=== PATIENT | female | born 1965 | race Caucasian/White ===

== ENCOUNTER → 2017-01-22 | Day surgery (SDC) | payer BC, OTHER ==
[2017-01-16 08:08] VITALS: BMI 36.0
[~2017-01-22] VITALS: Ht 157.5 cm; Wt 90.5 kg
[~2017-01-22] MED LIST: A & D OINTMENT EXT; BIMA0.01 OPB; BRIN3SUS OPB; CHOL1000 PO; CITRACAL PO; CRS/10 PO; DICY10CA55 PO; ESCI10TA17 PO; FERR1TAB13 PO; FURO-85 PO; GABA-113 PO; LACT3000 PO; LEVO50TA PO; METO50TA7 PO; MULT-190 PO; MULT-506 PO; ONDANSETRON INJ 2 MG/ML 2 ML VIAL IV PRN; OXYM0.0592 NAE; POLYSOL OPB; POTA10CA28 PO; PRLSR20 PO; TOPI50TA16 PO; TRAZ50TA35 PO; [UNRECOGNIZED DRUG - OTHER] OTB
[2017-01-22 10:15] VITALS: Ht 157.5 cm; Wt 90.5 kg
[2017-01-22 10:24] VITALS: TEMP 36.8
--- NOTE | 2017-01-22 10:32 | Endo History and Physical ---
History & Physical Date of Service: Jan 22, 2017. Chief Complaint: BARRETTS Referring Physician: DR. MOTA History of Present Illness patient with a history of GERD for barretts screening today. Past Surgical History Hx Cardiac Surgery: No Hx Internal Defibrillator: No Hx Pacemaker: No Hx Abdominal Surgery: Yes (HYSTERECTOMY; CHOLECYSTECTOMY; ECRP X2 IN 2012; MRCP ) Hx of Implantable Prosthesis: No Hx Post-Op Nausea and Vomiting: Yes Hx Cancer Surgery: No Hx Thoracic Surgery: No Hx Orthopedic: Yes (SINUS SURG) Hx Urinary Tract Surgery: Yes (CYSTOSCOPY) Social History Smoking Status: Never Smoker Hx Substance Use: No Hx Alcohol Use: No Allergies Coded Allergies: BEE STING (Verified Allergy, Unknown, localized swelling, 01/22/17) Tramadol (Verified Allergy, Unknown, SEVERE MOOD FLUCTUATIONS, 01/22/17) Current Medications Reported Home Medications Medications Dose Route/Sig Max Daily Dose Days Date Category Multivitamin (Multivitamins) Tab 1 Tab PO DAILY 12/14/16 Reported [Bebrox] 1 Drop OTB TID 12/14/16 Reported Ocuvite Preservision (Multivitamins/Minerals) 1 Tab Tab 1 Tab PO BID 12/14/16 Reported Lactaid (Lactase) 3,000 Unit Tab 1 Tab PO DIRECTED PRN 12/14/16 Reported Trazodone (Trazodone HCl) 50 Mg Tab 50 Mg PO HS 12/14/16 Reported Topamax (Topiramate) 50 Mg Tab 50 Mg PO HS 12/14/16 Reported Crestor (Rosuvastatin Calcium) 10 Mg Tab 10 Mg PO DAILY 12/14/16 Reported Lumigan (Bimatoprost) 0.01 % Miri 1 Drops OPB HS 30 12/14/16 Reported Simbrinza (Brinzolamide-Brimonidine Tartr) 1 Elsy Elsy 1 Drop OPB DIRECTED 12/14/16 Reported Refresh (Polyvinyl Alcohol-Povidone (Op) 1 Renato Renato 1 Drop OPB QID PRN 12/14/16 Reported Bentyl (Dicyclomine Hcl) 10 Mg Cap 10 Mg PO TID 12/14/16 Reported Kp Ferrous Sulfate (Ferrous Sulfate) 325 Mg Tab 1 Tab PO BID 30 12/14/16 Reported [A & D Ointment] 1 Appln EXT DAILY PRN 12/14/16 Reported Nasal [place] (Oxymetazoline Hcl) 0.05 % Spr 1 [place] ELIZA DIRECTED PRN 12/14/16 Reported Lexapro (Escitalopram Oxalate) 10 Mg Tab 10 Mg PO DAILY 12/14/16 Reported Prilosec (Omeprazole) 20 Mg Capcr 20 Mg PO BID 12/14/16 Reported Lasix (Furosemide) 20 Mg Tab 20 Mg PO DAILY 12/14/16 Reported [Citracal] 1 Tbs PO QAM 12/14/16 Reported Vitamin D3 (Cholecalciferol) 1,000 Unit Tab 1 Tab PO DAILY 90 12/10/16 Reported Micro-K Ext Rel (Potassium Chloride) 10 Meq Capcr 10 Meq PO DAILY 09/20/16 Reported Neurontin (Gabapentin) 300 Mg Cap 300 Mg PO TID 11/10/13 Reported Toprol-Xl (Metoprolol Succinate) 50 Mg Tabcr 50 Mg PO QAM 05/08/13 Reported Synthroid (Levothyroxine Sodium) 50 Mcg Tab 50 Mcg PO DAILY 03/24/13 Reported Vital Signs Weight (Kilograms): 90.45 Height (Feet): 5 Height (Inches): 2 Date Time Temp Pulse Resp B/P Pulse Ox O2 Delivery O2 Flow Rate FiO2 01/22/17 10:24 36.8 91 18 187/86 95 Room Air Physical Exam General Appearance: no apparent distress Respiratory/Chest: Auscultation: deminished air movement Cardiovascular: Heart Auscultation: II/ ALEXIS Abdomen: Inspection & Palpation: soft Assessment and Plan EGD for screening of Barretts Esophagus. Plan EGD today
--- NOTE | 2017-01-22 10:58 | GI REPORT ---
Procedure Date: 01/22/2017 10:14 AM Procedure: Upper GI endoscopy Indications: Epigastric abdominal pain, Follow-up of Rollins's esophagus Medicines: Monitored Anesthesia Care Complications: No immediate complications. Estimated blood loss: Minimal. Estimated Blood Loss: Estimated blood loss was minimal. Procedure: Pre-Anesthesia Assessment: - Prior to the procedure, a History and Physical was performed, and patient medications, allergies and sensitivities were reviewed. The patient's tolerance of previous anesthesia was reviewed. - The risks and benefits of the procedure and the sedation options and risks were discussed with the patient. All questions were answered and informed consent was obtained. - Patient identification and proposed procedure were verified prior to the procedure by the physician, the nurse and the public affairs specialist. The procedure was verified in the procedure room. - Pre-procedure physical examination revealed no contraindications to sedation. - ASA Grade Assessment: III - A patient with severe systemic disease. - After reviewing the risks and benefits, the patient was deemed in satisfactory condition to undergo the procedure. - The anesthesia plan was to use monitored anesthesia care (MAC). - Immediately prior to administration of medications, the patient was re-assessed for adequacy to receive sedatives. - The heart rate, respiratory rate, oxygen saturations, blood pressure, adequacy of pulmonary ventilation, and response to care were monitored throughout the procedure. - The physical status of the patient was re-assessed after the procedure. After obtaining informed consent, the endoscope was passed under direct vision. Throughout the procedure, the patient's blood pressure, pulse, and oxygen saturations were monitored continuously. The scope was introduced through the mouth, and advanced to the third part of duodenum. The upper GI endoscopy was accomplished without difficulty. The patient tolerated the procedure well. Findings: The upper third of the esophagus and middle third of the esophagus were normal. The esophagus and gastroesophageal junction were examined with white light. There were esophageal mucosal changes consistent with Rollins's esophagus. These changes involved the mucosa at the upper extent of the gastric folds (38 cm from the incisors) extending to the Z-line (36 cm from the incisors). Circumferential salmon-colored mucosa was present from 36 to 38 cm. The maximum longitudinal extent of these esophageal mucosal changes was 2 cm in length. Mucosa was biopsied with a cold forceps for histology. One specimen bottle was sent to pathology. Estimated blood loss was minimal. A small hiatus hernia was found. The proximal extent of the gastric folds (end of tubular esophagus) was 38 cm from the incisors. The hiatal narrowing was 40 cm from the incisors. The Z-line was 36 cm from the incisors. Diffuse mild inflammation characterized by erythema and granularity was found in the entire examined stomach. Biopsies were taken with a cold forceps for histology. Estimated blood loss was minimal. The duodenal bulb and 2nd part of the duodenum were normal. Impression: - Normal upper third of esophagus and middle third of esophagus. - Esophageal mucosal changes consistent with Rollins's esophagus. Biopsied. - Small hiatus hernia. - Gastritis. Biopsied. - Normal duodenal bulb and 2nd part of the duodenum. Recommendation: - Discharge patient to home (ambulatory). - Advance diet as tolerated today. - Await pathology results. - Repeat the upper endoscopy in 3 years for surveillance based on pathology results. - Continue present medications. Brady Ordoñez D.O. Brady Ordoñez, 01/22/2017 10:58:35 AM This report has been signed electronically. Note Initiated On: 01/22/2017 10:14 AM I attest to the content of the Intraoperative Record and orders documented therein, exceptions below
--- NOTE | 2017-01-22 11:00 | Discharge Instructions ---
Endoscopy Patient Instructions Date / Procedure(s) Performed Jan 22, 2017. EGD Allergy Information Coded Allergies: BEE STING (Verified Allergy, Unknown, localized swelling, 01/22/17) Tramadol (Verified Allergy, Unknown, SEVERE MOOD FLUCTUATIONS, 01/22/17) Discharge Date / Findings Jan 22, 2017. Small hiatal hernia 2 cm segment consistent with Barretts Esophagus Mild gastritis (likely related to medications) Medication Instructions Stopped Medication(s): PT. STOPPED EVERYTHING THIS MORNING. PT. STOPPED IRON 1 WEEK AGO. Reported Home Medications Medications Dose Route/Sig Max Daily Dose Days Date Category Multivitamin (Multivitamins) Tab 1 Tab PO DAILY 12/14/16 Reported [Bebrox] 1 Drop OTB TID 12/14/16 Reported Ocuvite Preservision (Multivitamins/Minerals) 1 Tab Tab 1 Tab PO BID 12/14/16 Reported Lactaid (Lactase) 3,000 Unit Tab 1 Tab PO DIRECTED PRN 12/14/16 Reported Trazodone (Trazodone HCl) 50 Mg Tab 50 Mg PO HS 12/14/16 Reported Topamax (Topiramate) 50 Mg Tab 50 Mg PO HS 12/14/16 Reported Crestor (Rosuvastatin Calcium) 10 Mg Tab 10 Mg PO DAILY 12/14/16 Reported Lumigan (Bimatoprost) 0.01 % Miri 1 Drops OPB HS 30 12/14/16 Reported Simbrinza (Brinzolamide-Brimonidine Tartr) 1 Elsy Elsy 1 Drop OPB DIRECTED 12/14/16 Reported Refresh (Polyvinyl Alcohol-Povidone (Op) 1 Renato Renato 1 Drop OPB QID PRN 12/14/16 Reported Bentyl (Dicyclomine Hcl) 10 Mg Cap 10 Mg PO TID 12/14/16 Reported Kp Ferrous Sulfate (Ferrous Sulfate) 325 Mg Tab 1 Tab PO BID 30 12/14/16 Reported [A & D Ointment] 1 Appln EXT DAILY PRN 12/14/16 Reported Nasal [place] (Oxymetazoline Hcl) 0.05 % Spr 1 [place] ELIZA DIRECTED PRN 12/14/16 Reported Lexapro (Escitalopram Oxalate) 10 Mg Tab 10 Mg PO DAILY 12/14/16 Reported Prilosec (Omeprazole) 20 Mg Capcr 20 Mg PO BID 12/14/16 Reported Lasix (Furosemide) 20 Mg Tab 20 Mg PO DAILY 12/14/16 Reported [Citracal] 1 Tbs PO QAM 12/14/16 Reported Vitamin D3 (Cholecalciferol) 1,000 Unit Tab 1 Tab PO DAILY 90 12/10/16 Reported Micro-K Ext Rel (Potassium Chloride) 10 Meq Capcr 10 Meq PO DAILY 09/20/16 Reported Neurontin (Gabapentin) 300 Mg Cap 300 Mg PO TID 11/10/13 Reported Toprol-Xl (Metoprolol Succinate) 50 Mg Tabcr 50 Mg PO QAM 05/08/13 Reported Synthroid (Levothyroxine Sodium) 50 Mcg Tab 50 Mcg PO DAILY 03/24/13 Reported Provider Instructions Activity Restrictions - No exercising or heavy lifting for 24 hours. - Do not drink alcohol the day of the procedure. - Do not drive a car or operate machinery until the day after the procedure. - Do not make any important decisions or sign important papers in 24 hours after the procedure. Following Day: - Return to full activity which may include returning to work/school. Diet Start your diet with liquids and light foods (jello, soup, juice, toast). Then eat your usual diet if not nauseated. Treatment For Common After Affects For mild abdominal pain, bloating, or excessive gas: - Rest - Eat lightly - Lie on right side Follow-Up Information Follow-up with DR. MOTA as scheduled Await pathology results Repeat EGD in 3 years if found to have intestinal metaplasia. Anesthesia Information What You Should Know You have had a procedure that required some medicine to reduce anxiety and discomfort. This treatment is called moderate sedation. After receiving the treatment, you may be sleepy, but you will be able to breathe on your own. The effects of the treatment may last for several hours. Follow these instructions along with Activity/Diet recommendations noted above: * Do NOT do anything where dizziness or clumsiness would be dangerous. * Rest quietly at home today, then you can be up and about tomorrow. * Have a responsible person stay with you the rest of today. * You may have had an I.V. today. If so, you may take the dressing off later today. Recommendations Call your doctor if: * Trouble breathing * Continuous vomiting for more than 24 hours * Temperature above 101 degrees * Severe abdominal pain or bloating * Pain not relieved by pain medicine ordered * There is increased drainage or redness from any incision * A large amount of rectal bleeding greater than 2-3 tablespoons. (If you had a polyp/s removed or have hemorrhoids, a small amount of blood - from the rectum is to be expected.) * You have any unanswered questions or concerns. IN THE EVENT OF A SERIOUS EMERGENCY, GO TO THE NEAREST EMERGENCY ROOM Your discharge instructions were prepared by provider Brady Ordoñez. Patient Instructions Signature Page Rosa Isela Cee Patient (or Guardian) Signature/Date: I have read and understand the instructions given to me by my caregivers. Caregiver/RN/Doctor Signature/Date: The above-named patient and/or guardian has received patient instructions on this date. + Original Patient Signature Page (only) stays with chart. Please make copy for patient.
[2017-01-22 11:33] VITALS: BP 166/79; PULSE 77; O2SAT 96
--- NOTE | 2017-01-22 15:25 | Anesthesiology Progress Note ---
Anesthesia Post Op Note Date & Time Jan 22, 2017 at 15:25 Vital Signs Pain Intensity: 0 Vital Signs Past 12 Hours Date Time Temp Pulse Resp B/P Pulse Ox O2 Delivery O2 Flow Rate FiO2 01/22/17 11:33 77 18 166/79 96 Room Air 01/22/17 11:24 79 18 162/84 96 Room Air 01/22/17 11:10 81 18 178/93 98 Room Air 01/22/17 11:00 88 18 162/94 97 Room Air 01/22/17 10:24 36.8 91 18 187/86 95 Room Air Notes Mental Status: alert / awake / arousable, participated in evaluation Pt Amnestic to Procedure: Yes Nausea / Vomiting: adequately controlled Pain: adequately controlled Airway Patency, RR, SpO2: stable & adequate BP & HR: stable & adequate Hydration State: stable & adequate Anesthetic Complications: no major complications apparent
== END | disposition home or self-care (01) ==
LOC: C.GI 09:43
PROVIDERS: ATTEND Internal Medicine Gastroenterology
DX: K29.70 Gastritis, unspecified, without bleeding (principal); K22.70 Barrett's esophagus without dysplasia; K44.9 Diaphragmatic hernia without obstruction or gangrene; K20.9 Esophagitis, unspecified; G47.33 Obstructive sleep apnea (adult) (pediatric); Z90.710 Acquired absence of both cervix and uterus; Z90.49 Acquired absence of other specified parts of digestive tract; Z68.36 Body mass index [BMI] 36.0-36.9, adult

== ENCOUNTER 2021-02-19 14:18 | Inpatient (IN) ==
[2021-02-19] MEDS ORDERED: ONDANSETRON INJ 2 MG/ML 2 ML VIAL IV STA (14:55)
[2021-02-19] MEDS ORDERED: KETOROLAC TROMETHAMINE 15 MG/ML VIAL IV STA (14:55)
[2021-02-19] MEDS ORDERED: SODIUM CHLORIDE 0.9% 1000ML 1,000 ML IV SCH (15:00)
--- NOTE | 2021-02-19 15:14 | Emergency Department Note ---
Impression & Plan Hypertensive urgency, Left thigh pain, Vomiting ED Provider Note NAME: RAFAEL HAMMOND AGE: 55 SEX: F : 1965 ARRIVES VIA: Walk-In INFORMANT: [Patient][caregiver] ED PROVIDER(S): [Art Gracia MD] CHIEF COMPLAINT: Leg pain HISTORY OF PRESENT ILLNESS: The patient is a 55-year-old female presents to the ER with left thigh pain laterally that has been present all day. She was given 2 doses of Tylenol throughout the day and this has not helped. She rates the pain as severe. She did vomit one time. Patient is a poor historian. She is part of the skills program. Her caregiver is at bedside. There has been no fall or trauma. No contusion or rash noted. She has no history of DVT or issues with this left leg. No further history obtainable given the patient's mental state. REVIEW OF SYSTEMS: Unobtainable given the patient's mental state. PMHx/PSHx: See Below SOCIAL HISTORY: See Below. PHYSICAL EXAM: GENERAL: Patient is in no acute distress. HEENT: No acute trauma, normocephalic atraumatic, mucous membranes moist, no nasal congestion, no scleral icterus. NECK: No stridor, no adenopathy, no meningismus, trachea is midline. LUNGS: Clear to auscultation bilaterally, no wheeze, no rhonchi, breath sounds equal. HEART: 2/6 systolic murmur, regular rate and rhythm. ABDOMEN: Soft, mildly tender along the left lower quadrant, bowel sounds are hyperactive. No peritonitis. No hernia noted. EXTREMITIES: No cyanosis or edema, full range of motion of all the joints without pain or difficulty, no signs for acute trauma. She has a strong distal left lower extremity dorsalis pedis pulse. There is no rash along the left thigh. I cannot produce her pain with palpation or with movement of the hip or knee. NEUROLOGIC: Awake and alert, no acute motor or sensory deficits, no focal weakness. SKIN: No rash, no jaundice, no diaphoresis. DIFFERENTIAL DIAGNOSIS: Muscular strain, fracture, dislocation, DVT, joint effusion, infection, soft tissue injury, vascular compromise, diverticulitis, hernia, UTI, as well as other pathologies. EMERGENCY DEPARTMENT COURSE/PROCEDURES: ECG: Indication was hypertension. The ECG shows a normal sinus rhythm with a rate of 94. There is a left bundle branch block present. The QTc is 512. There is no acute ST elevation, no PVCs. There is a potential old anterior lateral infarct. Compared to an ECG from 28 September 2018, the QRS has widened. Continuous Cardiac Monitoring: An order was placed for continuous cardiac monitoring. The monitor shows a rate of 98 with normal sinus rhythm. MEDICAL DECISION MAKING: There is no leukocytosis or concerning anemia. There is a normal platelet cou nt. No significant electrolyte abnormality or kidney failure. No worrisome liver enzyme elevation. The patient appears to be in a euthyroid state. ECG shows a sinus rhythm, no acute ischemia. Cardiac enzyme testing x1 is not consistent with acute cardiac injury. Urinalysis does not show infection. Left femur film does not show any fracture or bony dislocation. Left leg ultrasound does not show any evidence for DVT. Abdominal and pelvis CT does not show any acute diverticulitis or acute surgical process. They did notice some pleural effusions and a pericardial effusion. On exam, I could not elicit any discomfort with palpation or movement of the left thigh/leg. There was no rash. The patient received IV saline for hydration. She was given IV Zofran, IV Toradol. The patient's blood pressure was noted to be quite high. It did not spontaneously decrease. She was given IV labetalol, a second dose of labetalol was given IV. Since we were concerned she may have vomited her metoprolol this morning, she was given 50 mg of metoprolol orally. She was given IV hydralazine. The patient blood pressure is still quite high. She has been here now for over 6 hours and her pressure is really not well controlled. I do not feel comfortable with discharge back to skills. I think hospitalization is warranted. How this high blood pressure fits into her leg pain is unclear and t pedro may be unrelated. Of note, in regard to the leg pain. The patient has been up to the bathroom several times, she has not been limping or complaining of any leg discomfort. I did speak to the patient and her staff worker. I spoke with case management. The on-call hospitalist was consulted. Past Med/Surg History Medical History Bipolar disorder Blepharitis Colon cancer screening Constipation Depression Diverticular disease Explosive personality disorder GERD (gastroesophageal reflux disease) Glaucoma of both eyes Hyperlipidemia Hypertension Hypothyroidism IBS (irritable bowel syndrome) Mild intellectual disability Pancreatitis Sensorineural hearing loss (SNHL) of both ears Sleep apnea Tongue abnormality h/o tongue surgery Surgical History (Updated 02/23/20 @ 14:59 by Nat Tello) H/O sinus surgery balloon sinuplasty S/P cholecystectomy Family History Other No pertinent family history Social History Smoking Status: Never smoker Preferred Language: Korean Communication Ability: Impaired Geriatric Social Worker Required: No Beliefs That Will Affect Care: None Current Living Situation: Other Current Living Situation Comment: Lives at [facility] on [address] in [place] Feels Safe at Home: Yes Allergies Allergies Allergy/AdvReac Type Severity Reaction Status Date / Time tramadol Allergy Severe SEVERE Verified 02/19/21 15:48 MOOD FLUCTUATIONS bee venom protein (honey bee) Allergy Intermediate localized Verified 02/19/21 15:48 swelling pollen extracts Allergy Intermediate ITCHY Verified 02/19/21 15:48 EYES, SNEEZING, CONGESTION clonazepam [From Klonopin] Allergy Mild increase Verified 02/19/21 15:48 in anxiety/agitation lactose Allergy Mild Gastrointestinal Verified 02/19/21 15:48 Upset Home Meds Home Medications Medication Instructions Recorded Confirmed Ocuvite 1 cap PO BID 08/30/18 02/19/21 acetaminophen [Tylenol] 650 mg PO Q6H PRN 08/30/18 02/19/21 bimatoprost 1 drp OPB HS 08/30/18 02/19/21 carbamide peroxide [Debrox] 5 drp OTIC (EAR) .DAILY UD 08/30/18 02/19/21 cholecalciferol (vitamin D3) 1,000 unit PO DAILY 08/30/18 02/19/21 [Vitamin D3] colestipol 2 g PO TID 08/30/18 02/19/21 dextromethorphan polistirex 10 ml PO Q12H PRN 08/30/18 02/19/21 [Delsym 12 hour] escitalopram oxalate 20 mg PO DAILY 08/30/18 02/19/21 ferrous sulfate 324 mg PO BID 08/30/18 02/19/21 fluticasone propionate 2 spray INTRANASAL DAILY 08/30/18 02/19/21 gabapentin 400 mg PO TID 08/30/18 02/19/21 levothyroxine 50 mcg PO DAILY 08/30/18 02/19/21 metoprolol succinate 50 mg PO DAILY 08/30/18 02/19/21 multivitamin 1 tab PO DAILY 08/30/18 02/19/21 omeprazole 20 mg PO QAM 08/30/18 02/19/21 potassium chloride 10 meq PO DAILY 08/30/18 02/19/21 rosuvastatin 10 mg PO DAILY 08/30/18 02/19/21 trazodone 50 mg PO HS 08/30/18 02/19/21 vits A and D-white pet-lanolin [A 1 applic TOPICAL DIRECTED PRN 08/30/18 02/19/21 and D (merlyn, pet)] aripiprazole [Abilify] 2 mg PO QPM 09/28/18 02/19/21 sucralfate [Carafate] 1 g PO TID 09/28/18 02/19/21 dicyclomine 20 mg PO BID 10/27/18 02/19/21 furosemide [Lasix] 20 mg PO DAILY 10/27/18 02/19/21 lactase [Lactaid] 3,000 unit PO AC 10/27/18 02/19/21 magnesium hydroxide [Milk of 30 ml PO DAILY PRN 10/27/18 02/19/21 Magnesia] ondansetron 4 mg PO Q6 PRN 10/27/18 02/19/21 brinzolamide-brimonidine 1 drp OPB TID 02/19/21 02/19/21 [Simbrinza] carboxymethylcellulose sodium 1 drp OPHTHALMIC (EYE) TID 02/19/21 02/19/21 [Refresh Liquigel] sodium chloride [Warrior Saline] 1 spray INTRANASAL HS 02/19/21 02/19/21 Results & Data (ED) Vital Signs Vital Signs - 24 hr 02/19/21 14:23 02/19/21 15:30 02/19/21 15:45 Temperature 36.6 C Temperature Source Oral Pulse Rate 84 78 79 Pulse Rate from SpO2 Sensor 78 79 Respiratory Rate 18 17 22 Blood Pressure 207/103 H 205/114 H Blood Pressure Mean 137 144 Pulse Oximetry 94 97 92 Oxygen Delivery Method Room Air Sepsis Recent Fever Within 48 Hours No Sepsis New/Unexplained Change in Mental Status No Sepsis Action Taken by Nursing No Action Required 02/19/21 15:50 02/19/21 16:10 02/19/21 16:20 Temperature Temperature Source Pulse Rate 81 85 88 Pulse Rate from SpO2 Sensor 80 85 89 Respiratory Rate 19 21 16 Blood Pressure Blood Pressure Mean Pulse Oximetry 92 91 93 Oxygen Delivery Method Sepsis Recent Fever Within 48 Hours Sepsis New/Unexplained Change in Mental Status Sepsis Action Taken by Nursing 02/19/21 16:30 02/19/21 16:40 02/19/21 16:50 Temperature Temperature Source Pulse Rate 85 83 88 Pulse Rate from SpO2 Sensor 84 83 87 Respiratory Rate 16 22 24 Blood Pressure 196/137 H Blood Pressure Mean 156 Pulse Oximetry 93 94 95 Oxygen Delivery Method Sepsis Recent Fever Within 48 Hours Sepsis New/Unexplained Change in Mental Status Sepsis Action Taken by Nursing 02/19/21 16:57 02/19/21 17:00 02/19/21 17:01 Temperature Temperature Source Pulse Rate 86 89 93 H Pulse Rate from SpO2 Sensor 85 90 94 H Respiratory Rate 21 21 20 Blood Pressure 184/107 H 197/115 H Blood Pressure Mean 132 142 Pulse Oximetry 95 92 93 Oxygen Delivery Method Sepsis Recent Fever Within 48 Hours Sepsis New/Unexplained Change in Mental Status Sepsis Action Taken by Nursing 02/19/21 17:10 02/19/21 17:20 02/19/21 17:22 Temperature Temperature Source Pulse Rate 101 H 99 H 99 H Pulse Rate from SpO2 Sensor 97 H 97 H 97 H Respiratory Rate 21 20 16 Blood Pressure 189/113 H Blood Pressure Mean 138 Pulse Oximetry 92 92 92 Oxygen Delivery Method Sepsis Recent Fever Within 48 Hours Sepsis New/Unexplained Change in Mental Status Sepsis Action Taken by Nursing 02/19/21 17:57 02/19/21 18:03 02/19/21 18:04 Temperature Temperature Source Pulse Rate 98 H 89 93 H Pulse Rate from SpO2 Sensor 89 93 H Respiratory Rate 21 22 23 Blood Pressure 202/112 H Blood Pressure Mean 142 Pulse Oximetry 94 94 Oxygen Delivery Method Sepsis Recent Fever Within 48 Hours Sepsis New/Unexplained Change in Mental Status Sepsis Action Taken by Nursing 02/19/21 18:10 02/19/21 18:20 02/19/21 18:30 Temperature Temperature Source Pulse Rate 97 H 102 H 97 H Pulse Rate from SpO2 Sensor 97 H 106 H 97 H Respiratory Rate 22 22 21 Blood Pressure 202/110 H Blood Pressure Mean 140 Pulse Oximetry 94 93 92 Oxygen Delivery Method Sepsis Recent Fever Within 48 Hours Sepsis New/Unexplained Change in Mental Status Sepsis Action Taken by Nursing 02/19/21 18:31 02/19/21 18:40 02/19/21 18:50 Temperature Temperature Source Pulse Rate 98 H 98 H 97 H Pulse Rate from SpO2 Sensor 98 H 98 H 97 H Respiratory Rate 20 21 19 Blood Pressure Blood Pressure Mean Pulse Oximetry 93 94 93 Oxygen Delivery Method Sepsis Recent Fever Within 48 Hours Sepsis New/Unexplained Change in Mental Status Sepsis Action Taken by Nursing 02/19/21 19:00 02/19/21 19:01 02/19/21 19:10 Temperature Temperature Source Pulse Rate 97 H 98 H 99 H Pulse Rate from SpO2 Sensor 98 H 96 H 100 H Respiratory Rate 19 20 20 Blood Pressure 212/134 H Blood Pressure Mean 160 Pulse Oximetry 91 93 93 Oxygen Delivery Method Sepsis Recent Fever Within 48 Hours Sepsis New/Unexplained Change in Mental Status Sepsis Action Taken by Nursing 02/19/21 19:20 02/19/21 19:30 02/19/21 19:31 Temperature Temperature Source Pulse Rate 96 H 95 H 95 H Pulse Rate from SpO2 Sensor 96 H 95 H 95 H Respiratory Rate 22 20 22 Blood Pressure 190/121 H Blood Pressure Mean 144 Pulse Oximetry 93 93 93 Oxygen Delivery Method Sepsis Recent Fever Within 48 Hours Sepsis New/Unexplained Change in Mental Status Sepsis Action Taken by Nursing 02/19/21 19:40 02/19/21 19:50 02/19/21 20:00 Temperature Temperature Source Pulse Rate 95 H 101 H 97 H Pulse Rate from SpO2 Sensor 95 H 101 H 97 H Respiratory Rate 19 19 20 Blood Pressure Blood Pressure Mean 179 Pulse Oximetry 92 93 93 Oxygen Delivery Method Sepsis Recent Fever Within 48 Hours Sepsis New/Unexplained Change in Mental Status Sepsis Action Taken by Nursing 02/19/21 20:07 02/19/21 20:08 02/19/21 20:10 Temperature Temperature Source Pulse Rate 97 H 98 H 98 H Pulse Rate from SpO2 Sensor 97 H 98 H 97 H Respiratory Rate 20 19 19 Blood Pressure 183/98 H Blood Pressure Mean 126 Pulse Oximetry 92 92 91 Oxygen Delivery Method Sepsis Recent Fever Within 48 Hours Sepsis New/Unexplained Change in Mental Status Sepsis Action Taken by Nursing 02/19/21 20:20 02/19/21 20:30 02/19/21 20:31 Temperature Temperature Source Pulse Rate 97 H Pulse Rate from SpO2 Sensor 98 H 98 H Respiratory Rate 17 17 22 Blood Pressure 179/100 H Blood Pressure Mean 126 Pulse Oximetry 92 92 94 Oxygen Delivery Method Sepsis Recent Fever Within 48 Hours Sepsis New/Unexplained Change in Mental Status Sepsis Action Taken by Nursing 02/19/21 20:40 Temperature Temperature Source Pulse Rate 95 H Pulse Rate from SpO2 Sensor 94 H Respiratory Rate 19 Blood Pressure Blood Pressure Mean Pulse Oximetry 92 Oxygen Delivery Method Sepsis Recent Fever Within 48 Hours Sepsis New/Unexplained Change in Mental Status Sepsis Action Taken by Assisted Medications Current Medication List: was personally reviewed by me Laboratory Data Attestation: I reviewed the patient's lab results. Result diagrams: 02/19/21 15:12 02/19/21 15:12 Lab Results 02/19/21 02/19/21 02/19/21 Range/Units 15:12 15:12 15:12 WBC 6.57 (4.8-10.8) K/uL RBC 4.87 (4.2-5.4) M/uL Hgb 14.7 (12.0-16.0) g/dL Hct 41.7 (37-47) % MCV 85.6 (80-100) fL MCH 30.2 (25-34) pg MCHC 35.3 (32-36) g/dL RDW Std Deviation 39.8 (36.4-46.3) fL RDW Coeff of Lizette 12.6 (11.5-14.5) % Plt Count 162 (130-400) K/uL MPV 9.8 (7.4-10.4) fL Immature Gran % (Auto) 0.2 % Neut % (Auto) 83.4 % Lymph % (Auto) 12.2 % Williams % (Auto) 4.0 % Eos % (Auto) 0.0 % Baso % (Auto) 0.2 % Neut # (Auto) 5.49 (1.4-6.5) K/uL Lymph # (Auto) 0.80 L (1.2-3.4) K/uL Williams # (Auto) 0.26 (0.11-0.59) K/uL Eos # (Auto) 0.00 (0-0.5) K/uL Baso # (Auto) 0.01 (0-0.2) K/uL Immature Gran # (Auto) 0.01 (0.00-0.02) K/uL Sodium 137 (136-145) mmol/L Potassium 3.6 (3.5-5.1) mmol/L Chloride 105 (98-107) mmol/L Carbon Dioxide 25 (21-32) mmol/L Anion Gap 7.0 (3-11) BUN 9 (7-18) mg/dl Creatinine 0.66 (0.6-1.2) mg/dl Est Cr Clr Drug Dosing 85.3 ml/min Est GFR ( Amer) 114.5 Est GFR (Non-Af Amer) 98.8 BUN/Creatinine Ratio 13.3 (10-20) Glucose 126 H (70-99) mg/dl Calcium 9.4 (8.5-10.1) mg/dl Magnesium 1.9 (1.8-2.4) mg/dl Total Bilirubin 1.2 H (0.2-1) mg/dl AST 16 (15-37) U/L ALT 16 (12-78) U/L Alkaline Phosphatase 117 (45-117) U/L Troponin I < 0.015 (0-0.045) ng/ml Total Protein 7.3 (6.4-8.2) gm/dl Albumin 4.0 (3.4-5.0) gm/dl Globulin 3.3 (2.5-4.0) gm/dl Albumin/Globulin Ratio 1.2 (0.9-2) TSH 2.070 (0.300-4.500) uIu/ml Urine Color Urine Appearance (Clear) Urine pH (4.5-7.5) Ur Specific [place] (1.000-1.030) Urine Protein (Negative) Urine Glucose (UA) (Negative) Urine Ketones (Negative) Urine Blood (Negative) Urine Nitrite (Negative) Urine Bilirubin (Negative) Urine Urobilinogen (Negative) Ur Leukocyte Esterase (Negative) COVID-19 Eval Order 02/19/21 02/19/21 Range/Units 15:46 20:40 WBC (4.8-10.8) K/uL RBC (4.2-5.4) M/uL Hgb (12.0-16.0) g/dL Hct (37-47) % MCV (80-100) fL MCH (25-34) pg MCHC (32-36) g/dL RDW Std Deviation (36.4-46.3) fL RDW Coeff of Lizette (11.5-14.5) % Plt Count (130-400) K/uL MPV (7.4-10.4) fL Immature Gran % (Auto) % Neut % (Auto) % Lymph % (Auto) % Williams % (Auto) % Eos % (Auto) % Baso % (Auto) % Neut # (Auto) (1.4-6.5) K/uL Lymph # (Auto) (1.2-3.4) K/uL Williams # (Auto) (0.11-0.59) K/uL Eos # (Auto) (0-0.5) K/uL Baso # (Auto) (0-0.2) K/uL Immature Gran # (Auto) (0.00-0.02) K/uL Sodium (136-145) mmol/L Potassium (3.5-5.1) mmol/L Chloride (98-107) mmol/L Carbon Dioxide (21-32) mmol/L Anion Gap (3-11) BUN (7-18) mg/dl Creatinine (0.6-1.2) mg/dl Est Cr Clr Drug Dosing ml/min Est GFR ( Amer) Est GFR (Non-Af Amer) BUN/Creatinine Ratio (10-20) Glucose (70-99) mg/dl Calcium (8.5-10.1) mg/dl Magnesium (1.8-2.4) mg/dl Total Bilirubin (0.2-1) mg/dl AST (15-37) U/L ALT (12-78) U/L Alkaline Phosphatase (45-117) U/L Troponin I (0-0.045) ng/ml Total Protein (6.4-8.2) gm/dl Albumin (3.4-5.0) gm/dl Globulin (2.5-4.0) gm/dl Albumin/Globulin Ratio (0.9-2) TSH (0.300-4.500) uIu/ml Urine Color Yellow Urine Appearance Clear (Clear) Urine pH 8.0 H (4.5-7.5) Ur Specific [place] 1.011 (1.000-1.030) Urine Protein Negative (Negative) Urine Glucose (UA) Negative (Negative) Urine Ketones Trace H (Negative) Urine Blood Negative (Negative) Urine Nitrite Negative (Negative) Urine Bilirubin Negative (Negative) Urine Urobilinogen Negative (Negative) Ur Leukocyte Esterase Negative (Negative) COVID-19 Eval Order CovFluRsv at [facility] Administered Medications Discontinued Medications Hydralazine HCl (Hydralazine Hcl 20 Mg/Ml Vial) 10 mg IV NOW STA Stop: 02/19/21 19:15 Last Admin: 02/19/21 19:40 Dose: 10 mg Documented by: [id number] Sodium Chloride (Nss 1000ml) 1,000 mls @ 999 mls/hr IV .Q1H1M XU Stop: 02/19/21 16:00 Last Infusion: 02/19/21 17:02 Dose: 0 mls/hr Documented by: [id number] Admin: 02/19/21 15:23 Dose: 999 mls/hr Documented by: [id number] Ioversol (Ioversol 100ml) 94 ml IV ONCE ONE Stop: 02/19/21 16:02 Last Admin: 02/19/21 16:02 Dose: 94 ml Documented by: [id number] Ketorolac Tromethamine (Ketorolac Tromethamine 15 Mg/Ml Vial) 15 mg IV NOW STA Stop: 02/19/21 14:56 Last Admin: 02/19/21 15:23 Dose: 15 mg Documented by: [id number] Labetalol HCl (Labetalol Hcl Iv 5 Mg/Ml 20ml) 10 mg IV NOW STA Stop: 02/19/21 16:40 Last Admin: 02/19/21 16:57 Dose: 10 mg Documented by: [id number] Cosigned by: [id number] Labetalol HCl (Labetalol Hcl Iv 5 Mg/Ml 20ml) 10 mg IV NOW STA Stop: 02/19/21 17:17 Last Admin: 02/19/21 18:03 Dose: 10 mg Documented by: [id number] Cosigned by: [id number] Metoprolol Succinate (Metoprolol Succ 50mg Ext Rel Tab) 50 mg PO NOW STA Stop: 02/19/21 18:17 Last Admin: 02/19/21 18:25 Dose: 50 mg Documented by: [id number] Ondansetron HCl (Ondansetron Inj 2 Mg/Ml 2 Ml Vial) 4 mg IV NOW STA Stop: 02/19/21 14:56 Last Admin: 02/19/21 15:23 Dose: 4 mg Documented by: [id number] Imaging Data Radiologist's Impression: XR femur LT 2V routine HISTORY: 55 years-old Female pain acute left hip pain COMPARISON: CT abdomen and pelvis 09/28/2018 TECHNIQUE: 2 views of the left femur FINDINGS: Soft tissue prominence of the lateral thigh. No acute fracture, dislocation, avascular necrosis or significant osteoarthritis. No opaque foreign body. Mild marginal spurring of the knee. IMPRESSION: Soft tissue swelling without acute fracture or dislocation. ABDOMEN AND PELVIS CT WITH IV CONTRAST CT DOSE: 472.27 mGy.cm HISTORY: Acute lower abdominal pain poss divertic TECHNIQUE: Multiaxial CT images of the abdomen and pelvis were performed following the IV administration of 94 cc of Optiray 320, A dose lowering technique was utilized adhering to the principles of ALARA. COMPARISON STUDY: CT abdomen and pelvis 09/28/2018 FINDINGS: Trace pleural effusions. Moderate pericardial effusion measures up to 1.3 cm posteriorly. Groundglass and linear bibasilar consolidative opacities suggest atelectasis. No pneumatosis or pneumoperitoneum. Moderate cardiomegaly. The spleen is upper limits of normal in size. Unremarkable pancreas. Cholecystectomy with intrahepatic and extrahepatic biliary ductal dilation, slightly progressed from comparison and possibly on a postsurgical basis. Unremarkable liver. Patency of the portal vein. Subcentimeter hypodensities of the bilateral kidneys suggestive of cysts. No hydronephrosis. Unremarkable urinary bladder. Hysterectomy. No abdominal aortic aneurysm. Trace abdominal pelvic ascites with mild generalized body wall edema. Mild nonspecific wall thickening of the stomach. Colonic diverticulosis without acute diverticulitis. No bowel obstruction or bowel wall thickening. Appendix is not diagnostically visualized. No acute fracture. IMPRESSION: 1. No bowel obstruction or bowel wall thickening. 2. Cardiomegaly with suggestion of fluid overload including trace pleural effusions, moderate pericardial effusion with trace abdominal pelvic ascites. 3. Colonic diverticulosis without CT evidence of acute diverticulitis. 4. Cholecystectomy. 5. Additional findings as above. US venous doppler LE LT HISTORY: 55 years-old Female pain, poss clot acute pain and swelling of left lower extremity COMPARISON: None TECHNIQUE: Multiple real-time sonographic images of the left lower extremity deep venous structures were obtained assessing grayscale appearance, color and s pectral flow FINDINGS: Normal flow, compressibility, phasicity and augmentation of the left lower e xtremity deep venous structures. IMPRESSION: No sonographic evidence of deep venous thrombosis. Discharge Plan Visit Data Chief Complaint: Leg Injury/Pain Stated Complaint: UPPER LEFT THIGH PAIN ED Provider: Art Gracia Discharge Problem: Hypertensive urgency, Left thigh pain, Vomiting Patient Disposition: Admitted As Inpatient Condition: Good Forms Stand Alone Forms: [facility] Prescriptions Prescriptions: No Action multivitamin Tablet 1 tab PO DAILY RF: 0 potassium chloride 10 mEq capsule, extended release 10 meq PO DAILY RF: 0 dextromethorphan polistirex [Delsym 12 hour] 30 mg/5 mL Suspension,Extended Rel 12 Hr 10 ml PO Q12H PRN (Reason: Cough) RF: 0 acetaminophen [Tylenol] 325 mg Tablet 650 mg PO Q6H PRN (Reason: Pain) RF: 0 trazodone 50 mg tablet 50 mg PO HS RF: 0 metoprolol succinate 50 mg tablet extended release 24 hr 50 mg PO DAILY RF: 0 gabapentin 400 mg capsule 400 mg PO TID RF: 0 levothyroxine 50 mcg tablet 50 mcg PO DAILY RF: 0 carbamide peroxide [Debrox] 6.5 % Drops 5 drp OTIC (EAR) .DAILY UD RF: 0 omeprazole 20 mg capsule,delayed release(DR/EC) 20 mg PO QAM RF: 0 fluticasone propionate 50 mcg/actuation spray,suspension 2 spray Intranasal DAILY RF: 0 colestipol 1 gram tablet 2 g PO TID RF: 0 cholecalciferol (vitamin D3) [Vitamin D3] 1,000 unit Capsule 1,000 unit PO DAILY RF: 0 escitalopram oxalate 20 mg tablet 20 mg PO DAILY RF: 0 rosuvastatin 10 mg tablet 10 mg PO DAILY RF: 0 ferrous sulfate 324 mg (65 mg iron) Tablet,Delayed Release (Dr/Ec) 324 mg PO BID RF: 0 Ocuvite [id number] Capsule 1 cap PO BID RF: 0 vits A and D-white pet-lanolin [A and D (merlyn, pet)] Ointment 1 applic TOPICAL DIRECTED PRN (Reason: Unknown) RF: 0 bimatoprost 0.01 % drops 1 drp OPB HS RF: 0 sucralfate [Carafate] 1 gram Tablet 1 g PO TID RF: 0 aripiprazole [Abilify] 2 mg Tablet 2 mg PO QPM RF: 0 magnesium hydroxide [Milk of Magnesia] 400 mg/5 mL Suspension 30 ml PO DAILY PRN (Reason: Constipation) RF: 0 dicyclomine 20 mg Tablet 20 mg PO BID RF: 0 lactase [Lactaid] 3,000 unit Tablet 3,000 unit PO AC RF: 0 furosemide [Lasix] 20 mg Tablet 20 mg PO DAILY RF: 0 ondansetron 4 mg Tablet,Disintegrating 4 mg PO Q6 PRN (Reason: Nausea) RF: 0 Refresh Liquigel 1 % Drops, Liquid Gel 1 drp OPHTHALMIC (EYE) TID RF: 0 sodium chloride [Warrior Saline] 0.65 % Aerosol,Jackson 1 spray INTRANASAL HS RF: 0 Simbrinza 1-0.2 % drops,suspension 1 drp OPB TID RF: 0 Referrals Referrals: Abdullahi Bowles DO [Primary Care Provider] - Discharge Problem: Vomiting Qualifiers: Vomiting type: unspecified Vomiting Intractability: non-intractable Nausea pr esence: with nausea Qualified Code(s): R11.2 - Nausea with vomiting, unspecified
--- NOTE | 2021-02-19 15:25 | XRay Report ---
XR femur LT 2V routine HISTORY: 55 years-old Female pain acute left hip pain COMPARISON: CT abdomen and pelvis 09/28/2018 TECHNIQUE: 2 views of the left femur FINDINGS: Soft tissue prominence of the lateral thigh. No acute fracture, dislocation, avascular necrosis or si gnificant osteoarthritis. No opaque foreign body. Mild marginal spurring of the knee. IMPRESSION: Soft tissue swelling without acute fracture or dislocation. ACT 112: Negative or not required by law. The above report was generated using voice recognition software. It may contain grammatical, syntax o r spelling errors. Electronically signed by: Jose Hernandez M.D. 02/19/2021 3:24 PM
[2021-02-19 15:28] LABS: Basophils # (auto) 0.01 K/uL (0-0.2); Basophils % (auto) 0.2 %; Hematocrit (blood only) 41.7 % (37-47); Hemoglobin 14.7 g/dL (12.0-16.0); Immature Granulocytes # (auto) 0.01 K/uL (0.00-0.02); Immature Granulocytes % (auto) 0.2 %; Lymphocytes % (auto) 12.2 %; Mean Corpuscular Hemoglobin 30.2 pg (25-34); Mean Corpuscular Hgb Conc 35.3 g/dL (32-36); Mean Corpuscular Volume 85.6 fL (80-100); Mean Platelet Volume 9.8 fL (7.4-10.4); Monocytes # (auto) 0.26 K/uL (0.11-0.59); Neutrophils # (auto) 5.49 K/uL (1.4-6.5); Neutrophils % (auto) 83.4 %; Platelet Count 162 K/uL (130-400); RDW Coefficient of Variation 12.6 % (11.5-14.5); RDW Standard Deviation 39.8 fL (36.4-46.3); Red Blood Count 4.87 M/uL (4.2-5.4); White Blood Count 6.57 K/uL (4.8-10.8)
[2021-02-19 15:49] LABS: Alanine Aminotransferase 16 U/L (12-78); Aspartate Aminotransferase 16 U/L (15-37); BUN Creatinine Ratio 13.3 (10-20); Blood Urea Nitrogen 9 mg/dl (7-18); Calcium 9.4 mg/dl (8.5-10.1); Carbon Dioxide 25 mmol/L (21-32); Chloride 105 mmol/L (98-107); Creatinine Clr Calc Pharmacy 85.3 ml/min; Est GFR (African American) 114.5; Est GFR (Non-African American) 98.8; Glucose 126 mg/dl (70-99); Potassium 3.6 mmol/L (3.5-5.1); Sodium 137 mmol/L (136-145)
[2021-02-19 15:52] LABS: Albumin Globulin Ratio 1.2 (0.9-2); Alkaline Phosphatase 117 U/L (45-117); Bilirubin,Total 1.2 mg/dl (0.2-1); Globulin 3.3 gm/dl (2.5-4.0); Total Protein 7.3 gm/dl (6.4-8.2)
[2021-02-19 15:53] LABS: Appearance Urine Clear (Clear); Bilirubin Urine Negative (Negative); Blood Urine Negative (Negative); Color Urine Yellow; Glucose Urine UA Negative (Negative); Ketones Urine Trace (Negative); Leukocyte Esterase Urine Negative (Negative); Nitrite Urine Negative (Negative); Protein Urine Negative (Negative); Specific Gravity Urine 1.011 (1.000-1.030); Urobilinogen Urine Negative (Negative)
[2021-02-19] MEDS ORDERED: OPTIRAY 320 100ml IV ONE (16:01)
[2021-02-19] MEDS ORDERED: LABETALOL HCL IV 5 MG/ML 20ML IV STA ×2 (16:39→17:16)
--- NOTE | 2021-02-19 16:39 | CT Scan Report ---
ABDOMEN AND PELVIS CT WITH IV CONTRAST CT DOSE: 472.27 mGy.cm HISTORY: Acute lower abdominal pain poss divertic TECHNIQUE: Multiaxial CT images of the abdomen and pelvis were performed following the IV administrat ion of 94 cc of Optiray 320, A dose lowering technique was utilized adhering to the principles of [place] KWADWO. COMPARISON STUDY: CT abdomen and pelvis 09/28/2018 FINDINGS: Trace pleural effusions. Moderate pericardial effusion measures up to 1.3 cm posteriorly. G roundglass and linear bibasilar consolidative opacities suggest atelectasis. No pneumatosis or pneumo peritoneum. Moderate cardiomegaly. The spleen is upper limits of normal in size. Unremarkable pancreas. Cholecystectomy with intrahepati c and extrahepatic biliary ductal dilation, slightly progressed from comparison and possibly on a pos tsurgical basis. Unremarkable liver. Patency of the portal vein. Subcentimeter hypodensities of the bilateral kidneys suggestive of cysts. No hydronephrosis. Unremark able urinary bladder. Hysterectomy. No abdominal aortic aneurysm. Trace abdominal pelvic ascites with mild generalized body wall edema. Mild nonspecific wall thickening of the stomach. Colonic diverticu losis without acute diverticulitis. No bowel obstruction or bowel wall thickening. Appendix is not di agnostically visualized. No acute fracture. IMPRESSION: 1. No bowel obstruction or bowel wall thickening. 2. Cardiomegaly with suggestion of fluid overload including trace pleural effusions, moderate pericar dial effusion with trace abdominal pelvic ascites. 3. Colonic diverticulosis without CT evidence of acute diverticulitis. 4. Cholecystectomy. 5. Additional findings as above. ACT 112: Negative or not required by law. The above report was generated using voice recognition software. It may contain grammatical, syntax o r spelling errors. Electronically signed by: Jose Hernandez M.D. 02/19/2021 4:38 PM
--- NOTE | 2021-02-19 18:08 | Ultrasound Report ---
US venous doppler LE LT HISTORY: 55 years-old Female pain, poss clot acute pain and swelling of left lower extremity COMPARISON: None TECHNIQUE: Multiple real-time sonographic images of the left lower extremity deep venous structures w ere obtained assessing grayscale appearance, color and spectral flow FINDINGS: Normal flow, compressibility, phasicity and augmentation of the left lower extremity deep venous stru ctures. IMPRESSION: No sonographic evidence of deep venous thrombosis. ACT 112: Negative or not required by law. The above report was generated using voice recognition software. It may contain grammatical, syntax o r spelling errors. Electronically signed by: Jose Hernandez M.D. 02/19/2021 6:07 PM
[2021-02-19] MEDS ORDERED: METOPROLOL SUCC 50MG EXT REL TAB PO STA (18:16)
[2021-02-19] MEDS ORDERED: hydrALAZINE HCL 20 MG/ML VIAL IV STA (19:14)
[2021-02-19 20:04] LABS: Troponin I < 0.015 ng/ml (0-0.045)
[2021-02-19 21:03] LABS: Magnesium 1.9 mg/dl (1.8-2.4); Thyroid Stimulating Hormone 2.07 uIu/ml (0.300-4.500)
[2021-02-19 21:27] LABS: Influenza A virus by PCR Negative (Neg); Influenza B virus by PCR Negative (Neg); RSV by PCR Negative (Neg); SARS CoV2 RNA(COVID-19) InHosp NEGATIVE (Negative)
[2021-02-19] MEDS ORDERED: oxyCODONE HCL IR 5 MG TAB (IMMEDIATE RELEASE) PO STA (21:29)
[2021-02-19] MEDS ORDERED: traMADol HCL 50 MG TABLET PO STA (21:29)
--- NOTE | 2021-02-19 21:30 | History & Physical Report ---
Date of Service February 19, 2021 Assessment & Plan (1) Hypertensive urgency: Asymptomatic HTN urgency Secondary to left thigh pain (possible contusion on initial left femoral CT read) Incidental finding of pericardial effusion on CT abdomen pelvis hyperlipidemia on statin Rx hx CVA as per records CELESTINA on CPAP/difficult intubation, hx cerebral palsy/intellectual impairment as per records primary hyperparathyroidism as per records, patient scheduled to see [facility] Endocrinology outpatient April 2021 Hyperglycemia, possible prediabetes hemoglobin A1c of 6 in 2012 PCU Titrate home beta-tita Initiate lisinopril if still uncontrolled Analgesia TTE RE incidental CT finding of pericardial effusion May need inpatient Cardiology input. Update hemoglobin A1c PT OT eval DVT prophylaxis per Lovenox subcu Full code Caregiver requesting for patient's [id number] to be updated of plan of care. Ms. Annamaria Cooney, contact #[phone]. Text document was generated using [employer] voice recognition software. It may contain grammatical or spelling errors. Kindly contact undersigned for clarification of any documentation item in question. History of Present Illness Chief Complaint: Left thigh pain Primary Care Provider: Abdullahi Bowles, DO History obtained from the patient, caregiver, and records, Patient is a reliable historian. Medical history significant for hypertension, hyperlipidemia, PSVT, hx CVA, CELESTINA on CPAP, difficult intubation, Cerebral palsy/intellectual impairment as per records, primary hyperparathyroidism as per records, mood disorder, glaucoma. Last confinement April 2018 for sepsis secondary to RLE cellulitis. Today patient noted achy left thigh pain somewhat worse with motion. No recollection of trauma. Patient denies headache, chest pain, S OB. Achy abdominal pain with some nausea, no emesis as per patient. Good BM. SBP 200s upon arrival at the ER. MEDICAL HISTORY: As above. SURGERIES: She has had breast biopsy, cystoscopy, cholecystectomy, sinus surgery, endometriosis surgery, DIANA. FAMILY HISTORY: Ovarian cancer, DM, heart disease PERSONAL AND SOCIAL HISTORY: Nonsmoker. No EtOH intake.. Lives at home with 24- hour caregiver help. Allergies Allergy/AdvReac Type Severity Reaction Status Date / Time tramadol Allergy Severe SEVERE Verified 02/19/21 15:48 MOOD FLUCTUATIONS bee venom protein (honey bee) Allergy Intermediate localized Verified 02/19/21 15:48 swelling pollen extracts Allergy Intermediate ITCHY Verified 02/19/21 15:48 EYES, SNEEZING, CONGESTION clonazepam [From Klonopin] Allergy Mild increase Verified 02/19/21 15:48 in anxiety/agitation lactose Allergy Mild Gastrointestinal Verified 02/19/21 15:48 Upset Home Medications Medication Instructions Recorded Confirmed Type Ocuvite 1 cap PO BID 08/30/18 02/19/21 History acetaminophen [Tylenol] 650 mg PO Q6H PRN 08/30/18 02/19/21 History bimatoprost 1 drp OPB HS 08/30/18 02/19/21 History carbamide peroxide [Debrox] 5 drp OTIC (EAR) .DAILY UD 08/30/18 02/19/21 History cholecalciferol (vitamin D3) 1,000 unit PO DAILY 08/30/18 02/19/21 History [Vitamin D3] colestipol 2 g PO TID 08/30/18 02/19/21 History dextromethorphan polistirex 10 ml PO Q12H PRN 08/30/18 02/19/21 History [Delsym 12 hour] escitalopram oxalate 20 mg PO DAILY 08/30/18 02/19/21 History ferrous sulfate 324 mg PO BID 08/30/18 02/19/21 History fluticasone propionate 2 spray INTRANASAL DAILY 08/30/18 02/19/21 History gabapentin 400 mg PO TID 08/30/18 02/19/21 History levothyroxine 50 mcg PO DAILY 08/30/18 02/19/21 History metoprolol succinate 50 mg PO DAILY 08/30/18 02/19/21 History multivitamin 1 tab PO DAILY 08/30/18 02/19/21 History omeprazole 20 mg PO QAM 08/30/18 02/19/21 History potassium chloride 10 meq PO DAILY 08/30/18 02/19/21 History rosuvastatin 10 mg PO DAILY 08/30/18 02/19/21 History trazodone 50 mg PO HS 08/30/18 02/19/21 History vits A and D-white pet-lanolin [A 1 applic TOPICAL DIRECTED PRN 08/30/18 02/19/21 History and D (merlyn, pet)] aripiprazole [Abilify] 2 mg PO QPM 09/28/18 02/19/21 History sucralfate [Carafate] 1 g PO TID 09/28/18 02/19/21 History dicyclomine 20 mg PO BID 10/27/18 02/19/21 History furosemide [Lasix] 20 mg PO DAILY 10/27/18 02/19/21 History lactase [Lactaid] 3,000 unit PO AC 10/27/18 02/19/21 History magnesium hydroxide [Milk of 30 ml PO DAILY PRN 10/27/18 02/19/21 History Magnesia] ondansetron 4 mg PO Q6 PRN 10/27/18 02/19/21 History brinzolamide-brimonidine 1 drp OPB TID 02/19/21 02/19/21 History [Simbrinza] carboxymethylcellulose sodium 1 drp OPHTHALMIC (EYE) TID 02/19/21 02/19/21 History [Refresh Liquigel] sodium chloride [[place] Saline] 1 spray INTRANASAL HS 02/19/21 02/19/21 History Past Med/Surg History Medical History Bipolar disorder Blepharitis Colon cancer screening Constipation Depression Diverticular disease Explosive personality disorder GERD (gastroesophageal reflux disease) Glaucoma of both eyes Hyperlipidemia Hypertension Hypothyroidism IBS (irritable bowel syndrome) Mild intellectual disability Pancreatitis Sensorineural hearing loss (SNHL) of both ears Sleep apnea Tongue abnormality h/o tongue surgery Surgical History (Updated 02/23/20 @ 14:59 by Nat Tello) H/O sinus surgery balloon sinuplasty S/P cholecystectomy Family History Other No pertinent family history Social History Smoking Status: Never smoker Hx Alcohol Use: No Hx Substance Use: No Preferred Language: Uzbek Communication Ability: Impaired Receivable Clerk Required: No Beliefs That Will Affect Care: None Current Living Situation: Boarding Home Current Living Situation Comment: Skills Other Information That Helps Us Care for You: No Feels Safe at Home: Yes Safety Concerns: Feels Safe At This Time Assistive Devices: Glasses Review of Systems Review of Systems: As per HPI, all 10 systems reviewed, all other ROS negative Physical Exam Physical Exam: GENERAL: Slightly uncomfortable and anxious, no respiratory distress SKIN: normal color, warm HEENT: Bespectacled, pink palpebral conjunctivae, no ptosis, dry buccal mucosa NECK : Supple, no tenderness CHEST : CTA, no tenderness HEART : RRR, no obvious murmurs ABDOMEN: Some distention, nontender EXTREMITIES : Minimal LE swelling, left lateral thigh tenderness, no other conspicuous deformities noted NEUROLOGIC : Coherent, no facial asymmetry, no other gross focality Results & Data Results & Data ([facility]) Vital Signs (Past 12 Hours) Vital Signs Temp Pulse Resp BP Pulse Ox 02/19/21 20:40 95 H 19 92 02/19/21 20:31 22 94 02/19/21 20:30 17 179/100 H 92 02/19/21 20:20 97 H 17 92 02/19/21 20:10 98 H 19 91 02/19/21 20:08 98 H 19 183/98 H 92 02/19/21 20:07 97 H 20 92 02/19/21 20:00 97 H 20 93 02/19/21 19:50 101 H 19 93 02/19/21 19:40 95 H 19 92 02/19/21 19:31 95 H 22 93 02/19/21 19:30 95 H 20 190/121 H 93 02/19/21 19:20 96 H 22 93 02/19/21 19:10 99 H 20 93 02/19/21 19:01 98 H 20 93 02/19/21 19:00 97 H 19 212/134 H 91 02/19/21 18:50 97 H 19 93 02/19/21 18:40 98 H 21 94 02/19/21 18:31 98 H 20 93 02/19/21 18:30 97 H 21 202/110 H 92 02/19/21 18:20 102 H 22 93 02/19/21 18:10 97 H 22 94 02/19/21 18:04 93 H 23 94 02/19/21 18:03 89 22 202/112 H 94 02/19/21 17:57 98 H 21 02/19/21 17:22 99 H 16 189/113 H 92 02/19/21 17:20 99 H 20 92 02/19/21 17:10 101 H 21 92 02/19/21 17:01 93 H 20 93 02/19/21 17:00 89 21 197/115 H 92 02/19/21 16:57 86 21 184/107 H 95 02/19/21 16:50 88 24 95 02/19/21 16:40 83 22 94 02/19/21 16:30 85 16 196/137 H 93 02/19/21 16:20 88 16 93 02/19/21 16:10 85 21 91 02/19/21 15:50 81 19 92 02/19/21 15:45 79 22 92 02/19/21 15:30 78 17 205/114 H 97 02/19/21 14:23 36.6 C 84 18 207/103 H 94 Laboratory Results Laboratory Results WBC 6.57 K/uL (4.8-10.8) 02/19/21 15:12 RBC 4.87 M/uL (4.2-5.4) 02/19/21 15:12 Hgb 14.7 g/dL (12.0-16.0) 02/19/21 15:12 Hct 41.7 % (37-47) 02/19/21 15:12 MCV 85.6 fL (80-100) 02/19/21 15:12 MCH 30.2 pg (25-34) 02/19/21 15:12 MCHC 35.3 g/dL (32-36) 02/19/21 15:12 RDW Std Deviation 39.8 fL (36.4-46.3) 02/19/21 15:12 RDW Coeff of Lizette 12.6 % (11.5-14.5) 02/19/21 15:12 Plt Count 162 K/uL (130-400) 02/19/21 15:12 MPV 9.8 fL (7.4-10.4) 02/19/21 15:12 Immature Gran % (Auto) 0.2 % 02/19/21 15:12 Neut % (Auto) 83.4 % 02/19/21 15:12 Lymph % (Auto) 12.2 % 02/19/21 15:12 [place] % (Auto) 4.0 % 02/19/21 15:12 Eos % (Auto) 0.0 % 02/19/21 15:12 Baso % (Auto) 0.2 % 02/19/21 15:12 Neut # (Auto) 5.49 K/uL (1.4-6.5) 02/19/21 15:12 Lymph # (Auto) 0.80 K/uL (1.2-3.4) L 02/19/21 15:12 [place] # (Auto) 0.26 K/uL (0.11-0.59) 02/19/21 15:12 Eos # (Auto) 0.00 K/uL (0-0.5) 02/19/21 15:12 Baso # (Auto) 0.01 K/uL (0-0.2) 02/19/21 15:12 Immature Gran # (Auto) 0.01 K/uL (0.00-0.02) 02/19/21 15:12 Sodium 137 mmol/L (136-145) 02/19/21 15:12 Potassium 3.6 mmol/L (3.5-5.1) 02/19/21 15:12 Chloride 105 mmol/L (98-107) 02/19/21 15:12 Carbon Dioxide 25 mmol/L (21-32) 02/19/21 15:12 Anion Gap 7.0 (3-11) 02/19/21 15:12 BUN 9 mg/dl (7-18) 02/19/21 15:12 Creatinine 0.66 mg/dl (0.6-1.2) 02/19/21 15:12 Est Cr Clr Drug Dosing 85.3 ml/min 02/19/21 15:12 Est GFR ( Amer) 114.5 02/19/21 15:12 Est GFR (Non-Af Amer) 98.8 02/19/21 15:12 BUN/Creatinine Ratio 13.3 (10-20) 02/19/21 15:12 Glucose 126 mg/dl (70-99) H 02/19/21 15:12 Calcium 9.4 mg/dl (8.5-10.1) 02/19/21 15:12 Magnesium 1.9 mg/dl (1.8-2.4) 02/19/21 15:12 Total Bilirubin 1.2 mg/dl (0.2-1) H 02/19/21 15:12 AST 16 U/L (15-37) 02/19/21 15:12 ALT 16 U/L (12-78) 02/19/21 15:12 Alkaline Phosphatase 117 U/L (45-117) 02/19/21 15:12 Troponin I < 0.015 ng/ml (0-0.045) 02/19/21 15:12 Total Protein 7.3 gm/dl (6.4-8.2) 02/19/21 15:12 Albumin 4.0 gm/dl (3.4-5.0) 02/19/21 15:12 Globulin 3.3 gm/dl (2.5-4.0) 02/19/21 15:12 Albumin/Globulin Ratio 1.2 (0.9-2) 02/19/21 15:12 TSH 2.070 uIu/ml (0.300-4.500) 02/19/21 15:12 Urine Color Yellow 02/19/21 15:46 Urine Appearance Clear (Clear) 02/19/21 15:46 Urine pH 8.0 (4.5-7.5) H 02/19/21 15:46 Ur Specific [place] 1.011 (1.000-1.030) 02/19/21 15:46 Urine Protein Negative (Negative) 02/19/21 15:46 Urine Glucose (UA) Negative (Negative) 02/19/21 15:46 Urine Ketones Trace (Negative) H 02/19/21 15:46 Urine Blood Negative (Negative) 02/19/21 15:46 Urine Nitrite Negative (Negative) 02/19/21 15:46 Urine Bilirubin Negative (Negative) 02/19/21 15:46 Urine Urobilinogen Negative (Negative) 02/19/21 15:46 Ur Leukocyte Esterase Negative (Negative) 02/19/21 15:46 COVID-19 Eval Order [facility]FluRsv at [facility] 02/19/21 20:40 SARS-CoV-2 (PCR) NEGATIVE (Negative) 02/19/21 20:40 Influenza Type A (PCR) Negative (Neg) 02/19/21 20:40 Influenza Type B (PCR) Negative (Neg) 02/19/21 20:40 RSV (RT-PCR) Negative (Neg) 02/19/21 20:[address] abdomen pelvis: 1. No bowel obstruction or bowel wall thickening. 2. Cardiomegaly with suggestion of fluid overload including trace pleural effusions, moderate pericardial effusion with trace abdominal pelvic ascites. 3. Colonic diverticulosis without CT evidence of acute diverticulitis. 4. Cholecystectomy. CT left femur initial read: Questionable slight amount of fat stranding inferior medial to ischial tuberosity could represent small contusion. No abnormal fluid collection is verified. LLE venous Dopplers: No sonographic evidence of deep venous thrombosis. Chest x-ray cardiomegaly, elevated right hemidiaphragm EKG as per my interpretation : Rate 95, NSR, RAD, anteroseptal infarct
[2021-02-19] MEDS ORDERED: POTASSIUM CHLORIDE CRTAB 20 MEQ TABCR PO STA (22:35)
[2021-02-19] MEDS ORDERED: lisinopril 2.5 MG TAB PO SCH (22:35)
[2021-02-19] MEDS ORDERED: FUROSEMIDE 40 MG/4 ML VIAL IV STA (22:35)
[2021-02-19] MEDS ORDERED: ACETAMINOPHEN 325 MG TAB PO PRN (22:35)
[2021-02-19] MEDS ORDERED: MoRPHine SULFATE 4 MG/ML 1 ML CARP\\VIAL IV PRN (22:35)
[2021-02-19] MEDS ORDERED: FUROSEMIDE 20 MG in SYRINGE 0 ML IV ONE (22:45)
[2021-02-19] MEDS: ARIPIprazole 1 MG/ML ORAL SOLN 150 ML BTL PO SCH (23:33)
[2021-02-19] MEDS: traZODone HCL 50 MG TAB PO SCH (23:33)
[2021-02-19] MEDS: GABAPENTIN 400 MG CAP PO SCH (23:33)
[2021-02-19] MEDS: SIMBRINZA~ORDER AWAITING ACTION SCH (23:44)
[2021-02-19] MEDS: BIMATOPROST 0.01% OP SOLN 2.5 ML BTL OP SCH (23:44)
[2021-02-20] MEDS: PROMETHAZINE HCL 12.5 MG in SODIUM CHLORIDE 0.9% 50 ML IV PRN ×2 (02:36→23:09)
[2021-02-20] MEDS ORDERED: lisinopril 2.5 MG TAB PO ONE (02:41)
[2021-02-20] MEDS: METOPROLOL SUCC 50MG EXT REL TAB PO SCH (02:52)
[2021-02-20] MEDS: LEVOTHYROXINE SODIUM 50 MCG TABLET PO SCH (05:55)
[2021-02-20 06:00] LABS: Estimated Average Glucose 94 mg/dl; Hemoglobin A1C 4.9 % (4.5-5.6)
[2021-02-20 07:05] LABS: Basophils # (auto) 0.01 K/uL (0-0.2); Basophils % (auto) 0.1 %; Hematocrit (blood only) 44.2 % (37-47); Hemoglobin 15.1 g/dL (12.0-16.0); Immature Granulocytes # (auto) 0.01 K/uL (0.00-0.02); Immature Granulocytes % (auto) 0.1 %; Lymphocytes # (auto) 1.04 K/uL (1.2-3.4); Mean Corpuscular Hemoglobin 29.4 pg (25-34); Mean Corpuscular Hgb Conc 34.2 g/dL (32-36); Mean Corpuscular Volume 86.2 fL (80-100); Mean Platelet Volume 9.8 fL (7.4-10.4); Monocytes # (auto) 0.75 K/uL (0.11-0.59); Monocytes % (auto) 6.5 %; Neutrophils # (auto) 9.74 K/uL (1.4-6.5); Neutrophils % (auto) 84.3 %; Platelet Count 175 K/uL (130-400); RDW Coefficient of Variation 12.9 % (11.5-14.5); RDW Standard Deviation 41.1 fL (36.4-46.3); Red Blood Count 5.13 M/uL (4.2-5.4); White Blood Count 11.55 K/uL (4.8-10.8)
[2021-02-20 07:31] LABS: BUN Creatinine Ratio 15.8 (10-20); Calcium 9.7 mg/dl (8.5-10.1); Creatinine Clr Calc Pharmacy 75.3 ml/min; Est GFR (African American) 112.8; Est GFR (Non-African American) 97.3; Potassium 3.5 mmol/L (3.5-5.1)
--- NOTE | 2021-02-20 07:34 | CT Scan Report ---
LEFT FEMUR CT CT DOSE: 339.42 mGy.cm HISTORY: L thigh swelling TECHNIQUE: Multiaxial CT images of the left femur were performed and reformatted in the sagittal and coronal plane without the use of contrast. A dose lowering technique was utilized adhering to the pr inciples of MAGGI. COMPARISON: None. FINDINGS: No fracture or dislocation within the left femur. No loculated fluid collections on this no ncontrast study to suggest an abscess. Left thigh musculature appears intact. No subcutaneous gas or foreign body. Mild subcutaneous fat stranding within the left inferior/posterior gluteal region infer ior to the ischial tuberosity which could represent a small contusion. IMPRESSION: 1. Mild subcutaneous fat stranding within the left inferior/posterior gluteal region inferior to the ischial tuberosity. This could represent a small contusion. 2. No fracture or dislocation within the left femur. ACT 112: Negative or not required by law. Electronically signed by: Sergio Bobby M.D. 02/20/2021 7:33 AM
[2021-02-20] MEDS: LACTASE 3000 UNIT TAB PO SCH ×3 (07:40→17:36)
--- NOTE | 2021-02-20 07:46 | XRay Report ---
XR chest 1V portable CLINICAL HISTORY: Hypertension. COMPARISON STUDY: Chest CT November 27, 2019. FINDINGS: Lung volumes are normal. There is no pneumothorax or pleural effusion. Linear right basilar opacity favors atelectasis. Cardiomediastinal silhouette is stable. There may be a hiatal hernia. IMPRESSION: No acute cardiopulmonary findings. ACT 112: Negative or not required by law. Electronically signed by: Yohan Dawkins M.D. 02/20/2021 7:44 AM
[2021-02-20] MEDS: ONDANSETRON 4 MG OD TAB PO PRN (07:55)
[2021-02-20] MEDS: MULTIVITAMIN TAB PO SCH (08:14)
[2021-02-20] MEDS: COLESTIPOL HCL 1 GM TAB PO SCH ×3 (08:15→21:19)
[2021-02-20] MEDS: CEROVITE ADV FORMULA TAB PO SCH ×2 (08:15→21:19)
[2021-02-20] MEDS: ROSUVASTATIN CALCIUM 10 MG TAB PO SCH (08:15)
[2021-02-20] MEDS: PANTOprazole 40 MG TAB PO SCH (08:15)
[2021-02-20] MEDS: SUCRALFATE 1 GM TAB PO SCH ×3 (08:15→21:18)
[2021-02-20] MEDS: GABAPENTIN 400 MG CAP PO SCH ×3 (08:15→21:18)
[2021-02-20] MEDS: FERROUS SULFATE 325 MG TAB PO SCH ×2 (08:15→21:19)
[2021-02-20] MEDS: POTASSIUM CHLORIDE 10 MEQ TABCR PO SCH (08:15)
[2021-02-20] MEDS: FUROSEMIDE 20 MG TAB PO SCH (08:15)
[2021-02-20] MEDS: ESCITALOPRAM OXALATE 20 MG TAB PO SCH (08:16)
[2021-02-20] MEDS: SIMBRINZA~ORDER AWAITING ACTION SCH ×3 (08:16→22:28)
[2021-02-20] MEDS: ENOXAPARIN INJ 40 MG/0.4 ML SYR SQ SCH (08:16)
[2021-02-20] MEDS: ARTIFICIAL TEARS OP SCH ×3 (08:41→21:22)
[2021-02-20] MEDS ORDERED: METOPROLOL SUCC 50MG EXT REL TAB PO SCH (09:00)
--- NOTE | 2021-02-20 10:57 | Hospitalist Progress Note ---
Date of Service February 20, 2021 Assessment & Plan (1) Hypertensive urgency: Patient is 55-year-old female with past medical history of IBS, GERD, acquired hypothyroidism, cerebral palsy, bipolar disorder, hyperparathyroidism, and intellectual disability, hypertension, hyperlipidemia, CVA and severe obstructive sleep apnea presented to the ED with left thigh pain. Of note patient is a poor historian. Patient does have a caregiver. Patient denies any recent trauma. Hypertensive urgency on admission Left thigh pain; contusion as per CT History of cerebral palsy History of intellectual disability History of primary hyperparathyroidism History of hypothyroidism History of hypertension History of hyperlipidemia History of CELESTINA on CPAP History of CVA History of GERD This morning patient is awake and alert. Pressures remain in the 170s overnight. Continue Lasix 20 mg daily, Toprol-XL 50 mg daily, started on lisinopril 5 mg however due to persistent hypertension will increase to 10 mg. Transthoracic echo without any concerning findings with EF of 50%. Lower extremity Doppler is negative for any DVT. Oxycodone and morphine for pain control. Continue chronic daily medications. Work with PT/OT. Caregiver requesting for patient's [id number] to be updated of plan of care. Ms. Annamaria Cooney, contact #[phone]. Admission and Anticipated Discharge Date Admission Date: February 19, 2021 Subjective Patient is doing okay, however her primary complaint is significant pain in the left thigh. Patient awake, alert and oriented to place and person. Denies any chest pain or shortness of breath. Report feeling nauseous earlier. Denies any abdominal pain, diarrhea or dysuria. Rest of the review of systems negative. Review of Systems Review of Systems: All systems reviewed & are unremarkable except as noted in HPI & below Physical Exam Physical Exam: General: A&Ox2 HENT: NCAT, MMM, EOMI Eyes: PERRLA Neck: Supple, normal range of motion CVS: normal rate and rhythm Resp: b/l good breath sounds Abdomen: Soft, ND/NT, Extremities: No c/c/e Neuro: face symmetric, strength grossly equal, no focal deficit Skin: warm and dry, no rashes/lesions/errythema MSK: normal ROM, no joint swelling/erythema Results & Data Results & Data ([facility]) Vital Signs (Past 12 Hours) Vital Signs Temp Pulse Pulse Pulse Resp BP BP 02/20/21 07:49 37.0 C 82 18 165/104 H 02/20/21 07:35 71 02/20/21 05:55 74 177/102 H 02/20/21 03:45 36.7 C 72 18 182/103 H 02/20/21 02:41 36.2 C L 80 16 183/107 H Pulse Ox 02/20/21 07:49 94 02/20/21 07:35 02/20/21 05:55 02/20/21 03:45 92 02/20/21 02:41 92
[2021-02-20] MEDS: lisinopril 10 MG TAB PO SCH ×2 (11:52→21:18)
--- NOTE | 2021-02-20 12:23 | Electrocardiogram Report ---
Test Reason : Blood Pressure : / mmHG Vent. Rate : 094 BPM Atrial Rate : 094 BPM P-R Int : 174 ms QRS Dur : 124 ms QT Int : 410 ms P-R-T Axes : 065 126 061 degrees QTc Int : 512 ms Normal sinus rhythm Left atrial enlargement Right axis deviation Anterior infarct (cited on or before 28-SEP-2018) Left bundle branch block Abnormal ECG When compared with ECG of 28-SEP-2018 14:11, Significant changes have occurred Confirmed by Scott Albarran ([id number]) on 02/20/2021 12:22:47 PM Referred By: REFERRED SELF Confirmed By:Scott Albarran
[2021-02-20] MEDS: ACETAMINOPHEN 325 MG TAB PO PRN ×2 (17:36→21:25)
[2021-02-20] MEDS ORDERED: lisinopril 5 MG TAB PO SCH (21:00)
[2021-02-20] MEDS: traZODone HCL 50 MG TAB PO SCH (21:19)
[2021-02-20] MEDS: ARIPIprazole 1 MG/ML ORAL SOLN 150 ML BTL PO SCH (21:20)
[2021-02-20] MEDS: BIMATOPROST 0.01% OP SOLN 2.5 ML BTL OP SCH (21:21)
[2021-02-21] MEDS: ONDANSETRON 4 MG OD TAB PO PRN ×2 (04:22→12:22)
[2021-02-21] MEDS: LEVOTHYROXINE SODIUM 50 MCG TABLET PO SCH (06:22)
[2021-02-21] MEDS: COLESTIPOL HCL 1 GM TAB PO SCH ×3 (08:01→21:31)
[2021-02-21] MEDS: GABAPENTIN 400 MG CAP PO SCH ×3 (08:01→21:32)
[2021-02-21] MEDS: PANTOprazole 40 MG TAB PO SCH (08:02)
[2021-02-21] MEDS: METOPROLOL SUCC 50MG EXT REL TAB PO SCH (08:02)
[2021-02-21] MEDS: SUCRALFATE 1 GM TAB PO SCH ×3 (08:02→21:31)
[2021-02-21] MEDS: FUROSEMIDE 20 MG TAB PO SCH (08:02)
[2021-02-21] MEDS: ROSUVASTATIN CALCIUM 10 MG TAB PO SCH (08:02)
[2021-02-21] MEDS: FERROUS SULFATE 325 MG TAB PO SCH ×2 (08:02→21:32)
[2021-02-21] MEDS: CEROVITE ADV FORMULA TAB PO SCH ×2 (08:02→21:32)
[2021-02-21] MEDS: LACTASE 3000 UNIT TAB PO SCH ×3 (08:02→16:33)
[2021-02-21] MEDS: POTASSIUM CHLORIDE 10 MEQ TABCR PO SCH (08:02)
[2021-02-21] MEDS: ESCITALOPRAM OXALATE 20 MG TAB PO SCH (08:02)
[2021-02-21] MEDS: MULTIVITAMIN TAB PO SCH (08:03)
[2021-02-21] MEDS: ARTIFICIAL TEARS OP SCH ×3 (08:03→21:30)
[2021-02-21] MEDS: SIMBRINZA~ORDER AWAITING ACTION SCH ×3 (08:03→22:38)
[2021-02-21] MEDS: ENOXAPARIN INJ 40 MG/0.4 ML SYR SQ SCH (08:03)
[2021-02-21] MEDS: ACETAMINOPHEN 325 MG TAB PO PRN (10:30)
[2021-02-21] MEDS ORDERED: hydrALAZINE HCL 20 MG/ML VIAL IV PRN (12:35)
--- NOTE | 2021-02-21 12:37 | Hospitalist Progress Note ---
Date of Service February 21, 2021 Assessment & Plan (1) Hypertensive urgency: Patient is 55-year-old female with past medical history of IBS, GERD, acquired hypothyroidism, cerebral palsy, bipolar disorder, hyperparathyroidism, and intellectual disability, hypertension, hyperlipidemia, CVA and severe obstructive sleep apnea presented to the ED with left thigh pain. Of note patient is a poor historian. Patient does have a caregiver. Patient denies any recent trauma. Hypertensive urgency on admission Left thigh pain; contusion as per CT Trace pleural effusion/moderate pericardial fat History of cerebral palsy History of intellectual disability History of primary hyperparathyroidism History of hypothyroidism History of hypertension History of hyperlipidemia History of CELESTINA on CPAP History of CVA History of GERD Patient is awake and alert this morning. Continues to report 9 of 10 left thigh pain. Systolic blood pressure remained in the 190s. TSH is not concerning. Likely pain driven. Renal function is not concerning. Continue Lasix 20 mg daily, Toprol 50 mg daily and will increase lisinopril to 20 mg daily to be given now. Hydralazine as needed 10 mg for systolic blood pressure greater than 180. Transthoracic echo without any concerning findings with EF of 50%. Lower extremity Doppler is negative for any DVT. Femoral CT reported mild subcutaneous fat stranding within the left inferior/posterior gluteal region inferior to the ischial tuberosity. This could represent a small contusion. Patient denies any recent trauma. Oxycodone and morphine for pain control. Continue chronic daily medications. Continue to work with PT/OT. Admission and Anticipated Discharge Date Admission Date: February 21, 2021 Subjective Patient is resting comfortably. However she continues to complain of 9 out of 10 pain in the left thigh. Denies any chest pain or shortness of breath. Denies any nausea or vomiting. Does report that she have not had any bowel movement. Denies any dysuria. Rest of the review of system is negative. Systolic blood pressure remained in the 190s possibly pain driven. Review of Systems Review of Systems: All systems reviewed & are unremarkable except as noted in HPI & below Physical Exam Physical Exam: General: A&Ox2 HENT: NCAT, MMM, EOMI Eyes: PERRLA Neck: Supple, normal range of motion CVS: normal rate and rhythm Resp: b/l good breath sounds Abdomen: Soft, ND/NT, Extremities: No c/c/e Neuro: face symmetric, strength grossly equal, no focal deficit Skin: warm and dry, no rashes/lesions/errythema MSK: normal ROM, no joint swelling/erythema Results & Data Results & Data ([facility]) Vital Signs (Past 12 Hours) Vital Signs Temp Pulse Resp BP BP Pulse Ox 02/21/21 12:00 164/111 H 02/21/21 11:08 36.7 C 77 19 189/115 H 193/107 H 93 02/21/21 07:48 36.6 C 83 19 190/83 H 92 02/21/21 02:57 36.7 C 62 20 150/82 H 93
[2021-02-21] MEDS: lisinopril 20 MG TAB PO SCH (13:44)
[2021-02-21] MEDS: oxyCODONE HCL IR 5 MG TAB (IMMEDIATE RELEASE) PO PRN ×2 (16:33→21:36)
[2021-02-21] MEDS: ARIPIprazole 1 MG/ML ORAL SOLN 150 ML BTL PO SCH (21:30)
[2021-02-21] MEDS: traZODone HCL 50 MG TAB PO SCH (21:31)
[2021-02-21] MEDS: BIMATOPROST 0.01% OP SOLN 2.5 ML BTL OP SCH (21:32)
[2021-02-21] MEDS: PROMETHAZINE HCL 12.5 MG in SODIUM CHLORIDE 0.9% 50 ML IV PRN (21:52)
[2021-02-22] MEDS: ONDANSETRON 4 MG OD TAB PO PRN ×3 (04:54→19:44)
[2021-02-22] MEDS: LEVOTHYROXINE SODIUM 50 MCG TABLET PO SCH (04:54)
[2021-02-22] MEDS: oxyCODONE HCL IR 5 MG TAB (IMMEDIATE RELEASE) PO PRN ×4 (04:54→21:16)
[2021-02-22] MEDS: LACTASE 3000 UNIT TAB PO SCH ×3 (07:46→16:57)
[2021-02-22] MEDS: SIMBRINZA~ORDER AWAITING ACTION SCH ×2 (08:16→16:56)
[2021-02-22] MEDS: ARTIFICIAL TEARS OP SCH ×3 (08:16→21:19)
[2021-02-22] MEDS: COLESTIPOL HCL 1 GM TAB PO SCH ×3 (08:17→21:24)
[2021-02-22] MEDS: FUROSEMIDE 20 MG TAB PO SCH (08:17)
[2021-02-22] MEDS: METOPROLOL SUCC 50MG EXT REL TAB PO SCH (08:17)
[2021-02-22] MEDS: FERROUS SULFATE 325 MG TAB PO SCH ×2 (08:18→21:24)
[2021-02-22] MEDS: lisinopril 20 MG TAB PO SCH (08:18)
[2021-02-22] MEDS: GABAPENTIN 400 MG CAP PO SCH ×3 (08:18→21:24)
[2021-02-22] MEDS: POTASSIUM CHLORIDE 10 MEQ TABCR PO SCH (08:18)
[2021-02-22] MEDS: SUCRALFATE 1 GM TAB PO SCH ×3 (08:18→21:24)
[2021-02-22] MEDS: CEROVITE ADV FORMULA TAB PO SCH ×2 (08:19→21:25)
[2021-02-22] MEDS: PANTOprazole 40 MG TAB PO SCH (08:19)
[2021-02-22] MEDS: ENOXAPARIN INJ 40 MG/0.4 ML SYR SQ SCH (08:20)
[2021-02-22] MEDS: ROSUVASTATIN CALCIUM 10 MG TAB PO SCH (08:20)
[2021-02-22] MEDS: MULTIVITAMIN TAB PO SCH (08:20)
[2021-02-22] MEDS: ESCITALOPRAM OXALATE 20 MG TAB PO SCH (08:20)
--- NOTE | 2021-02-22 14:33 | Hospitalist Progress Note ---
Date of Service February 22, 2021 Assessment & Plan (1) Hypertensive urgency: Patient is 55-year-old female with past medical history of IBS, GERD, acquired hypothyroidism, cerebral palsy, bipolar disorder, hyperparathyroidism, and intellectual disability, hypertension, hyperlipidemia, CVA and severe obstructive sleep apnea (history from caregiver and the patient's note) Presented to the ED with left thigh pain.-High blood pressure likely secondary to pain Continue Lasix 20 mg daily, Toprol 50 mg daily and will increase lisinopril to 20 mg daily to be given now. Hydralazine as needed 10 mg for systolic blood pressure greater than 180. Blood pressure seems to be controlled Left thigh pain; contusion as per CT Femoral CT reported mild subcutaneous fat stranding within the left inferior/posterior gluteal region inferior to the ischial tuberosity. This could represent a small contusion. Patient denies any recent trauma. Ultrasound of the lower extremity did not show any DVT Has been getting PT and OT evaluation Trace pleural effusion/moderate pericardial fat Transthoracic echo without any concerning findings with EF of 50%. Continue Lasix History of cerebral palsy History of intellectual disability No acute symptoms History of primary hyperparathyroidism History of hypothyroidism History of hyperlipidemia History of CELESTINA on CPAP History of CVA History of GERD DVT prophylaxis Subcu Lovenox Admission and Anticipated Discharge Date Admission Date: February 21, 2021 Subjective 02/22/2021 The patient was seen and examined in telemetry unit She cerebral palsy with intellectual impairment and was admitted with left thigh pain noted to have very high blood pressure on admission Still complains left thigh pain The blood pressure is reasonably controlled Review of Systems Review of Systems: Unobtainable due to cognitive status Musculoskeletal: + joint pain (Left upper thigh pain) Physical Exam Physical Exam: Lying in bed without any acute distress Constitutional: + ill appearing and average body habitus Eyes: PERRL, conjunctivae normal, anicteric sclerae ENMT: external ear and nose normal, oropharynx normal Neck: trachea midline, no thyromegaly Respiratory: no respiratory distress Auscultation: lungs clear to auscultation bilaterally Cardiovascular: Rate/Rhythm: regular rate and regular rhythm Heart Sounds: no murmur Extremities: + edema (Trace edema bilateral) Gastrointestinal (Abdomen): Inspection/Auscultation: normal bowel sounds; abdomen not distended Percussion/Palpation: abdomen soft; abdomen nontender Musculoskeletal: No acute arthritis in any joint Neurologic: Alert and awake. Generally weak Lymphatic: no cervical or axillary lymphadenopathy Results & Data Results & Data ([facility]) Vital Signs (Past 12 Hours) Vital Signs Temp Pulse Pulse Resp BP BP Pulse Ox 02/22/21 11:59 36.5 C 78 16 138/80 93 02/22/21 08:00 70 02/22/21 07:51 36.4 C L 78 16 128/80 91 02/22/21 03:54 36.5 C 72 16 164/87 H 93 Medications Administered Current Inpatient Medications Acetaminophen (Acetaminophen 325 Mg Tab) 650 mg PO Q4H PRN PRN Reason: Pain or Fever Stop: 03/21/21 22:34 Last Admin: 02/21/21 10:30 Dose: 650 mg Documented by: Aripiprazole (Aripiprazole 1 Mg/Ml Oral Soln 150 Ml Btl) 2 mg PO QPM XU Stop: 03/21/21 22:44 Last Admin: 02/21/21 21:30 Dose: 2 mg Documented by: Artificial Tears (Artificial Tears) 1 drops OP TID XU Stop: 03/22/21 08:59 Last Admin: 02/22/21 14:06 Dose: 1 drops Documented by: Bimatoprost (Bimatoprost 0.01% Op Soln 2.5 Ml Btl) 1 drops OP HS [facility] Stop: 03/21/21 22:44 Last Admin: 02/21/21 21:32 Dose: 1 drops Documented by: Brimonidine Tartrate (Brimonidine Tartrate 0.2% 5ml) 1 drops OPB TID XU Stop: 03/24/21 13:59 Brinzolamide (Brinzolamide (Azopt) Ops 10 Ml Btl) 1 drops OPB TID XU Stop: 03/24/21 13:59 Colestipol HCl (Colestipol Hcl 1 Gm Tab) 2 gm PO TID XU Stop: 03/22/21 08:59 Last Admin: 02/22/21 14:07 Dose: 2 gm Documented by: Enoxaparin Sodium (Enoxaparin Inj 40 Mg/0.4 Ml Syr) 40 mg SQ QAM XU Stop: 03/22/21 08:59 Last Admin: 02/22/21 08:20 Dose: 40 mg Documented by: Escitalopram Oxalate (Escitalopram Oxalate 20 Mg Tab) 20 mg PO DAILY XU Stop: 03/22/21 08:59 Last Admin: 02/22/21 08:20 Dose: 20 mg Documented by: Ferrous Sulfate (Ferrous Sulfate 325 Mg Tab) 325 mg PO BID XU Stop: 03/22/21 08:59 Last Admin: 02/22/21 08:18 Dose: 325 mg Documented by: Furosemide (Furosemide 20 Mg Tab) 20 mg PO DAILY XU Stop: 03/22/21 08:59 Last Admin: 02/22/21 08:17 Dose: 20 mg Documented by: Gabapentin (Gabapentin 400 Mg Cap) 400 mg PO TID XU Stop: 03/21/21 22:34 Last Admin: 02/22/21 14:09 Dose: 400 mg Documented by: Hydralazine HCl (Hydralazine Hcl 20 Mg/Ml Vial) 10 mg IV Q6H PRN PRN Reason: SBP>180 Stop: 03/23/21 12:44 Promethazine HCl 12.5 mg/ (Sodium Chloride) 50.5 mls @ 202 mls/hr IV Q6H PRN PRN Reason: Nausea And Vomiting Stop: 03/21/21 22:34 Last Infusion: 02/21/21 22:11 Dose: Infused Documented by: Lactase (Lactase 3000 Unit Tab) 3,000 units PO AC [facility] Stop: 03/22/21 07:29 Last Admin: 02/22/21 11:53 Dose: 3,000 units Documented by: Levothyroxine Sodium (Levothyroxine Sodium 50 Mcg Tablet) 50 mcg PO DAILYBB [facility] Stop: 03/22/21 06:29 Last Admin: 02/22/21 04:54 Dose: 50 mcg Documented by: Lisinopril (Lisinopril 20 Mg Tab) 20 mg PO DAILY [facility] Stop: 03/23/21 12:44 Last Admin: 02/22/21 08:18 Dose: 20 mg Documented by: Metoprolol Succinate (Metoprolol Succ 50mg Ext Rel Tab) 50 mg PO DAILY [facility] Stop: 03/22/21 02:44 Last Admin: 02/22/21 08:17 Dose: 50 mg Documented by: Miscellaneous (Simbrinza~Order Awaiting Action) 1 ea N/A QS [facility] Stop: 03/22/21 00:00 Last Admin: 02/22/21 08:16 Dose: Not Given Documented by: Morphine Sulfate (Morphine Sulfate 4 Mg/Ml 1 Ml Carp\Vial) 4 mg IV Q6H PRN PRN Reason: Pain Stop: 03/05/21 22:34 Multivitamins (Multivitamin Tab) 1 tab PO DAILY XU Stop: 03/22/21 08:59 Last Admin: 02/22/21 08:20 Dose: 1 tab Documented by: Multivitamins/Minerals (Cerovite Adv Formula Tab) 1 tab PO BID XU Stop: 03/22/21 08:59 Last Admin: 02/22/21 08:19 Dose: 1 tab Documented by: Ondansetron HCl (Ondansetron 4 Mg Od Tab) 4 mg PO Q6 PRN PRN Reason: Nausea And Vomiting Stop: 03/21/21 22:47 Last Admin: 02/22/21 04:54 Dose: 4 mg Documented by: Oxycodone HCl (Oxycodone Hcl Ir 5 Mg Tab (Immediate Release)) 5 - 10 mg PO QID PRN PRN Reason: Pain Stop: 03/05/21 21:28 Last Admin: 02/22/21 14:05 Dose: 5 mg Documented by: Pantoprazole Sodium (Pantoprazole 40 Mg Tab) 40 mg PO QAM XU Stop: 03/22/21 08:59 Last Admin: 02/22/21 08:19 Dose: 40 mg Documented by: Potassium Chloride (Potassium Chloride 10 Meq Tabcr) 10 meq PO DAILY XU Stop: 03/22/21 08:59 Last Admin: 02/22/21 08:18 Dose: 10 meq Documented by: Rosuvastatin Calcium (Rosuvastatin Calcium 10 Mg Tab) 10 mg PO DAILY XU Stop: 03/22/21 08:59 Last Admin: 02/22/21 08:20 Dose: 10 mg Documented by: Sucralfate (Sucralfate 1 Gm Tab) 1 gm PO TID XU Stop: 03/22/21 08:59 Last Admin: 02/22/21 14:06 Dose: 1 gm Documented by: Trazodone HCl (Trazodone Hcl 50 Mg Tab) 50 mg PO HS [facility] Stop: 03/21/21 22:44 Last Admin: 02/21/21 21:31 Dose: 50 mg Documented by:
[2021-02-22] MEDS: BRINZOLAMIDE (AZOPT) OPS 10 ML BTL OPB SCH ×2 (14:54→21:20)
[2021-02-22] MEDS: BRIMONIDINE TARTRATE 0.2% 5ML OPB SCH ×2 (14:54→21:22)
[2021-02-22] MEDS: ARIPIprazole 1 MG/ML ORAL SOLN 150 ML BTL PO SCH (21:19)
[2021-02-22] MEDS: traZODone HCL 50 MG TAB PO SCH (21:24)
[2021-02-22] MEDS: BIMATOPROST 0.01% OP SOLN 2.5 ML BTL OP SCH (21:25)
[2021-02-23] MEDS: SIMBRINZA~ORDER AWAITING ACTION SCH ×2 (00:18→08:19)
[2021-02-23] MEDS: oxyCODONE HCL IR 5 MG TAB (IMMEDIATE RELEASE) PO PRN (05:02)
[2021-02-23] MEDS: LEVOTHYROXINE SODIUM 50 MCG TABLET PO SCH (05:02)
[2021-02-23] MEDS: CEROVITE ADV FORMULA TAB PO SCH (08:15)
[2021-02-23] MEDS: ROSUVASTATIN CALCIUM 10 MG TAB PO SCH (08:15)
[2021-02-23] MEDS: PANTOprazole 40 MG TAB PO SCH (08:15)
[2021-02-23] MEDS: GABAPENTIN 400 MG CAP PO SCH (08:15)
[2021-02-23] MEDS: METOPROLOL SUCC 50MG EXT REL TAB PO SCH (08:15)
[2021-02-23] MEDS: SUCRALFATE 1 GM TAB PO SCH (08:15)
[2021-02-23] MEDS: FUROSEMIDE 20 MG TAB PO SCH (08:16)
[2021-02-23] MEDS: POTASSIUM CHLORIDE 10 MEQ TABCR PO SCH (08:16)
[2021-02-23] MEDS: LACTASE 3000 UNIT TAB PO SCH (08:16)
[2021-02-23] MEDS: ESCITALOPRAM OXALATE 20 MG TAB PO SCH (08:17)
[2021-02-23] MEDS: lisinopril 20 MG TAB PO SCH (08:17)
[2021-02-23] MEDS: MULTIVITAMIN TAB PO SCH (08:18)
[2021-02-23] MEDS: BRIMONIDINE TARTRATE 0.2% 5ML OPB SCH (08:19)
[2021-02-23] MEDS: BRINZOLAMIDE (AZOPT) OPS 10 ML BTL OPB SCH (08:20)
[2021-02-23] MEDS: ARTIFICIAL TEARS OP SCH (08:20)
[2021-02-23] MEDS: FERROUS SULFATE 325 MG TAB PO SCH (08:21)
[2021-02-23] MEDS: ENOXAPARIN INJ 40 MG/0.4 ML SYR SQ SCH (08:21)
[2021-02-23] MEDS: ONDANSETRON 4 MG OD TAB PO PRN (09:35)
[2021-02-23] MEDS: ACETAMINOPHEN 325 MG TAB PO PRN (09:37)
--- NOTE | 2021-02-23 11:40 | Hospitalist Progress Note ---
Date of Service February 23, 2021 Assessment & Plan (1) Hypertensive urgency: Patient is 55-year-old female with past medical history of IBS, GERD, acquired hypothyroidism, cerebral palsy, bipolar disorder, hyperparathyroidism, and intellectual disability, hypertension, hyperlipidemia, CVA and severe obstructive sleep apnea (history from caregiver and the patient's note) Presented to the ED with left thigh pain.-High blood pressure likely secondary to pain Continue Lasix 20 mg daily, Toprol 50 mg daily and will increase lisinopril to 20 mg daily to be given now. Hydralazine as needed 10 mg for systolic blood pressure greater than 180. Blood pressure seems to be controlled We will need to check the blood pressure approximately every other day for the next 2 weeks If remains around 130/80 , checking her blood pressure can be discontinued Left thigh pain; contusion as per CT Femoral CT reported mild subcutaneous fat stranding within the left inferior/posterior gluteal region inferior to the ischial tuberosity. This could represent a small contusion. Patient denies any recent trauma. Ultrasound of the lower extremity did not show any DVT Has been getting PT and OT evaluation Will apply diclofenac gel to control pain Trace pleural effusion/moderate pericardial fat Transthoracic echo without any concerning findings with EF of 50%. Continue Lasix History of cerebral palsy History of intellectual disability No acute symptoms History of primary hyperparathyroidism History of hypothyroidism History of hyperlipidemia History of CELESTINA on CPAP History of CVA History of GERD DVT prophylaxis Subcu Lovenox Will be discharged to [facility] this afternoon Admission and Anticipated Discharge Date Admission Date: February 21, 2021 Subjective 02/22/2021 The patient was seen and examined in telemetry unit She cerebral palsy with intellectual impairment and was admitted with left thigh pain noted to have very high blood pressure on admission Still complains left thigh pain The blood pressure is reasonably controlled 02/23/2021 The patient was seen and examined in medical telemetry unit She still complains to have some pain in the left upper thigh Has had nausea but no vomiting Denies any other symptoms Review of Systems Review of Systems: As per HPI, all 10 systems reviewed, all other ROS negative Musculoskeletal: + joint pain (Left upper thigh pain) Physical Exam Physical Exam: Lying in bed without any acute distress Constitutional: + ill appearing and average body habitus Eyes: PERRL, conjunctivae normal, anicteric sclerae ENMT: external ear and nose normal, oropharynx normal Neck: trachea midline, no thyromegaly Respiratory: no respiratory distress Auscultation: lungs clear to ausc ultation bilaterally Cardiovascular: Rate/Rhythm: regular rate and regular rhythm Heart Sounds: no murmur Extremities: + edema (Trace edema bilateral) Gastrointestinal (Abdomen): Inspection/Auscultation: normal bowel sounds; abdomen not distended Percussion/Palpation: abdomen soft; abdomen nontender Musculoskeletal: Moderate pain with movement of the left lower extremity especially over upper lateral thigh area Neurologic: Alert and awake. Intellectually impaired. Lymphatic: no cervical or axillary lymphadenopathy Results & Data Results & Data ([facility]) Vital Signs (Past 12 Hours) Vital Signs Temp Pulse Pulse Resp BP BP Pulse Ox 02/23/21 11:30 37.4 C 88 20 119/74 92 02/23/21 07:40 36.6 C 84 20 130/76 92 02/23/21 07:21 72 02/23/21 04:00 84 18 98 02/23/21 02:48 84 02/23/21 02:32 36.9 C 74 18 145/78 H 96 02/23/21 00:00 36.6 C 81 18 159/91 H 92 Medications Administered Current Inpatient Medications Acetaminophen (Acetaminophen 325 Mg Tab) 650 mg PO Q4H PRN PRN Reason: Pain or Fever Stop: 03/21/21 22:34 Last Admin: 02/23/21 09:37 Dose: 650 mg Documented by: Aripiprazole (Aripiprazole 1 Mg/Ml Oral Soln 150 Ml Btl) 2 mg PO QPM [facility] Stop: 03/21/21 22:44 Last Admin: 02/22/21 21:19 Dose: 2 mg Documented by: Artificial Tears (Artificial Tears) 1 drops OP TID XU Stop: 03/22/21 08:59 Last Admin: 02/23/21 08:20 Dose: 1 drops Documented by: Bimatoprost (Bimatoprost 0.01% Op Soln 2.5 Ml Btl) 1 drops OP HS [facility] Stop: 03/21/21 22:44 Last Admin: 02/22/21 21:25 Dose: 1 drops Documented by: Brimonidine Tartrate (Brimonidine Tartrate 0.2% 5ml) 1 drops OPB TID XU Stop: 03/24/21 13:59 Last Admin: 02/23/21 08:19 Dose: 1 drops Documented by: Brinzolamide (Brinzolamide (Azopt) Ops 10 Ml Btl) 1 drops OPB TID [facility] Stop: 03/24/21 13:59 Last Admin: 02/23/21 08:20 Dose: 1 drops Documented by: Colestipol HCl (Colestipol Hcl 1 Gm Tab) 2 gm PO TID [facility] Stop: 03/22/21 08:59 Last Admin: 02/22/21 21:24 Dose: 2 gm Documented by: Diclofenac Sodium (Diclofenac Sod 1% Gel 100 Gm Tube) 2 gm EXT BID [facility] Stop: 03/25/21 11:44 Enoxaparin Sodium (Enoxaparin Inj 40 Mg/0.4 Ml Syr) 40 mg SQ QAM [facility] Stop: 03/22/21 08:59 Last Admin: 02/23/21 08:21 Dose: 40 mg Documented by: Escitalopram Oxalate (Escitalopram Oxalate 20 Mg Tab) 20 mg PO DAILY [facility] Stop: 03/22/21 08:59 Last Admin: 02/23/21 08:17 Dose: 20 mg Documented by: Ferrous Sulfate (Ferrous Sulfate 325 Mg Tab) 325 mg PO BID [facility] Stop: 03/22/21 08:59 Last Admin: 02/23/21 08:21 Dose: 325 mg Documented by: Furosemide (Furosemide 20 Mg Tab) 20 mg PO DAILY [facility] Stop: 03/22/21 08:59 Last Admin: 02/23/21 08:16 Dose: 20 mg Documented by: Gabapentin (Gabapentin 400 Mg Cap) 400 mg PO TID [facility] Stop: 03/21/21 22:34 Last Admin: 02/23/21 08:15 Dose: 400 mg Documented by: Hydralazine HCl (Hydralazine Hcl 20 Mg/Ml Vial) 10 mg IV Q6H PRN PRN Reason: SBP>180 Stop: 03/23/21 12:44 Promethazine HCl 12.5 mg/ (Sodium Chloride) 50.5 mls @ 202 mls/hr IV Q6H PRN PRN Reason: Nausea And Vomiting Stop: 03/21/21 22:34 Last Infusion: 02/21/21 22:11 Dose: Infused Documented by: Lactase (Lactase 3000 Unit Tab) 3,000 units PO AC [facility] Stop: 03/22/21 07:29 Last Admin: 02/23/21 08:16 Dose: 3,000 units Documented by: Levothyroxine Sodium (Levothyroxine Sodium 50 Mcg Tablet) 50 mcg PO DAILYBB [facility] Stop: 03/22/21 06:29 Last Admin: 02/23/21 05:02 Dose: 50 mcg Documented by: Lisinopril (Lisinopril 20 Mg Tab) 20 mg PO DAILY [facility] Stop: 03/23/21 12:44 Last Admin: 02/23/21 08:17 Dose: 20 mg Documented by: Metoprolol Succinate (Metoprolol Succ 50mg Ext Rel Tab) 50 mg PO DAILY [facility] Stop: 03/22/21 02:44 Last Admin: 02/23/21 08:15 Dose: 50 mg Documented by: Miscellaneous (Simbrinza~Order Awaiting Action) 1 ea N/A QS [facility] Stop: 03/22/21 00:00 Last Admin: 02/23/21 08:19 Dose: Not Given Documented by: Morphine Sulfate (Morphine Sulfate 4 Mg/Ml 1 Ml Carp\Vial) 4 mg IV Q6H PRN PRN Reason: Pain Stop: 03/05/21 22:34 Last Admin: 02/23/21 00:34 Dose: 4 mg Documented by: Multivitamins (Multivitamin Tab) 1 tab PO DAILY [facility] Stop: 03/22/21 08:59 Last Admin: 02/23/21 08:18 Dose: 1 tab Documented by: Multivitamins/Minerals (Cerovite Adv Formula Tab) 1 tab PO BID [facility] Stop: 03/22/21 08:59 Last Admin: 02/23/21 08:15 Dose: 1 tab Documented by: Ondansetron HCl (Ondansetron 4 Mg Od Tab) 4 mg PO Q6 PRN PRN Reason: Nausea And Vomiting Stop: 03/21/21 22:47 Last Admin: 02/23/21 09:35 Dose: 4 mg Documented by: Oxycodone HCl (Oxycodone Hcl Ir 5 Mg Tab (Immediate Release)) 5 - 10 mg PO QID PRN PRN Reason: Pain Stop: 03/05/21 21:28 Last Admin: 02/23/21 05:02 Dose: 10 mg Documented by: Pantoprazole Sodium (Pantoprazole 40 Mg Tab) 40 mg PO QAM [facility] Stop: 03/22/21 08:59 Last Admin: 02/23/21 08:15 Dose: 40 mg Documented by: Potassium Chloride (Potassium Chloride 10 Meq Tabcr) 10 meq PO DAILY XU Stop: 03/22/21 08:59 Last Admin: 02/23/21 08:16 Dose: 10 meq Documented by: Rosuvastatin Calcium (Rosuvastatin Calcium 10 Mg Tab) 10 mg PO DAILY XU Stop: 03/22/21 08:59 Last Admin: 02/23/21 08:15 Dose: 10 mg Documented by: Sucralfate (Sucralfate 1 Gm Tab) 1 gm PO TID XU Stop: 03/22/21 08:59 Last Admin: 02/23/21 08:15 Dose: 1 gm Documented by: Trazodone HCl (Trazodone Hcl 50 Mg Tab) 50 mg PO HS [facility] Stop: 03/21/21 22:44 Last Admin: 02/22/21 21:24 Dose: 50 mg Documented by:
[2021-02-23] MEDS ORDERED: DICLOFENAC SOD 1% GEL 100 GM TUBE EXT SCH (11:45)
[2021-02-23] MEDS: COLESTIPOL HCL 1 GM TAB PO SCH (13:13)
--- NOTE | 2021-02-24 07:26 | Discharge Summary ---
Date of Service February 24, 2021 Admission HPI Per Admitting Provider History obtained from the patient, caregiver, and records, Patient is a reliable historian. Medical history significant for hypertension, hyperlipidemia, PSVT, hx CVA, CELESTINA on CPAP, difficult intubation, Cerebral palsy/intellectual impairment as per records, primary hyperparathyroidism as per records, mood disorder, glaucoma. Last confinement April 2018 for sepsis secondary to RLE cellulitis. Today patient noted achy left thigh pain somewhat worse with motion. No recollection of trauma. Patient denies headache, chest pain, S OB. Achy abdominal pain with some nausea, no emesis as per patient. Good BM. SBP 200s upon arrival at the ER. MEDICAL HISTORY: As above. SURGERIES: She has had breast biopsy, cystoscopy, cholecystectomy, sinus surgery, endometriosis surgery, DIANA. FAMILY HISTORY: Ovarian cancer, DM, heart disease PERSONAL AND SOCIAL HISTORY: Nonsmoker. No EtOH intake.. Lives at home with 24- hour caregiver help. Admission Exam Per Admitting Provider Physical Exam: GENERAL: Slightly uncomfortable and anxious, no respiratory distress SKIN: normal color, warm HEENT: Bespectacled, pink palpebral conjunctivae, no ptosis, dry buccal mucosa NECK : Supple, no tenderness CHEST : CTA, no tenderness HEART : RRR, no obvious murmurs ABDOMEN: Some distention, nontender EXTREMITIES : Minimal LE swelling, left lateral thigh tenderness, no other conspicuous deformities noted NEUROLOGIC : Coherent, no facial asymmetry, no other gross focality Principal Diagnosis Hypertensive urgency, left thigh pain likely secondary to contusion, cerebral palsy, CELESTINA on CPAP Discharge Exam Constitutional + ill appearing and average body habitus Eyes PERRL, conjunctivae normal, anicteric sclerae ENMT external ear and nose normal, oropharynx normal Neck trachea midline, no thyromegaly Respiratory no respiratory distress Auscultation: lungs clear to auscultation bilaterally Cardiovascular Rate/Rhythm: regular rate and regular rhythm Heart Sounds: no murmur Extremities: + edema (Trace edema bilateral) Gastrointestinal (Abdomen) Inspection/Auscultation: normal bowel sounds; abdomen not distended Percussion/Palpation: abdomen soft; abdomen nontender Lymphatic no cervical or axillary lymphadenopathy Discharge Data Allergies Allergy/AdvReac Type Severity Reaction Status Date / Time tramadol Allergy Severe SEVERE Verified 02/19/21 15:48 MOOD FLUCTUATIONS bee venom protein (honey bee) Allergy Intermediate localized Verified 02/19/21 15:48 swelling pollen extracts Allergy Intermediate ITCHY Verified 02/19/21 15:48 EYES, SNEEZING, CONGESTION clonazepam [From Klonopin] Allergy Mild increase Verified 02/19/21 15:48 in anxiety/agitation lactose Allergy Mild Gastrointestinal Verified 02/19/21 15:48 Upset Consultations 02/19/21 20:33 ED Decision to Admit Stat Ordered Studies 02/19/21 14:55 CT abd pelvis IV con only Stat US venous doppler LE LT Stat 02/19/21 21:41 CT femur LT wo con Urgent Hospital Course (1) Hypertensive urgency: Patient is 55-year-old female with past medical history of IBS, GERD, acquired hypothyroidism, cerebral palsy, bipolar disorder, hyperparathyroidism, and intellectual disability, hypertension, hyperlipidemia, CVA and severe obstructive sleep apnea (history from caregiver and the patient's note) Presented to the ED with left thigh pain.-High blood pressure likely secondary to pain Continue Lasix 20 mg daily, Toprol 50 mg daily and will increase lisinopril to 20 mg daily to be given now. Hydralazine as needed 10 mg for systolic blood pressure greater than 180. Blood pressure seems to be controlled We will need to check the blood pressure approximately every other day for the next 2 weeks If remains around 130/80 , checking her blood pressure can be discontinued Left thigh pain; contusion as per CT Femoral CT reported mild subcutaneous fat stranding within the left inferior/posterior gluteal region inferior to the ischial tuberosity. This could represent a small contusion. Patient denies any recent trauma. Ultrasound of the lower extremity did not show any DVT Has been getting PT and OT evaluation Will apply diclofenac gel to control pain Trace pleural effusion/moderate pericardial fat Transthoracic echo without any concerning findings with EF of 50%. Continue Lasix History of cerebral palsy History of intellectual disability No acute symptoms History of primary hyperparathyroidism History of hypothyroidism History of hyperlipidemia History of CELESTINA on CPAP History of CVA History of GERD DVT prophylaxis Subcu Lovenox Will be discharged to skilled this afternoon Total Time Total Time Spent Total Time Spent (In Minutes): 45 minutes Total Time Includes: Examination of the Patient, Discharge Planning, Medication Reconciliation and Communication With Other Providers Discharge Plan Discharge Items Patient Disposition: Transfer Correction Fac Reason For Visit: HTN URG Discharge Diagnosis: Hypertensive urgency, left thigh pain likely secondary to contusion, cerebral palsy, CELESTINA on CPAP Condition on Discharge: Good Activity: Resume your previous activity Non-emergency contact: Primary Care Provider Call non-emergency contact if: you have any medication questions and your symptoms worsen Follow-up/Referrals: Abdullahi Bowles DO [Primary Care Provider] - (Date & Time 02/28/2021 11:20 AM Provider Abdullahi Bowles DO Department General Internal Medicine [facility] ) Diet: Heart Healthy and Lactose Intolerant Addtl Attending Provider Instructions: Please take precaution to avoid falls Heart blood pressure can be checked every other day for about 2 weeks If the blood pressure remains around 130/80, checking of blood pressure can be discontinued Pending Studies at Discharge: No Stand-Alone Forms: My [facility] [employer] Skilled Items Patient informed of condition?: Yes DNR: No Discharge Level of Care: Skilled Communicable Disease: No Discharge Prognosis: Stable Lines: None Urinary Catheter: No Medications and DC Order Prescriptions: New lisinopril 20 mg Tablet 20 mg PO DAILY Qty: 30 RF: 0 oxycodone 5 mg Tablet 5 mg PO QID PRN (Reason: pain) 5 Days Qty: 20 RF: 0 diclofenac sodium [Voltaren] 1 % Gel 2 g EXT BID 15 Days Qty: 50 RF: 0 Continued multivitamin Tablet 1 tab PO DAILY RF: 0 potassium chloride 10 mEq capsule, extended release 10 meq PO DAILY RF: 0 dextromethorphan polistirex [Delsym 12 hour] 30 mg/5 mL Suspension,Extended Rel 12 Hr 10 ml PO Q12H PRN (Reason: Cough) RF: 0 acetaminophen [Tylenol] 325 mg Tablet 650 mg PO Q6H PRN (Reason: Pain) RF: 0 trazodone 50 mg tablet 50 mg PO HS RF: 0 metoprolol succinate 50 mg tablet extended release 24 hr 50 mg PO DAILY RF: 0 gabapentin 400 mg capsule 400 mg PO TID RF: 0 levothyroxine 50 mcg tablet 50 mcg PO DAILY RF: 0 carbamide peroxide [Debrox] 6.5 % Drops 5 drp OTIC (EAR) .DAILY UD RF: 0 omeprazole 20 mg capsule,delayed release(DR/EC) 20 mg PO QAM RF: 0 fluticasone propionate 50 mcg/actuation spray,suspension 2 spray Intranasal DAILY RF: 0 colestipol 1 gram tablet 2 g PO TID RF: 0 cholecalciferol (vitamin D3) [Vitamin D3] 1,000 unit Capsule 1,000 unit PO DAILY RF: 0 escitalopram oxalate 20 mg tablet 20 mg PO DAILY RF: 0 rosuvastatin 10 mg tablet 10 mg PO DAILY RF: 0 ferrous sulfate 324 mg (65 mg iron) Tablet,Delayed Release (Dr/Ec) 324 mg PO BID RF: 0 Ocuvite [id number] Capsule 1 cap PO BID RF: 0 vits A and D-white pet-lanolin [A and D (merlyn, pet)] Ointment 1 applic TOPICAL DIRECTED PRN (Reason: Unknown) RF: 0 bimatoprost 0.01 % drops 1 drp OPB HS RF: 0 sucralfate [Carafate] 1 gram Tablet 1 g PO TID RF: 0 aripiprazole [Abilify] 2 mg Tablet 2 mg PO QPM RF: 0 magnesium hydroxide [Milk of Magnesia] 400 mg/5 mL Suspension 30 ml PO DAILY PRN (Reason: Constipation) RF: 0 dicyclomine 20 mg Tablet 20 mg PO BID RF: 0 lactase [Lactaid] 3,000 unit Tablet 3,000 unit PO AC RF: 0 furosemide [Lasix] 20 mg Tablet 20 mg PO DAILY RF: 0 ondansetron 4 mg Tablet,Disintegrating 4 mg PO Q6 PRN (Reason: Nausea) RF: 0 Refresh Liquigel 1 % Drops, Liquid Gel 1 drp OPHTHALMIC (EYE) TID RF: 0 sodium chloride [[place] Saline] 0.65 % Aerosol,[place] 1 spray INTRANASAL HS RF: 0 Simbrinza 1-0.2 % drops,suspension 1 drp OPB TID RF: 0 Discharge Orders: Discharge Order (Routine); Ordered 02/23/21 Ordered By: Soto Child Admission Data Admit Date/Time: 02/21/21 10:21 Attending Provider: Soto Child Admit Provider: Roman Delacruz Primary Care Provider: Abdullahi Bowles Other Providers: Humberto Palmer ; Roman Delacruz Other Interventions: Discharge Summary Assessment (RN) Last Done: 02/23/21 13:42
== END 2021-02-23 15:00 | DRG 305 ==
LOC: ED 14:18 → 2S 14:18 → SUATTDRO 02-21 10:21 → 2N 02-22 13:53

== ENCOUNTER 2024-06-02 18:10 | Inpatient (IN) ==
--- NOTE | 2024-06-02 18:16 | Emergency Department Note ---
Impression & Plan Hypoxia, Chest pain, Shortness of breath, Hypervolemia ED Provider Note NAME: RAFAEL HAMMOND AGE: 58 SEX: F : 1965 ARRIVES VIA: Ambulance INFORMANT: Patient ED PROVIDER(S): Thaddeus Sher MD CHIEF COMPLAINT: chest pain, shortness of breath. PLAN: Disposition: Admit MEDICAL DECISION MAKING: The patient is a pleasant 58-year-old woman with a past medical history of hypertension, hyperlipidemia, PE SVT, history of CVA, CELESTINA on CPAP, history of difficult intubation, cerebral palsy/intellectual impairment, primary hyperparathyroidism, mood disorder, glaucoma who presents to the emergency department via EMS and accompanied by her caregiver for evaluation of shortness of breath and chest pain that she reviewed the plan of this morning into the evening. They report they thought she felt warm but did not have a fever. Denies any cough or congestion. They deny any nausea, vomiting or diarrhea. Of note, the patient did arrive to emergency department during time of high volume, acuity and prolonged emergency department waiting times. On evaluation patient is no distress, afebrile with stable vital signs. O2 saturation was noted to be low in the mid 80s and so she was placed on nasal cannula initially at 6 L but down titrated to 3 L subsequently. She appears hypervolemic with 1+ bilateral lower extremity edema. Lungs with scant wheeze and rhonchi of bilateral lower lung short with normal respiratory effort. EKG without overt acute ischemia. CXR negative for acute cardiopulmonary process per my personal preliminary review/interpretation. WBC, H/H and platelets within normal limits. Chemistry without metabolic acidosis. Electrolytes LFTs without significant abnormality. Initial high- sensitivity troponin 6.9 with delta 2-hour high-sensitivity troponin 6.7, unchanged. BNP is at 114, consistent with hypervolemic appearance. Procalcitonin is nonelevated. UA without evidence of infection. Respiratory BioFire was negative. Treatment was initiated with DuoNeb as well as IV Lasix. [facility]. Further management per admitting team. Triage Nursing notes reviewed and agree them. Prior/external medical records reviewed Vital Signs: reviewed Differential diagnosis: Reactive airway disease, pneumonia, pneumothorax, COPD, CHF, infections, cardiac ischemia, pulmonary embolism, musculoskeletal, gastrointestinal, as well as other pathologies. ER treatment provided: See below. Diagnostics interpreted by me: ECG: Normal sinus rhythm, 70 bpm, no ectopy, left bundle branch block, no sgarbossa criteria. Similar to 02/12/2021. Cardiac Monitoring: An order for continuous cardiac monitoring was placed and demonstrated NSR, 70 bpm, no ectopy. Laboratory studies: See below Imaging studies: See below Consultation(s): Case was discussed with Dr. Villarreal, [facility] hospitalist, who will evaluate the patient for admission. HPI: The patient is a pleasant 58-year-old woman with a past medical history of hypertension, hyperlipidemia, PE SVT, history of CVA, CELESTINA on CPAP, history of difficult intubation, cerebral palsy/intellectual impairment, primary hyperparathyroidism, mood disorder, glaucoma who presents to the emergency department via EMS and accompanied by her caregiver for evaluation of shortness of breath and chest pain that she reviewed the plan of this morning into the evening. They report they thought she felt warm but did not have a fever. Denies any cough or congestion. They deny any nausea, vomiting or diarrhea. ROS: See above HPI for pertinent positives & negatives. A total of 10 systems reviewed and were otherwise negative. VITALS:See Below PHYSICAL EXAMINATION: GENERAL: Awake, alert, in no distress HENT: Normocephalic, atraumatic. Oropharynx unremarkable. EYES: Normal conjunctiva. Sclera non-icteric. NECK: Supple. No nuchal rigidity. FROM. No JVD. RESPIRATORY: Scant wheeze and rhonchi of bilateral lower lung short with normal respiratory effort. CARDIAC: Regular rate, normal rhythm. Extremities warm and well perfused. Pulses equal. ABDOMEN: Soft, non-distended. No tenderness to palpation. No rebound or guarding. No masses. MUSCULOSKELETAL: Chest examination reveals no tenderness. The back is symmetrical on inspection without obvious abnormality. There is no CVA tenderness to palpation. No joint edema. LOWER EXTREMITIES: Calves are equal size bilaterally and non-tender. 1+ BLE edema. No discoloration. NEURO: Normal sensorium. No sensory or motor deficits noted. SKIN: No rash or jaundice noted. Thaddeus Sher MD Past Med/Surg History Problem List (Updated 06/03/24 @ 04:33 by Thaddeus Sher MD) Hypervolemia (Acute) Shortness of breath (Acute) Chest pain (Acute) Hypoxia (Acute) Hypertensive urgency (Acute) Left thigh pain (Acute) CELESTINA treated with BiPAP Pulmonary nodule Abnormal CT of the chest Colon cancer screening Encounter for pre-operative examination Chest pain (Acute) Contusion of multiple sites (Acute) Diverticulitis (Acute) Dizziness (Acute) Esophageal spasm (Acute) Esophageal spasm (Acute) Facial contusion (Acute) Fall (Acute) Hiatal hernia (Acute) Laceration of lip (Acute) Respiratory failure, acute Right hip pain (Acute) Sepsis Depression Explosive personality disorder Bipolar disorder Hypertension Suicide attempt Suicidal ideation Medical History Tongue abnormality h/o tongue surgery Diverticular disease Glaucoma of both eyes Pancreatitis GERD (gastroesophageal reflux disease) Constipation IBS (irritable bowel syndrome) Hypothyroidism Hyperlipidemia Sleep apnea Sensorineural hearing loss (SNHL) of both ears Blepharitis Mild intellectual disability Surgical History H/O sinus surgery balloon sinuplasty S/P cholecystectomy Family History Other No pertinent family history Social History Smoking Status: Never smoker Hx Alcohol Use: No Hx Substance Use: No Preferred Language: Georgian Communication Ability: Impaired Communication Ability Comment: Pt has a mild intellectual disability Underwriting Director Required: No Beliefs That Will Affect Care: None Current Living Situation: Boarding Home Current Living Situation Comment: Skills Feels Safe at Home: Yes Assistive Devices: CPAP, Glasses, Hearing Aid - Left and Oxygen - at Night Allergies Allergies Allergy/AdvReac Type Severity Reaction Status Date / Time tramadol Allergy Severe SEVERE Verified 12/18/23 10:45 MOOD FLUCTUATIONS bee venom protein (honey bee) Allergy Intermediate localized Verified 12/18/23 10:45 swelling pollen extracts Allergy Intermediate ITCHY Verified 12/18/23 10:45 EYES, SNEEZING, CONGESTION clonazepam [From Klonopin] Allergy Mild increase Verified 12/18/23 10:45 in anxiety/agitation lactose Allergy Mild Gastrointestinal Verified 12/18/23 10:45 Upset Home Meds Home Medications Medication Instructions Recorded Confirmed acetaminophen 325 mg tablet 650 mg PO Q6H PRN 08/30/18 06/03/24 (Tylenol) FEVER/HEADACHE/MINOR ACHES AND PAINS bimatoprost 0.01 % eye drops 1 drp OPB HS 08/30/18 06/03/24 dextromethorphan polistirex 30 10 ml PO Q12H PRN Cough 08/30/18 06/03/24 mg/5 mL oral susp ext.release 12hr (Delsym 12 hour) escitalopram oxalate 20 mg tablet 20 mg PO DAILY 08/30/18 06/03/24 fluticasone propionate 50 2 spray intranasal DAILY 08/30/18 06/03/24 mcg/actuation nasal spray,suspension gabapentin 400 mg capsule 400 mg PO TID 08/30/18 06/03/24 levothyroxine 50 mcg tablet 50 mcg PO DAILY 08/30/18 06/03/24 metoprolol succinate 50 mg 50 mg PO DAILY 08/30/18 06/03/24 tablet,extended release 24 hr potassium chloride 10 mEq 10 meq PO DAILY 08/30/18 06/03/24 capsule,extended release rosuvastatin 10 mg tablet 10 mg PO DAILY 08/30/18 06/03/24 trazodone 50 mg tablet 50 mg PO HS 08/30/18 06/03/24 vitamins A and D-white 1 applic topical BID PRN Unknown 08/30/18 06/03/24 petrolatum-lanolin topical ointment (A and D (lanolin-petrolatum) topical ointment) sucralfate 1 gram tablet (Carafate) 1 g PO TID 09/28/18 06/03/24 furosemide 20 mg tablet (Lasix) 20 mg PO DAILY 10/27/18 06/03/24 lactase 3,000 unit tablet (Lactaid) 3,000 unit PO UD PRN PRIOR TO DAIRY 10/27/18 06/03/24 magnesium hydroxide 400 mg/5 mL 30 ml PO .EVERY 3RD DAY PRN NO BM 10/27/18 06/03/24 oral suspension (Milk of Magnesia) ondansetron 4 mg disintegrating 4 mg PO Q8 PRN Nausea 10/27/18 06/03/24 tablet brinzolamide 1 %-brimonidine 0.2 % 1 drp OPB TID 02/19/21 06/03/24 eye drops,suspension (Simbrinza) carboxymethylcellulose sodium 1 % 1 drp ophthalmic (eye) TID 02/19/21 06/03/24 eye liquid gel drops (Refresh Liquigel) sodium chloride 0.65 % nasal spray 1 spray intranasal HS 02/19/21 06/03/24 aerosol ([place] Saline) amlodipine 10 mg tablet 10 mg PO DAILY 12/01/21 06/03/24 aripiprazole 5 mg tablet 5 mg PO QPM 06/03/24 06/03/24 calcium carbonate (Calcium Antacid) 200 mg PO BID PRN UPSET 06/03/24 06/03/24 STOMACH/INDIGESTION cholecalciferol (vitamin D3) 50 50 mcg PO DAILY 06/03/24 06/03/24 mcg (2,000 unit) tablet (Vitamin D3) docusate sodium 100 mg capsule 100 mg PO AMHS 06/03/24 06/03/24 lisinopril 40 mg tablet 40 mg PO DAILY 06/03/24 06/03/24 loperamide 2 mg capsule 2 mg PO QID PRN Diarrhea 06/03/24 06/03/24 multivitamin (Daily-Scott tablet) 1 tab PO DAILY 06/03/24 06/03/24 omeprazole 40 mg capsule,delayed 40 mg PO DAILYBB 06/03/24 06/03/24 release polyethylene glycol 3350 17 17 g PO DAILY PRN NO BM FOR 2 DAYS 06/03/24 06/03/24 gram/dose oral powder (Miralax) simethicone 80 mg chewable tablet 80 mg PO Q6 PRN .GAS 06/03/24 06/03/24 Results & Data (ED) Vital Signs Vital Signs - 24 hr 06/02/24 18:18 06/02/24 18:18 06/02/24 18:19 Temperature Temperature Source Pulse Rate 70 Pulse Rate from SpO2 Sensor Respiratory Rate Respiratory Effort / Characteristics Respiratory Depth Blood Pressure 126/70 126/70 Blood Pressure Mean 92 92 Pulse Oximetry Oxygen Delivery Method Oxygen Flow Rate Sepsis Recent Fever Within 48 Hours Sepsis New/Unexplained Change in Mental Status Sepsis Action Taken by Nursing 06/02/24 18:21 06/02/24 18:22 06/02/24 18:22 Temperature 36.8 C Temperature Source Oral Pulse Rate 71 67 Pulse Rate from SpO2 Sensor 70 Respiratory Rate 13 20 Respiratory Effort / Characteristics Non-Labored Respiratory Depth Normal Blood Pressure 126/70 Blood Pressure Mean 88 Pulse Oximetry 96 96 Oxygen Delivery Method Nasal Cannula Nasal Cannula Oxygen Flow Rate 6 6 Sepsis Recent Fever Within 48 Hours No Sepsis New/Unexplained Change in Mental Status No Sepsis Action Taken by Nursing No Action Required 06/02/24 18:27 06/02/24 18:30 06/02/24 18:57 Temperature Temperature Source Pulse Rate 71 66 Pulse Rate from SpO2 Sensor 71 66 Respiratory Rate 16 21 Respiratory Effort / Characteristics Respiratory Depth Blood Pressure 120/90 Blood Pressure Mean 101 Pulse Oximetry 96 96 Oxygen Delivery Method Oxygen Flow Rate Sepsis Recent Fever Within 48 Hours Sepsis New/Unexplained Change in Mental Status Sepsis Action Taken by Nursing 06/02/24 19:01 06/02/24 19:03 06/02/24 19:04 Temperature Temperature Source Pulse Rate 71 Pulse Rate from SpO2 Sensor 66 Respiratory Rate 20 Respiratory Effort / Characteristics Respiratory Depth Blood Pressure 110/69 Blood Pressure Mean 90 Pulse Oximetry 98 98 Oxygen Delivery Method Room Air Oxygen Flow Rate Sepsis Recent Fever Within 48 Hours Sepsis New/Unexplained Change in Mental Status Sepsis Action Taken by Nursing 06/02/24 19:24 06/02/24 19:30 06/02/24 19:51 Temperature Temperature Source Pulse Rate 65 64 Pulse Rate from SpO2 Sensor 64 64 Respiratory Rate 18 19 Respiratory Effort / Characteristics Respiratory Depth Blood Pressure 118/68 Blood Pressure Mean 84 Pulse Oximetry 97 97 Oxygen Delivery Method Room Air Room Air Oxygen Flow Rate Sepsis Recent Fever Within 48 Hours Sepsis New/Unexplained Change in Mental Status Sepsis Action Taken by Nursing 06/02/24 19:57 06/02/24 20:01 06/02/24 20:01 Temperature Temperature Source Pulse Rate 62 Pulse Rate from SpO2 Sensor 64 Respiratory Rate 16 Respiratory Effort / Characteristics Respiratory Depth Blood Pressure 148/75 H 148/75 H Blood Pressure Mean 101 101 Pulse Oximetry 97 Oxygen Delivery Method Oxygen Flow Rate Sepsis Recent Fever Within 48 Hours Sepsis New/Unexplained Change in Mental Status Sepsis Action Taken by Nursing 06/02/24 20:01 06/02/24 20:03 06/02/24 20:12 Temperature Temperature Source Pulse Rate 67 66 Pulse Rate from SpO2 Sensor 67 66 Respiratory Rate 15 20 Respiratory Effort / Characteristics Respiratory Depth Blood Pressure 148/75 H Blood Pressure Mean 101 Pulse Oximetry 98 96 Oxygen Delivery Method Oxygen Flow Rate Sepsis Recent Fever Within 48 Hours Sepsis New/Unexplained Change in Mental Status Sepsis Action Taken by Nursing 06/02/24 20:30 06/02/24 20:42 06/02/24 20:57 Temperature Temperature Source Pulse Rate 68 64 Pulse Rate from SpO2 Sensor 67 65 Respiratory Rate 21 17 Respiratory Effort / Characteristics Respiratory Depth Blood Pressure 116/77 Blood Pressure Mean 101 Pulse Oximetry 97 97 Oxygen Delivery Method Oxygen Flow Rate Sepsis Recent Fever Within 48 Hours Sepsis New/Unexplained Change in Mental Status Sepsis Action Taken by Nursing 06/02/24 21:00 06/02/24 21:00 06/02/24 21:00 Temperature Temperature Source Pulse Rate Pulse Rate from SpO2 Sensor Respiratory Rate Respiratory Effort / Characteristics Respiratory Depth Blood Pressure 141/85 H 141/85 H 141/85 H Blood Pressure Mean 98 98 98 Pulse Oximetry Oxygen Delivery Method Oxygen Flow Rate Sepsis Recent Fever Within 48 Hours Sepsis New/Unexplained Change in Mental Status Sepsis Action Taken by Nursing 06/02/24 21:00 06/02/24 21:12 06/02/24 21:21 Temperature Temperature Source Pulse Rate 63 65 67 Pulse Rate from SpO2 Sensor 63 65 67 Respiratory Rate 18 18 15 Respiratory Effort / Characteristics Respiratory Depth Blood Pressure Blood Pressure Mean Pulse Oximetry 97 97 97 Oxygen Delivery Method Oxygen Flow Rate Sepsis Recent Fever Within 48 Hours Sepsis New/Unexplained Change in Mental Status Sepsis Action Taken by Nursing 06/02/24 21:40 06/02/24 21:40 06/02/24 21:45 Temperature Temperature Source Pulse Rate 69 Pulse Rate from SpO2 Sensor 69 Respiratory Rate 16 Respiratory Effort / Characteristics Respiratory Depth Blood Pressure 138/64 138/64 Blood Pressure Mean 91 91 Pulse Oximetry 92 Oxygen Delivery Method Oxygen Flow Rate Sepsis Recent Fever Within 48 Hours Sepsis New/Unexplained Change in Mental Status Sepsis Action Taken by Nursing 06/02/24 22:00 06/02/24 22:27 06/02/24 22:30 Temperature Temperature Source Pulse Rate 66 69 Pulse Rate from SpO2 Sensor 65 68 Respiratory Rate 20 20 Respiratory Effort / Characteristics Respiratory Depth Blood Pressure 123/75 Blood Pressure Mean 93 Pulse Oximetry 91 90 Oxygen Delivery Method Oxygen Flow Rate Sepsis Recent Fever Within 48 Hours Sepsis New/Unexplained Change in Mental Status Sepsis Action Taken by Nursing 06/02/24 22:30 06/02/24 22:36 06/02/24 22:42 Temperature Temperature Source Pulse Rate 66 67 Pulse Rate from SpO2 Sensor 66 68 Respiratory Rate 21 21 Respiratory Effort / Characteristics Respiratory Depth Blood Pressure 123/75 Blood Pressure Mean 93 Pulse Oximetry 91 91 Oxygen Delivery Method Room Air Oxygen Flow Rate Sepsis Recent Fever Within 48 Hours Sepsis New/Unexplained Change in Mental Status Sepsis Action Taken by Nursing 06/02/24 23:00 06/02/24 23:00 06/02/24 23:13 Temperature Temperature Source Pulse Rate 68 69 Pulse Rate from SpO2 Sensor 69 Respiratory Rate 19 Respiratory Effort / Characteristics Respiratory Depth Blood Pressure 132/68 132/68 Blood Pressure Mean 89 107 Pulse Oximetry 92 Oxygen Delivery Method Room Air Oxygen Flow Rate Sepsis Recent Fever Within 48 Hours Sepsis New/Unexplained Change in Mental Status Sepsis Action Taken by Nursing 06/02/24 23:15 06/02/24 23:30 06/02/24 23:30 Temperature Temperature Source Pulse Rate 67 Pulse Rate from SpO2 Sensor 68 Respiratory Rate 17 Respiratory Effort / Characteristics Respiratory Depth Blood Pressure 127/71 127/71 Blood Pressure Mean 91 91 Pulse Oximetry 90 Oxygen Delivery Method Oxygen Flow Rate Sepsis Recent Fever Within 48 Hours Sepsis New/Unexplained Change in Mental Status Sepsis Action Taken by Nursing 06/02/24 23:36 06/02/24 23:45 06/03/24 00:00 Temperature Temperature Source Pulse Rate 67 67 Pulse Rate from SpO2 Sensor 68 68 Respiratory Rate 19 20 Respiratory Effort / Characteristics Respiratory Depth Blood Pressure 127/74 Blood Pressure Mean 89 Pulse Oximetry 92 91 Oxygen Delivery Method Oxygen Flow Rate Sepsis Recent Fever Within 48 Hours Sepsis New/Unexplained Change in Mental Status Sepsis Action Taken by Nursing 06/03/24 00:00 06/03/24 00:00 06/03/24 00:21 Temperature Temperature Source Pulse Rate 66 66 Pulse Rate from SpO2 Sensor 67 66 Respiratory Rate 18 20 Respiratory Effort / Characteristics Respiratory Depth Blood Pressure 127/74 Blood Pressure Mean 89 Pulse Oximetry 90 92 Oxygen Delivery Method Room Air Oxygen Flow Rate Sepsis Recent Fever Within 48 Hours Sepsis New/Unexplained Change in Mental Status Sepsis Action Taken by Nursing 06/03/24 00:30 06/03/24 00:30 06/03/24 00:30 Temperature Temperature Source Pulse Rate 65 Pulse Rate from SpO2 Sensor 64 Respiratory Rate 18 Respiratory Effort / Characteristics Respiratory Depth Blood Pressure 128/67 128/67 Blood Pressure Mean 90 90 Pulse Oximetry 91 Oxygen Delivery Method Room Air Oxygen Flow Rate Sepsis Recent Fever Within 48 Hours Sepsis New/Unexplained Change in Mental Status Sepsis Action Taken by Nursing 06/03/24 00:45 06/03/24 00:54 06/03/24 01:00 Temperature Temperature Source Pulse Rate 66 68 Pulse Rate from SpO2 Sensor 64 67 Respiratory Rate 20 20 Respiratory Effort / Characteristics Respiratory Depth Blood Pressure 122/69 Blood Pressure Mean 78 Pulse Oximetry 91 91 Oxygen Delivery Method Oxygen Flow Rate Sepsis Recent Fever Within 48 Hours Sepsis New/Unexplained Change in Mental Status Sepsis Action Taken by Nursing 06/03/24 01:09 06/03/24 01:42 06/03/24 01:51 Temperature Temperature Source Pulse Rate 64 72 72 Pulse Rate from SpO2 Sensor 64 71 71 Respiratory Rate 16 21 19 Respiratory Effort / Characteristics Respiratory Depth Blood Pressure Blood Pressure Mean Pulse Oximetry 92 91 90 Oxygen Delivery Method Oxygen Flow Rate Sepsis Recent Fever Within 48 Hours Sepsis New/Unexplained Change in Mental Status Sepsis Action Taken by Nursing 06/03/24 02:00 06/03/24 02:00 06/03/24 02:00 Temperature Temperature Source Pulse Rate 71 Pulse Rate from SpO2 Sensor 71 Respiratory Rate 19 Respiratory Effort / Characteristics Respiratory Depth Blood Pressure 132/71 132/71 Blood Pressure Mean 94 94 Pulse Oximetry 89 L Oxygen Delivery Method Oxygen Flow Rate Sepsis Recent Fever Within 48 Hours Sepsis New/Unexplained Change in Mental Status Sepsis Action Taken by Nursing 06/03/24 02:00 06/03/24 02:18 06/03/24 02:24 Temperature Temperature Source Pulse Rate 72 74 Pulse Rate from SpO2 Sensor 72 74 Respiratory Rate 20 19 Respiratory Effort / Characteristics Respiratory Depth Blood Pressure 132/71 Blood Pressure Mean 94 Pulse Oximetry 90 90 Oxygen Delivery Method Oxygen Flow Rate Sepsis Recent Fever Within 48 Hours Sepsis New/Unexplained Change in Mental Status Sepsis Action Taken by Nursing 06/03/24 02:27 06/03/24 02:30 06/03/24 02:33 Temperature Temperature Source Pulse Rate 71 74 Pulse Rate from SpO2 Sensor 71 73 Respiratory Rate 20 19 Respiratory Effort / Characteristics Respiratory Depth Blood Pressure 122/63 Blood Pressure Mean 92 Pulse Oximetry 90 91 Oxygen Delivery Method Room Air Oxygen Flow Rate Sepsis Recent Fever Within 48 Hours Sepsis New/Unexplained Change in Mental Status Sepsis Action Taken by Nursing Laboratory Data Attestation: I reviewed the patient's lab results. 06/02/24 18:19 06/02/24 18:19 Lab Results 06/02/24 06/02/24 06/02/24 Range/Units 18:19 18:56 20:31 WBC 6.24 (4.8-10.8) K/ul RBC 4.55 (4.20-5.40) M/uL Hgb 12.7 (12.0-16.0) g/dl Hct 39.4 (37.0-47.0) % MCV 86.6 (80.0-100.0) fL MCH 27.9 (25.0-34.0) pg MCHC 32.2 (32.0-36.0) g/dL RDW Std Deviation 40.6 (36.4-46.3) fL RDW Coeff of Lizette 12.9 (11.5-14.5) % Plt Count 216 (130-400) K/uL MPV 9.8 (9.4-12.4) fL Immature Gran % (Auto) 0.5 % Neut % (Auto) 65.0 % Lymph % (Auto) 24.2 % [place] % (Auto) 8.2 % Eos % (Auto) 1.3 % Baso % (Auto) 0.8 % Neut # (Auto) 4.06 (1.40-6.50) K/uL Lymph # (Auto) 1.51 (1.20-3.40) K/uL [place] # (Auto) 0.51 (0.11-0.59) K/uL Eos # (Auto) 0.08 (0.00-0.50) K/uL Baso # (Auto) 0.05 (0.00-0.20) K/uL Immature Gran # (Auto) 0.03 (0.01-0.20) K/uL Sodium 140 (136-145) mmol/L Potassium 3.6 (3.5-5.1) mmol/L Chloride 108 H (98-107) mmol/L Carbon Dioxide 27 (21-32) mmol/L Anion Gap 5 (3-11) BUN 15 (6-23) mg/dl Creatinine 0.89 (0.6-1.2) mg/dl Est Cr Clr Drug Dosing 73.8 ml/min Est GFR ( Amer) 82.2 ml/min Est GFR (Non-Af Amer) 70.9 ml/min BUN/Creatinine Ratio 16.9 (10-20) Glucose 140 H (70-99(Fasting)) mg/dl Calcium 8.8 (8.6-10.3) mg/dl Magnesium 2.0 (1.7-2.4) mg/dl Total Bilirubin 0.4 (0.2-1.0) mg/dl AST 18 (13-39) U/L ALT 11 (7-52) U/L Alkaline Phosphatase 62 (34-104) U/L Troponin I High Sens 6.9 6.7 (0-14) pg/ml B-Natriuretic Peptide 114 H (0-100) pg/ml Total Protein 6.1 (6.0-8.3) gm/dl Albumin 3.7 (3.4-5.0) gm/dl Globulin 2.4 L (2.5-4.0) gm/dl Albumin/Globulin Ratio 1.5 (0.9-2) Lipase 33 (11-82) U/L Procalcitonin < 0.02 (0-0.5) ng/ml Urine Color Urine Appearance (Clear) Urine pH (4.5-7.5) Ur Specific [place] (1.000-1.030) Urine Protein (Negative) Urine Glucose (UA) (Negative) Urine Ketones (Negative) Urine Blood (Negative) Urine Nitrite (Negative) Urine Bilirubin (Negative) Urine Urobilinogen (Negative) Ur Leukocyte Esterase (Negative) Urine WBC (Auto) (0-5) /hpf Urine RBC (Auto) (0-2) /hpf U Hyaline Cast (Auto) (0-2) /lpf U Epithel Cells (Auto) (0-2) /hpf Urine Bacteria (Auto) (None Seen) Adenovirus (PCR) Not Detected (NotDetected) B. pertussis DNA (PCR) Not Detected (NotDetected) B.parapertussis DNA PCR Not Detected (NotDetected) C. pneumoniae DNA (PCR) Not Detected (NotDetected) Coronavirus OC43 (PCR) Not Detected (NotDetected) Coronavirus HKU1 (PCR) Not Detected (NotDetected) Coronavirus 229E (PCR) Not Detected (NotDetected) SARS-CoV-2 (PCR) Not Detected (NotDetected) Coronavirus NL63 (PCR) Not Detected (NotDetected) Human Metapneumovir PCR Not Detected (NotDetected) Influenza Type A (PCR) Not Detected (NotDetected) Influenza Type B (PCR) Not Detected (NotDetected) M. pneumoniae (PCR) Not Detected (NotDetected) Parainfluenza 1 (PCR) Not Detected (NotDetected) Parainfluenza 2 (PCR) Not Detected (NotDetected) Parainfluenza 3 (PCR) Not Detected (NotDetected) Parainfluenza 4 (PCR) Not Detected (NotDetected) RSV (PCR) Not Detected (NotDetected) Entero/Rhino (PCR) Not Detected (NotDetected) 06/03/24 Range/Units 03:00 WBC (4.8-10.8) K/ul RBC (4.20-5.40) M/uL Hgb (12.0-16.0) g/dl Hct (37.0-47.0) % MCV (80.0-100.0) fL MCH (25.0-34.0) pg MCHC (32.0-36.0) g/dL RDW Std Deviation (36.4-46.3) fL RDW Coeff of Lizette (11.5-14.5) % Plt Count (130-400) K/uL MPV (9.4-12.4) fL Immature Gran % (Auto) % Neut % (Auto) % Lymph % (Auto) % [place] % (Auto) % Eos % (Auto) % Baso % (Auto) % Neut # (Auto) (1.40-6.50) K/uL Lymph # (Auto) (1.20-3.40) K/uL [place] # (Auto) (0.11-0.59) K/uL Eos # (Auto) (0.00-0.50) K/uL Baso # (Auto) (0.00-0.20) K/uL Immature Gran # (Auto) (0.01-0.20) K/uL Sodium (136-145) mmol/L Potassium (3.5-5.1) mmol/L Chloride (98-107) mmol/L Carbon Dioxide (21-32) mmol/L Anion Gap (3-11) BUN (6-23) mg/dl Creatinine (0.6-1.2) mg/dl Est Cr Clr Drug Dosing ml/min Est GFR ( Amer) ml/min Est GFR (Non-Af Amer) ml/min BUN/Creatinine Ratio (10-20) Glucose (70-99(Fasting)) mg/dl Calcium (8.6-10.3) mg/dl Magnesium (1.7-2.4) mg/dl Total Bilirubin (0.2-1.0) mg/dl AST (13-39) U/L ALT (7-52) U/L Alkaline Phosphatase (34-104) U/L Troponin I High Sens (0-14) pg/ml B-Natriuretic Peptide (0-100) pg/ml Total Protein (6.0-8.3) gm/dl Albumin (3.4-5.0) gm/dl Globulin (2.5-4.0) gm/dl Albumin/Globulin Ratio (0.9-2) Lipase (11-82) U/L Procalcitonin (0-0.5) ng/ml Urine Color Yellow Urine Appearance Clear (Clear) Urine pH 5.0 (4.5-7.5) Ur Specific [place] 1.020 (1.000-1.030) Urine Protein Negative (Negative) Urine Glucose (UA) Negative (Negative) Urine Ketones Negative (Negative) Urine Blood Negative (Negative) Urine Nitrite Negative (Negative) Urine Bilirubin Negative (Negative) Urine Urobilinogen Negative (Negative) Ur Leukocyte Esterase 1+ H (Negative) Urine WBC (Auto) 0-5 (0-5) /hpf Urine RBC (Auto) 0-2 (0-2) /hpf U Hyaline Cast (Auto) 0-2 (0-2) /lpf U Epithel Cells (Auto) 0-2 (0-2) /hpf Urine Bacteria (Auto) None Seen (None Seen) Adenovirus (PCR) (NotDetected) B. pertussis DNA (PCR) (NotDetected) B.parapertussis DNA PCR (NotDetected) C. pneumoniae DNA (PCR) (NotDetected) Coronavirus OC43 (PCR) (NotDetected) Coronavirus HKU1 (PCR) (NotDetected) Coronavirus 229E (PCR) (NotDetected) SARS-CoV-2 (PCR) (NotDetected) Coronavirus NL63 (PCR) (NotDetected) Human Metapneumovir PCR (NotDetected) Influenza Type A (PCR) (NotDetected) Influenza Type B (PCR) (NotDetected) M. pneumoniae (PCR) (NotDetected) Parainfluenza 1 (PCR) (NotDetected) Parainfluenza 2 (PCR) (NotDetected) Parainfluenza 3 (PCR) (NotDetected) Parainfluenza 4 (PCR) (NotDetected) RSV (PCR) (NotDetected) Entero/Rhino (PCR) (NotDetected) Administered Medications Discontinued Medications Albuterol (Albut/Ipratrop 3mg/0.5mg Neb 3 Ml Vial) 3 ml NEB NOW STA; Protocol Stop: 06/03/24 00:40 Last Admin: 06/03/24 01:04 Dose: 3 ml Documented By: ELFEGO Furosemide (Furosemide Inj 20 Mg/2 Ml Vial) 20 mg IV ONE ONE Stop: 06/03/24 00:40 Last Admin: 06/03/24 01:05 Dose: 20 mg Documented By: ELFEGO Ioversol (Optiray 320 125ml) 120 ml IV ONCE ONE Stop: 06/02/24 21:41 Last Admin: 06/02/24 21:40 Dose: 120 ml Documented By: SKINNY Ondansetron HCl (Ondansetron Inj 2 Mg/Ml 2 Ml Vial) 4 mg IV NOW STA Stop: 06/03/24 00:39 Last Admin: 06/03/24 01:04 Dose: 4 mg Documented By: ELFEGO Imaging Data Radiologist's Impression: Chest X-Ray 06/02/24 18:13 SINGLE VIEW CHEST CLINICAL HISTORY: Atypical chest pain FINDINGS: An AP, portable, upright chest radiograph is compared to study dated 02/19/2021 and correlated with chest CT dated 11/27/2019. The heart is enlarged. The pulmonary vasculature is not congested. There is mild elevation of the right hemidiaphragm and bibasilar atelectasis. The lungs and pleural spaces are clear. No pneumothorax is seen. The skeletal structures are osteopenic. The bony thorax is grossly intact. IMPRESSION: Cardiomegaly with no acute cardiopulmonary abnormality identified. ACT 112: Negative or not required by law. Electronically signed by: Art Casas M.D. 06/02/2024 7:18 PM Chest CTA 06/02/24 20:34 Exam(s): CTA CHEST IV Amt: 120ml optiray 320 EXAM: CT Angiography Chest With Intravenous Contrast CLINICAL HISTORY: Reason for exam: cp, sob, hypoxia, r/o PE. TECHNIQUE: Axial computed tomographic angiography images of the chest with intravenous contrast. CTDI is 30 mGy and DLP is 533.24 mGy-cm. Automated exposure control was utilized for the study. A dose lowering technique was utilized adhering to the principles of ALARA. MIP reconstructed images were created and reviewed. COMPARISON: No relevant prior studies available. FINDINGS: LUNGS: No focal consolidation, pleural effusion, or pneumothorax. Atelectasis at the lung bases. HEART: Cardiomegaly. VASCULATURE: No acute pulmonary embolism. Atherosclerotic changes of the aorta. THYROID: Within normal limits. MEDIASTINUM + LYMPH NODES: There are no pathologically enlarged mediastinal, hilar, or axillary lymph nodes. SUPERIOR ABDOMEN: Hepatic steatosis. Mild-moderate hiatal hernia. MUSCULOSKELETAL: Degenerative changes. IMPRESSION: No acute pulmonary embolism. Electronically signed by: Anup Henriquez MD 06/03/24 00:30 AM Discharge Plan Visit Data Chief Complaint: Chest Pain Stated Complaint: Chest pain ED Provider: Thaddeus Sher Discharge Problem: Hypoxia, Chest pain, Shortness of breath, Hypervolemia Patient Disposition: Admitted As Inpatient Forms Stand Alone Forms: Work/School Release (ED), [facility], Work/School Release, Important Visit Information Prescriptions Prescriptions: No Action amlodipine 10 mg tablet 10 mg PO DAILY potassium chloride 10 mEq capsule, extended release 10 meq PO DAILY dextromethorphan polistirex [Delsym 12 hour] 30 mg/5 mL Suspension,Extended Rel 12 Hr 10 ml PO Q12H PRN (Reason: Cough) acetaminophen [Tylenol] 325 mg Tablet 650 mg PO Q6H PRN (Reason: FEVER/HEADACHE/MINOR ACHES AND PAINS) trazodone 50 mg tablet 50 mg PO HS metoprolol succinate 50 mg tablet extended release 24 hr 50 mg PO DAILY gabapentin 400 mg capsule 400 mg PO TID levothyroxine 50 mcg tablet 50 mcg PO DAILY fluticasone propionate 50 mcg/actuation spray,suspension 2 spray Intranasal DAILY escitalopram oxalate 20 mg tablet 20 mg PO DAILY rosuvastatin 10 mg tablet 10 mg PO DAILY vits A and D-white pet-lanolin [A and D (lanolin-petrolatum)] Ointment 1 applic TOPICAL BID PRN (Reason: Unknown) bimatoprost 0.01 % drops 1 drp OPB HS sucralfate [Carafate] 1 gram Tablet 1 g PO TID Rx Instructions: TAKE BEFORE BREAKFAST,DINNER AND BEDTIME magnesium hydroxide [Milk of Magnesia] 400 mg/5 mL Suspension 30 ml PO .EVERY 3RD DAY PRN (Reason: NO BM) lactase [Lactaid] 3,000 unit Tablet 3,000 unit PO UD PRN (Reason: PRIOR TO DAIRY) furosemide [Lasix] 20 mg Tablet 20 mg PO DAILY ondansetron 4 mg Tablet,Disintegrating 4 mg PO Q8 PRN (Reason: Nausea) carboxymethylcellulose sodium [Refresh Liquigel] 1 % Drops, Liquid Gel 1 drp OPHTHALMIC (EYE) TID [place] Saline 0.65 % Aerosol,[place] 1 spray INTRANASAL HS Simbrinza 1-0.2 % drops,suspension 1 drp OPB TID aripiprazole 5 mg tablet 5 mg PO QPM lisinopril 40 mg tablet 40 mg PO DAILY omeprazole 40 mg capsule,delayed release(DR/EC) 40 mg PO DAILYBB multivitamin [Daily-Scott] Tablet 1 tab PO DAILY docusate sodium 100 mg Capsule 100 mg PO AMHS cholecalciferol (vitamin D3) [Vitamin D3] 50 mcg (2,000 unit) Tablet 50 mcg PO DAILY loperamide 2 mg capsule 2 mg PO QID PRN (Reason: Diarrhea) calcium carbonate [Calcium Antacid] 200 mg calcium (500 mg) Tablet,Chewable 200 mg PO BID PRN (Reason: UPSET STOMACH/INDIGESTION) polyethylene glycol 3350 [Miralax] 17 gram/dose Powder 17 g PO DAILY PRN (Reason: NO BM FOR 2 DAYS) simethicone 80 mg Tablet,Chewable 80 mg PO Q6 PRN (Reason: .GAS) Referrals Referrals: Vianney Cruz MD [Primary Care Provider] - Discharge Problem: Chest pain Qualifiers: Chest pain type: unspecified Qualified Code(s): R07.9 - Chest pain, unspecified Hypervolemia Qualifiers: Hypervolemia type: unspecified Qualified Code(s): E87.70 - Fluid overload, unspecified
[2024-06-02 18:53] LABS: Basophils # (auto) 0.05 K/uL (0.00-0.20); Basophils % (auto) 0.8 %; Eosinophils # (auto) 0.08 K/uL (0.00-0.50); Eosinophils % (auto) 1.3 %; Hematocrit (blood only) 39.4 % (37.0-47.0); Hemoglobin 12.7 g/dl (12.0-16.0); Immature Granulocytes # (auto) 0.03 K/uL (0.01-0.20); Immature Granulocytes % (auto) 0.5 %; Lymphocytes # (auto) 1.51 K/uL (1.20-3.40); Lymphocytes % (auto) 24.2 %; Mean Corpuscular Hemoglobin 27.9 pg (25.0-34.0); Mean Corpuscular Hgb Conc 32.2 g/dL (32.0-36.0); Mean Corpuscular Volume 86.6 fL (80.0-100.0); Mean Platelet Volume 9.8 fL (9.4-12.4); Monocytes # (auto) 0.51 K/uL (0.11-0.59); Monocytes % (auto) 8.2 %; Neutrophils # (auto) 4.06 K/uL (1.40-6.50); Platelet Count 216 K/uL (130-400); RDW Coefficient of Variation 12.9 % (11.5-14.5); RDW Standard Deviation 40.6 fL (36.4-46.3); Red Blood Count 4.55 M/uL (4.20-5.40); White Blood Count 6.24 K/ul (4.8-10.8)
[2024-06-02 19:08] LABS: Albumin Globulin Ratio 1.5 (0.9-2); Albumin Level 3.7 gm/dl (3.4-5.0); BUN Creatinine Ratio 16.9 (10-20); Bilirubin,Total 0.4 mg/dl (0.2-1.0); Calcium 8.8 mg/dl (8.6-10.3); Creatinine Clr Calc Pharmacy 73.8 ml/min; Est GFR (African American) 82.2 ml/min; Est GFR (Non-African American) 70.9 ml/min; Globulin 2.4 gm/dl (2.5-4.0); Potassium 3.6 mmol/L (3.5-5.1); Total Protein 6.1 gm/dl (6.0-8.3)
[2024-06-02 19:15] LABS: Troponin I High Sensitivity 6.9 pg/ml (0-14)
--- NOTE | 2024-06-02 19:19 | XRay Report ---
SINGLE VIEW CHEST CLINICAL HISTORY: Atypical chest pain FINDINGS: An AP, portable, upright chest radiograph is compared to study dated 02/19/2021 and correlat ed with chest CT dated 11/27/2019. The heart is enlarged. The pulmonary vasculature is not congested. T here is mild elevation of the right hemidiaphragm and bibasilar atelectasis. The lungs and pleural sp aces are clear. No pneumothorax is seen. The skeletal structures are osteopenic. The bony thorax is g rossly intact. IMPRESSION: Cardiomegaly with no acute cardiopulmonary abnormality identified. ACT 112: Negative or not required by law. Electronically signed by: Art Casas M.D. 06/02/2024 7:18 PM
[2024-06-02 20:24] LABS: Adenovirus PCR Not Detected (NotDetected); Bordetella parapertussis PCR Not Detected (NotDetected); Bordetella pertussis PCR Not Detected (NotDetected); Chlamydia pneumoniae PCR Not Detected (NotDetected); Coronavirus 229E PCR Not Detected (NotDetected); Coronavirus CoV-2 (COVID19)PCR Not Detected (NotDetected); Coronavirus HKU1 PCR Not Detected (NotDetected); Coronavirus NL63 PCR Not Detected (NotDetected); Coronavirus OC43PCR Not Detected (NotDetected); Human Metapneumovirus PCR Not Detected (NotDetected); Influenza A PCR Not Detected (NotDetected); Influenza B PCR Not Detected (NotDetected); Mycoplasma pneumoniae PCR Not Detected (NotDetected); Parainfluenza Virus 1 PCR Not Detected (NotDetected); Parainfluenza Virus 2 PCR Not Detected (NotDetected); Parainfluenza Virus 3 PCR Not Detected (NotDetected); Parainfluenza Virus 4 PCR Not Detected (NotDetected); Respiratory Syncytial VirusPCR Not Detected (NotDetected); Rhinovirus/Enterovirus PCR Not Detected (NotDetected)
[2024-06-02] MEDS: OPTIRAY 320 125ml IV ONE (21:40)
--- NOTE | 2024-06-03 00:31 | CT Scan Report ---
Exam(s): CTA CHEST IV Amt: 120ml optiray 320 EXAM: CT Angiography Chest With Intravenous Contrast CLINICAL HISTORY: Reason for exam: cp, sob, hypoxia, r/o PE. TECHNIQUE: Axial computed tomographic angiography images of the chest with intravenous contrast. CTDI is 30 mGy and DLP is 533.24 mGy-cm. Automated exposure control was utilized for the study. A dose lowering technique was utilized adhering to the principles of ALARA. MIP reconstructed images were created and reviewed. COMPARISON: No relevant prior studies available. FINDINGS: LUNGS: No focal consolidation, pleural effusion, or pneumothorax. Atelectasis at the lung bases. HEART: Cardiomegaly. VASCULATURE: No acute pulmonary embolism. Atherosclerotic changes of the aorta. THYROID: Within normal limits. MEDIASTINUM + LYMPH NODES: There are no pathologically enlarged mediastinal, hilar, or axillary lymph nodes. SUPERIOR ABDOMEN: Hepatic steatosis. Mild-moderate hiatal hernia. MUSCULOSKELETAL: Degenerative changes. IMPRESSION: No acute pulmonary embolism. Electronically signed by: Anup Henriquez MD 06/03/24 00:30 AM
[2024-06-03] MEDS: ALBUT/IPRATROP 3MG/0.5MG NEB 3 ML VIAL NEB STA (01:04)
[2024-06-03] MEDS: ONDANSETRON INJ 2 MG/ML 2 ML VIAL IV STA (01:04)
[2024-06-03] MEDS: FUROSEMIDE INJ 20 MG/2 ML VIAL IV ONE (01:05)
[2024-06-03 03:20] LABS: Appearance Urine Clear (Clear); Bacteria Urine Automated None Seen (None Seen); Bilirubin Urine Negative (Negative); Blood Urine Negative (Negative); Cast Urine Automated 0-2 /lpf (0-2); Color Urine Yellow; Epithelial Cell Urine Auto 0-2 /hpf (0-2); Glucose Urine UA Negative (Negative); Ketones Urine Negative (Negative); Leukocyte Esterase Urine 1+ (Negative); Nitrite Urine Negative (Negative); Protein Urine Negative (Negative); RBC Urine Automated 0-2 /hpf (0-2); Urobilinogen Urine Negative (Negative); WBC Urine Automated 0-5 /hpf (0-5)
--- NOTE | 2024-06-03 04:31 | History & Physical Report ---
Date of Service June 03, 2024 Assessment & Plan (1) Hypoxia: Plan: 58-year-old female with past medical history significant for hypothyroidism, hyperlipidemia, primary hyperparathyroidism, severe obstructive sleep apnea on CPAP, difficult airway for intubation, hypertension, aberrant right subclavian artery, irritable bowel syndrome, Rollins's esophagus, osteoporosis, sensorineural hearing loss, glaucoma, cerebral palsy, intellectual disability, bipolar 1 disorder, patient lives in apartments, comes because of chest pain and shortness of breath. Caregiver is in the room. Patient is alert and oriented. Able to give her history. Somewhat hard of hearing. Patient states when she woke up in the morning since then she is having on and off chest pains in the middle of the chest. 7/10 in severity. No radiation. She also feeling short of breath. Currently shortness of breath improved but still has some chest discomfort. Denies any headache. No blurred vision. No runny nose or sore throat. No cough. Appetite is okay. No difficulty swallowing. Was nauseous earlier but okay now. No abdominal pain. Somewhat constipated. Micturating okay. Hemodynamics are okay. In ER she was requiring 2 L oxygen. She was 88% on room air. Hypoxia possible CHF came with chest pain and shortness of breath 88% room air. On 2 L saturating okay. States shortness of breath improved. CTA chest is okay. BNP slightly elevated. Has lower extremity edema. Takes Lasix 20 mg daily at home. received dose of IV Lasix 20 mg in the ER. Will monitor in the hospital. Will follow echo. cardiac consult Nebs as needed for now. Chest pains and shortness of breath EKG and 2 sets of troponin okay will follow serial cardiac enzymes and echo n.p.o. for now cardiology consult in a.m. for further recommendation. Hypertension. On metoprolol succinate, lisinopril and Lasix and amlodipine will monitor obstructive sleep apnea on CPAP nightly hyperlipidemia on statin hypothyroidism on Synthyroid will follow TSH bipolar 1 disorder depression on aripiprazole, Lexapro and trazodone Rollins's esophagus and sucralfate, and omeprazole cerebral palsy intellectual disability Glaucoma continue home eyedrops DVT prophylaxis SCDs for now disposition telemetry full code. History of Present Illness Chief Complaint: Chest pain and shortness of breath Primary Care Provider: Vianney Cruz MD 58-year-old female with past medical history significant for hypothyroidism, hyperlipidemia, primary hyperparathyroidism, severe obstructive sleep apnea on CPAP, difficult airway for intubation, hypertension, aberrant right subclavian artery, irritable bowel syndrome, Rollins's esophagus, osteoporosis, sensorineural hearing loss, glaucoma, cerebral palsy, intellectual disability, bipolar 1 disorder, patient lives in apartments, comes because of chest pain and shortness of breath. Caregiver is in the room. Patient is alert and oriented. Able to give her history. Somewhat hard of hearing. Patient states when she woke up in the morning since then she is having on and off chest pains in the middle of the chest. 7/10 in severity. No radiation. She also feeling short of breath. Currently shortness of breath improved but still has some chest discomfort. Denies any headache. No blurred vision. No runny nose or sore throat. No cough. Appetite is okay. No difficulty swallowing. Was nauseous earlier but okay now. No abdominal pain. Somewhat constipated. Micturating okay. Hemodynamics are okay. In ER she was requiring 2 L oxygen. She was 88% on room air. Past medical history. As mentioned above past surgical history. Right breast biopsy. Colonoscopy. Cystoscopy. EGD. EGD with biopsy. EGD with endoscopic ultrasound. Parathyroidectomy. Hysteroscopy. Laparoscopic cholecystectomy. Sinus surgery. Total abdominal hysterectomy with bilateral salpingo-oophorectomy, omentectomy. Social history. No smoking. Alcohol use . No drug use. Family history. Father had diabetes. Congestive heart failure. Hypertension. Mother had ovarian cancer stage IV. Maternal grandmother had CHF. Allergies Allergy/AdvReac Type Severity Reaction Status Date / Time tramadol Allergy Severe SEVERE Verified 12/18/23 10:45 MOOD FLUCTUATIONS bee venom protein (honey bee) Allergy Intermediate localized Verified 12/18/23 10:45 swelling pollen extracts Allergy Intermediate ITCHY Verified 12/18/23 10:45 EYES, SNEEZING, CONGESTION clonazepam [From Klonopin] Allergy Mild increase Verified 12/18/23 10:45 in anxiety/agitation lactose Allergy Mild Gastrointestinal Verified 12/18/23 10:45 Upset Home Medications Medication Instructions Recorded Confirmed Type acetaminophen 325 mg tablet 650 mg PO Q6H PRN 08/30/18 06/03/24 History (Tylenol) FEVER/HEADACHE/MINOR ACHES AND PAINS bimatoprost 0.01 % eye drops 1 drp OPB HS 08/30/18 06/03/24 History dextromethorphan polistirex 30 10 ml PO Q12H PRN Cough 08/30/18 06/03/24 History mg/5 mL oral susp ext.release 12hr (Delsym 12 hour) escitalopram oxalate 20 mg tablet 20 mg PO DAILY 08/30/18 06/03/24 History fluticasone propionate 50 2 spray intranasal DAILY 08/30/18 06/03/24 History mcg/actuation nasal spray,suspension gabapentin 400 mg capsule 400 mg PO TID 08/30/18 06/03/24 History levothyroxine 50 mcg tablet 50 mcg PO DAILY 08/30/18 06/03/24 History metoprolol succinate 50 mg 50 mg PO DAILY 08/30/18 06/03/24 History tablet,extended release 24 hr potassium chloride 10 mEq 10 meq PO DAILY 08/30/18 06/03/24 History capsule,extended release rosuvastatin 10 mg tablet 10 mg PO DAILY 08/30/18 06/03/24 History trazodone 50 mg tablet 50 mg PO HS 08/30/18 06/03/24 History vitamins A and D-white 1 applic topical BID PRN Unknown 08/30/18 06/03/24 History petrolatum-lanolin topical ointment (A and D (lanolin-petrolatum) topical ointment) sucralfate 1 gram tablet (Carafate) 1 g PO TID 09/28/18 06/03/24 History furosemide 20 mg tablet (Lasix) 20 mg PO DAILY 10/27/18 06/03/24 History lactase 3,000 unit tablet (Lactaid) 3,000 unit PO UD PRN PRIOR TO DAIRY 10/27/18 06/03/24 History magnesium hydroxide 400 mg/5 mL 30 ml PO .EVERY 3RD DAY PRN NO BM 10/27/18 06/03/24 History oral suspension (Milk of Magnesia) ondansetron 4 mg disintegrating 4 mg PO Q8 PRN Nausea 10/27/18 06/03/24 History tablet brinzolamide 1 %-brimonidine 0.2 % 1 drp OPB TID 02/19/21 06/03/24 History eye drops,suspension (Simbrinza) carboxymethylcellulose sodium 1 % 1 drp ophthalmic (eye) TID 02/19/21 06/03/24 History eye liquid gel drops (Refresh Liquigel) sodium chloride 0.65 % nasal spray 1 spray intranasal HS 02/19/21 06/03/24 History aerosol (Lockhart Saline) amlodipine 10 mg tablet 10 mg PO DAILY 12/01/21 06/03/24 History aripiprazole 5 mg tablet 5 mg PO QPM 06/03/24 06/03/24 History calcium carbonate (Calcium Antacid) 200 mg PO BID PRN UPSET 06/03/24 06/03/24 History STOMACH/INDIGESTION cholecalciferol (vitamin D3) 50 50 mcg PO DAILY 06/03/24 06/03/24 History mcg (2,000 unit) tablet (Vitamin D3) docusate sodium 100 mg capsule 100 mg PO AMHS 06/03/24 06/03/24 History lisinopril 40 mg tablet 40 mg PO DAILY 06/03/24 06/03/24 History loperamide 2 mg capsule 2 mg PO QID PRN Diarrhea 06/03/24 06/03/24 History multivitamin (Daily-Scott tablet) 1 tab PO DAILY 06/03/24 06/03/24 History omeprazole 40 mg capsule,delayed 40 mg PO DAILYBB 06/03/24 06/03/24 History release polyethylene glycol 3350 17 17 g PO DAILY PRN NO BM FOR 2 DAYS 06/03/24 06/03/24 History gram/dose oral powder (Miralax) simethicone 80 mg chewable tablet 80 mg PO Q6 PRN .GAS 06/03/24 06/03/24 History Past Med/Surg History Problem List (Updated 06/03/24 @ 08:46 by RADHA Germain) Left bundle branch block Chronic diastolic CHF (congestive heart failure) Hypervolemia (Acute) Shortness of breath (Acute) Chest pain (Acute) Hypoxia (Acute) Hypertensive urgency (Acute) Left thigh pain (Acute) CELESTINA treated with BiPAP Pulmonary nodule Abnormal CT of the chest Colon cancer screening Encounter for pre-operative examination Chest pain (Acute) Contusion of multiple sites (Acute) Diverticulitis (Acute) Dizziness (Acute) Esophageal spasm (Acute) Esophageal spasm (Acute) Facial contusion (Acute) Fall (Acute) Hiatal hernia (Acute) Laceration of lip (Acute) Respiratory failure, acute Right hip pain (Acute) Sepsis Depression Explosive personality disorder Bipolar disorder Hypertension Suicide attempt Suicidal ideation Medical History Tongue abnormality h/o tongue surgery Diverticular disease Glaucoma of both eyes Pancreatitis GERD (gastroesophageal reflux disease) Constipation IBS (irritable bowel syndrome) Hypothyroidism Hyperlipidemia Sleep apnea Sensorineural hearing loss (SNHL) of both ears Blepharitis Mild intellectual disability Surgical History H/O sinus surgery balloon sinuplasty S/P cholecystectomy Family History Other No pertinent family history Social History Smoking Status: Never smoker Hx Alcohol Use: No Hx Substance Use: No Preferred Language: Gu[place]ian Communication Ability: Effective Communication Ability Comment: Pt has a mild intellectual disability It Infrastructure Manager Required: No Beliefs That Will Affect Care: None Current Living Situation: Alone Current Living Situation Comment: Skills Feels Safe at Home: Yes Safety Concerns: Feels Safe At This Time Assistive Devices: CPAP, Glasses and Hearing Aid - Bilateral Review of Systems Review of Systems: All systems reviewed & are unremarkable except as noted in HPI & below Physical Exam Physical Exam: General- Not in distress. Head- atraumatic Eyes- PERRL. ENT- oropharynx dry Neck- supple, no JVD. Lungs- clear to auscultation b/l mild occasional wheezing, no crackles. Heart- regular rate and rhythm; no murmur, no gallop. Abdomen- normal bowel sounds, soft, nontender, no distension. Extremities- b/l lower extremity edema present, no erythema seen Neuro- alert, oriented ; PERRL, no facial palsy; no dysarthria; moves extremities. Results & Data Results & Data Vital Signs (Past 12 Hours) Vital Signs Temp Pulse Resp BP Pulse Ox O2 Del Method O2 Flow Rate 06/03/24 02:33 74 19 91 Room Air 06/03/24 02:30 122/63 06/03/24 02:27 71 20 90 06/03/24 02:24 74 19 90 06/03/24 02:18 72 20 90 06/03/24 02:00 132/71 06/03/24 02:00 132/71 06/03/24 02:00 132/71 06/03/24 02:00 71 19 89 L 06/03/24 01:51 72 19 90 06/03/24 01:42 72 21 91 06/03/24 01:09 64 16 92 06/03/24 01:00 122/69 06/03/24 00:54 68 20 91 06/03/24 00:45 66 20 91 06/03/24 00:30 65 18 91 Room Air 06/03/24 00:30 128/67 06/03/24 00:30 128/67 06/03/24 00:21 66 20 92 06/03/24 00:00 66 18 90 Room Air 06/03/24 00:00 127/74 06/03/24 00:00 127/74 06/02/24 23:45 67 20 91 06/02/24 23:36 67 19 92 06/02/24 23:30 127/71 06/02/24 23:30 127/71 06/02/24 23:15 67 17 90 06/02/24 23:13 69 06/02/24 23:00 132/68 06/02/24 23:00 68 19 132/68 92 Room Air 06/02/24 22:42 67 21 91 06/02/24 22:36 66 21 91 Room Air 06/02/24 22:30 123/75 06/02/24 22:30 123/75 06/02/24 22:27 69 20 90 06/02/24 22:00 66 20 91 06/02/24 21:45 69 16 92 06/02/24 21:40 138/64 06/02/24 21:40 138/64 06/02/24 21:21 67 15 97 06/02/24 21:12 65 18 97 06/02/24 21:00 63 18 97 06/02/24 21:00 141/85 H 06/02/24 21:00 141/85 H 06/02/24 21:00 141/85 H 06/02/24 20:57 64 17 97 06/02/24 20:42 68 21 97 06/02/24 20:30 116/77 06/02/24 20:12 66 20 96 06/02/24 20:03 67 15 98 06/02/24 20:01 148/75 H 06/02/24 20:01 148/75 H 06/02/24 20:01 148/75 H 06/02/24 19:57 62 16 97 06/02/24 19:51 Room Air 06/02/24 19:30 64 19 118/68 97 Room Air 06/02/24 19:24 65 18 97 06/02/24 19:04 98 Room Air 06/02/24 19:03 71 20 98 06/02/24 19:01 110/69 06/02/24 18:57 66 21 96 06/02/24 18:30 120/90 06/02/24 18:27 71 16 96 06/02/24 18:22 Nasal Cannula 6 06/02/24 18:22 36.8 C 67 20 126/70 96 Nasal Cannula 6 06/02/24 18:21 71 13 96 06/02/24 18:19 70 06/02/24 18:18 126/70 06/02/24 18:18 126/70 Diagnostic Findings Laboratory Results WBC 6.24 K/ul (4.8-10.8) 06/02/24 18:19 RBC 4.55 M/uL (4.20-5.40) 06/02/24 18:19 Hgb 12.7 g/dl (12.0-16.0) 06/02/24 18:19 Hct 39.4 % (37.0-47.0) 06/02/24 18:19 MCV 86.6 fL (80.0-100.0) 06/02/24 18:19 MCH 27.9 pg (25.0-34.0) 06/02/24 18:19 MCHC 32.2 g/dL (32.0-36.0) 06/02/24 18:19 RDW Std Deviation 40.6 fL (36.4-46.3) 06/02/24 18:19 RDW Coeff of Lizette 12.9 % (11.5-14.5) 06/02/24 18:19 Plt Count 216 K/uL (130-400) 06/02/24 18:19 MPV 9.8 fL (9.4-12.4) 06/02/24 18:19 Immature Gran % (Auto) 0.5 % 06/02/24 18:19 Neut % (Auto) 65.0 % 06/02/24 18:19 Lymph % (Auto) 24.2 % 06/02/24 18:19 Craig % (Auto) 8.2 % 06/02/24 18:19 Eos % (Auto) 1.3 % 06/02/24 18:19 Baso % (Auto) 0.8 % 06/02/24 18:19 Neut # (Auto) 4.06 K/uL (1.40-6.50) 06/02/24 18:19 Lymph # (Auto) 1.51 K/uL (1.20-3.40) 06/02/24 18:19 Craig # (Auto) 0.51 K/uL (0.11-0.59) 06/02/24 18:19 Eos # (Auto) 0.08 K/uL (0.00-0.50) 06/02/24 18:19 Baso # (Auto) 0.05 K/uL (0.00-0.20) 06/02/24 18:19 Immature Gran # (Auto) 0.03 K/uL (0.01-0.20) 06/02/24 18:19 Sodium 140 mmol/L (136-145) 06/02/24 18:19 Potassium 3.6 mmol/L (3.5-5.1) 06/02/24 18:19 Chloride 108 mmol/L (98-107) H 06/02/24 18:19 Carbon Dioxide 27 mmol/L (21-32) 06/02/24 18:19 Anion Gap 5 (3-11) 06/02/24 18:19 BUN 15 mg/dl (6-23) 06/02/24 18:19 Creatinine 0.89 mg/dl (0.6-1.2) 06/02/24 18:19 Est Cr Clr Drug Dosing 73.8 ml/min 06/02/24 18:19 Est GFR ( Amer) 82.2 ml/min 06/02/24 18:19 Est GFR (Non-Af Amer) 70.9 ml/min 06/02/24 18:19 BUN/Creatinine Ratio 16.9 (10-20) 06/02/24 18:19 Glucose 140 mg/dl (70-99(Fasting)) H 06/02/24 18:19 Calcium 8.8 mg/dl (8.6-10.3) 06/02/24 18:19 Magnesium 2.0 mg/dl (1.7-2.4) 06/02/24 18:19 Total Bilirubin 0.4 mg/dl (0.2-1.0) 06/02/24 18:19 AST 18 U/L (13-39) 06/02/24 18:19 ALT 11 U/L (7-52) 06/02/24 18:19 Alkaline Phosphatase 62 U/L (34-104) 06/02/24 18:19 Troponin I High Sens 6.7 pg/ml (0-14) 06/02/24 20:31 B-Natriuretic Peptide 114 pg/ml (0-100) H 06/02/24 18:56 Total Protein 6.1 gm/dl (6.0-8.3) 06/02/24 18:19 Albumin 3.7 gm/dl (3.4-5.0) 06/02/24 18:19 Globulin 2.4 gm/dl (2.5-4.0) L 06/02/24 18:19 Albumin/Globulin Ratio 1.5 (0.9-2) 06/02/24 18:19 Lipase 33 U/L (11-82) 06/02/24 18:19 Procalcitonin < 0.02 ng/ml (0-0.5) 06/02/24 18:19 Urine Color Yellow 06/03/24 03:00 Urine Appearance Clear (Clear) 06/03/24 03:00 Urine pH 5.0 (4.5-7.5) 06/03/24 03:00 Ur Specific [place] 1.020 (1.000-1.030) 06/03/24 03:00 Urine Protein Negative (Negative) 06/03/24 03:00 Urine Glucose (UA) Negative (Negative) 06/03/24 03:00 Urine Ketones Negative (Negative) 06/03/24 03:00 Urine Blood Negative (Negative) 06/03/24 03:00 Urine Nitrite Negative (Negative) 06/03/24 03:00 Urine Bilirubin Negative (Negative) 06/03/24 03:00 Urine Urobilinogen Negative (Negative) 06/03/24 03:00 Ur Leukocyte Esterase 1+ (Negative) H 06/03/24 03:00 Urine WBC (Auto) 0-5 /hpf (0-5) 06/03/24 03:00 Urine RBC (Auto) 0-2 /hpf (0-2) 06/03/24 03:00 U Hyaline Cast (Auto) 0-2 /lpf (0-2) 06/03/24 03:00 U Epithel Cells (Auto) 0-2 /hpf (0-2) 06/03/24 03:00 Urine Bacteria (Auto) None Seen (None Seen) 06/03/24 03:00 Adenovirus (PCR) Not Detected (NotDetected) 06/02/24 18:56 B. pertussis DNA (PCR) Not Detected (NotDetected) 06/02/24 18:56 B.parapertussis DNA PCR Not Detected (NotDetected) 06/02/24 18:56 C. pneumoniae DNA (PCR) Not Detected (NotDetected) 06/02/24 18:56 Coronavirus OC43 (PCR) Not Detected (NotDetected) 06/02/24 18:56 Coronavirus HKU1 (PCR) Not Detected (NotDetected) 06/02/24 18:56 Coronavirus 229E (PCR) Not Detected (NotDetected) 06/02/24 18:56 SARS-CoV-2 (PCR) Not Detected (NotDetected) 06/02/24 18:56 Coronavirus NL63 (PCR) Not Detected (NotDetected) 06/02/24 18:56 Human Metapneumovir PCR Not Detected (NotDetected) 06/02/24 18:56 Influenza Type A (PCR) Not Detected (NotDetected) 06/02/24 18:56 Influenza Type B (PCR) Not Detected (NotDetected) 06/02/24 18:56 M. pneumoniae (PCR) Not Detected (NotDetected) 06/02/24 18:56 Parainfluenza 1 (PCR) Not Detected (NotDetected) 06/02/24 18:56 Parainfluenza 2 (PCR) Not Detected (NotDetected) 06/02/24 18:56 Parainfluenza 3 (PCR) Not Detected (NotDetected) 06/02/24 18:56 Parainfluenza 4 (PCR) Not Detected (NotDetected) 06/02/24 18:56 RSV (PCR) Not Detected (NotDetected) 06/02/24 18:56 Entero/Rhino (PCR) Not Detected (NotDetected) 06/02/24 18:56 Impressions Chest X-Ray 06/02/24 18:13 SINGLE VIEW CHEST CLINICAL HISTORY: Atypical chest pain FINDINGS: An AP, portable, upright chest radiograph is compared to study dated 02/19/2021 and correlated with chest CT dated 11/27/2019. The heart is enlarged. The pulmonary vasculature is not congested. There is mild elevation of the right hemidiaphragm and bibasilar atelectasis. The lungs and pleural spaces are clear. No pneumothorax is seen. The skeletal structures are osteopenic. The bony thorax is grossly intact. IMPRESSION: Cardiomegaly with no acute cardiopulmonary abnormality identified. ACT 112: Negative or not required by law. Electronically signed by: Art Casas M.D. 06/02/2024 7:18 PM Chest CTA 06/02/24 20:34 Exam(s): CTA CHEST IV Amt: 120ml optiray 320 EXAM: CT Angiography Chest With Intravenous Contrast CLINICAL HISTORY: Reason for exam: cp, sob, hypoxia, r/o PE. TECHNIQUE: Axial computed tomographic angiography images of the chest with intravenous contrast. CTDI is 30 mGy and DLP is 533.24 mGy-cm. Automated exposure control was utilized for the study. A dose lowering technique was utilized adhering to the principles of ALARA. MIP reconstructed images were created and reviewed. COMPARISON: No relevant prior studies available. FINDINGS: LUNGS: No focal consolidation, pleural effusion, or pneumothorax. Atelectasis at the lung bases. HEART: Cardiomegaly. VASCULATURE: No acute pulmonary embolism. Atherosclerotic changes of the aorta. THYROID: Within normal limits. MEDIASTINUM + LYMPH NODES: There are no pathologically enlarged mediastinal, hilar, or axillary lymph nodes. SUPERIOR ABDOMEN: Hepatic steatosis. Mild-moderate hiatal hernia. MUSCULOSKELETAL: Degenerative changes. IMPRESSION: No acute pulmonary embolism. Electronically signed by: Anup Henriquez MD 06/03/24 00:30 AM ECG Additional Comments: ECG. Normal sinus rhythm rate of 70. Right axis deviation. No significant change was found. QTc 490. Code Status & VTE Plan VTE Prophylaxis Plan VTE Prophylaxis will be ordered: Yes
[2024-06-03] MEDS ORDERED: NITROGLYCERIN SL 0.4 MG/TAB TAB SL PRN (06:15)
[2024-06-03] MEDS ORDERED: POLYETHYLENE (MIRALAX) 17 GM PACK PO PRN ×2 (06:15)
[2024-06-03] MEDS ORDERED: DEXTROMETHORPHAN POLYMR COMPLX 30 MG/5 ML UDP PO PRN (06:15)
[2024-06-03] MEDS ORDERED: LACTASE 3000 UNIT TAB PO PRN (06:15)
[2024-06-03] MEDS ORDERED: SIMETHICONE 80 MG CHEW PO PRN (06:15)
[2024-06-03] MEDS ORDERED: ALBUT/IPRATROP 3MG/0.5MG NEB 3 ML VIAL NEB PRN (06:15)
[2024-06-03] MEDS ORDERED: MAGNESIUM HYDROXIDE SUSP 30 ML UDC PO PRN (06:15)
[2024-06-03] MEDS ORDERED: DEXTROMETHORPHAN POLYMR COMPLX 60 MG/10 ML UDP PO PRN (07:04)
--- NOTE | 2024-06-03 07:06 | Cardiology Consultation ---
Date of Consultation June 03, 2024 Assessment & Plan (1) Chest pain: (2) Shortness of breath: (3) Hypoxia: (4) Chronic diastolic CHF (congestive heart failure): (5) Left bundle branch block: (6) Hypertension: Plan IMPRESSION: 58-year-old female who presented with acute on chest pain and shortness of breath. Known chronic left bundle branch block; does not appear that ischemic evaluation has been completed in the past. Cardiac workup unremarkable thus far including EKG without ischemic changes and HS trop negative x2. PLAN: Chest pain/shortness of breath: Ongoing constant chest pressure with mild PETTIT + Hypoxia at rest. Symptoms somewhat atypical however patient certainly has risk factors for CAD. Chronic LBBB. Awaiting formal echo report. Preliminary showing low normal LVEF of 50-54%, septal motion consistent with LBBB, otherwise no WMA. Valve status stable. -Start ASA 81 mg daily -Add lipid panel to AM blood work; titrate statin to an LDL goal of 70. -Consider outpatient nuclear stress. -Patient with known Rollins's esophagus; recommend treatment of underlying GERD-- possibly contributing to chest pain. -Recommend compliance with CPAP, may need settings reassessed. Hypertensive heart disease with chronic diastolic CHF: Blood pressure is controlled. -Currently on lisinopril and amlodipine. Reduce Norvasc to 5 mg daily and add Aldactone 12.5 mg daily- this should help with lower extremity edema. Awaiting formal echo report. Preliminary showing low normal LVEF of 50-54%, septal motion consistent with LBBB, otherwise no WMA. Valve status stable. Patient appears euvolemic on exam. -Continue Lasix 20 mg daily (home dose). -Lower extremity edema likely multifactorial given combination use of amlodipine and gabapentin. Agree with continued use of compression socks. El evate legs at rest. Med changes as above. -2g sodium diet. Daily standing weights. Monitor I/O. Case discussed with Dr. Sharp. Further recommendations pending assessment. I spent a total of 40 minutes on the date of service in preparation, delivery, and documentation of the care provided to the patient excluding any time spent in the performance of separately billed services. RADHA Murray Department of Cardiology, [facility] This chart was completed in part utilizing Speech Voice Recognition Software. Grammatical errors, random word insertions, pronoun errors, and incomplete se ntences are an occasional consequence of this system due to software limitations, ambient noise, and hardware issues. Any formal questions or concerns about the content, text, or information contained within the body of this dictation should be directly addressed to the provider for clarification. Supervising Physician Co-Signing Physician Notes Patient was seen and personally examined. Full assessment and plan as outlined above. Care and management discussed with advanced provider and personally endorsed Echocardiogram without acute change from prior studies EKGs without ischemic change and normal troponin No signs of congestive heart failure on examination other than chronic leg edema Transient atrial tachycardia on telemetry last night Patient nauseated complaining of abdominal discomfort after brief breakfast this morning Plan as outlined above We will continue to follow I spent a total of 40 minutes on the date of service in preparation, delivery, and documentation of the care provided to the patient excluding any time spent in the performance of separately billed services. History of Present Illness Reason for Consultation: Chest pain and shortness of breath/hypoxia Attending Physician: Sofy Simon MD History of Present Illness 58-year-old female who presented to [facility] emergency department yesterday due to acute onset chest discomfort in the middle of the night accompanied by shortness of breath. Patient was hypoxic on room air and placed on 2 L nasal cannula with improvement. Mild lower extremity edema noted and BNP was slightly elevated. Patient received 20 mg of IV Lasix in the emergency department. CTA of the chest showed no evidence of pulmonary embolism. There was atherosclerotic changes in the aorta. No focal consolidation, pleural effusion or pneumothorax noted. + Atelectasis at lung bases. EKG showed sinus rhythm in the 70s with a left bundle branch block-unchanged from prior EKG on file. Official read of echo pending; preliminary showing low normal LVEF of 50-54%, septal motion consistent with LBBB, otherwise no WMA. Valve status stable. Lab work was unremarkable including a negative high-sensitivity troponin x 2. Upper respiratory viral panel negative. Telemetry: SR with LBBB 60-70s I/O: n/a Weight: 89.6 kg Upon entrance into the room patient resting in bed. Caregiver at bedside. Notes ongoing constant chest pain/pressure. Nothing makes it better or worse. Mild PETTIT, but improved compared to admission. No SOB at rest. Denies palpitations. No lightheadedness/dizziness, syncope or near syncope. No orthopnea, PND. Continues to wear supplemental o2 at 2L. Sats in the mid to upper 90s%. Wears CPAP nightly + supplemental o2. Has chronic lower extremity lymphedema- per patient no worse than normal. Takes Lasix at home and wears compression socks. Patient is also on Norvasc. No fever, chills, cough, hematochezia, melena, or hemoptysis. Social History: Lives in an apartment run by "[employer]. Has 17/06 caregivers. Ambulates independently. Steady on feet. No recent falls. Nonsmoker. No alcohol or drug use. Outpatient cardiac medications include: Amlodipine 10 mg daily Aspirin 81 mg daily Furosemide 20 mg daily Lisinopril 40 mg daily Metoprolol succinate 50 mg daily Crestor 10 mg daily Past medical history: Hypertension Dyslipidemia Left bundle branch block Chronic diastolic CHF Severe obstructive sleep apnea; on CPAP + O2 Difficult airway for intubation History of small pericardial effusion Hyperparathyroidism Hypothyroidism Rollins's esophagus Irritable bowel syndrome Cerebral palsy Intellectual disability Bipolar 1 disorder Allergies Allergy/AdvReac Type Severity Reaction Status Date / Time tramadol Allergy Severe SEVERE Verified 12/18/23 10:45 MOOD FLUCTUATIONS bee venom protein (honey bee) Allergy Intermediate localized Verified 12/18/23 10:45 swelling pollen extracts Allergy Intermediate ITCHY Verified 12/18/23 10:45 EYES, SNEEZING, CONGESTION clonazepam [From Klonopin] Allergy Mild increase Verified 12/18/23 10:45 in anxiety/agitation lactose Allergy Mild Gastrointestinal Verified 12/18/23 10:45 Upset Home Medications Medication Instructions Recorded Confirmed Type acetaminophen 325 mg tablet 650 mg PO Q6H PRN 08/30/18 06/03/24 History (Tylenol) FEVER/HEADACHE/MINOR ACHES AND PAINS bimatoprost 0.01 % eye drops 1 drp OPB HS 08/30/18 06/03/24 History dextromethorphan polistirex 30 10 ml PO Q12H PRN Cough 08/30/18 06/03/24 History mg/5 mL oral susp ext.release 12hr (Delsym 12 hour) escitalopram oxalate 20 mg tablet 20 mg PO DAILY 08/30/18 06/03/24 History fluticasone propionate 50 2 spray intranasal DAILY 08/30/18 06/03/24 History mcg/actuation nasal spray,suspension gabapentin 400 mg capsule 400 mg PO TID 08/30/18 06/03/24 History levothyroxine 50 mcg tablet 50 mcg PO DAILY 08/30/18 06/03/24 History metoprolol succinate 50 mg 50 mg PO DAILY 08/30/18 06/03/24 History tablet,extended release 24 hr potassium chloride 10 mEq 10 meq PO DAILY 08/30/18 06/03/24 History capsule,extended release rosuvastatin 10 mg tablet 10 mg PO DAILY 08/30/18 06/03/24 History trazodone 50 mg tablet 50 mg PO HS 08/30/18 06/03/24 History vitamins A and D-white 1 applic topical BID PRN Unknown 08/30/18 06/03/24 History petrolatum-lanolin topical ointment (A and D (lanolin-petrolatum) topical ointment) sucralfate 1 gram tablet (Carafate) 1 g PO TID 09/28/18 06/03/24 History furosemide 20 mg tablet (Lasix) 20 mg PO DAILY 10/27/18 06/03/24 History lactase 3,000 unit tablet (Lactaid) 3,000 unit PO UD PRN PRIOR TO DAIRY 10/27/18 06/03/24 History magnesium hydroxide 400 mg/5 mL 30 ml PO .EVERY 3RD DAY PRN NO BM 10/27/18 06/03/24 History oral suspension (Milk of Magnesia) ondansetron 4 mg disintegrating 4 mg PO Q8 PRN Nausea 10/27/18 06/03/24 History tablet brinzolamide 1 %-brimonidine 0.2 % 1 drp OPB TID 02/19/21 06/03/24 History eye drops,suspension (Simbrinza) carboxymethylcellulose sodium 1 % 1 drp ophthalmic (eye) TID 02/19/21 06/03/24 History eye liquid gel drops (Refresh Liquigel) sodium chloride 0.65 % nasal spray 1 spray intranasal HS 02/19/21 06/03/24 History aerosol ([place] Saline) amlodipine 10 mg tablet 10 mg PO DAILY 12/01/21 06/03/24 History aripiprazole 5 mg tablet 5 mg PO QPM 06/03/24 06/03/24 History calcium carbonate (Calcium Antacid) 200 mg PO BID PRN UPSET 06/03/24 06/03/24 History STOMACH/INDIGESTION cholecalciferol (vitamin D3) 50 50 mcg PO DAILY 06/03/24 06/03/24 History mcg (2,000 unit) tablet (Vitamin D3) docusate sodium 100 mg capsule 100 mg PO AMHS 06/03/24 06/03/24 History lisinopril 40 mg tablet 40 mg PO DAILY 06/03/24 06/03/24 History loperamide 2 mg capsule 2 mg PO QID PRN Diarrhea 06/03/24 06/03/24 History multivitamin (Daily-Scott tablet) 1 tab PO DAILY 06/03/24 06/03/24 History omeprazole 40 mg capsule,delayed 40 mg PO DAILYBB 06/03/24 06/03/24 History release polyethylene glycol 3350 17 17 g PO DAILY PRN NO BM FOR 2 DAYS 06/03/24 06/03/24 History gram/dose oral powder (Miralax) simethicone 80 mg chewable tablet 80 mg PO Q6 PRN .GAS 06/03/24 06/03/24 History Patient History Medical History Tongue abnormality h/o tongue surgery Diverticular disease Glaucoma of both eyes Pancreatitis GERD (gastroesophageal reflux disease) Constipation IBS (irritable bowel syndrome) Hypothyroidism Hyperlipidemia Sleep apnea Sensorineural hearing loss (SNHL) of both ears Blepharitis Mild intellectual disability Surgical History H/O sinus surgery balloon sinuplasty S/P cholecystectomy Family History Other No pertinent family history Social History Smoking Status: Never smoker Hx Alcohol Use: No Hx Substance Use: No Preferred Language: Com[place] Communication Ability: Effective Communication Ability Comment: Pt has a mild intellectual disability Mechanical Oxidizer Required: No Beliefs That Will Affect Care: None Current Living Situation: Alone Current Living Situation Comment: Skills Feels Safe at Home: Yes Safety Concerns: Feels Safe At This Time Assistive Devices: CPAP, Glasses and Hearing Aid - Bilateral Review of Systems Review of Systems: All systems reviewed & are unremarkable except as noted in HPI & below Physical Exam Constitutional: WD/WN, vitals as above no acute distress Eyes: PERRL, conjunctivae normal, anicteric sclerae ENMT: external ear and nose normal, oropharynx normal Neck: normal visual inspection and trachea midline Respiratory: normal respiratory effort, lungs clear to auscultation Auscultation: + diminished lung sounds Cardiovascular: Rate/Rhythm: regular rate and regular rhythm Heart Sounds: normal S1 and normal S2 Vessels: no JVD Extremities: + edema (BL nonpitting lymphedema) Gastrointestinal (Abdomen): normal bowel sounds, soft, nontender, no hepatosplenomegaly Skin: no rashes, warm and dry Neurologic: PERRL, EOMI, accommodation nl, no face palsy, no dysarthria Psychiatric: A+Ox3, euthymic affect Results & Data Vital Signs (Past 12 Hours) Vital Signs Temp Pulse Pulse Resp BP BP Pulse Ox 06/03/24 06:34 36.8 C 66 16 126/72 98 06/03/24 05:12 74 18 131/57 L 95 06/03/24 04:00 66 19 114/71 97 06/03/24 03:03 67 16 124/65 94 06/03/24 02:33 74 19 91 06/03/24 02:30 122/63 06/03/24 02:27 71 20 90 06/03/24 02:24 74 19 90 06/03/24 02:18 72 20 90 06/03/24 02:00 132/71 06/03/24 02:00 132/71 06/03/24 02:00 132/71 06/03/24 02:00 71 19 89 L 06/03/24 01:51 72 19 90 06/03/24 01:42 72 21 91 06/03/24 01:09 64 16 92 06/03/24 01:00 122/69 06/03/24 00:54 68 20 91 06/03/24 00:45 66 20 91 06/03/24 00:30 65 18 91 06/03/24 00:30 128/67 06/03/24 00:30 128/67 06/03/24 00:21 66 20 92 06/03/24 00:00 66 18 90 06/03/24 00:00 127/74 06/03/24 00:00 127/74 06/02/24 23:45 67 20 91 07/09/24 23:36 67 19 92 06/02/24 23:30 127/71 06/02/24 23:30 127/71 06/02/24 23:15 67 17 90 06/02/24 23:13 69 06/02/24 23:00 132/68 06/02/24 23:00 68 19 132/68 92 06/02/24 22:42 67 21 91 06/02/24 22:36 66 21 91 06/02/24 22:30 123/75 06/02/24 22:30 123/75 06/02/24 22:27 69 20 90 06/02/24 22:00 66 20 91 06/02/24 21:45 69 16 92 06/02/24 21:40 138/64 06/02/24 21:40 138/64 06/02/24 21:21 67 15 97 06/02/24 21:12 65 18 97 06/02/24 21:00 63 18 97 06/02/24 21:00 141/85 H 06/02/24 21:00 141/85 H 06/02/24 21:00 141/85 H 06/02/24 20:57 64 17 97 06/02/24 20:42 68 21 97 06/02/24 20:30 116/77 06/02/24 20:12 66 20 96 06/02/24 20:03 67 15 98 06/02/24 20:01 148/75 H 06/02/24 20:01 148/75 H 06/02/24 20:01 148/75 H 06/02/24 19:57 62 16 97 06/02/24 19:51 06/02/24 19:30 64 19 118/68 97 06/02/24 19:24 65 18 97 O2 Del Method O2 Flow Rate 06/03/24 06:34 Nasal Cannula 3 06/03/24 05:12 06/03/24 04:00 06/03/24 03:03 Room Air 06/03/24 02:33 Room Air 06/03/24 02:30 06/03/24 02:27 06/03/24 02:24 06/03/24 02:18 06/03/24 02:00 06/03/24 02:00 06/03/24 02:00 06/03/24 02:00 06/03/24 01:51 06/03/24 01:42 06/03/24 01:09 06/03/24 01:00 06/03/24 00:54 06/03/24 00:45 06/03/24 00:30 Room Air 06/03/24 00:30 06/03/24 00:30 06/03/24 00:21 06/03/24 00:00 Room Air 06/03/24 00:00 06/03/24 00:00 06/02/24 23:45 06/02/24 23:36 06/02/24 23:30 06/02/24 23:30 06/02/24 23:15 06/02/24 23:13 06/02/24 23:00 06/02/24 23:00 Room Air 06/02/24 22:42 06/02/24 22:36 Room Air 06/02/24 22:30 06/02/24 22:30 06/02/24 22:27 06/02/24 22:00 06/02/24 21:45 06/02/24 21:40 06/02/24 21:40 06/02/24 21:21 06/02/24 21:12 06/02/24 21:00 06/02/24 21:00 06/02/24 21:00 06/02/24 21:00 06/02/24 20:57 06/02/24 20:42 06/02/24 20:30 06/02/24 20:12 06/02/24 20:03 06/02/24 20:01 06/02/24 20:01 06/02/24 20:01 06/02/24 19:57 06/02/24 19:51 Room Air 06/02/24 19:30 Room Air 06/02/24 19:24 Laboratory Results Cardiac Enzymes 06/02/24 06/02/24 06/02/24 Range/Units 18:19 18:56 20:31 AST 18 (13-39) U/L Troponin I High Sens 6.9 6.7 (0-14) pg/ml B-Natriuretic Peptide 114 H (0-100) pg/ml 06/03/24 Range/Units 06:47 AST (13-39) U/L Troponin I High Sens 6.1 (0-14) pg/ml B-Natriuretic Peptide (0-100) pg/ml Coagulation 06/02/24 Range/Units 18:56 B-Natriuretic Peptide 114 H (0-100) pg/ml CBC 06/02/24 06/03/24 Range/Units 18:19 06:47 WBC 6.24 5.44 (4.8-10.8) K/ul RBC 4.55 4.96 (4.20-5.40) M/uL Hgb 12.7 13.9 (12.0-16.0) g/dl Hct 39.4 43.7 (37.0-47.0) % Plt Count 216 201 (130-400) K/uL Neut # (Auto) 4.06 2.96 (1.40-6.50) K/uL Lymph # (Auto) 1.51 1.81 (1.20-3.40) K/uL [place] # (Auto) 0.51 0.49 (0.11-0.59) K/uL Eos # (Auto) 0.08 0.13 (0.00-0.50) K/uL Baso # (Auto) 0.05 0.04 (0.00-0.20) K/uL Comprehensive Metabolic Panel 06/02/24 06/03/24 Range/Units 18:19 06:47 Sodium 140 145 (136-145) mmol/L Potassium 3.6 3.6 (3.5-5.1) mmol/L Chloride 108 H 109 H (98-107) mmol/L Carbon Dioxide 27 30 (21-32) mmol/L BUN 15 15 (6-23) mg/dl Creatinine 0.89 0.82 (0.6-1.2) mg/dl Glucose 140 H 85 (70-99(Fasting)) mg/dl Calcium 8.8 8.7 (8.6-10.3) mg/dl AST 18 (13-39) U/L ALT 11 (7-52) U/L Alkaline Phosphatase 62 (34-104) U/L Total Protein 6.1 (6.0-8.3) gm/dl Albumin 3.7 (3.4-5.0) gm/dl Intake and Output 06/02/24 06/03/24 06/03/24 22:59 06:59 14:59 Intake Total 250 / 250 Balance 250 / 250 Intake: IV 250 / 250 Left Antecubital 250 / 250 Other: Weight 89.6 kg 89.6 kg Weight Measurement Method Built in [facility] Built in [facility] Diagnostic Findings Echo 06/03/2024 PENDING* Echocardiogram 02/20/2021 LV cavity is small Moderate concentric LVH EF 50 to 55% RV systolic function normal Left atrium moderately dilated Right atrium normal in size [place] of the mitral leaflets noted Mild mitral stenosis Trace TR Small posterior pericardial effusion; No evidence of cardiac tamponade. No evidence of pulmonary hypertension, PASP 36 mmHg Outpatient echocardiogram 09/2018 Interpretation Summary The examination is adequate to evaluate the referral indication. There is a small to moderate inferolateral , lateral pericardial effusion. Cardiac tamponade is absent. The LV wall thickness is mildly increased (concentric). The left ventricular wall motion is normal. The qualitative LV ejection fraction is 55-59% (normal). The right ventricular chamber size and systolic function are normal. The left atrium is moderately enlarged. The posterior mitral valve leaflet is mildly calcified with decreased excursion. Mitral stenosis is absent. Mild mitral regurgitation is present. Mild tricuspid regurgitation is present. Mild pulmonary hypertension is present. The estimated pulmonary artery systolic pressure is 43mm Hg. The inter-atrial septum bows toward the right atrium consistent with high left atrial pressure (1) Chest pain Chest pain type: unspecified Qualified Code(s): R07.9 - Chest pain, unspecified (6) Hypertension Hypertension type: primary hypertension Qualified Code(s): I10 - Essential (primary) hypertension
[2024-06-03 07:49] LABS: Basophils # (auto) 0.04 K/uL (0.00-0.20); Basophils % (auto) 0.7 %; Eosinophils # (auto) 0.13 K/uL (0.00-0.50); Eosinophils % (auto) 2.4 %; Hematocrit (blood only) 43.7 % (37.0-47.0); Hemoglobin 13.9 g/dl (12.0-16.0); Immature Granulocytes # (auto) 0.01 K/uL (0.01-0.20); Immature Granulocytes % (auto) 0.2 %; Lymphocytes # (auto) 1.81 K/uL (1.20-3.40); Lymphocytes % (auto) 33.3 %; Mean Corpuscular Hgb Conc 31.8 g/dL (32.0-36.0); Mean Corpuscular Volume 88.1 fL (80.0-100.0); Mean Platelet Volume 9.6 fL (9.4-12.4); Monocytes # (auto) 0.49 K/uL (0.11-0.59); Neutrophils # (auto) 2.96 K/uL (1.40-6.50); Neutrophils % (auto) 54.4 %; Platelet Count 201 K/uL (130-400); RDW Coefficient of Variation 13.2 % (11.5-14.5); RDW Standard Deviation 42.3 fL (36.4-46.3); Red Blood Count 4.96 M/uL (4.20-5.40); White Blood Count 5.44 K/ul (4.8-10.8)
[2024-06-03 07:52] LABS: BUN Creatinine Ratio 18.3 (10-20); Calcium 8.7 mg/dl (8.6-10.3); Creatinine Clr Calc Pharmacy 78.5 ml/min; Est GFR (African American) 90.8 ml/min; Est GFR (Non-African American) 78.3 ml/min; Magnesium 2.2 mg/dl (1.7-2.4); Potassium 3.6 mmol/L (3.5-5.1)
[2024-06-03 07:59] LABS: Troponin I High Sensitivity 6.1 pg/ml (0-14)
[2024-06-03 08:08] LABS: Thyroid Stimulating Hormone 3.334 uIu/ml (0.300-4.500)
[2024-06-03] MEDS: ACETAMINOPHEN 325 MG TAB PO PRN (08:20)
[2024-06-03] MEDS: POTASSIUM CHLORIDE 10 MEQ TABCR PO SCH (08:28)
[2024-06-03] MEDS: FLUTICASONE PROPIONATE NA SPR 16 GM BTL SCH (08:28)
[2024-06-03] MEDS: CHOLECALCIFEROL 25 MCG (1000 UNITS) TAB PO SCH (08:28)
[2024-06-03] MEDS: FUROSEMIDE 20 MG TAB PO SCH (08:29)
[2024-06-03] MEDS: SUCRALFATE 1 GM TAB PO SCH (08:29)
[2024-06-03] MEDS: PANTOprazole 40 MG TAB PO SCH ×2 (08:29→20:38)
[2024-06-03] MEDS: ESCITALOPRAM OXALATE 20 MG TAB PO SCH (08:29)
[2024-06-03] MEDS: ROSUVASTATIN CALCIUM 10 MG TAB PO SCH (08:29)
[2024-06-03] MEDS: GABAPENTIN 400 MG CAP PO SCH (08:29)
[2024-06-03] MEDS: METOPROLOL SUCC 50MG EXT REL TAB PO SCH (08:29)
[2024-06-03] MEDS: lisinopril 40 MG TAB PO SCH (08:30)
[2024-06-03] MEDS: LEVOTHYROXINE SODIUM 50 MCG TABLET PO SCH (08:30)
[2024-06-03] MEDS: DOCUSATE SODIUM 100 MG CAP PO SCH (08:30)
[2024-06-03] MEDS: amLODIPine BESYLATE 5 MG TAB PO SCH (08:30)
[2024-06-03] MEDS: MULTIVITAMIN TAB PO SCH (08:30)
[2024-06-03] MEDS: ARTIFICIAL TEARS OP SCH (08:31)
[2024-06-03 09:17] LABS: Chol HDL Ratio 2.4 (0-5)
[2024-06-03] MEDS: ASPIRIN 81 MG ECTAB PO SCH (09:19)
[2024-06-03] MEDS: CALCIUM CARBONATE 500 MG CHEWABLE TAB PO PRN ×2 (10:45→14:48)
[2024-06-03] MEDS: SPIRONOLACTONE 12.5 MG TAB PO SCH (10:46)
--- NOTE | 2024-06-03 12:45 | Electrocardiogram Report ---
Test Reason : Blood Pressure : / mmHG Vent. Rate : 070 BPM Atrial Rate : 070 BPM P-R Int : 158 ms QRS Dur : 122 ms QT Int : 454 ms P-R-T Axes : 059 108 024 degrees QTc Int : 490 ms Normal sinus rhythm Rightward axis Non-specific intra-ventricular conduction delay Anteroseptal infarct (cited on or before 28-SEP-2018) Abnormal ECG When compared with ECG of 19-FEB-2021 19:41, No significant change was found Confirmed by Yaya House ([id number]) on 06/03/2024 12:45:13 PM Referred By: REFERRED SELF Confirmed By:[place] [facility]
--- NOTE | 2024-06-03 13:27 | Communication Note ---
Date of Service: June 03, 2024 Patient was seen and examined at bedside. 58-year-old lady with PMH of hypothyroidism, HLD, primary hyperparathyroidism, severe CELESTINA on CPAP, difficult airway for intubation, HTN, aberrant right subclavian artery, irritable bowel syndrome, Rollins's esophagus, osteoporosis, sensorineural hearing loss, glaucoma, cerebral palsy, intellectual disability, b ipolar 1 disorder comes to ED 06/02 with complaint of chest pain and shortness of breath. Patient reported she started having chest pain after she woke up since the morning of the arrival day, on and off, in the middle of the chest, associated with some shortness of breath. Denies any radiation of the pain. Patient was also nauseous but no vomiting. Denies pain or burning with passing urine. Uses CPAP machine during sleep, was needing 2 L oxygen at presentation/88% on room air. She is being managed for the following: Hypoxia Chest pain rule out ACS Likely acid peptic disease Patient coming in with chest pain and shortness of breath, more of explained it as chest discomfort associated with nausea. Patient noted to be 88% on room air at presentation. Troponin x 3 negative, EKG without acute ST or T changes. Echo with EF of 50 to 55%, grade 1 diastolic dysfunction, moderate concentric LVH, septal motion consistent with conduction abnormality, no regional wall motion abnormalities of LV noted. Admitting CTA chest and CXR with no acute finding. Of note patient has history of Rollins's esophagus. Cardiology evaluated, baby aspirin daily, outpatient nuclear stress test Increase dose of PPI to twice a day and Tums as needed, monitor for clinical response. Advised pt to take kcl supplement w/ adequate water, stay upright for half hr after tablet intake. Nebs prn. Other chronic medical conditions: Continue with/resume home meds as and when able Hypertension: Continue home metoprolol, lisinopril, Lasix. Amlodipine dose h as been reduced, Aldactone has been added. CELESTINA: Continue with CPAP at this Hyperlipidemia: Continue home statin Hypothyroidism: Continue home Synthroid Bipolar 1 disorder/depression: Continue home aripiprazole, Lexapro and trazodone Rollins's esophagus: Continue home sucralfate and omeprazole Cerebral palsy/intellectual disability Glaucoma: Continue home eyedrops DVT prophylaxis: SCDs Med telemetry Full code PT/OT, CM to assist with DC planning
--- OUTSIDE RECORDS SUMMARY | 2024-06-03 14:15 | External Medical Summary | Summary of Care ---
Author Name Unknown Organization [facility] Address [address] [place] [address] Phone [phone] Care Team Providers Care Political Consultant Name Role Phone Vianney Cruz MD Primary Care Provider + Reason for Visit * Reason Comments eRx-Medication Refill Encounter Details Date Type Department Care Team (Late st Contact Info) Description 05/16/2024 Refill General Internal Medicine [facility] [address] [facility] [place] [address] Marlena López MD [address] [place] [address] Allergies Active Allergy Reactions Criticality Noted Date Comments Bee Venom 01/11/2016 Localized swelling Pollen 02/13/2017 Unknown environmental allergy Clonazepam 01/25/2020 Causes increase in agitation/anxiety Tramadol 02/21/2015 Mood swings documented as of this encounter (statuses as of 05/18/2024) Medications Medication Sig Dispensed Refills Start Date End Date Status MULTIPLE VITAMIN PO CAPSIndications:D iarrhea,Irritable bowel syndrome once daily 30 5 6 Active TRAZODONE HCL 50 MG PO TABSIndications:M ixed dyslipidemia TAKE 1 TABLET BY MOUTH AT BEDTIME FOR INSOMNIA 30 Tab 5 4 Active Dextromethorphan Polistirex ER (DELSYM) 30 MG/5ML oral suspension extended release Take 10 mL by mouth 2 times a day as needed for Cough. 1 Bottle 0 5 Active Brinzolamide-Brim onidine 1-0.2 % Ophthalmic Suspension Instill 1 Drop into both eyes 3 times a day. 5 Active Bimatoprost 0.01 % Ophthalmic Solution Instill 1 Drop into both eyes at bedtime. 3 mL 12 5 Active milk of magnesia (MOM) 400 MG/5ML suspension 30 ml every 3 days as needed constipation 360 mL 0 5 Active AYR SALINE NASAL NO-DRIP GEL 1 spray application in each nostril nightly prior to bed 22 mL 5 6 Active Carboxymethylcell ulose Sodium 1 % Ophthalmic Solution Instill 1 Drop into both eyes in the morning and 1 Drop at noon and 1 Drop before bedtime. 7 Active gabapentin (NEURONTIN) 400 MG Capsule 1 Capsule in the morning and 1 Capsule at noon and 1 Capsule before bedtime. 7 Active escitalopram (LEXAPRO) 20 MG TabletIndications :Depression with anxiety Take 1 Tablet by mouth in the morning. 8 Active lactase 3000 units per tab (LACTAID) 3000 units TabletIndications :Lactose intolerance 1 tablet prior to dairy foods 60 Tab 5 9 Active Non-Aspirin Pain Reliever 325 MG Oral Tablet (Acetaminophen) TAKE 2 TABLETS BY MOUTH EVERY 6 HOURS NEEDED FEVER/HEADACHE/ MINOR ACHES AND PAINS 62 Tab 1 Active CPAP every night at bedtime . Active MEDICAL INSTRUCTIONS Can put baby oil or mineral oil 2-3 drops once daily for 3-4 days in ears for impacted cerumen 1 Each 1 3 Active Loperamide HCl 2 MG Oral Tablet (Immodium (A-D)) Take 1 Tablet by mouth 4 times a day as needed for Diarrhea. 30 Tablet 3 3 Active Calcium Carbonate Antacid 500 MG Oral Tablet Chewable (QC Antacid) TAKE ONE TABLET BY MOUTH TWICE DAILY NEEDED FOR UPSET STOMACH/INDIGESTI ON 60 Tablet 4 3 Active Mi-Acid Gas Relief 80 MG Oral Tablet Chewable (Simethicone) TAKE 1 TABLET BY MOUTH EVERY 6 HOURS NEEDED FOR GAS 30 Tablet 4 3 Active ARIPiprazole 5 MG Oral Tablet (Abilify) Take 1 Tablet by mouth at bedtime. 3 Active Metamucil 28.3 % Oral Powder (Psyllium) 2 tsp by mouth daily 283 g 3 3 08/05/20 24 Active Docusate Sodium 100 MG Oral Capsule (Colace) Take 1 Capsule by mouth in the morning and 1 Capsule before bedtime. 180 Capsule 3 3 Active guaiFENesin-Codei ne 100-10 MG/5ML Oral Syrup (Robitussin AC)Indications:Ac jesusita cough Take 10 mL by mouth every 4 hours. HOLD for drowsiness, if asleep 120 mL 3 Active Aspirin Low Dose 81 MG Oral Tablet Delayed Release 3 Active methylPREDNISolon e 4 MG Oral Tablet Therapy Pack (Medrol Dosepack) follow package directions 21 Tablet 3 Active Additional Information Patient not taking.Reported on 01/14/2024 D3 Super Strength 50 MCG (1999 UT) Oral Capsule (Cholecalciferol) TAKE ONE CAPSULE BY MOUTH DAILY. *SUPPLEMENT* 28 Capsule 4 4 Active Omeprazole 40 MG Oral Capsule Delayed Release (PriLOSEC)Indicat ions:Hardy's esophagus without dysplasia,Epigast lillie pain TAKE 1 CAPSULE BY MOUTH ONCE DAILY 1 HOUR BEFORE FIRST MEAL OF THE DAY FOR GERD 28 Capsule 11 4 Active amLODIPine Besylate 10 MG Oral Tablet (Norvasc)Indicati ons:HTN, goal below 140/90 TAKE ONE TABLET BY MOUTH ONCE DAILY*HTN* 28 Tablet 5 4 Active Fluticasone Propionate 50 MCG/ACT Nasal Suspension (Flonase)Indicati ons:Acute frontal sinusitis, recurrence not specified INSTILL 2 SPRAYS INTO EACH NOSTRIL ONCE DAILY FOR ALLERGIES 16 g 4 4 Active Ondansetron HCl 4 MG Oral Tablet (Zofran)Indicatio ns:Nausea TAKE 1 TABLET BY MOUTH EVERY 8 HOURS NEEDED FOR NAUSEA 30 Tablet 1 4 Active Vitamin D3 50 MCG (1999 UT) Oral Tablet Chewable Take 1 Tablet by mouth daily. 28 Tablet 5 4 Active Potassium Chloride ER 10 MEQ Oral Capsule Extended Release TAKE 1 CAPSULE BY MOUTH DAILY. *POTASSIUM IMBALANCE ---BOTTLE--- 28 Capsule 4 4 Active Rosuvastatin Calcium 10 MG Oral Tablet (Crestor)Indicati ons:Mixed dyslipidemia TAKE 1 TABLET BY MOUTH DAILY FOR HIGH CHOLESTEROL 28 Tablet 4 4 Active Levothyroxine Sodium 50 MCG Oral Tablet (Levoxyl) TAKE 1 TABLET BY MOUTH ONCE DAILY *THYROID* 28 Tablet 4 4 Active Metoprolol Succinate ER 50 MG Oral Tablet Extended Release 24 Hour (toPROL XL) TAKE ONE TABLET BY MOUTH ONCE DAILY IN THE AM *BLOOD PRESSURE* 28 Tablet 4 4 Active Lisinopril 40 MG Oral TabletIndications :HTN, goal below 140/90 TAKE ONE TABLET BY MOUTH DAILY *HTN* 28 Tablet 4 4 Active Furosemide 20 MG Oral Tablet (Lasix)Indication s:Edema, unspecified type TAKE ONE TABLET BY MOUTH ONCE DAILY FOR FLUID ACCUMULATION OR WEIGHT GAIN 28 Tablet 4 4 Active Polyethylene Glycol 3350 17 GM/SCOOP Oral Powder (Miralax)Indicati ons:Other constipation MIX 17 GMS INTO 8OZ OF FLUID AND DRINK BY MOUTH ONCE DAILY NEEDED IF NO BM FOR 2 DAYS 238 g 4 4 Active IBgard 90 MG Oral Capsule Extended Release (Peppermint Oil) Take 2 Tablets by mouth 2 times a day as needed for Other (abdominal pain). 180 Capsule 3 4 Active Sucralfate 1 GM Oral Tablet (Carafate) TAKE BY MOUTH THREE TIMES DAILY BEFORE BREAKFAST,BEFORE DINNER AND AT BEDTIME FOR GERD 84 Tablet 4 4 Active Daily-Scott Oral Tablet TAKE ONE TABLET BY MOUTH DAILY *SUPPLEMENT* 84 Tablet 3 4 Active Sucralfate 1 GM Oral Tablet (Carafate) TAKE BY MOUTH THREE TIMES DAILY BEFORE BREAKFAST,BEFORE DINNER AND AT BEDTIME FOR GERD 84 Tablet 4 4 05/18/20 24 Discontinued documented as of this encounter (statuses as of 05/18/2024) Active Problems Problem Noted Date Diagnosed Date Age-related osteoporosis wit hout current pathological fracture 01/24/2024 Hyperparathyroidism, primary 04/29/2020 Bipolar 1 disorder 01/25/2020 Cerebral palsy 01/25/2020 Aberrant right subclavian artery 10/09/2018 Glaucoma 08/16/2015 Dyslipidemia 01/15/2012 Difficult airway for intubation 11/29/2011 Hardy's esophagus 03/25/2009 Overview: hardy's esophagus,small hiatal hernia, chronic gastritis, recommend f/u in 1 yea HTN, goal below 140/90 01/03/2009 Intellectual disability 12/03/2007 Severe obstructive sleep apnea 12/03/2007 Overview: 2016 - intolerant to PAP, on O2 qhs 05/29/13 -- auto BIPAP set at 1211/2007 PSG -- AHI [facility] Hypothyroidism 02/12/2007 Irritable bowel syndrome 11/23/2004 Sensorineural hearing loss, unilateral Overview: left documented as of this encounter (statuses as of 05/18/2024) Resolved Problems Problem Noted Date Diagnosed Date Resolved Date High serum parathyroid hormone (PTH) 01/25/2020 04/29/2020 Lacunar infarction 09/21/2016 8 Overview: Chronic, left basal ganglia Lumbar radicular pain 08/04/20132018 Choledocholithiasis 04/08/2013 05/18/20 19 Dyslipidemia, goal to be determined 11/07/2009 01/15/2012 Overview: Per Lipid Taxonomy. Dyslipidemia, goal LDL below 160 11/15/2008 11/07/2009 Overview: Per Lipid Taxonomy. Depression with anxiety 04/01/200612/2019 Overview: Dr nolan ADVANCE DIRECTIVE INFORMATION 04/04/2005 05/18/2019 Overview: No, Advance Directive brochure offered , patient declined. Abdominal pain, generalized 01/29/2005 05/18/2019 Diarrhea 01/29/2005 07/29/2018 Esophageal reflux 11/23/2004 05/18/2019 Mixed hearing loss, unilateral 05/19/2019 Overview: right Reflux esophagitis 8 documented as of this encounter (statuses as of 05/18/2024) Immunizations Name Administration Dates Next Due COVID-19 mRNA, LNP-s, No Pre serve, 2-Dose Series ([facility]) 11/30/2021,01/20/2021,12/30/2020 Covid-19, Mrna, Lnp-s, Pf, B ivalent, 30 Mcg, IM, 12 yrs and above ([employer] [facility]) 10/17/2022 Hepatitis B, 20+ yrs 01/14/2024,08/12/2023,07/10 PPD 01/14/2024,,01/25/2020,2017,02/14/2016,02/25/2014,05/24/2012,0 05/12/2008 Seasonal Influenza, PF, 6 M & above, IM , (FluLaval or Fluzone) 08/19/2023,09/20/2022,08/15/2021,2019,08/27/2019,07/29/2018,08/20/2017 Seasonal Influenza, Quadriva lent, No Preserve, IM 08/20/2016 Seasonal Influenza, Split, I IV3, With Preserve, Inj 08/16/2015,09/15/2014,09/25/2013,2011,10/11/2011,08/31/2010,10/13/2009,1 12/13/2007,09/08/2007 TD - Tetanus/Diptheria (ADULT) 05/31/2006 TDAP (age 10 and older)(Boostrix) 01/07/2023, Zoster Vaccine Recombinant (Shingrix) 08/16/2020 ,06/10/2020 documented as of this encounter Social History Tobacco Use Types Packs/Day Years Used Date Smoking Tobacco: Never Smokeless Tobacco: Never Alcohol Use Standard Drinks/Week Comments No 0 (1 standard drink = 0.6 oz pur e alcohol) PHQ-2 Answer Date Recorded PHQ Adult Total Score 0 01/07/2023 Hunger Vital Sign Answer Date Recorded Within the past 12 months, y ou worried that your food would run out before you got the money to buy more. Never true 01/07/20 23 Within the past 12 months, t he food you bought just didn't last and you didn't have money to get more. Never true 01/07/2023 Utilities Answer Date Recorded Do you have trouble paying y our heating, water, or electric bill? (Adult - for ages 18 years and over) Not on file 05/12/2024 Is your family able to pay t he heat, water, or electric bill? (Household - for ages 0-17 years) Not on file 05/12/2024 Does your family have access to good internet? (Household - for ages 0-17 years) Not on file 05/12/2024 Social Connections Answer Date Recorded How often do you feel lonely or isolated from those around you? (Adult - for ages 18 years and over) Not on file 05/12/2024 Sex and Gender Information Value Date Recorded Sex Assigned at Female 04/29/2020 9:34 AM EDT Gender Identity Female 04/29/2020 9:34 AM EDT Sexual Orientation Choose not to disclose 2019 9:34 AM EDT Job Start Date Occupation Industry Not on file Not on file Not on file documented as of this encounter Functional Status Functional Status Response Date of Assess ment Are you deaf or do you have serious difficulty h earing? Yes 05/22/2022 Are you blind or do you have serious difficulty seeing, even when wearing glasses? No 05/22/2022 Do you have serious difficul ty walking or climbing stairs? (5 years old or older) No 05/22/2022 Do you have difficulty dress ing or bathing? (5 years old or older) No 05/22/2022 Because of a physical, menta l, or emotional condition, do you have difficulty doing errands alone such as visiting a doctor s office or shopping? (15 years old or older) No 05/22/20 Cognitive Status Response Date of Assessm ent Because of a physical, menta l, or emotional condition, do you have serious difficulty concentrating, remembering, or making decisions? (5 years old or older) No 05/22/2022 documented as of this encounter Miscellaneous Notes * Telephone Encounter - Vianney Cruz MD - 05/18/2024 9:42 AM EDTSigned Prescriptions: Disp Refills Sucralfate 1 GM Oral Tablet (Carafate) 84 Tab*4 Sig: TAKE BY MOUTH THREE TIMES DAILY BEFORE BREAKFAST,BEFORE DINNER AND AT BEDTIME FOR GERD Authorizing Provider: VIANNEY CRUZ Daily-Scott Oral Tablet 84 Tab*3 Sig: TAKE ONE TABLET BY MOUTH DAILY *SUPPLEMENT* Authorizing Provider: VIANNEY CRUZ * Telephone Encounter - Dara Aburto [facility] - 05/18/2024 9:32 AM EDTPending Prescriptions: Disp Refills Sucralfate 1 GM Oral Tablet (Carafate) 84 Tab*4 Sig: TAKE BY MOUTH THREE TIMES DAILY BEFORE BREAKFAST,BEFORE DINNER AND AT BEDTIME FOR GERD Daily-Scott Oral Tablet 84 Tab*3 Sig: TAKE ONE TABLET BY MOUTH DAILY *SUPPLEMENT* * Telephone Encounter - Dara Aburto [facility] - 05/18/2024 9:31 AM EDT [facility] is currently not authorized to approve refills for the pended medication(s) per refill protocol. Please approve if appropriate. Thank you, Dara Aburto [facility] Clinical Pharmacist [facility] 05/18/24 9:31 AM [phone] * Telephone Encounter - Dara Aburto RP - 05/18/2024 9:28 AM EDT Did you pend patient's preferred pharmacy and medication before forwarding?yes Pharmacy: [facility] [address] Pending Prescriptions: Disp Refills Sucralfate 1 GM Oral Tablet (Carafate) [P*84 Tab*4 Sig: TAKE BY MOUTH THREE TIMES DAILY BEFORE BREAKFAST,BEFORE DINNER AND AT BEDTIME FOR GERD Daily-Scott Oral Tablet [Pharmacy Med Name*84 Tab*3 Sig: TAKE ONE TABLET BY MOUTH DAILY *SUPPLEMENT* Last Visit: 01/14/2024 (in office), Visit date not found (telemedicine) Next Visit: 01/12/2025 If no future appointments scheduled, and last appointment is greater than a year ago, please schedule patient for a follow-up appointment Last date the medication was ordered: 12/04/23 Is this request for a controlled substance?No Urine Drug Screen:No results found. However, due to the size of the patient record, not all encounters were searched. Please check Results Review for a complete set of results. Patient Phone Numbers Labs: Lab Results Component Value Date/Time CREAT 0.9 01/29/2024 02:27 PM CREAT 0.8 04/26/2020 10:24 AM POTASSIUM 4.0 01/29/2024 02:27 PM POTASSIUM 4.1 04/26/2020 10:24 AM TSH 3.48 05/29/2023 07:08 AM TSH 3.06 04/26/2020 10:24 AM LDLCALC 87 05/29/2023 07:08 AM LDLCALC 66 04/26/2020 10:24 AM LDLDIRECT NOT APPLICABLE 04/26/2020 10:24 AM LDLDIRECT 106 08/20/2016 12:33 PM ALT 9 (L) 01/29/2024 02:27 PM ALT 9 (L) 04/26/2020 10:24 AM HGBA1C 5.3 05/29/2023 07:08 AM HGBA1C 6.0 04/15/2013 09:07 AM documented in this encounter Plan of Treatment Upcoming Encounters Date Type Department Care Team (Late st Contact Info) Description 09/24/2024 1:00 PM EDT Office [facility]ne[facility] [place] [address] [facility] [address] Heidy Mondragon [facility]C [address] [facility] [id number] 01/07/2025 2:20 PM EST Office Visit Endocrinology [address] [place] [address] Drea Cruz MD [address] [facility] [place] [address] 01/12/2025 1:00 PM EST Office Visit General Internal Medicine [facility] [address] [facility] [place] [address] Vianney Cruz MD [address] [facility] [place] [address] Scheduled Procedures Name Priority Associated Diagnoses Date/Ti me ESOPHAGOGASTRODUODENOSCOPY ( EGD), FLEXIBLE, TRANSORAL, DIAGNOSTIC Recall Hardy's esophagus with esophagitis COLONOSCOPY FLEXIBLE PROXIMAL DIAGNOSTIC Recall Screening for malignant neoplasm of colon Health Maintenance Due Date Last Done Comments HIV Screening 1979 Cologuard 2009 Fecal Occult Blood Test 2009 Sigmoidoscopy 2009 COVID-19 Vaccine ( season) 2023 10/17/2022, 11/30/2021, 01/20/2021, Additional history exists TSH 05/29/2024 05/29/2023, 11/26, 02/17/2022, Additional history exists Mammogram 06/27/2024 06/27/2023, 05/25, 06/07/2022, Additional history exists GFR 01/28/2025 01/29/2024, 08/25, 05/29/2023, Additional history exists DXA Scan 05/27/2025 05/27/2023, 07/11/2021 Albumin/Creatinine Ratio 09/20/2025 09/20/2022 Hardy's Esophagus Surveilance 10/11/2026 10/11/2023, 10/11/2023, 12/15/2013, Additional history exists Diabetes Screening 01/28/2027 01/29/2024, 1 , 05/29/2023, Additional history exists Lipid Panel 05/29/2028 05/29/2023, 11/26, 02/17/2022, Additional history exists Colonoscopy 11/03/2028 11/03/2018, 11/16/2013 Colorectal Cancer Screening 11/03/2028 DTaP,Tdap,and Td Vaccines (3 - Td or Tdap) 01/07/2033 01/07/2023, 07/08/2013, 05/31/2006 Zoster Vaccines Completed 08/16/2020, 06/10/2020 Influenza Vaccine (FLU shot) Completed , 09/20/2022, 08/15/2021, Additional history exists Hepatitis B Completed 01/14/2024, 07/26, 07/10/2023 VITAMIN D LEVEL ONCE IN A LIFETIME-USE SMARTSET# [id number] Completed 01/29/2024, 06/22/2022, 02/01/2021, Additional history exists GARDASIL-HPV IMMUNIZATION SERIES Aged Out No longer eligible based on patient's age to complete this topic MENINGOCOCCAL (MENACTRA/MENVEO) Aged Out No longer eligible based on patient's age to complete this topic Pneumococcal Vaccine: Pediatrics (0 to 5 Years) and At-Risk Patients (6 to 64 Years) Aged Out No longer eligible based on patient's age to complete this topic documented as of this encounter Medical Devices Not on filedocumented as of this encounter Advance Directives * Full Code (Latest Code Status on File) Date Activated Date Inactivated Comments 05/22/2022 9:26 AM 05/23/2022 4:47 PM This order r eflects the patients wishes and were consensually agreed upon. Question Answer Comments Discussion of Advance Directives occurred with: Not Discussed Care Teams Political Consultant Relationship Specialty Start Date End Date Vianney Cruz MD [address] [place] [address] PCP - General Internal Medicine 08/23/21 documented as of this encounter
--- OUTSIDE RECORDS SUMMARY | 2024-06-03 14:15 | External Medical Summary | Summary of Care ---
Author Name Unknown Organization [facility] Address [address] [place] [address] Phone [phone] Care Team Providers Care Cashier Payments Received Name Role Phone Vianney Cruz MD Primary Care Provider + Reason for Visit * Reason Onset Date Comments Advice 05/01/2024 Encounter Details Date Type Department Care Team (Late st Contact Info) Description 05/01/2024 Telephone Gastroenterology, [address] [address] Tamanna Tirado CRNP [address] [place] [address] Advice Allergies Active Allergy Reactions Criticality Noted Date Comments Bee Venom 01/11/2016 Localized swelling Pollen 02/13/2017 Unknown environmental allergy Clonazepam 01/25/2020 Causes increase in agitation/anxiety Tramadol 02/21/2015 Mood swings documented as of this encounter (statuses as of 05/01/2024) Medications Medication Sig Dispensed Refills Start Date End Date Status MULTIPLE VITAMIN PO CAPSIndications:Di arrhea,Irritable bowel syndrome once daily 30 5 05/31/2006 Active TRAZODONE HCL 50 MG PO TABSIndications:Mi xed dyslipidemia TAKE 1 TABLET BY MOUTH AT BEDTIME FOR INSOMNIA 30 Tab 5 07/22/2014 Active Dextromethorphan Polistirex ER (DELSYM) 30 MG/5ML oral suspension extended release Take 10 mL by mouth 2 times a day as needed for Cough. 1 Bottle 0 05/13/2015 Active Brinzolamide-Brimo nidine 1-0.2 % Ophthalmic Suspension Instill 1 Drop into both eyes 3 times a day. 08/16/2015 Active Bimatoprost 0.01 % Ophthalmic Solution Instill 1 Drop into both eyes at bedtime. 3 mL 12 08/16/2015 Active milk of magnesia (MOM) 400 MG/5ML suspension 30 ml every 3 days as needed constipation 360 mL 0 10/10/2015 Active AYR SALINE NASAL NO-DRIP GEL 1 spray application in each nostril nightly prior to bed 22 mL 5 06/08/2016 Active Carboxymethylcellu lose Sodium 1 % Ophthalmic Solution Instill 1 Drop into both eyes in the morning and 1 Drop at noon and 1 Drop before bedtime. 02/13/2017 Active gabapentin (NEURONTIN) 400 MG Capsule 1 Capsule in the morning and 1 Capsule at noon and 1 Capsule before bedtime. 08/20/2017 Active escitalopram (LEXAPRO) 20 MG TabletIndications: Depression with anxiety Take 1 Tablet by mouth in the morning. 05/15/2018 Active lactase 3000 units per tab (LACTAID) 3000 units TabletIndications: Lactose intolerance 1 tablet prior to dairy foods 60 Tab 5 01/26/2019 Active Non-Aspirin Pain Reliever 325 MG Oral Tablet (Acetaminophen) TAKE 2 TABLETS BY MOUTH EVERY 6 HOURS NEEDED FEVER/HEADACHE/ MINOR ACHES AND PAINS 62 Tab 08/06/2021 Active CPAP every night at bedtime . Active MEDICAL INSTRUCTIONS Can put baby oil or mineral oil 2-3 drops once daily for 3-4 days in ears for impacted cerumen 1 Each 1 04/25/2023 Active Loperamide HCl 2 MG Oral Tablet (Immodium (A-D)) Take 1 Tablet by mouth 4 times a day as needed for Diarrhea. 30 Tablet 3 05/23/2023 Active Calcium Carbonate Antacid 500 MG Oral Tablet Chewable (QC Antacid) TAKE ONE TABLET BY MOUTH TWICE DAILY NEEDED FOR UPSET STOMACH/INDIGESTIO N 60 Tablet 4 05/27/2023 Active Mi-Acid Gas Relief 80 MG Oral Tablet Chewable (Simethicone) TAKE 1 TABLET BY MOUTH EVERY 6 HOURS NEEDED FOR GAS 30 Tablet 4 05/27/2023 Active ARIPiprazole 5 MG Oral Tablet (Abilify) Take 1 Tablet by mouth at bedtime. 07/28/2023 Active Metamucil 28.3 % Oral Powder (Psyllium) 2 tsp by mouth daily 283 g 3 08/13/2023 Active Docusate Sodium 100 MG Oral Capsule (Colace) Take 1 Capsule by mouth in the morning and 1 Capsule before bedtime. 180 Capsule 3 08/26/2023 Active guaiFENesin-Codein e 100-10 MG/5ML Oral Syrup (Robitussin AC)Indications:Acu te cough Take 10 mL by mouth every 4 hours. HOLD for drowsiness, if asleep 120 mL 09/27/2023 Active Aspirin Low Dose 81 MG Oral Tablet Delayed Release 09/25/2023 Active methylPREDNISolone 4 MG Oral Tablet Therapy Pack (Medrol Dosepack) follow package directions 21 Tablet 11/08/2023 Active Additional Information Patient not taking.Reported on 01/14/2024 Sucralfate 1 GM Oral Tablet (Carafate) TAKE BY MOUTH THREE TIMES DAILY BEFORE BREAKFAST,BEFORE DINNER AND AT BEDTIME FOR GERD 84 Tablet 4 12/04/2023 Active D3 Super Strength 50 MCG (2000 UT) Oral Capsule (Cholecalciferol) TAKE ONE CAPSULE BY MOUTH DAILY. *SUPPLEMENT* 28 Capsule 4 01/23/2024 Active Omeprazole 40 MG Oral Capsule Delayed Release (PriLOSEC)Indicati ons:Hardy's esophagus without dysplasia,Epigastr ic pain TAKE 1 CAPSULE BY MOUTH ONCE DAILY 1 HOUR BEFORE FIRST MEAL OF THE DAY FOR GERD 28 Capsule 11 01/22/2024 Active amLODIPine Besylate 10 MG Oral Tablet (Norvasc)Indicatio ns:HTN, goal below 140/90 TAKE ONE TABLET BY MOUTH ONCE DAILY*HTN* 28 Tablet 5 02/21/2024 Active Fluticasone Propionate 50 MCG/ACT Nasal Suspension (Flonase)Indicatio ns:Acute frontal sinusitis, recurrence not specified INSTILL 2 SPRAYS INTO EACH NOSTRIL ONCE DAILY FOR ALLERGIES 16 g 4 03/31/2024 Active Ondansetron HCl 4 MG Oral Tablet (Zofran)Indication s:Nausea TAKE 1 TABLET BY MOUTH EVERY 8 HOURS NEEDED FOR NAUSEA 30 Tablet 1 04/02/2024 Active Vitamin D3 50 MCG (1999 UT) Oral Tablet Chewable Take 1 Tablet by mouth daily. 28 Tablet 5 04/17/2024 Active Potassium Chloride ER 10 MEQ Oral Capsule Extended Release TAKE 1 CAPSULE BY MOUTH DAILY. *POTASSIUM IMBALANCE ---BOTTLE--- 28 Capsule 4 04/16/2024 Active Rosuvastatin Calcium 10 MG Oral Tablet (Crestor)Indicatio ns:Mixed dyslipidemia TAKE 1 TABLET BY MOUTH DAILY FOR HIGH CHOLESTEROL 28 Tablet 4 04/16/2024 Active Levothyroxine Sodium 50 MCG Oral Tablet (Levoxyl) TAKE 1 TABLET BY MOUTH ONCE DAILY *THYROID* 28 Tablet 04/16/2024 Active Metoprolol Succinate ER 50 MG Oral Tablet Extended Release 24 Hour (toPROL XL) TAKE ONE TABLET BY MOUTH ONCE DAILY IN THE AM *BLOOD PRESSURE* 28 Tablet 04/16/2024 Active Lisinopril 40 MG Oral TabletIndications: HTN, goal below 140/90 TAKE ONE TABLET BY MOUTH DAILY *HTN* 28 Tablet 04/16/2024 Active Furosemide 20 MG Oral Tablet (Lasix)Indications :Edema, unspecified type TAKE ONE TABLET BY MOUTH ONCE DAILY FOR FLUID ACCUMULATION OR WEIGHT GAIN 28 Tablet 04/16/2024 Active Polyethylene Glycol 3350 17 GM/SCOOP Oral Powder (Miralax)Indicatio ns:Other constipation MIX 17 GMS INTO 8OZ OF FLUID AND DRINK BY MOUTH ONCE DAILY NEEDED IF NO BM FOR 2 DAYS 238 g 4 04/21/2024 Active IBgard 90 MG Oral Capsule Extended Release (Peppermint Oil) Take 2 Tablets by mouth 2 times a day as needed for Other (abdominal pain). 180 Capsule 3 05/01/2024 Active documented as of this encounter (statuses as of 05/01/2024) Active Problems Problem Noted Date Diagnosed Date [...] 2016 - intolerant to PAP, on O2 q 05/29/13 -- auto BIPAP set at 12/11/2007 PSG -- AHI 83 [facility] Hypothyroidism 02/12/2007 Irritable bowel syndrome 11/23/2004 Sensorineural hearing loss, unilateral Overview: left documented as of this encounter (statuses as of 05/01/2024) Resolved Problems Problem Noted Date Diagnosed Date [...] as of this encounter (statuses as of 05/01/2024) Immunizations Name Administration Dates Next Due COVID-19 mRNA, LNP-s, No Pre serve, 2-Dose Series ([employer]) 11/30/2021,01/20/2021,12/30/2020 Covid-19, Mrna, Lnp-s, Pf, B ivalent, 30 Mcg, IM, 12 yrs and above (Pfizer) 10/17/2022 Hepatitis B, 20+ yrs 01/14/2024,08/12/2023,07/10 PPD [...] money to get more. Never true 01/07/2023 Sex and Gender Information Value Date Recorded [...] encounter Miscellaneous Notes * Telephone Encounter - Karolyn Christensen RN - 05/01/2024 1:58 PM EDT Faxed script to [facility] * Addendum Note - Tamanna Tirado CRNP - 05/01/2024 12:38 PM EDTAddended by: TAMANNA TIRADO on: 05/01/2024 12:38 PM Modules accepted: Orders * Addendum Note - Karolyn Christensen RN - 05/01/2024 12:11 PM EDTAddended by: KAROLYN CHRISTENSEN on: 05/01/2024 12:11 PM Modules accepted: Orders * Telephone Encounter - Karolyn Christensen RN - 05/01/2024 11:10 AM EDT Faxed all of these encounters to [facility]ge Howell LPN. [phone] * Telephone Encounter - Karolyn Christensen RN - 05/01/2024 11:04 AM EDT Images from the original note were not included. Tamanna Tirado CRNP [facility] Nurse Pool/Class Pls call staff in pt's assisted - KUB showed no signs of bowel dilation or obstruction, nor constipation. Pt may resume current bowel regimen but avoid not having BM for 2 days. She can take Miralax 17g daily if she has no BM >2 days. For her complaint of abd pain, I will give her a trial of Dicyclomine 10mg bid prn pain/cramping. Rx sent to [facility] * Telephone Encounter - Karolyn Christensen RN - 05/01/2024 10:41 AM EDT Spoke to caregiver, Roxane. She asked that I call patient's CHICKEN CLEANER with [facility] ([phone]). Called and gave directions to [place]. She is asking if you can put this on a handwritten script even though this is OTC. Since they are state regulated, it has to come via script. Nurses, please fax script to [facility], fax [phone] * Telephone Encounter - Karolyn Christensen RN - 05/01/2024 10:37 AM EDT ----- Message from Tamanna Tirado sent at 05/01/2024 9:26 AM EDT ----- Addendum: Cancelling Dicyclomine order as pt has glaucoma. Recommend her to try IB-Elayne 2 tablets up to bid (available from OTC) instead for abd cramping Tamanna S Martha, ROUTE CDL DRIVER documented in this encounter Plan of Treatment Upcoming Encounters Date Type Department Care Team (Late st Contact Info) Description 09/24/2024 1:00 PM EDT Office Visit Gynecology/Obstetrics, [place] [address] [facility] [place] [phone] Heidy Mondragon PA-C [address] [facility] [place], [place] [phone] 01/07/2025 2:20 PM EST Office Visit Endocrinology, [place] [address] [place], [place] [phone] Drea Cruz MD [address] [place], [place] [phone] 01/12/2025 1:00 PM EST Office Visit General Internal Medicine [facility] [address] [facility] [address] Vianney Cruz MD [address] [place] [address] Scheduled Procedures Name Priority Associated Diagnoses Date/Ti [...] 05/27/2025 05/27/2023, 07/11/2021 Albumin/Creatinine Ratio 09/20/2025 09/20/2022 Ahrdy's Esophagus Surveilance 10/11/2026 10/11/2023, 10/11/2023, 12/15/2013, Additional [...] D LEVEL ONCE IN A LIFETIME-USE SMARTSET# [id number] Completed 01/29/2024, 06/22/2022, 02/01/2021, Additional history exists [...] Directives occurred with: Not Discussed Care Teams Cashier Payments Received Relationship Specialty Start Date End Date Vianney Cruz MD [address] [place] [address] PCP - General Internal Medicine 08/23/21 documented as of this encounter
--- OUTSIDE RECORDS SUMMARY | 2024-06-03 14:15 | External Medical Summary | Summary of Care ---
Author Name Unknown Organization [facility] Address [address] [place] [address] Phone [phone] Care Team Providers Care Hardening Machine Operator Helper Name Role Phone Vianney Cruz MD Primary Care Provider + Reason for Visit * Reason Onset Date Comments Advice 04/23/2024 Test Results Lab 04/23/2024 Ferritin Encounter Details Date Type Department Care Team (Late st Contact Info) Description 04/23/2024 Telephone General Internal Medicine [facility] [address] [facility] [place] [address] Vianney Cruz MD 200 [place] [address] Advice; Test Results Lab (Ferritin) Allergies Active Allergy Reactions Criticality Noted Date Comments Bee Venom 01/11/2016 Localized swelling Pollen 02/13/2017 Unknown environmental allergy Clonazepam 01/25/2020 Causes increase in agitation/anxiety Tramadol 02/21/2015 Mood swings documented as of this encounter (statuses as of 05/18/2024) Medications Medication Sig Dispensed Refills Start Date End Date Status MULTIPLE VITAMIN PO CAPSIndications:D iarrhea,Irritable bowel syndrome once daily 30 5 200 6 Active TRAZODONE HCL 50 MG PO [...] ne 100-10 MG/5ML Oral Syrup (Robitussin AC)Indications:Ac wrangell cough Take 10 mL by mouth every [...] 2 DAYS 238 g 4 4 Active Sucralfate 1 GM Oral Tablet [...] q 05/29/13 -- auto BIPAP set at 11/01 PSG -- AHI 83 [facility] Hypothyroidism 02/12/2007 Irritable bowel syndrome 11/23/2004 [...] mRNA, LNP-s, No Pre serve, 2-Dose Series ([employer]) 11/30/2021,01/20/2021,12/30/2020 Covid-19, Mrna, Lnp-s, Pf, B ivalent, 30 Mcg, IM, 12 yrs and above ([employer]) 10/17/2022 Hepatitis B, 20+ yrs 01/14/2024,08/12/2023,07/10 PPD [...] Encounter - Vianney Cruz MD - 05/18/2024 5:02 PM EDT Noted. * Telephone Encounter - Kelle Harris, MED ASSIST - 05/18/2024 11:57 AM EDT Spoke with Home Health Nurse Ita. She states that she has not been taking any non dietary iron since December. She did have a Reclast infusion 2 months ago. She will get her in for her labs and wait to hear the results. * Telephone Encounter - Kelle Harris MED ASSIST - 05/15/2024 2:27 PM EDT Attempted to contact patient however after several rings, a fax machine kicked on. * Telephone Encounter - Vianney Cruz MD - 05/15/2024 8:02 AM EDT Pt's ferritin is very high last 2 times. Not sure if she takes iron daily in any form. If so, need to sto. Repeat cbcd, Ferritin, iron screen off iron pill in next few days to weeks and no need to fast. If ferritin still high, would consider further labs and Hematology referral. Orders in. * Telephone Encounter - Dorothea Shepherd OSA - 05/13/2024 1:59 PM EDT Ita would like a call back in regards to pt due to family not understanding the high iron and why is the concern. States pt has cerebral palsy on her chart and never had this. * Telephone Encounter - Chantel Spaulding OSA - 04/23/2024 2:57 PM EDT INSPECTOR STRUCTURAL BONDING at the her intermediate is calling in questing the iron stats of the patient and is requesting a call back from the nurse to talk about this Her call back number on file is correct documented in this encounter Plan of Treatment Upcoming Encounters Date Type Department Care Team (Late st Contact Info) Description 09/24/2024 1:00 PM EDT Office Visit Gynecology/Obstetrics, [place] [address] [place] [address] Heidy Mondragon PA-C [address] [place], [place] [phone] 01/07/2025 2:20 PM EST Office Visit Endocrinology [address] [place] [address] Drea Cruz MD [address] [place] [address] 01/12/2025 1:00 PM EST Office Visit General Internal Medicine [facility] [address] [facility] [place], [place] [phone] Vianney Cruz MD [address] [facility] [place] [address] Scheduled Orders Name Type Priority Associated Diagnoses Orde r Schedule CBC WITH WBC DIFFERENTIAL Lab Routine High serum ferritin Expected: 05/15/2024 (Approximate), Expires: 05/15/2025 FERRITIN Lab Routine High serum ferritin Expected: 05/15/2024 (Approximate), Expires: 05/15/2025 IRON SCREEN, INCLUDING TIBC Lab Routine High serum ferritin Expected: 05/15/2024 (Approximate), Expires: 05/15/2025 HEPATIC FUNCTION PANEL Lab Routine High serum ferritin Expected: 05/15/2024 (Approximate), Expires: 05/15/2025 Scheduled Procedures Name Priority Associated Diagnoses Date/Ti [...] D LEVEL ONCE IN A LIFETIME-USE SMARTSET# [id number] Completed 01/29/2024, 06/22/2022, 02/01/2021, Additional history exists [...] Not on filedocumented as of this encounter Visit Diagnoses Diagnosis High serum ferritin- Primary documented in this encounter Advance Directives * Full Code (Latest Code Status on File) Date Activated Date Inactivated Comments 05/22/2022 9:26 AM 05/23/2022 4:47 PM This order r eflects the patients wishes and were consensually agreed upon. Question Answer Comments Discussion of Advance Directives occurred with: Not Discussed Care Teams Hardening Machine Operator Helper Relationship Specialty Start Date End Date Vianney Cruz MD [address] [place] [address] PCP - General Internal Medicine 08/23/21 documented as of this encounter
--- OUTSIDE RECORDS SUMMARY | 2024-06-03 14:15 | External Medical Summary | Summary of Care ---
Author Name Unknown Organization [facility] Address [address] [place] [address] Phone [phone] Care Team Providers Care Director Of Occupational Health Name Role Phone Vianney Cruz MD Primary Care Provider + Encounter Details Date Type Department Care Team (Late st Contact Info) Description 05/21/2024 Result Scan Unspecified Department <No scans attached> Allergies Active Allergy Reactions Criticality Noted Date Comments Bee Venom 01/11/2016 Localized swelling Pollen 02/13/2017 Unknown environmental allergy Clonazepam 01/25/2020 Causes increase in agitation/anxiety Tramadol 02/21/2015 Mood swings documented as of this encounter (statuses as of 05/22/2024) Medications Medication Sig Dispensed Refills Start Date [...] by mouth daily 283 g 3 08/13/2023 4 Active Docusate Sodium 100 MG Oral Capsule [...] MOUTH DAILY. *POTASSIUM IMBALANCE ---BOTTLE--- 28 Capsule 04/16/2024 Active Rosuvastatin Calcium 10 MG Oral Tablet (Crestor)Indicatio ns:Mixed dyslipidemia TAKE 1 TABLET BY MOUTH DAILY FOR HIGH CHOLESTEROL 28 Tablet 4 04/16/2024 Active Levothyroxine Sodium 50 MCG Oral Tablet (Levoxyl) TAKE 1 TABLET BY MOUTH ONCE DAILY *THYROID* 28 Tablet 4 04/16/2024 Active Metoprolol Succinate ER 50 MG Oral Tablet Extended Release 24 Hour (toPROL XL) TAKE ONE TABLET BY MOUTH ONCE DAILY IN THE AM *BLOOD PRESSURE* 28 Tablet 4 04/16/2024 Active Lisinopril 40 MG Oral TabletIndications: HTN, goal below 140/90 TAKE ONE TABLET BY MOUTH DAILY *HTN* 28 Tablet 4 04/16/2024 Active Furosemide 20 MG Oral Tablet (Lasix)Indications :Edema, unspecified type TAKE ONE TABLET BY MOUTH ONCE DAILY FOR FLUID ACCUMULATION OR WEIGHT GAIN 28 Tablet 4 04/16/2024 Active Polyethylene Glycol 3350 17 GM/SCOOP [...] (abdominal pain). 180 Capsule 3 05/01/2024 Active Sucralfate 1 GM Oral Tablet (Carafate) TAKE BY MOUTH THREE TIMES DAILY BEFORE BREAKFAST,BEFORE DINNER AND AT BEDTIME FOR GERD 84 Tablet 4 05/18/2024 Active Daily-Scott Oral Tablet TAKE ONE TABLET BY MOUTH DAILY *SUPPLEMENT* 84 Tablet 3 05/18/2024 Active documented as of this encounter (statuses as of 05/22/2024) Active Problems Problem Noted Date Diagnosed Date [...] qhs 05/29/13 -- auto BIPAP set at 12/8 11/2007 PSG -- AHI 83 [facility] Hypothyroidism 02/12/2007 Irritable bowel syndrome 11/23/2004 Sensorineural hearing loss, unilateral Overview: left documented as of this encounter (statuses as of 05/22/2024) Resolved Problems Problem Noted Date Diagnosed Date [...] as of this encounter (statuses as of 05/22/2024) Immunizations Name Administration Dates Next Due COVID-19 mRNA, LNP-s, No Pre serve, 2-Dose Series ([employer]) 11/30/2021,01/20/2021,12/30/2020 Covid-19, Mrna, Lnp-s, Pf, B ivalent, 30 Mcg, IM, 12 yrs and above ([employer]) 10/17/2022 Hepatitis B, 20+ yrs 01/14/2024,08/12/2023,07/10 PPD 01/14/2024, 2,01/25/2020,2017,02/14/2016,02/25/2014,05/24/2012,0 05/12/2008 Seasonal Influenza, PF, 6 M & [...] No 05/22/2022 documented as of this encounter Plan of Treatment Upcoming Encounters Date Type Department Care Team (Late st Contact Info) Description 09/24/2024 1:00 PM EDT Office Visit Gynecology/Obstetrics, [place] [address] [place] [address] Heidy Mondragon PA-C [address] [place] [address] 01/07/2025 2:20 PM EST Office Visit Endocrinology [address] [place] [address] Drea Cruz MD [address] [facility] [place] [id number] 01/12/2025 1:00 PM EST Office Visit General Internal Medicine [place] [facility] [address] [place] [address] Vianney Cruz MD [address] [place] [address] Scheduled Procedures Name Priority Associated Diagnoses Date/Ti [...] D LEVEL ONCE IN A LIFETIME-USE SMARTSET# [id number] Completed 01/29/2024, 06/22/2022, 02/01/2021, Additional history exists [...] Not on filedocumented as of this encounter Procedures Procedure Name Priority Date/Time Associated Diagnosis Comments PROCEDURE SCANNED RESULT 05/21/2024 documented in this encounter Results * PROCEDURE SCANNED RESULT (05/21/2024) 05/21/2024 No Physician Data Unknown SURGERY documented in this encounter Advance Directives * Full Code (Latest Code Status on File) Date Activated Date Inactivated Comments 05/22/2022 9:26 AM 05/23/2022 4:47 PM This order r eflects the patients wishes and were consensually agreed upon. Question Answer Comments Discussion of Advance Directives occurred with: Not Discussed Care Teams Director Of Occupational Health Relationship Specialty Start Date End Date Vianney Cruz MD [address] [facility] [place] [address] PCP - General Internal Medicine 08/23/21 documented as of this encounter
--- OUTSIDE RECORDS SUMMARY | 2024-06-03 14:16 | External Medical Summary | Summary of Care ---
Author Name Unknown Organization [facility] Address [address] [place] [address] Phone [phone] Care Team Providers Care Nurse Case Manager Name Role Phone Vianney Cruz MD Primary Care Provider + Reason for Visit * Reason Comments eRx-Medication Refill Encounter Details Date Type Department Care Team (Late st Contact Info) Description 04/17/2024 Refill Gastroenterology, [facility] [address] [place] [id number] Tamanna Tirado CRNP [address] [place] [phone] Other constipation Allergies Active Allergy Reactions Criticality Noted Date Comments Bee Venom 01/11/2016 Localized swelling Pollen 02/13/2017 Unknown environmental allergy Clonazepam 01/25/2020 Causes increase in agitation/anxiety Tramadol 02/21/2015 Mood swings documented as of this encounter (statuses as of 04/21/2024) Medications Medication Sig Dispensed Refills Start Date [...] ne 100-10 MG/5ML Oral Syrup (Robitussin AC)Indications:Ac beaver cough Take 10 mL by mouth every [...] FOR GERD 84 Tablet 4 4 Active D3 Super Strength 50 MCG (1999) Oral Capsule (Cholecalciferol) TAKE ONE CAPSULE BY [...] HOURS NEEDED FOR NAUSEA 30 Tablet 1 05/09/202 4 Active Vitamin D3 50 MCG (2000 UT) Oral Tablet Chewable Take 1 Tablet [...] 2 DAYS 238 g 4 4 Active Polyethylene Glycol 3350 17 GM/SCOOP Oral Powder (MiraLax)Indicati ons:Other constipation Miralax 17g by mouth every other day 255 g 3 3 04/21/20 24 Discontinued documented as of this encounter (statuses as of 04/21/2024) Active Problems Problem Noted Date Diagnosed Date [...] q 05/29/13 -- auto BIPAP set at 12/8 11/2007 PSG -- AHI 83 [facility] Hypothyroidism 02/12/2007 Irritable bowel syndrome 11/23/2004 Sensorineural hearing loss, unilateral Overview: left documented as of this encounter (statuses as of 04/21/2024) Resolved Problems Problem Noted Date Diagnosed Date [...] as of this encounter (statuses as of 04/21/2024) Immunizations Name Administration Dates Next Due COVID-19 mRNA, LNP-s, No Pre serve, 2-Dose Series (HELM Boots) 11/30/2021,01/20/2021,12/30/2020 Covid-19, Mrna, Lnp-s, Pf, B ivalent, [...] encounter Miscellaneous Notes * Telephone Encounter - Tamanna Tirado CRNP - 04/21/2024 4:08 PM EDT Signed Prescriptions: Disp Refills Polyethylene Glycol 3350 17 GM/SCOOP Oral *238 g 4 Sig: MIX 17 GMS INTO 8OZ OF FLUID AND DRINK BY MOUTH ONCE DAILY NEEDED IF NO BM FOR 2 DAYS Authorizing Provider: TAMANNA TIRADO * Telephone Encounter - Artur Stover [facility] - 04/21/2024 9:09 AM EDT Pending Prescriptions: Disp Refills Polyethylene Glycol 3350 17 GM/SCOOP Oral *238 g 4 Sig: MIX 17 GMS INTO 8OZ OF FLUID AND DRINK BY MOUTH ONCE DAILY NEEDED IF NO BM FOR 2 DAYS * Telephone Encounter - Artur Stover [facility] - 04/21/2024 9:06 AM EDT Patient has upcoming appt on 04/28/24. Please approve if appropriate. Pending Prescriptions: Disp Refills Polyethylene Glycol 3350 17 GM/SCOOP Oral*238 g 4 Sig: MIX 17 GMS INTO 8OZ OF FLUID AND DRINK BY MOUTH ONCE DAILY NEEDED IF NO BM FOR 2 DAYS Last Visit: 08/07/2023 (in office), 03/28/2021 (telemedicine) Next Visit: 04/28/2024 If no future appointments scheduled, and last appointment is greater than a year ago, please schedule patient for a follow-up appointment Last date the medication was ordered: 08/13/23 Pharmacy: [facility] [address] Is this request for a controlled substance? No Urine Drug Screen:No results found. However, due [...] Care Team (Late st Contact Info) Description 04/28/2024 12:00 PM EDT Office Visit Gastroenterology, [facility] [address] [place] [address] Tamanna Tirado CRNP [address] [place] [address] 09/24/2024 1:00 PM EDT Office [facility] [place] [facility] [address] Heidy Mondragon PA-C [address] [facility] [place] [address] 01/07/2025 2:20 PM EST Office Visit Endocrinology, [place] [address] [place] [address] Drea Cruz MD [address] [place] [address] 01/12/2025 1:00 PM EST Office Visit General Internal Medicine [facility] [place] [address] [place] [address] Vianney Cruz MD 200 [facility] [place] [address] Scheduled Procedures Name Priority Associated Diagnoses Date/Ti me COLONOSCOPY FLEXIBLE PROXIMA L DIAGNOSTIC Recall Screening for malignant neoplasm of colon Health Maintenance Due Date Last Done Comments HIV Screening 1979 Cologuard 2009 Fecal Occult Blood Test 2009 Sigmoidoscopy 2009 COVID-19 Vaccine (24 season) 2023 10/17/2022, 11/30/2021, 01/20/2021, Additional history [...] D LEVEL ONCE IN A LIFETIME-USE SMARTSET# [id number] Completed 01/29/2024, 06/22/2022, 02/01/2021, Additional history exists [...] as of this encounter Visit Diagnoses Diagnosis Other constipation documented in this encounter Advance Directives * Full Code (Latest Code Status on File) Date Activated Date Inactivated Comments 05/22/2022 9:26 AM 05/23/2022 4:47 PM This order r eflects the patients wishes and were consensually agreed upon. Question Answer Comments Discussion of Advance Directives occurred with: Not Discussed Care Teams Nurse Case Manager Relationship Specialty Start Date End Date Vianney Cruz MD [address] [place] [address] PCP - General Internal Medicine 08/23/21 documented as of this encounter
--- OUTSIDE RECORDS SUMMARY | 2024-06-03 14:16 | External Medical Summary | Summary of Care ---
Author Name Unknown Organization [facility] Address [address] [place] [address] Phone [phone] Care Team Providers Care Milk Route Deliverer Name Role Phone Vianney Cruz MD Primary Care Provider + Encounter Details Date Type Department Care Team (Late st Contact Info) Description 05/01/2024 Orders Only Gastroenterology [address] [place] [address] Tamanna Thomas CRNP [address] [place] [address] Allergies Active Allergy Reactions Criticality Noted Date [...] 4 Active D3 Super Strength 50 MCG (1999 UT) [...] 1 4 Active Vitamin D3 50 MCG (2000 [...] 2 DAYS 238 g 4 4 Active Dicyclomine HCl 10 MG Oral Capsule (Bentyl) Take 1 Capsule by mouth 2 times a day as needed for Cramping. 60 Capsule 2 4 05/01/20 24 Discontinued documented as of this encounter [...] set at 12/11/2007 PSG -- AHI 83 [facility] Hypothyroidism 02/12/2007 Irritable bowel syndrome 11/23/2004 Sensorineural [...] mRNA, LNP-s, No Pre serve, 2-Dose Series (ii4b) 11/30/2021,01/20/2021,12/30/2020 Covid-19, Mrna, Lnp-s, Pf, B ivalent, [...] 09/24/2024 1:00 PM EDT Office Visit Gynecology/Obstetrics, [place] [address] [place] [address] Heidy Mondragon PA-C [address] [facility] [place], [place] [id number] 01/07/2025 2:20 PM EST Office Visit Endocrinology, [place] [address] [place] [facility] [place] [address] Drea Cruz MD [address] [place] [facility] [place] [address] 01/12/2025 1:00 PM EST Office Visit General Internal Medicine [place] [facility] [place] [address] [place] [address] [address] Vianney Cruz MD [address] [place] [address] [address] Scheduled Procedures Name Priority Associated Diagnoses Date/Ti [...] D LEVEL ONCE IN A LIFETIME-USE SMARTSET# [id number] Completed 01/29/2024, 06/22/2022, 02/01/2021, Additional history exists [...] Directives occurred with: Not Discussed Care Teams Milk Route Deliverer Relationship Specialty Start Date End Date Vianney Cruz MD 200 [place] [address] PCP - General Internal Medicine 08/23/21 documented as of this encounter
--- OUTSIDE RECORDS SUMMARY | 2024-06-03 14:16 | External Medical Summary | Summary of Care ---
Author Name Unknown Organization [facility] Address [address] [place] [address] Phone [phone] Care Team Providers Care Condenser Cleaner Name Role Phone Vianney Cruz MD Primary Care Provider + Reason for Visit * Reason Onset Date Comments Advice 05/01/2024 Encounter Details Date Type Department Care Team (Late st Contact Info) Description 05/01/2024 Telephone Gastroenterology, [address] [address] Tamanna Tirado CRNP [address] [place] [address] Advice Allergies Active Allergy Reactions Criticality Noted [...] set at 12/11/2007 PSG -- AHI 83 [facility] Hypothyroidism 02/12/2007 Irritable bowel syndrome 11/23/2004 Sensorineural [...] mRNA, LNP-s, No Pre serve, 2-Dose Series (Socrative) 11/30/2021,01/20/2021,12/30/2020 Covid-19, Mrna, Lnp-s, Pf, B ivalent, [...] as of this encounter Miscellaneous Notes * Addendum Note - Tamanna Tirado CRNP [...] of these encounters to Marge Howell LPN. [phone] * Telephone Encounter - Karolyn Christensen RN - 05/01/2024 11:04 AM EDT Images from the original note were not included. Tamanna Tirado CRNP P [facility] Gastro Nurse Pool/Class Pls call staff in pt's senior living - KUB showed no signs of bowel dilation or obstruction, nor constipation. Pt may resume current bowel regimen but avoid not having BM for 2 days. She can take Miralax 17g daily if she has no BM >2 days. For her complaint of abd pain, I will give her a trial of Dicyclomine 10mg bid prn pain/cramping. Rx sent to [facility] * Telephone Encounter - Karolyn Christensen RN - 05/01/2024 10:41 AM EDT Spoke to caregiver, Roxane. She asked that I call patient's PYRIDINE OPERATOR with [employer], [employer] ([phone]). Called and gave directions to [place]. She is asking if you can put this on a handwritten script even though this is OTC. Since they are state regulated, it has to come via script. Nurses, please fax script to [facility], fax [phone] * Telephone Encounter - Karolyn Christensen RN - 05/01/2024 10:37 AM EDT ----- Message from Tamanna Tirado sent at 05/01/2024 9:26 AM EDT ----- Addendum: Cancelling Dicyclomine order as pt has glaucoma. Recommend her to try IB-Elayne 2 tablets up to bid (available from OTC) instead for abd cramping [facility] documented in this encounter Plan of Treatment Upcoming Encounters Date Type Department Care Team (Late st Contact Info) Description 09/24/2024 1:00 PM EDT Office Visit Gynecology/Obstetrics, [place] [address] [place] [address] Heidy Mondragon PA-C [address] [facility] [place], [place] [phone] 01/07/2025 2:20 PM EST Office Visit Endocrinology, [place] [address] [place] [address] Drea Cruz MD [address] [place] [address] 01/12/2025 1:00 PM EST Office Visit General Internal Medicine [facility] [address] [place] [address] Vianney Cruz MD [address] [place] [address] Scheduled Procedures Name Priority Associated Diagnoses Date/Ti [...] D LEVEL ONCE IN A LIFETIME-USE SMARTSET# [id number] Completed 01/29/2024, 06/22/2022, 02/01/2021, Additional history exists [...] Directives occurred with: Not Discussed Care Teams Condenser Cleaner Relationship Specialty Start Date End Date Vianney Cruz MD [address] [place] [address] PCP - General Internal Medicine 08/23/21 documented as of this encounter
--- OUTSIDE RECORDS SUMMARY | 2024-06-03 14:16 | External Medical Summary | Summary of Care ---
Author Name Unknown Organization [facility] Address [address] [place] [address] Phone [phone] Care Team Providers Care Cake Icer And Packer Name Role Phone Vianney Cruz MD Primary Care Provider + Reason for Visit * Reason Comments Follow Up 3 month f/u for IBS. Pt with Hussain Howell. Encounter Details Date Type Department Care Team (Latest Contact Info) Description 04/28/2024 12:00 PM EDT Office Visit Gastroenterology, [facility] [address] [place] [id number] Tamanna Thomas CRNP [address] [facility] [place] [address] Gastroesophageal reflux disease without esophagitis* Allergies Active Allergy Reactions Criticality Noted Date Comments Bee Venom 01/11/2016 Localized swelling Pollen 02/13/2017 Unknown environmental allergy Clonazepam 01/25/2020 Causes increase in agitation/anxiety Tramadol 02/21/2015 Mood swings documented as of this encounter (statuses as of 04/28/2024) Medications Medication Sig Dispensed Refills Start Date [...] 12/04/2023 Active D3 Super Strength 50 MCG (1999 [...] 1 04/02/2024 Active Vitamin D3 50 MCG (2000 UT) [...] 2 DAYS 238 g 4 04/21/2024 Active documented as of this encounter (statuses as of 04/28/2024) Active Problems Problem Noted Date Diagnosed Date [...] set at 1211/2007 PSG -- AHI 83 [facility] Hypothyroidism 02/12/2007 Irritable bowel syndrome 11/23/2004 Sensorineural hearing loss, unilateral Overview: left documented as of this encounter (statuses as of 04/28/2024) Resolved Problems Problem Noted Date Diagnosed Date [...] as of this encounter (statuses as of 04/28/2024) Immunizations Name Administration Dates Next Due COVID-19 mRNA, LNP-s, No Pre serve, 2-Dose Series ([employer]) 11/30/2021,01/20/2021,12/30/2020 Covid-19, Mrna, Lnp-s, Pf, B ivalent, 30 Mcg, IM, 12 yrs and above ([employer]) 10/17/2022 Hepatitis B, 20+ yrs 01/14/2024,08/12/2023,07/10 PPD [...] on file documented as of this encounter Last Filed Vital Signs Vital Sign Reading Time Taken Comments Blood Pressure 126/62 04/28/2024 11:45 AM EDT Pulse 75 04/28/2024 11:45 AM EDT Temperature 36.7 C (98.1 F) 04/28/2024 11:45 AM E DT Respiratory Rate - - Oxygen Saturation - - Inhaled Oxygen Concentration - - Weight 76.7 kg (169 lb) 04/28/2024 11:45 AM EDT Height - - Body Mass Index 33.01 01/16/2024 2:11 PM EST documented in this encounter Functional Status Functional Status Response [...] No 05/22/2022 documented as of this encounter Progress Notes * Tamanna Thomas CRNP - 04/28/2024 12:01 PM EDT DATE OF SERVICE: 04/28/24 CC: Follow-up HPI: 04/28/24: Pt presents with [employer] caregiver, Lorenzo. Pt report some abd pain and nausea still. Caregiver reports pt still finishing meals, does not appear to be in distress or pain. Pt is observed to have multiple bms a day but no caregiver witnessed stool. Pt report stools still loose. 08/07/23 : Patient presents with her caregiver, Kourtney. Patient reports that overall she does not have trouble swallowing her foods if she remembers to drink with every bite. She denies any painful swallowing, heartburn or acid reflux. No last couple of days she started having multiple loose stoolsper day up to 5 and 6 times. Once or twice had nocturnal diarrhea. She denies any black tarry stools or rectal bleeding. Has mild abdominal cramping associated with it. Per caregiver patient has not needed MiraLax or milk of magnesium for a while. Noted that she went to eat out with her family during labor day weekend and came back feeling sick to her stomach. Otherwise no other residents with GIinfections. 04/02/22: Patient is here for annual follow-up visit for GERD and IBS. She denies any acid reflux or heartburn symptoms. She is complaining of mid abdominal pain which is started today. Her caregivertoday states that patient has not been showing any signs and symptoms of abdominal pain until she just stated in the visit. Bowels move regularly, denies any rectal bleeding or loose stools. Telephonic visit 03/27/2021: After connecting to the patient via telephone, the patient was identified by name and date of . Patient was then informed that this was a telephone call only visit. The patient agreed to participate. Visit Disposition: Routine follow-up Total call duration was 7 minutes. Conversation with pt assisted with caregiver (Kourtney). BM 2-3x a day, sometimes loose (mushy). Her last dose of Imodium was 1.5 weeks ago. Denies abd pain, n/v, cramping, rectal bleeding. She is finishing meals and snacks. Weight 135lbs. 03/08/21: Pt here w caregiver (Lizbet). She is having diarrhea up to 3x a day which started in thepast week w some nocturnal awakening. She denies fever, chills, abd pain. + nausea, no vomiting. Norectal bleeding. She was admitted at [facility] for HTN urgency till end of January. New meds include Lisinopril and Amlodipine. No antibx exposure 01/23/2021 - Pt here w caregiver (Dawn). She is doing well, no having c/o reflux, abd pain, n/v. Bowels move 2x a day w/o rectal bleding. Appetite and weight stable. 07/25/20: Pt here w caregiver (Laisha). She is generally feeling well - reports heartburn symptoms under control. Appetite good. No n/v. Takes Simethicone for bloating. Notices 2x a week has diarrhea mostly after eating shrimps. No rectal bleeding. Telephone Visit 02/25/2020: After connecting to the patient via telephone, the patient was identifiedby name and date of . Patient was then informed that this was a telephone call only visit. Thepatient agreed to participate. This is an established patient evaluated in my specialty within the past three years yes Visit Disposition: Routine follow-up Total call duration was 7 minutes. 54 year old female w hx of IBS chronic nausea, abd pain symptoms. Previous testing such as GES (2007), recent KUB, RUQ unrevealing. Hx of hiatal hernia and gastritis on EGD. She is s/p cholecystectomy, + loose stools already on Colestipol last seen by Tamanna in 2019. Recent stool studies negative for infection. Last EGD/Colonoscopy reviewed in 2017. She notes that her bowels are improved. She is now reporting semi-formed. 2/3 times a day. Occasionally loose stool. No longer with nocturnal episodes of stools. Stools are brown. No black or bloody stools. Does have some persistent abd pain. This is epigastric pain. Intermittent. Worse on an empty stomach. Feels better with the medications that she is presently taking. No vomiting. No GERD type symptoms. No fever, chills, CP, SOB. 01/27/20: Pt here for f/u nausea, abd pain. Pt previously followed by Dr. Brady Ordoñez (see encounters below). Since last visit had KUB and RUQ u/s which were unrevealing. She is having nausea and mostly sharp mid abd pain in morning time. Pain and nausea go hand in hand. She denies it being related to after eating or prompting bowel movement. Does admit however stools are loose and she has noctu rnal awakening. 12-23-19 Patient presents to our office for evaluation of nausea. The patient does have a history of specialneeds and is accompanied by a medical billing coder this afternoon. She notes that the nausea has been present for about 4 weeks or so. This occurs on a regular basis and sometimes occurs after fatty types of meals such as fried foods. She describes using no new medications or herbal supplements. The patient has been followed by our office in the past for symptoms of irritable bowel syndrome in addition to choledocholithiasis. 04-03-18 The patient presents today for follow-up of irritable bowel syndrome. Her last upper endoscopy showed no evidence of Hardy 's esophagus based on biopsy results. She did have a recent episode of diverticulitis requiring outpatient antibiotics but no hospitalization. She is otherwise with no symptoms or problems. 01-15-17 The patient presents for follow-up with regard to history of irritable bowel syndrome, Hardy 's esophagus today. There are new new symptoms today. Her symptoms appear to be well controlled with herpresent regimen which includes an antispasmodic and anti-reflux medications. She presently has no difficulty swallowing or pain with swallowing. Her bowels move on a regular basis with continued use of MiraLax. 01-11-16 The patient follows up with regard to irritable bowel syndrome. She does note having intermittent left-sided abdominal discomfort. Her caretakers notes that overall she has no complaints at home. Herbowel habits appeared to be regular at this time. She appears to be tolerating her medications without any difficulties. 01-18-15 The patient presents for followup evaluation of diarrhea. She has been followed for the symptoms for a number of years. In the past we treated her with Questran without much benefit. At this time nicholasaretaker and the patient are not interested in much new pharmaceutical interventions. She notes that she has to maybe 3 semi liquid bowel 8 movements per day. She does not have any incontinence at this time. Patient notes that she does have occasional discomfort in her left lower quadrant which improved after a small bowel movement. This has been improved after increasing the dose of Bentyl to 3times daily in Prior evaluation 09/06 Rosa Isela Cee is a 47 year old female who presents for follow-up evaluation of diarrhea and abdominal discomfort. The patient notes symptoms have been persistent over the last few months. She notes having left-sided abdominal pain with semiliquid stool several times per day without bleeding. Thereare occasional episodes of incontinence / urgency. She tried questran but was unable to take the medication as it caused gagging. There is no nausea, fever, or chills. She continues to have right-sided abdominal discomfort which comes and goes but is improved from past since her most recent ERCP. 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 1 Bottle 0 Brinzolamide-Brimonidine 1-0.2 % Ophthalmic Suspension Instill 1 Drop into both eyes 3 times a day. Bimatoprost 0.01 % Ophthalmic Solution Instill 1 Drop into both eyes at bedtime. 3 mL 12 milk of magnesia (MOM) 400 MG/5ML suspension 30 ml every 3 days as needed constipation 360 mL 0 AYR SALINE NASAL NO-DRIP GEL 1 spray application in each nostril nightly prior to bed 22 mL 5 Carboxymethylcellulose Sodium 1 % Ophthalmic Solution Instill 1 Drop into both eyes in the morning and 1 Drop at noon and 1 Drop before bedtime. gabapentin (NEURONTIN) 400 MG Capsule 1 Capsule in the morning and 1 Capsule at noon and 1 Capsule before bedtime. escitalopram (LEXAPRO) 20 MG Tablet Take 1 Tablet by mouth in the morning. lactase 3000 units per tab (LACTAID) 3000 units Tablet 1 tablet prior to dairy foods 60 Tab 5 Non-Aspirin Pain Reliever 325 MG Oral Tablet (Acetaminophen) TAKE 2 TABLETS BY MOUTH EVERY 6 HOURS NEEDED FEVER/HEADACHE/ MINOR ACHES AND PAINS 62 Tab 0 CPAP every night at bedtime . MEDICAL INSTRUCTIONS Can put baby oil or mineral oil 2-3 drops once daily for 3- 4 days in ears for impacted cerumen 1 Each 1 Loperamide HCl 2 MG Oral Tablet (Immodium (A-D)) Take 1 Tablet by mouth 4 times a day as needed forDiarrhea. 30 Tablet 3 Calcium Carbonate Antacid 500 MG Oral Tablet Chewable (QC Antacid) TAKE ONE TABLET BY MOUTH TWICE DAILY NEEDED FOR UPSET STOMACH/INDIGESTION 60 Tablet 4 Mi-Acid Gas Relief 80 MG Oral Tablet Chewable (Simethicone) TAKE 1 TABLET BY MOUTH EVERY 6 HOURS ASNEEDED FOR GAS 30 Tablet 4 ARIPiprazole 5 MG Oral Tablet (Abilify) Take 1 Tablet by mouth at bedtime. Metamucil 28.3 % Oral Powder (Psyllium) 2 tsp by mouth daily 283 g 3 Docusate Sodium 100 MG Oral Capsule (Colace) Take 1 Capsule by mouth in the morning and 1 Capsule before bedtime. 180 Capsule 3 guaiFENesin-Codeine 100-10 MG/5ML Oral Syrup (Robitussin AC) Take 10 mL by mouth every 4 hours. HOLD for drowsiness, if asleep 120 mL 0 Aspirin Low Dose 81 MG Oral Tablet Delayed Release Sucralfate 1 GM Oral Tablet (Carafate) TAKE BY MOUTH THREE TIMES DAILY BEFORE BREAKFAST,BEFORE DINNER AND AT BEDTIME FOR GERD 84 Tablet 4 D3 Super Strength 50 MCG (1999) Oral Capsule (Cholecalciferol) TAKE ONE CAPSULE BY MOUTH DAILY. *SUPPLEMENT* 28 Capsule 4 Omeprazole 40 MG Oral Capsule Delayed Release (PriLOSEC) TAKE 1 CAPSULE BY MOUTH ONCE DAILY 1 HOUR BEFORE FIRST MEAL OF THE DAY FOR GERD 28 Capsule 11 amLODIPine Besylate 10 MG Oral Tablet (Norvasc) TAKE ONE TABLET BY MOUTH ONCE DAILY*HTN* 28 Tablet 5 Fluticasone Propionate 50 MCG/ACT Nasal Suspension (Flonase) INSTILL 2 SPRAYS INTO EACH NOSTRIL ONCE DAILY FOR ALLERGIES 16 g 4 Ondansetron HCl 4 MG Oral Tablet (Zofran) TAKE 1 TABLET BY MOUTH EVERY 8 HOURS NEEDED FOR [id number] Tablet 1 Vitamin D3 50 MCG (1999 UT) Oral Tablet Chewable Take 1 Tablet by mouth daily. 28 Tablet 5 Potassium Chloride ER 10 MEQ Oral Capsule Extended Release TAKE 1 CAPSULE BY MOUTH DAILY. *POTASSIUM IMBALANCE ---BOTTLE--- 28 Capsule 4 Rosuvastatin Calcium 10 MG Oral Tablet (Crestor) TAKE 1 TABLET BY MOUTH DAILY FOR HIGH CHOLESTEROL 28 Tablet 4 Levothyroxine Sodium 50 MCG Oral Tablet (Levoxyl) TAKE 1 TABLET BY MOUTH ONCE DAILY *THYROID* 28 Tablet 4 Metoprolol Succinate ER 50 MG Oral Tablet Extended Release 24 Hour (toPROL XL) TAKE ONE TABLET BY MOUTH ONCE DAILY IN THE AM *BLOOD PRESSURE* 28 Tablet 4 Lisinopril 40 MG Oral Tablet TAKE ONE TABLET BY MOUTH DAILY *HTN* 28 Tablet 4 Furosemide 20 MG Oral Tablet (Lasix) TAKE ONE TABLET BY MOUTH ONCE DAILY FOR FLUID ACCUMULATION OR WEIGHT GAIN 28 Tablet 4 Polyethylene Glycol 3350 17 GM/SCOOP Oral Powder (Miralax) MIX 17 GMS INTO 8OZ OF FLUID AND DRINK BY MOUTH ONCE DAILY NEEDED IF NO BM FOR 2 DAYS 238 g 4 TRAZODONE HCL 50 MG PO TABS TAKE 1 TABLET BY MOUTH AT BEDTIME FOR INSOMNIA 30 Tab 5 methylPREDNISolone 4 MG Oral Tablet Therapy Pack (Medrol Dosepack) follow package directions (Patient not taking: Reported on 01/14/2024) 21 Tablet 0 No current facility-administered medications for this visit. Past Surgical History: Procedure Laterality Date BIOPSY OF BREAST, OPEN 10/29/05 Right breast martin. loc. biopsy (benign) [facility] Surgi-Center Dr. Brown BX BREAST PERCUT W/O IMAGE 09/29 right/benign COLONOSCOPY 2000 Dr. Pan. hemorrhoids. otherwise normal COLONOSCOPY, DIAGNOSTIC (RECTUM) 11/03/2018 diverticulosis, repeat 10 yrs/[facility] CYSTOSCOPY 08-26-07 EGD, FLEXIBLE, DIAGNOSTIC 01/22/2017 normal bx, sm /[facility] EGD, FLEXIBLE, DIAGNOSTIC 10/11/2023 ESOPHAGOGASTRODUODENOSCOPY (EGD), FLEXIBLE, TRANSORAL, DIAGNOSTIC performed by Rosmery Main DO at ENDOSCOPY [facility] EGD, FLEXIBLE, W/BIOPSY 07/29/07 mild esophageal inflammation-repeat egd in 9-12 months EGD, FLEXIBLE, W/BIOPSY 04/11/09 done hardy's esophagus,small hiatal hernia, chronic gastritis, recommend f/u in 1 year EGD, FLEXIBLE, W/BIOPSY 07/24/10 Barretts repeat in 3 yrs EGD, FLEXIBLE, W/BIOPSY 07/26/2011 large hiatal hernia, z line irregular, 35cm from incisors bxs done, path shows Barretts esophagus repeat in 3 years EGD, W/ENDOSCOPIC US 11/29/2011 ENDOSCOPY, ERCP, W/BIOPSY 04/24/13 benighn inflammatory tissue in bile duct EXPLORE PARATHYROID GLANDS N/A 05/22/2022 PARATHYROIDECTOMY performed [place] Jerod Barlow [place] [facility] [place],DIAGNOSTIC 03/2004 IR BIOPSY 01/12/2022 LAPAROSCOPY; CHOLECYSTECTOMY 09/15/11 [facility] MRI C SPINE W WO CONTRAST 12/12/11 SINUS SURGERY PROCEDURE NEC 05/08/13 DIANA/BSO,OMENTECTOMY FOR MALIGNANCY 1999 [place] [place] - endometriosis TONGUE BASE VOLUME REDUC,RADIOFREQ 05/08/13 Dr. Zamudio TOTAL ABD HYSTERECTOMY W/WO REMOVAL OF TUBE(S) complete hysterectomy at age 35 Family History Problem Relation Name Age of Onset Ovarian cancer Mother stage 4 Diabetes Father Hypertension Father Heart Disorder Father congestive heart failure Heart Disorder Grandmother (Maternal) chf Breast Cancer No significant family history History Substance Use Topics Smoking status: Never Smoker Smokeless tobacco: Never Used Alcohol Use: No REVIEW OF SYSTEMS: See HPI above; All other findings negative. EXAM: Filed Vitals: 04/28/24 1145 BP: 126/62 Pulse: 75 Temp: 36.7 C (98.1 F) Weight: 76.7 kg (169 lb) GENERAL: Well developed and well nourished in no acute distress. SKIN: No rashes, ulcers, jaundice or spider angiomata. HEENT: Normocephalic, sclera clear. NECK: Supple, trachea midline, no JVD LUNGS: Clear to auscultation bilaterally, no respiratory distress or accessory muscles used. HEART: Regular rate & rhythm, no murmurs and no gallops. ABDOMEN: Normal bowel sounds, soft and nontender. EXTREMITIES: No palmar erythema, no ankle edema, no skin discoloration, no clubbing, no cyanosis. NEURO: No lateralizing findings. Sensory/Motor grossly normal. IMPRESSION: Rosa Isela Cee is a 58 year old female w hx of IBS , GERD, controlled. Was having abd pain, loose stools but KUB showed possible ileus w moderate stool burden back in 07/2023. She is not on daily bowel regimen now though has Miralax, Docusate sodium, Milk of Mg on prn basis for constipation. - Repeat KUB. If still showing constipation, will advise her to take 1/2 of colonoscopy prep for bowel cleanse, then daily bowel regimen with Miralax 17g bid + Metamucil 2tsp daily. - Continue Omeprazole 20mg daily and Carafate 1g TID. Avoid Dicyclomine (hx of glaucoma) - Simethicone prn gassiness/bloating - Limit red sauces and oily/fried foods, sodas. Avoid reclining 1-2 hrs after eating supper/snack I spent a total of 30 minutes on the date of service in review of patient's record, and previously obtained information in person and appropriate medical visit, discussion and education of plan, withpatient and/or caregiver, placing orders for tests/referral/procedures as medically necessary and documentation of pertinent clinical information in patient's medical records for their visit today. RETURN TO CLINIC: 3 months or sooner RADHA David [facility] Gastroenterology, [facility] documented in this encounter Nursing Notes * Kaleigh Guevara CMA - 04/28/2024 11:45 AM EDT Chief Complaint Patient presents with Follow Up 3 month f/u for IBS. Pt with Hussain Howell. documented in this encounter Plan of Treatment Upcoming Encounters Date Type Department Care Team (Late st Contact Info) Description 09/24/2024 1:00 PM EDT Office Visit Gynecology/Obstetrics, [place] [address] [place] [address] Heidy Mondragon PA-C [address] [place] [address] 01/07/2025 2:20 PM EST Office Visit Endocrinology, [place] [address] [place] [address] Drea Cruz MD [address] [place] [address] 01/12/2025 1:00 PM EST Office Visit General Internal Medicine [place] [facility] Self [address] [place] [address] Vianney Cruz MD [address] [place] [address] Scheduled Procedures Name Priority Associated Diagnoses Date/Ti [...] D LEVEL ONCE IN A LIFETIME-USE SMARTSET# [id number] Completed 01/29/2024, 06/22/2022, 02/01/2021, Additional history exists [...] as of this encounter Visit Diagnoses Diagnosis Gastroesophageal reflux disease without esophagitis- Primary Esophageal reflux documented in this encounter Advance Directives * Full Code (Latest Code Status on File) Date Activated Date Inactivated Comments 05/22/2022 9:26 AM 05/23/2022 4:47 PM This order r eflects the patients wishes and were consensually agreed upon. Question Answer Comments Discussion of Advance Directives occurred with: Not Discussed Care Teams Cake Icer And Packer Relationship Specialty Start Date End Date Vianney Cruz MD [address] [facility] [place] [address] PCP - General Internal Medicine 08/23/21 documented as of this encounter
--- OUTSIDE RECORDS SUMMARY | 2024-06-03 14:16 | External Medical Summary | Summary of Care ---
Author Name Unknown Organization [facility] Address [address] [place] [address] Phone [phone] Care Team Providers Care Greenhouse Instructor Name Role Phone Vianney Cruz MD Primary Care Provider + Reason for Visit * Reason Onset Date Comments Advice 05/01/2024 Encounter Details Date Type Department Care Team (Late st Contact Info) Description 05/01/2024 Telephone Gastroenterology, [address] [address] Tamanna Thomas CRNP [address] [place] [address] Advice Allergies Active Allergy Reactions Criticality Noted [...] qhs 05/29/13 -- auto BIPAP set at 12/11/2007 PSG -- AHI 83 [facility] Hypothyroidism 02/12/2007 Irritable bowel syndrome 11/23/2004 Sensorineural [...] mRNA, LNP-s, No Pre serve, 2-Dose Series ([employer]) 11/30/2021,01/20/2021,12/30/2020 Covid-19, Mrna, Lnp-s, Pf, B ivalent, 30 Mcg, IM, 12 yrs and above ([employer]) 10/17/2022 Hepatitis B, 20+ yrs 01/14/2024,08/12/2023,07/10 PPD [...] Miscellaneous Notes * Telephone Encounter - Karolyn Garza RN - 05/01/2024 10:41 AM EDT Spoke to caregiver, Roxane. She asked that I call patient's EQUINE DENTIST with [employer], [employer] ([phone]). Called and gave directions to [place]. She is asking if you can put this on a handwritten script even though this is OTC. Since they are state regulated, it has to come via script. Nurses, please fax script to [facility] pharmacy, fax [phone] * Telephone Encounter - Karolyn Garza RN - 05/01/2024 10:37 AM EDT ----- Message from Tamanna Thomas sent at 05/01/2024 9:26 AM EDT ----- Addendum: Cancelling Dicyclomine order as pt has glaucoma. Recommend her to try IB-Elayne 2 tablets up to bid (available from OTC) instead for abd cramping RADHA David documented in this encounter Plan of Treatment Upcoming Encounters Date Type Department Care Team (Late st Contact Info) Description 09/24/2024 1:00 PM EDT Office Visit Gynecology/Obstetrics, [place] [address] [place] [address] Heidy Mondragon PA-C [address] [facility] [place], [place] [id number] 01/07/2025 2:20 PM EST Office Visit Endocrinology, [place] [address] [place] [address] Drea Cruz MD [address] [place] [address] 01/12/2025 1:00 PM EST Office Visit General Internal Medicine [facility] [address] [place] [address] Vianney Cruz MD [address] [place] [address] Scheduled Procedures Name Priority Associated Diagnoses Date/Ti [...] D LEVEL ONCE IN A LIFETIME-USE SMARTSET# [id number] Completed 01/29/2024, 06/22/2022, 02/01/2021, Additional history exists [...] Directives occurred with: Not Discussed Care Teams Greenhouse Instructor Relationship Specialty Start Date End Date Vianney Cruz MD [address] [place] [address] PCP - General Internal Medicine 08/23/21 documented as of this encounter
--- OUTSIDE RECORDS SUMMARY | 2024-06-03 14:16 | External Medical Summary | Summary of Care ---
Author Name Unknown Organization [facility] Address [address] [place] [address] Phone [phone] Care Team Providers Care Kosher Butcher Name Role Phone Vianney Cruz MD Primary Care Provider + Reason for Visit * Reason Onset Date Comments Advice 05/01/2024 Encounter Details Date Type Department Care Team (Late st Contact Info) Description 05/01/2024 Telephone Gastroenterology, [address] [address] Tamanna Thomas CRNP [address] [place] [address] Advice Allergies Active Allergy Reactions Criticality Noted [...] mRNA, LNP-s, No Pre serve, 2-Dose Series ([employer]) 11/30/2021,01/20/2021,12/30/2020 Covid-19, Mrna, Lnp-s, Pf, B ivalent, 30 Mcg, IM, 12 yrs and above ([employer]) 10/17/2022 Hepatitis B, 20+ yrs 01/14/2024,08/12/2023,07/10 PPD [...] Encounter - Karolyn Garza RN - 05/01/2024 11:10 AM EDT Faxed all of these encounters to Marge Howell LPN. [phone] * Telephone Encounter - Karolyn Garza RN - 05/01/2024 11:04 AM EDT Images from the original note were not included. Tamanna Thomas CRNP P [facility] Nurse Pool/Class Pls call staff in pt's fci - KUB showed no signs of bowel dilation or obstruction, nor constipation. Pt may resume current bowel regimen but avoid not having BM for 2 days. She can take Miralax 17g daily if she has no BM >2 days. For her complaint of abd pain, I will give her a trial of Dicyclomine 10mg bid prn pain/cramping. Rx sent to [facility] * Telephone Encounter - Karolyn Garza RN - 05/01/2024 10:41 AM EDT Spoke to caregiver, Roxane. She asked that I call patient's MIXING PICKER TENDER with [employer], Marge ([phone]). Called and gave directions to [place]. She is asking if you can put this on a handwritten script even though this is OTC. Since they are state regulated, it has to come via script. Nurses, please fax script to [facility] pharmacy, fax [phone] * Telephone Encounter - Karolyn Garza RN [...] 09/24/2024 1:00 PM EDT Office Visit Gynecology/Obstetrics, [place] [address] [place] [id number] Heidy Mondragon PA-C [address] [facility] [place] [id number] 01/07/2025 2:20 PM EST Office Visit Endocrinology, [place] [address] [facility] [place] [id number] Drea Cruz MD [address] [facility] [place] [id number] 01/12/2025 1:00 PM EST Office Visit General Internal Medicine [address] [place] [address] [place] [address] Vianney Cruz MD [address] [place] [address] Scheduled Procedures Name Priority Associated Diagnoses Date/Ti [...] D LEVEL ONCE IN A LIFETIME-USE SMARTSET# [id number] Completed 01/29/2024, 06/22/2022, 02/01/2021, Additional history exists [...] Directives occurred with: Not Discussed Care Teams Kosher Butcher Relationship Specialty Start Date End Date Vianney Cruz MD [address] [place] [address] PCP - General Internal Medicine 08/23/21 documented as of this encounter
--- OUTSIDE RECORDS SUMMARY | 2024-06-03 14:16 | External Medical Summary | Summary of Care ---
Author Name Unknown Organization [facility] Address [address] [place] [address] Phone [phone] Care Team Providers Care Sample Grader Name Role Phone Vianney Cruz MD Primary Care Provider + Reason for Visit * Reason Onset Date Comments Medication Refill 04/13/2024 Encounter Details Date Type Department Care Team (Late st Contact Info) Description 04/13/2024 Refill General Internal Medicine [facility] 200 [facility] [place] [address] Vianney Cruz MD 200 [place] [address] Allergies Active Allergy Reactions Criticality Noted Date Comments Bee Venom 01/11/2016 Localized swelling Pollen 02/13/2017 Unknown environmental allergy Clonazepam 01/25/2020 Causes increase in agitation/anxiety Tramadol 02/21/2015 Mood swings documented as of this encounter (statuses as of 04/17/2024) Medications Medication Sig Dispensed Refills Start Date End Date Status MULTIPLE VITAMIN PO CAPSIndications:D iarrhea,Irritable bowel syndrome once daily 30 5 05/31/2006 Active TRAZODONE HCL 50 MG PO TABSIndications:M ixed dyslipidemia TAKE 1 TABLET BY MOUTH AT BEDTIME FOR INSOMNIA 30 Tab 5 07/22/2014 Active Dextromethorphan Polistirex ER (DELSYM) 30 MG/5ML oral suspension extended release Take 10 mL by mouth 2 times a day as needed for Cough. 1 Bottle 0 05/13/2015 Active Brinzolamide-Brim onidine 1-0.2 % Ophthalmic Suspension [...] to bed 22 mL 5 06/08/2016 Active Carboxymethylcell ulose Sodium 1 % Ophthalmic Solution Instill 1 Drop into both eyes in the morning and 1 Drop at noon and 1 Drop before bedtime. 02/13/2017 Active gabapentin (NEURONTIN) 400 MG Capsule 1 Capsule in the morning and 1 Capsule at noon and 1 Capsule before bedtime. 08/20/2017 Active escitalopram (LEXAPRO) 20 MG TabletIndications :Depression [...] FOR UPSET STOMACH/INDIGESTI ON 60 Tablet 4 05/27/2023 Active Mi-Acid Gas Relief 80 MG Oral Tablet Chewable (Simethicone) TAKE 1 TABLET BY MOUTH EVERY 6 HOURS NEEDED FOR GAS 30 Tablet 4 05/27/2023 Active ARIPiprazole 5 MG Oral Tablet (Abilify) Take 1 Tablet by mouth at bedtime. 07/28/2023 Active Polyethylene Glycol 3350 17 GM/SCOOP Oral Powder (MiraLax)Indicati ons:Other constipation Miralax 17g by mouth every other day 255 g 3 08/13/2023 Active Metamucil 28.3 % Oral Powder (Psyllium) 2 tsp by mouth daily 283 g 3 08/13/2023 Active Docusate Sodium 100 MG Oral Capsule (Colace) Take 1 Capsule by mouth in the morning and 1 Capsule before bedtime. 180 Capsule 3 08/26/2023 Active guaiFENesin-Codei ne 100-10 MG/5ML Oral Syrup (Robitussin AC)Indications:Ac [place] cough Take 10 mL by mouth every 4 hours. HOLD for drowsiness, if asleep 120 mL 09/27/2023 Active Aspirin Low Dose 81 MG Oral Tablet Delayed Release 09/25/2023 Active methylPREDNISolon e 4 MG Oral Tablet [...] mouth daily. 28 Tablet 5 04/17/2024 Active Vitamin D3 50 MCG (2000 UT) Oral Tablet Chewable Take 1 Tablet by mouth daily. 28 Tablet 5 07/26/2023 4 Discontinu ed(Refill) documented as of this encounter (statuses as of 04/17/2024) Active Problems Problem Noted Date Diagnosed Date [...] as of this encounter (statuses as of 04/17/2024) Resolved Problems Problem Noted Date Diagnosed Date [...] as of this encounter (statuses as of 04/17/2024) Immunizations Name Administration Dates Next Due COVID-19 mRNA, LNP-s, No Pre serve, 2-Dose Series ([employer]) 11/30/2021,01/20/2021,12/30/2020 Covid-19, Mrna, Lnp-s, Pf, B ivalent, 30 Mcg, IM, 12 yrs and above ([employer]) 10/17/2022 Hepatitis B, 20+ yrs 01/14/2024,08/12/2023,07/10 PPD [...] Telephone Encounter - Vianney Cruz MD - 04/17/2024 3:22 PM EDTSigned Prescriptions: Disp Refills Vitamin D3 50 MCG (2000 UT) Oral Tablet Ch*28 Tab*5 Sig: Take 1 Tablet by mouth daily. Authorizing Provider: VIANNEY CRUZ * Telephone Encounter - Chery Le LPN - 04/17/2024 10:09 AM EDTPending Prescriptions: Disp Refills Vitamin D3 50 MCG (2000 UT) Oral Tablet Ch*28 Tab*5 Sig: Take 1 Tablet by mouth daily. * Telephone Encounter - Michelle Dyer, CELESTINA - 04/13/2024 2:15 PM EDT Did you pend patient's preferred pharmacy and medication before forwarding?yes Pharmacy: [facility] [address] Pending Prescriptions: Disp Refills Vitamin D3 50 MCG (2000 UT) Oral Tablet C*28 Tab*5 Sig: Take 1 Tablet by mouth daily. Last Visit: 01/14/2024 (in office), Visit date not found (telemedicine) Next Visit: 01/12/2025 If no future appointments scheduled, and last appointment is greater than a year ago, please schedule patient for a follow-up appointment Last date the medication was ordered: 07/26/23 Is this request for a controlled substance?No [...] 04/28/2024 12:00 PM EDT Office [facility], [facility] [place] [address] Tamanna Thomas CRNP [address] [place] [address] 09/24/2024 1:00 PM EDT Office Visit Gynecology/Obstetrics, [place] [address] [address] Heidy Mondragon PA-C [address] [place] [address] 01/07/2025 2:20 PM EST Office Visit Endocrinology, [address] [place] [address] Drea Cruz MD [address] [place] [facility] [place] [address] 01/12/2025 1:00 PM EST Office Visit General Internal Medicine [facility] [place] 200 [facility] [place] [address] Vianney Cruz MD 200 [facility] [place] [address] Scheduled Procedures Name Priority Associated Diagnoses Date/Ti [...] D LEVEL ONCE IN A LIFETIME-USE SMARTSET# [id number] Completed 01/29/2024, 06/22/2022, 02/01/2021, Additional history exists [...] Directives occurred with: Not Discussed Care Teams Sample Grader Relationship Specialty Start Date End Date Vianney Cruz MD [address] [place] [address] PCP - General Internal Medicine 08/23/21 documented as of this encounter
--- OUTSIDE RECORDS SUMMARY | 2024-06-03 14:16 | External Medical Summary | Summary of Care ---
Author Name Unknown Organization [facility] Address [address] [place] [address] Phone [phone] Care Team Providers Care Poiser Name Role Phone Vianney Cruz MD Primary Care Provider + Reason for Visit * Reason Comments Follow Up 3 month f/u for IBS. Pt with Hussain Howell. Encounter Details Date Type Department Care Team (Latest Contact Info) Description 04/28/2024 12:00 PM EDT Office Visit Gastroenterology, [facility] [address] [place] [address] Tamanna Thomas CRNP [address] [facility] [place] [address] Gastroesophageal reflux disease without esophagitis* Allergies Active [...] set at 1211/2007 PSG -- AHI 83 [facility] Hypothyroidism 02/12/2007 Irritable bowel syndrome 11/23/2004 Sensorineural [...] mRNA, LNP-s, No Pre serve, 2-Dose Series ([employer]) 11/30/2021,01/20/2021,12/30/2020 Covid-19, Mrna, Lnp-s, Pf, B ivalent, 30 Mcg, IM, 12 yrs and above ([employer]) 10/17/2022 Hepatitis B, 20+ yrs 01/14/2024,08/12/2023,07/10 PPD [...] nocturnal diarrhea. She denies any black tarry stool s or rectal bleeding. Has mild abdominal cramping associated with it. Per caregiver patient has notneeded MiraLax or milk of magnesium for a while. Noted that she went to eat out with her family during labor day weekend and came back feeling sick to her stomach. Otherwise no other residents with GI infections. 04/02/22: Patient is here for annual follow-up [...] vomiting. Norectal bleeding. She was admitted at [facility] for HTN urgency till end of January. [...] of specialneeds and is accompanied by a dolly pusher this afternoon. She notes that the nausea [...] BY MOUTH EVERY 8 HOURS NEEDED FOR [id number] Tablet 1 Vitamin D3 50 MCG (1999 [...] 10/29/05 Right breast martin. loc. biopsy (benign) [facility] Surgi-Center Dr. Brown BX BREAST PERCUT W/O IMAGE 09/29 right/benign COLONOSCOPY 2000 Dr. Pan. hemorrhoids. otherwise normal COLONOSCOPY, DIAGNOSTIC (RECTUM) 11/03/2018 diverticulosis, repeat 10 yrs/[facility] CYSTOSCOPY 08-26-07 EGD, FLEXIBLE, DIAGNOSTIC 01/22/2017 normal bx, sm /[facility] EGD, FLEXIBLE, DIAGNOSTIC 10/11/2023 ESOPHAGOGASTRODUODENOSCOPY (EGD), FLEXIBLE, TRANSORAL, DIAGNOSTIC performed by Rosmery Main DO at ENDOSCOPY [facility] EGD, FLEXIBLE, W/BIOPSY 07/29/07 mild esophageal [...] performed by Jerod Barlow DO at OR [facility] HYSTEROSCOPY,DIAGNOSTIC 03/2004 IR BIOPSY 01/12/2022 LAPAROSCOPY; CHOLECYSTECTOMY 09/15/11 [facility] MRI C SPINE W WO CONTRAST [...] CLINIC: 3 months or sooner [facility] Gastroenterology, [facility] documented in this encounter Nursing Notes * Kaleigh Guevara CMA - 04/28/2024 11:45 AM EDT Chief Complaint Patient presents with Follow Up 3 month f/u for IBS. Pt with Hussain Howell. documented in this encounter Plan of Treatment Upcoming Encounters Date Type Department Care Team (Late st Contact Info) Description 09/24/2024 1:00 PM EDT Office Visit Gynecology/Obstetrics, [place] [address] [place] [address] Heidy Mondragon PA-C [address] [place] [address] 01/07/2025 2:20 PM EST Office Visit Endocrinology, [place] [address] [place] [address] Drea Cruz MD [address] [place] [address] 01/12/2025 1:00 PM EST Office Visit General Internal Medicine [place] [address] [place] [address] Vianney Cruz MD [address] [place] [address] Scheduled Procedures Name Priority Associated Diagnoses Date/Ti [...] D LEVEL ONCE IN A LIFETIME-USE SMARTSET# [id number] Completed 01/29/2024, 06/22/2022, 02/01/2021, Additional history exists [...] Directives occurred with: Not Discussed Care Teams Poiser Relationship Specialty Start Date End Date Vianney Cruz MD 200 [facility] [place] [address] PCP - General Internal Medicine 08/23/21 documented as of this encounter
--- OUTSIDE RECORDS SUMMARY | 2024-06-03 14:16 | External Medical Summary | Summary of Care ---
Author Name Unknown Organization [facility] Address [address] [place] [address] Phone [phone] Care Team Providers Care District Plant Supervisor Name Role Phone Vianney Cruz MD Primary Care Provider + Reason for Visit * Reason Onset Date Comments Advice 05/01/2024 Encounter Details Date Type Department Care Team (Late st Contact Info) Description 05/01/2024 Telephone Gastroenterology, [address] [address] Tamanna Thomas CRNP [address] [place] [address] Advice Allergies Active Allergy Reactions Criticality Noted [...] mRNA, LNP-s, No Pre serve, 2-Dose Series ([employer]) 11/30/2021,01/20/2021,12/30/2020 Covid-19, Mrna, Lnp-s, Pf, B ivalent, 30 Mcg, IM, 12 yrs and above ([employer]) 10/17/2022 Hepatitis B, 20+ yrs 01/14/2024,08/12/2023,07/10 PPD [...] encounter Miscellaneous Notes * Addendum Note - Karolyn Christensen RN - 05/01/2024 12:11 PM EDTAddended by: KAROLYN CHRISTENSEN on: 05/01/2024 12:11 PM Modules accepted: Orders * Telephone Encounter - Karolyn Christensen RN - 05/01/2024 11:10 AM EDT Faxed all of these encounters to Marge Howell LPN. [phone] * Telephone Encounter - Karolyn Christensen RN - 05/01/2024 11:04 AM EDT Images from the original note were not included. [facility]Class Pls call staff in pt's shelter - KUB showed no signs of bowel dilation or obstruction, nor constipation. Pt may resume current bowel regimen but avoid not having BM for 2 days. She can take Miralax 17g daily if she has no BM >2 days. For her complaint of abd pain, I will give her a trial of Dicyclomine 10mg bid prn pain/cramping. Rx sent to [facility] * Telephone Encounter - Karolyn Christensen RN - 05/01/2024 10:41 AM EDT Spoke to caregiver, Roxane. She asked that I call patient's SHRUB GROWER with [employer], Marge ([phone]). Called and gave directions to [place]. She is asking if you can put this on a handwritten script even though this is OTC. Since they are state regulated, it has to come via script. Nurses, please fax script to [facility], fax [phone] * Telephone Encounter - Karolyn Christnesen RN - 05/01/2024 10:37 AM EDT ----- Message from Tamanna Sanon Martha sent at 05/01/2024 9:26 AM EDT ----- Addendum: Cancelling Dicyclomine order as pt has glaucoma. Recommend her to try IB-Elayne 2 tablets up to bid (available from OTC) instead for abd cramping Tamanna Sanon RADHA Thomas documented in this encounter Plan of Treatment Upcoming Encounters Date Type Department Care Team (Late st Contact Info) Description 09/24/2024 1:00 PM EDT Office Visit Gynecology/Obstetrics, [place] [address] [place] [address] Heidy Mondragon PA-C [address] [place] [address] 01/07/2025 2:20 PM EST Office Visit Endocrinology, [place] [address] [place] [phone] Drea Cruz MD [address] [place] [address] 01/12/2025 1:00 PM EST Office Visit General Internal Medicine [address] [place] 200 [facility] [place] [address] Vianney Cruz MD 200 [facility] [place] [address] Scheduled Procedures Name Priority Associated Diagnoses Date/Ti [...] D LEVEL ONCE IN A LIFETIME-USE SMARTSET# [id number] Completed 01/29/2024, 06/22/2022, 02/01/2021, Additional history exists [...] Directives occurred with: Not Discussed Care Teams District Plant Supervisor Relationship Specialty Start Date End Date Vianney Cruz MD [address] [place] [address] [place] [address] PCP - General Internal Medicine 08/23/21 documented as of this encounter
--- OUTSIDE RECORDS SUMMARY | 2024-06-03 14:17 | External Medical Summary | Summary of Care ---
Author Name Unknown Organization [facility] Address [address] [place] [address] Phone [phone] Care Team Providers Care Chief Dispatcher Name Role Phone Vianney Cruz MD Primary Care Provider + Reason for Visit * Reason Comments eRx-Medication Refill Encounter Details Date Type Department Care Team (Late st Contact Info) Description 04/01/2024 Refill General Internal Medicine [facility] 200 [facility] [place] [address] Kaiden Lafleur PA-Ilana [address] [facility] [place] [address] Nausea Allergies Active Allergy Reactions Criticality Noted Date Comments Bee Venom 01/11/2016 Localized swelling Pollen 02/13/2017 Unknown environmental allergy Clonazepam 01/25/2020 Causes increase in agitation/anxiety Tramadol 02/21/2015 Mood swings documented as of this encounter (statuses as of 04/02/2024) Medications Medication Sig Dispensed Refills Start Date [...] into both eyes 3 times a day. 0 5 Active Bimatoprost 0.01 % Ophthalmic Solution [...] at noon and 1 Drop before bedtime. 0 7 Active gabapentin (NEURONTIN) 400 MG Capsule 1 Capsule in the morning and 1 Capsule at noon and 1 Capsule before bedtime. 0 7 Active escitalopram (LEXAPRO) 20 MG TabletIndications :Depression with anxiety Take 1 Tablet by mouth in the morning. 0 8 Active lactase 3000 units per tab (LACTAID) 3000 units TabletIndications :Lactose intolerance 1 tablet prior to dairy foods 60 Tab 5 9 Active Non-Aspirin Pain Reliever 325 MG Oral Tablet (Acetaminophen) TAKE 2 TABLETS BY MOUTH EVERY 6 HOURS NEEDED FEVER/HEADACHE/ MINOR ACHES AND PAINS 62 Tab 0 1 Active CPAP every night at bedtime . 0 Active MEDICAL INSTRUCTIONS Can put baby oil [...] FOR GAS 30 Tablet 4 3 Active Vitamin D3 50 MCG (1999 UT) Oral Tablet Chewable Take 1 Tablet by mouth daily. 28 Tablet 5 3 Active ARIPiprazole 5 MG Oral Tablet (Abilify) Take 1 Tablet by mouth at bedtime. 0 3 Active Polyethylene Glycol 3350 17 GM/SCOOP Oral Powder (MiraLax)Indicati ons:Other constipation Miralax 17g by mouth every other day 255 g 3 3 Active Metamucil 28.3 % Oral Powder (Psyllium) 2 tsp by mouth daily 283 g 3 3 08/05/20 24 Active Docusate Sodium 100 MG Oral Capsule (Colace) Take 1 Capsule by mouth in the morning and 1 Capsule before bedtime. 180 Capsule 3 3 Active guaiFENesin-Codei ne 100-10 MG/5ML Oral Syrup (Robitussin AC)Indications:Ac [place] cough Take 10 mL by mouth every 4 hours. HOLD for drowsiness, if asleep 120 mL 0 3 Active Potassium Chloride ER 10 MEQ Oral Capsule Extended Release TAKE 1 CAPSULE BY MOUTH DAILY. *POTASSIUM IMBALANCE ---BOTTLE--- 28 Capsule 5 3 Active Rosuvastatin Calcium 10 MG Oral Tablet (Crestor)Indicati ons:Mixed dyslipidemia TAKE 1 TABLET BY MOUTH DAILY FOR HIGH CHOLESTEROL 28 Tablet 5 3 Active Levothyroxine Sodium 50 MCG Oral Tablet (Levoxyl) TAKE 1 TABLET BY MOUTH ONCE DAILY *THYROID* 28 Tablet 5 3 Active Aspirin Low Dose 81 MG Oral Tablet Delayed Release 0 3 Active methylPREDNISolon e 4 MG Oral Tablet Therapy Pack (Medrol Dosepack) follow package directions 21 Tablet 0 3 Active Additional Information Patient not taking.Reported on 01/14/2024 Metoprolol Succinate ER 50 MG Oral Tablet Extended Release 24 Hour (toPROL XL) TAKE ONE TABLET BY MOUTH ONCE DAILY IN THE AM *BLOOD PRESSURE* 28 Tablet 3 4 Active Furosemide 20 MG Oral Tablet (Lasix)Indication s:Edema, unspecified type TAKE ONE TABLET BY MOUTH ONCE DAILY FOR FLUID ACCUMULATION OR WEIGHT GAIN 28 Tablet 3 4 Active Lisinopril 40 MG Oral TabletIndications :HTN, goal below 140/90 TAKE ONE TABLET BY MOUTH DAILY *HTN* 28 Tablet 3 4 Active Sucralfate 1 GM Oral Tablet (Carafate) TAKE BY MOUTH THREE TIMES DAILY BEFORE BREAKFAST,BEFORE DINNER AND AT BEDTIME FOR GERD 84 Tablet 4 4 Active D3 Super Strength 50 MCG (2000 [...] FOR NAUSEA 30 Tablet 1 4 Active Ondansetron HCl 4 MG Oral Tablet (Zofran)Indicatio ns:Nausea TAKE 1 TABLET BY MOUTH EVERY 8 HOURS NEEDED FOR NAUSEA 30 Tablet 1 3 04/02/20 24 Discontinued documented as of this encounter (statuses as of 04/02/2024) Active Problems Problem Noted Date Diagnosed Date [...] set at 12/11/2007 PSG -- AHI 83 [facility] Hypothyroidism 02/12/2007 Irritable bowel syndrome 11/23/2004 Sensorineural hearing loss, unilateral Overview: left documented as of this encounter (statuses as of 04/02/2024) Resolved Problems Problem Noted Date Diagnosed Date [...] as of this encounter (statuses as of 04/02/2024) Immunizations Name Administration Dates Next Due COVID-19 mRNA, LNP-s, No Pre serve, 2-Dose Series ([employer]) 11/30/2021,01/20/2021,12/30/2020 Covid-19, Mrna, Lnp-s, Pf, B ivalent, [...] (15 years old or older) No 05/22/20 22 Cognitive Status Response Date of Assessm ent Because of a physical, menta l, or emotional condition, do you have serious difficulty concentrating, remembering, or making decisions? (5 years old or older) No 05/22/2022 documented as of this encounter Miscellaneous Notes * Telephone Encounter - Junior Arambula RPh - 04/02/2024 12:43 PM EDTSigned Prescriptions: Disp Refills Ondansetron HCl 4 MG Oral Tablet (Zofran) 30 Tab*1 Sig: TAKE 1 TABLET BY MOUTH EVERY 8 HOURS NEEDED FOR NAUSEAAuthorizing Provider: VIANNEY CRUZUser: JUNIOR ARAMBULA documented in this encounter Plan of Treatment Upcoming Encounters Date Type Department Care Team (Late st Contact Info) Description 04/03/2024 11:00 AM EDT Office Visit Gynecology/Obstetics Johnie Ruelas [address] [facility] [place] [address] Chery Colon PA-C [address] [facility] [place] [address] 04/28/2024 12:00 PM EDT Office Visit Gastroenterology, [facility] [address] [place] [address] Tamanna Thomas CRNP [address] [place] [address] 01/07/2025 2:20 PM EST Office Visit Endocrinology, [place] [address] [place] [address] Drea Cruz MD [address] [place] [address] 01/12/2025 1:00 PM EST Office Visit General Internal Medicine [facility] 200 [place] [address] Vianney Cruz MD [address] [facility] [place] [address] Scheduled Procedures Name Priority Associated Diagnoses Date/Ti [...] D LEVEL ONCE IN A LIFETIME-USE SMARTSET# 31612 Completed 01/29/2024, 06/22/2022, 02/01/2021, Additional history exists [...] as of this encounter Visit Diagnoses Diagnosis Nausea Nausea alone documented in this encounter Advance Directives Latest Code Status on File Code Status Date Activated Date Inactivated Comments Full Code 05/22/2022 9:26 AM 05/23/2022 4:47 PM This order reflects the patients wishes and were consensually agreed upon. Question Answer Comments Discussion of Advance Directives occurred with: Not Discussed Care Teams Chief Dispatcher Relationship Specialty Start Date End Date Vianney Cruz MD [facility] [place] [address] PCP - General Internal Medicine 08/23/21 documented as of this encounter
--- OUTSIDE RECORDS SUMMARY | 2024-06-03 14:17 | External Medical Summary | Summary of Care ---
Author Name Unknown Organization [facility] Address [address] [place] [address] Phone [phone] Care Team Providers Care Car Lot Attendant Name Role Phone Denis Cruz MD Primary Care Provider + Reason for Visit * Reason Comments eRx-Medication Refill Encounter Details Date Type Department Care Team (Late st Contact Info) Description 04/15/2024 Refill General Internal Medicine [facility] [address] [place] [address] Denis Cruz MD [address] [place] [address] Mixed dyslipidemia; HTN, goal below 140/90; Edema, unspecified type Allergies Active Allergy Reactions Criticality Noted Date Comments Bee Venom 01/11/2016 Localized swelling Pollen 02/13/2017 Unknown environmental allergy Clonazepam 01/25/2020 Causes increase in agitation/anxiety Tramadol 02/21/2015 Mood swings documented as of this encounter (statuses as of 04/16/2024) Medications Medication Sig Dispensed Refills Start Date End Date Status MULTIPLE VITAMIN PO CAPSIndications:D iarrhea,Irritable bowel syndrome once daily 30 5 200 6 Active TRAZODONE HCL 50 MG PO TABSIndications:M ixed dyslipidemia TAKE 1 TABLET BY MOUTH AT BEDTIME FOR INSOMNIA 30 Tab 5 201 4 Active Dextromethorphan Polistirex ER (DELSYM) 30 [...] Tablet by mouth at bedtime. 3 Active Polyethylene Glycol 3350 17 GM/SCOOP [...] FOR NAUSEA 30 Tablet 1 4 Active Potassium Chloride ER 10 MEQ [...] WEIGHT GAIN 28 Tablet 4 4 Active Potassium Chloride ER 10 MEQ Oral Capsule Extended Release TAKE 1 CAPSULE BY MOUTH DAILY. *POTASSIUM IMBALANCE ---BOTTLE--- 28 Capsule 5 3 04/16/20 24 Discontinued Rosuvastatin Calcium 10 MG Oral Tablet (Crestor)Indicati ons:Mixed dyslipidemia TAKE 1 TABLET BY MOUTH DAILY FOR HIGH CHOLESTEROL 28 Tablet 5 3 04/16/20 24 Discontinued Levothyroxine Sodium 50 MCG Oral Tablet (Levoxyl) TAKE 1 TABLET BY MOUTH ONCE DAILY *THYROID* 28 Tablet 5 3 04/16/20 24 Discontinued Metoprolol Succinate ER 50 MG Oral Tablet Extended Release 24 Hour (toPROL XL) TAKE ONE TABLET BY MOUTH ONCE DAILY IN THE AM *BLOOD PRESSURE* 28 Tablet 3 4 04/16/20 24 Discontinued Furosemide 20 MG Oral Tablet (Lasix)Indication s:Edema, unspecified type TAKE ONE TABLET BY MOUTH ONCE DAILY FOR FLUID ACCUMULATION OR WEIGHT GAIN 28 Tablet 3 4 04/16/20 24 Discontinued Lisinopril 40 MG Oral TabletIndications :HTN, goal below 140/90 TAKE ONE TABLET BY MOUTH DAILY *HTN* 28 Tablet 3 4 04/16/20 24 Discontinued documented as of this encounter (statuses as of 04/16/2024) Active Problems Problem Noted Date Diagnosed Date [...] qhs 05/29/13 -- auto BIPAP set at 11/01 PSG -- AHI 83 [facility] Hypothyroidism 02/12/2007 Irritable bowel syndrome 11/23/2004 Sensorineural hearing loss, unilateral Overview: left documented as of this encounter (statuses as of 04/16/2024) Resolved Problems Problem Noted Date Diagnosed Date Resolved Date High serum parathyroid hormone (PTH) 01/25/2020 04/29/2020 Lacunar infarction 09/21/2016 8 Overview: Chronic, left basal ganglia Lumbar radicular pain 08/04/20132018 Choledocholithiasis 04/08/2013 05/18/20 19 Dyslipidemia, goal to be determined 11/07/2009 01/15/2012 Overview: Per Lipid Taxonomy. Dyslipidemia, goal LDL below 160 11/15/2008 11/07/2009 Overview: Per Lipid Taxonomy. Depression with anxiety 04/01/2006 03/0 12/2019 Overview: Dr nolan ADVANCE DIRECTIVE INFORMATION 04/04/2005 05/18/2019 Overview: No, Advance Directive brochure offered , patient declined. Abdominal pain, generalized 01/29/2005 05/18/2019 Diarrhea 01/29/2005 07/29/2018 Esophageal reflux 11/23/2004 05/18/2019 Mixed hearing loss, unilateral 05/19/2019 Overview: right Reflux esophagitis 8 documented as of this encounter (statuses as of 04/16/2024) Immunizations Name Administration Dates Next Due COVID-19 mRNA, LNP-s, No Pre serve, 2-Dose Series ([employer]) 11/30/2021,01/20/2021,12/30/2020 Covid-19, Mrna, Lnp-s, Pf, B ivalent, 30 Mcg, IM, 12 yrs and above ([employer]) 10/17/2022 Hepatitis B, 20+ yrs 01/14/2024,08/12/2023,07/10 PPD [...] encounter Miscellaneous Notes * Telephone Encounter - Lucita Ramachandran [facility] - 04/16/2024 2:13 PM EDT Signed Prescriptions: Disp Refills Potassium Chloride ER 10 MEQ Oral Capsule *28 Cap*4 Sig: TAKE 1CAPSULE BY MOUTH DAILY. *POTASSIUM IMBALANCE ---BOTTLE---Authorizing Provider: DENIS CRUZ User: LUCITA RAMACHANDRAN Rosuvastatin Calcium 10 MG Oral Tablet (Cr*28 Tab*4 Sig: TAKE1 TABLET BY MOUTH DAILY FOR HIGH CHOLESTEROLAuthorizing Provider: DENIS CRUZUser: LUCITA RAMACHANDRAN Levothyroxine Sodium 50 MCG Oral Tablet (L*28 Tab*4 Sig: TAKE 1 TABLETBY MOUTH ONCE DAILY *THYROID*Authorizing Provider: DENIS CRUZ User: LUCITA RAMACHANDRAN Metoprolol Succinate ER 50 MG Oral Tablet *28 Tab*4 Sig: TAKE ONE TABLET BY MOUTH ONCE DAILY IN THE AM *BLOOD PRESSURE*Authorizing Provider: DENIS CRUZ User: LUCITA RAMACHANDRAN Lisinopril 40 MG Oral Tablet 28 Tab*4 Sig: TAKE ONE TABLET BY MOUTH DAILY *HTN*Authorizing Provider: DENIS CRUZ User: LUCITA RAMACHANDRAN Furosemide 20 MG Oral Tablet (Lasix) 28 Tab*4 Sig: TAKE ONE TABLET BY MOUTH ONCE DAILY FOR FLUID ACCUMULATION OR WEIGHT GAINAuthorizing Provider: DENIS CRUZ User: LUCITA RAMACHANDRAN documented in this encounter Plan of Treatment Upcoming Encounters Date Type Department Care Team (Late st Contact Info) Description 04/28/2024 12:00 PM EDT Office Visit Gastroenterology, [facility] [address] [place] [address] Tamanna Thomas CRNP [address] [place] [address] 09/24/2024 1:00 PM EDT Office Visit Gynecology/Obstetrics, [place] [address] [facility] [place] [phone] Heidy Mondragon PA-C [address] [facility] [place] [address] 01/07/2025 2:20 PM EST Office Visit Endocrinology, [place] [address] [place] [address] Drea Cruz MD [address] [place] [address] 01/12/2025 1:00 PM EST Office Visit General Internal Medicine [facility] [address] [place] [address] Denis Cruz MD [address] [place] [address] Scheduled Procedures Name Priority Associated Diagnoses Date/Ti [...] D LEVEL ONCE IN A LIFETIME-USE SMARTSET# [id number] Completed 01/29/2024, 06/22/2022, 02/01/2021, Additional history exists [...] as of this encounter Visit Diagnoses Diagnosis Mixed dyslipidemia Mixed hyperlipidemia HTN, goal below 140/90 Unspecified essential hypertension Edema, unspecified type documented in this encounter Advance Directives * Full Code (Latest Code Status on File) Date Activated Date Inactivated Comments 05/22/2022 9:26 AM 05/23/2022 4:47 PM This order r eflects the patients wishes and were consensually agreed upon. Question Answer Comments Discussion of Advance Directives occurred with: Not Discussed Care Teams Car Lot Attendant Relationship Specialty Start Date End Date Denis Cruz MD [address] [place] [address] [place], [place] [id number] PCP - General Internal Medicine 08/23/21 documented as of this encounter
--- OUTSIDE RECORDS SUMMARY | 2024-06-03 14:17 | External Medical Summary | Summary of Care ---
Author Name Unknown Organization [facility] Address [address] [place] [address] Phone [phone] Care Team Providers Care Case Maker Name Role Phone Vianney Cruz MD Primary Care Provider + Reason for Visit * Reason Comments Infusion Reclast * Episode Based Medications (Routine) - Authorized Specialty Diagnoses / Procedures Referred By Contac t Referred To Contact Diagnoses Age-related osteoporosis without current pathological fracture Procedures [place] ZOLEDRONIC ACID 1MG Drea Cruz MD [address] [place] [address] Anc Hem/Onc Scene[address] [address] Referral ID Status Reason Start Date Expiration Date V isits Requested Visits Authorized [id number] Authorized 01/24/2024 01/23/2025 [id number] Encounter Details Date Type Department Care Team (Latest Contact Info) Description 02/27/2024 10:00 AM EDT Hem/Onc Treatment Hematology/Oncology Treatment, [address] [address] Marlin, Chair [address] [address] Age-related osteoporosis without current pathological fracture* Allergies Active Allergy Reactions Criticality Noted Date Comments Bee Venom 01/11/2016 Localized swelling Pollen 02/13/2017 Unknown environmental allergy Clonazepam 01/25/2020 Causes increase in agitation/anxiety Tramadol 02/21/2015 Mood swings documented as of this encounter (statuses as of 04/13/2024) Medications Medication Sig Dispensed Refills Start Date [...] 4 3 Active Vitamin D3 50 MCG (2000 UT) [...] ne 100-10 MG/5ML Oral Syrup (Robitussin AC)Indications:Ac [place] cough Take 10 mL by mouth every 4 hours. HOLD for drowsiness, if asleep 120 mL 3 Active Potassium Chloride ER 10 MEQ [...] NOSTRIL ONCE DAILY FOR ALLERGIES 16 g 5 3 03/31/20 24 Discontinued Ondansetron HCl 4 MG Oral Tablet (Zofran)Indicatio ns:Nausea TAKE 1 TABLET BY MOUTH EVERY 8 HOURS NEEDED FOR NAUSEA 30 Tablet 1 3 04/02/20 24 Discontinued documented as of this encounter (statuses as of 04/13/2024) Active Problems Problem Noted Date Diagnosed Date [...] set at 11/01 PSG -- AHI [address] [facility] Hypothyroidism 02/12/2007 Irritable bowel syndrome 11/23/2004 Sensorineural hearing loss, unilateral Overview: left documented as of this encounter (statuses as of 04/13/2024) Resolved Problems Problem Noted Date Diagnosed Date [...] as of this encounter (statuses as of 04/13/2024) Immunizations Name Administration Dates Next Due COVID-19 mRNA, LNP-s, No Pre serve, 2-Dose Series ([employer]) 11/30/2021,01/20/2021,12/30/2020 Covid-19, Mrna, Lnp-s, Pf, B ivalent, 30 Mcg, IM, 12 yrs and above ([employer]) 10/17/2022 Hepatitis B, 20+ yrs 01/14/2024,08/12/2023,07/10 PPD [...] Sign Reading Time Taken Comments Blood Pressure 139/81 02/27/2024 11:21 AM EDT Pulse 80 02/27/2024 11:21 AM EDT Temperature - - Respiratory Rate 18 02/27/2024 11:21 AM EDT Oxygen Saturation 94% 02/27/2024 11:21 AM EDT Inhaled Oxygen Concentration - - Weight - - Height - - Body Mass Index - - documented in this encounter Functional Status Functional [...] No 05/22/2022 documented as of this encounter Nursing Notes * Chery Silverio LPN - 02/27/2024 11:22 AM EDT 1000: Pt arrived for Reclast infusion. PIV in RFA. Pt tolerated well. APAP given per order. VSS. Pttaking calcium and vitamin D per order. Aide at side. No complaints at this time. 1045: Pt tolerated Reclast infusion well. PIV removed intact. Pt to follow up with MD. Discharged in stable condition with aide at side. documented in this encounter Plan of Treatment Upcoming Encounters Date Type Department Care Team (Late st Contact Info) Description 04/28/2024 12:00 PM EDT Office Visit Gastroenterology, [facility] [address] [place] [address] Tamanna Thomas CRNP [address] [place] [address] 01/07/2025 2:20 PM EST Office Visit Endocrinology, [place] [address] [place] [address] Drea Cruz MD [address] [place] [address] 01/12/2025 1:00 PM EST Office Visit General Internal Medicine [facility] [address] [place] [address] Vianney Cruz MD [address] [place] [address] Scheduled Procedures Name Priority Associated Diagnoses Date/Ti [...] D LEVEL ONCE IN A LIFETIME-USE SMARTSET# [id number] Completed 01/29/2024, 06/22/2022, 02/01/2021, Additional history exists [...] as of this encounter Visit Diagnoses Diagnosis Age-related osteoporosis without current pathological fracture- Primary Senile osteoporosis documented in this encounter Administered Medications Inactive Administered Medications - up to 3 most recent administrations Medication Order MAR Action Action Date Dose Rate Site Acetaminophen (Tylenol) tab 650 mg 650 mg, Oral, ONCE, On Samina 02/27/24 at 1030, For 1 dose, Maximum of 4 grams (4000 mg) per day. Given 02/27/2024 9:55 AM EDT 650 mg NSS infusion 500 mL, Intravenous, at 50 mL/hr, CONTINUOUS, Starting on Samina 02/27/24 at 1100, Until Samina 02/27/24 at 1528 Start Infusion 02/27/2024 10:04 AM EDT 500 mL 50 mL/hr Zoledronic Acid (Reclast) 5 mg in 100 mL PREMIX ivpb 5 mg, IV Piggyback, ONCE, 1 dose, On Samina 02/27/24 at 1130, Infuse over 30 min Start Infusion 02/27/2024 10:06 AM EDT 5 mg 400 mL/hr documented in this encounter Advance Directives * Full Code (Latest Code Status on File) Date Activated Date Inactivated Comments 05/22/2022 9:26 AM 05/23/2022 4:47 PM This order r eflects the patients wishes and were consensually agreed upon. Question Answer Comments Discussion of Advance Directives occurred with: Not Discussed Care Teams Case Maker Relationship Specialty Start Date End Date Vianney Cruz MD [address] [facility] [place] [address] PCP - General Internal Medicine 08/23/21 documented as of this encounter
--- OUTSIDE RECORDS SUMMARY | 2024-06-03 14:17 | External Medical Summary | Summary of Care ---
Author Name Unknown Organization [facility] Address [address] [place] [address] Phone [phone] Care Team Providers Care Parking Line Painter Name Role Phone Vianney Cruz MD Primary Care Provider + Reason for Visit * Reason Comments eRx-Medication Refill Encounter Details Date Type Department Care Team (Late st Contact Info) Description 04/13/2024 Refill General Internal Medicine [facility] [address] [facility] [place] [address] Vianney Cruz MD [address] [place] [address] Allergies Active Allergy Reactions Criticality Noted Date Comments Bee Venom 01/11/2016 Localized swelling Pollen 02/13/2017 Unknown environmental allergy Clonazepam 01/25/2020 Causes increase in agitation/anxiety Tramadol 02/21/2015 Mood swings documented as of this encounter (statuses as of 04/15/2024) Medications Medication Sig Dispensed Refills Start Date [...] FOR GAS 30 Tablet 4 05/27/2023 Active Vitamin D3 50 MCG (1999 UT) Oral Tablet Chewable Take 1 Tablet by mouth daily. 28 Tablet 5 07/26/2023 Active ARIPiprazole 5 MG Oral Tablet (Abilify) Take 1 Tablet by mouth at bedtime. 07/28/2023 Active Polyethylene Glycol 3350 17 GM/SCOOP Oral Powder (MiraLax)Indicatio ns:Other constipation Miralax 17g by mouth every other [...] drowsiness, if asleep 120 mL 09/27/2023 Active Potassium Chloride ER 10 MEQ Oral Capsule Extended Release TAKE 1 CAPSULE BY MOUTH DAILY. *POTASSIUM IMBALANCE ---BOTTLE--- 28 Capsule 5 10/31/2023 Active Rosuvastatin Calcium 10 MG Oral Tablet (Crestor)Indicatio ns:Mixed dyslipidemia TAKE 1 TABLET BY MOUTH DAILY FOR HIGH CHOLESTEROL 28 Tablet 5 10/31/2023 Active Levothyroxine Sodium 50 MCG Oral Tablet (Levoxyl) TAKE 1 TABLET BY MOUTH ONCE DAILY *THYROID* 28 Tablet 5 10/31/2023 Active Aspirin Low Dose 81 MG Oral Tablet Delayed Release 09/25/2023 Active methylPREDNISolone 4 MG Oral Tablet Therapy Pack (Medrol Dosepack) follow package directions 21 Tablet 11/08/2023 Active Additional Information Patient not taking.Reported on 01/14/2024 Metoprolol Succinate ER 50 MG Oral Tablet Extended Release 24 Hour (toPROL XL) TAKE ONE TABLET BY MOUTH ONCE DAILY IN THE AM *BLOOD PRESSURE* 28 Tablet 3 12/02/2023 Active Furosemide 20 MG Oral Tablet (Lasix)Indications :Edema, unspecified type TAKE ONE TABLET BY MOUTH ONCE DAILY FOR FLUID ACCUMULATION OR WEIGHT GAIN 28 Tablet 3 12/03/2023 Active Lisinopril 40 MG Oral TabletIndications: HTN, goal below 140/90 TAKE ONE TABLET BY MOUTH DAILY *HTN* 28 Tablet 3 12/02/2023 Active Sucralfate 1 GM Oral Tablet (Carafate) [...] FOR NAUSEA 30 Tablet 1 04/02/2024 Active documented as of this encounter (statuses as of 04/15/2024) Active Problems Problem Noted Date Diagnosed Date [...] as of this encounter (statuses as of 04/15/2024) Resolved Problems Problem Noted Date Diagnosed Date [...] as of this encounter (statuses as of 04/15/2024) Immunizations Name Administration Dates Next Due COVID-19 mRNA, LNP-s, No Pre serve, 2-Dose Series ([employer]) 11/30/2021,01/20/2021,12/30/2020 Covid-19, Mrna, Lnp-s, Pf, B ivalent, 30 Mcg, IM, 12 yrs and above ([employer]) 10/17/2022 Hepatitis B, 20+ yrs 01/14/2024,08/12/2023,07/10 PPD [...] encounter Miscellaneous Notes * Telephone Encounter - Larissa Ragland RPh - 04/15/2024 9:41 AM EDT Refused Prescriptions: Disp Refills Ferrous Sulfate 325 (65 Fe) MG Oral Tablet*56 Tab*4 Sig: TAKE 1TABLET BY MOUTH TWICE DAILY FOR SUPPLEMENTRefused By: LARISSA RAGLAND for Refusal: Course of treatment complete documented in this encounter Plan of Treatment Upcoming Encounters Date Type Department Care Team (Late st Contact Info) Description 04/28/2024 12:00 PM EDT Office Visit Gastroenterology, [facility] [address] [address] Tamanna Thomas CRNP [address] [place] [address] 09/24/2024 1:00 PM EDT Office Visit Gynecology/Obstetrics, [place] [address] [place] [address] Heidy Mondragon PA-C [address] [facility] [place] [address] 01/07/2025 2:20 PM EST Office Visit Endocrinology, [place] [address] [place] [address] Drea Cruz MD [address] [place], [place] [id number] 01/12/2025 1:00 PM EST Office Visit General Internal Medicine [facility] [address] [facility] [place] [address] Vianney Cruz MD [address] [facility] [place] [address] Scheduled Procedures Name Priority Associated Diagnoses Date/Ti [...] D LEVEL ONCE IN A LIFETIME-USE SMARTSET# [id number] Completed 01/29/2024, 06/22/2022, 02/01/2021, Additional history exists [...] Directives occurred with: Not Discussed Care Teams Parking Line Painter Relationship Specialty Start Date End Date Vianney Cruz MD [address] [place] [address] PCP - General Internal Medicine 08/23/21 documented as of this encounter
--- OUTSIDE RECORDS SUMMARY | 2024-06-03 14:17 | External Medical Summary | Summary of Care ---
Author Name Unknown Organization [facility] Address [address] [place] [address] Phone [phone] Care Team Providers Care Petrophysicist Name Role Phone Vianney Cruz MD Primary Care Provider + Reason for Visit * Reason Comments Infusion Reclast * Episode Based Medications (Routine) - Authorized Specialty Diagnoses / Procedures Referred By Contac t Referred To Contact Diagnoses Age-related osteoporosis without current pathological fracture Procedures [place] ZOLEDRONIC ACID 1MG Drea Cruz MD [address] [place] [address] Anc Hem/Onc [address] [address] Referral ID Status Reason Start Date Expiration Date V isits Requested Visits Authorized [id number] Authorized 01/24/2024 01/23/2025 [id number] Encounter Details Date Type Department Care Team (Latest Contact Info) Description 02/27/2024 10:00 AM EDT Hem/Onc Treatment Hematology/Oncology Treatment, [address] [address] Mar[place], Chair [address] [address] Age-related osteoporosis without current pathological fracture* Allergies [...] ne 100-10 MG/5ML Oral Syrup (Robitussin AC)Indications:Ac [place] cough Take 10 mL by mouth every [...] set at 11/01 PSG -- AHI 83 [facility] Hypothyroidism 02/12/2007 Irritable bowel syndrome [...] mRNA, LNP-s, No Pre serve, 2-Dose Series ([employer]) 11/30/2021,01/20/2021,12/30/2020 Covid-19, Mrna, Lnp-s, Pf, B ivalent, 30 Mcg, IM, 12 yrs and above ([employer]) 10/17/2022 Hepatitis B, 20+ yrs 01/14/2024,08/12/2023,07/10 PPD [...] 12:00 PM EDT Office Visit Gastroenterology, [facility] [address] [place] [address] Tamanna Thomas CRNP [address] [place] [address] 01/07/2025 2:20 PM EST Office Visit Endocrinology, [place] [address] [place] [address] Drea Cruz MD [address] [place] [address] 01/12/2025 1:00 PM EST Office Visit General Internal Medicine [facility] [address] [place] [address] Vianney Cruz MD [address] [place] [address] Scheduled Procedures Name Priority Associated Diagnoses Date/Ti [...] D LEVEL ONCE IN A LIFETIME-USE SMARTSET# [id number] Completed 01/29/2024, 06/22/2022, 02/01/2021, Additional history exists [...] Directives occurred with: Not Discussed Care Teams Petrophysicist Relationship Specialty Start Date End Date Vianney Cruz MD 200 [facility] [place] [address] PCP - General Internal Medicine 08/23/21 documented as of this encounter
--- OUTSIDE RECORDS SUMMARY | 2024-06-03 14:18 | External Medical Summary | Summary of Care ---
Author Name Unknown Organization [facility] Address [address] [place] [address] Phone [phone] Care Team Providers Care Identification And Records Commander Name Role Phone Vianney Cruz MD Primary Care Provider + Reason for Visit * Reason Comments Infusion Reclast * Episode Based Medications (Routine) - Authorized Specialty Diagnoses / Procedures Referred By Contac t Referred To Contact Diagnoses Age-related osteoporosis without current pathological fracture Procedures VT ZOLEDRONIC ACID 1MG Drea Cruz MD [address] [place] [address] Anc Hem/Onc [address] [address] Referral ID Status Reason Start Date Expiration Date V isits Requested Visits Authorized [id number] Authorized 01/24/2024 01/23/[phone] Encounter Details Date Type Department Care Team (Latest Contact Info) Description 02/27/2024 10:00 AM EDT Hem/Onc Treatment Hematology/Oncology Treatment, [address] [address] [place], Chair 9 Hem On[address] [address] Age-related osteoporosis without current pathological fracture* Allergies Active Allergy Reactions Criticality Noted Date Comments Bee Venom 01/11/2016 Localized swelling Pollen 02/13/2017 Unknown environmental allergy Clonazepam 01/25/2020 Causes increase in agitation/anxiety Tramadol 02/21/2015 Mood swings documented as of this encounter (statuses as of 02/27/2024) Medications Medication Sig Dispensed Refills Start Date [...] both eyes 3 times a day. 0 08/16/2015 Active Bimatoprost 0.01 % Ophthalmic Solution [...] noon and 1 Drop before bedtime. 0 02/13/2017 Active gabapentin (NEURONTIN) 400 MG Capsule 1 Capsule in the morning and 1 Capsule at noon and 1 Capsule before bedtime. 0 08/20/2017 Active escitalopram (LEXAPRO) 20 MG TabletIndications: Depression with anxiety Take 1 Tablet by mouth in the morning. 0 05/15/2018 Active lactase 3000 units per tab (LACTAID) 3000 units TabletIndications: Lactose intolerance 1 tablet prior to dairy foods 60 Tab 5 01/26/2019 Active Non-Aspirin Pain Reliever 325 MG Oral Tablet (Acetaminophen) TAKE 2 TABLETS BY MOUTH EVERY 6 HOURS NEEDED FEVER/HEADACHE/ MINOR ACHES AND PAINS 62 Tab 0 08/06/2021 Active CPAP every night at bedtime . 0 Active Fluticasone Propionate 50 MCG/ACT Nasal Suspension (Flonase)Indicatio ns:Acute frontal sinusitis, recurrence not specified INSTILL 2 SPRAYS INTO EACH NOSTRIL ONCE DAILY FOR ALLERGIES 16 g 5 04/06/2023 Active MEDICAL INSTRUCTIONS Can put baby oil [...] 4 05/27/2023 Active Vitamin D3 50 MCG (2000 UT) Oral Tablet Chewable Take 1 Tablet by mouth daily. 28 Tablet 5 07/26/2023 Active ARIPiprazole 5 MG Oral Tablet (Abilify) Take 1 Tablet by mouth at bedtime. 0 07/28/2023 Active Polyethylene Glycol 3350 17 GM/SCOOP [...] before bedtime. 180 Capsule 3 08/26/2023 Active Ondansetron HCl 4 MG Oral Tablet (Zofran)Indication s:Nausea TAKE 1 TABLET BY MOUTH EVERY 8 HOURS NEEDED FOR NAUSEA 30 Tablet 1 09/12/2023 Active guaiFENesin-Codein e 100-10 MG/5ML Oral Syrup (Robitussin AC)Indications:Acu te cough Take 10 mL by mouth every 4 hours. HOLD for drowsiness, if asleep 120 mL 0 09/27/2023 Active Potassium Chloride ER 10 MEQ [...] 81 MG Oral Tablet Delayed Release 0 09/25/2023 Active methylPREDNISolone 4 MG Oral Tablet Therapy Pack (Medrol Dosepack) follow package directions 21 Tablet 0 11/08/2023 Active Additional Information Patient not taking.Reported [...] ONCE DAILY*HTN* 28 Tablet 5 02/21/2024 Active documented as of this encounter (statuses as of 02/27/2024) Active Problems Problem Noted Date Diagnosed Date [...] set at 11/01 PSG -- AHI 83 [facility] Hypothyroidism 02/12/2007 Irritable bowel syndrome 11/23/2004 Sensorineural hearing loss, unilateral Overview: left documented as of this encounter (statuses as of 02/27/2024) Resolved Problems Problem Noted Date Diagnosed Date Resolved Date High serum parathyroid hormone (PTH) 01/25/2020 04/29/2020 Lacunar infarction 09/21/2016 03 8 Overview: Chronic, left basal ganglia Lumbar [...] as of this encounter (statuses as of 02/27/2024) Immunizations Name Administration Dates Next Due COVID-19 mRNA, LNP-s, No Pre serve, 2-Dose Series ([employer]) 11/30/2021,01/20/2021,12/30/2020 Covid-19, Mrna, Lnp-s, Pf, B ivalent, 30 Mcg, IM, 12 yrs and above ([employer]) 10/17/2022 Hepatitis B, 20+ yrs 01/14/2024,08/12/2023,07/10 PPD [...] 04/03/2024 11:00 AM EDT Office Visit Gynecology/Obstetics [place] [address] [place] [address] Chery Colon PA-C [address] [place] [address] 04/28/2024 12:00 PM EDT Office Visit Gastroenterology, [facility] [address] [place] [address] Tamanna Thomas CRNP [address] [facility] [address] 01/07/2025 2:20 PM EST Office Visit Endocrinology, [place] [address], [place] [phone] Drea Cruz MD [address], [place] [phone] Scheduled Procedures Name Priority Associated Diagnoses Date/Ti me COLONOSCOPY FLEXIBLE PROXIMA L DIAGNOSTIC Recall Screening for malignant neoplasm of colon Health Maintenance Due Date Last Done Comments HIV Screening 1979 Cologuard 2009 Fecal Occult Blood Test 2009 Sigmoidoscopy 2009 COVID-19 Vaccine ( season) 2023 10/17/2022, 11/30/2021, 01/20/2021, Additional history exists Depression Screening 01/07/2024 01/07/2023 *BISPHONATE OR OTHER ACCEPTABLE MEDICATION NEEDED FOR OSTEOPOROSIS (REFER TO SMARTSET #1146) 01/29/2024 TSH 05/29/2024 05/29/2023, 11/26, 02/17/2022, Additional history [...] D LEVEL ONCE IN A LIFETIME-USE SMARTSET# [id number] Completed 01/29/2024, 06/22/2022, 02/01/2021, Additional history exists [...] osteoporosis documented in this encounter Administered Medications Active Administered Medications - up to 3 most recent administrations Medication Order MAR Action Action Date Dose Rate Site diphenhydrAMINE (Benadryl) inj 50 mg 50 mg, IV Push, ONCE PRN Other, Hypersensitivity Reaction, Starting on Sat02/27/24 at 0956, Until Sat02/28/24 at 0955, For 24 hours EPINEPHrine 1 MG/ML inj 0.3 mg 0.3 mg, Intramuscular, ONCE PRN Other, Hypersensitivity Reaction or Anaphylaxis, Starting on Sat02/27/24 at 0956, Until Sat02/28/24 at 0955, For 24 hours hEParin 100 UNIT/ML Lock Flush inj 500 Units 500 Units (5 mL), IV Lock, PRN Other, IV Flush, Starting on Sat02/27/24 at 0956, Until Sat02/28/24 at 0955, For 24 hours, Do not flush if lock, PICC, or central line not in place; IV infusing or unable to flush. Hydrocortisone Sod Suc (PF) (Solu-Cortef) inj 100 mg 100 mg, IV Push, ONCE PRN Other, Hypersensitivity Reaction, Starting on Sat02/27/24 at 0956, Until Sat02/28/24 at 0955, For 24 hours NSS infusion 500 mL, Intravenous, at 50 mL/hr, CONTINUOUS, Starting on Sat02/27/24 at 1100, Until Sat02/27/24 at 2059 Start Infusion 02/27/2024 10:04 AM EDT 500 mL 50 mL/hr oxygen GAS Inhalation, OXYGEN, First dose on Sat02/27/24 at 1030, Until Discontinued, Device/Managed by: Low Flow Device, Goal SPO2 (%): 91-95, Starting Device: Nasal Cannula, Initial Flow Rate (LPM): 2, Lowest Support: Nasal Cannula: Flow 0-6 LPM. Titrate up/down by 1 LPM., Higher Support: Non-Rebreather (NRB) Mask: Minimum of 10 LPM. Titrate to maintain bag inflation., Titration Interval: Q2 minutes and as needed., Notify Provider: For sudden DECREASE in resting SPO2 to less than 85% and when escalating delivery device., Wean patient off Oxygen when the oxygen saturation is greater than or equal to 93% sodium chloride 0.9 % flush central line 10 mL 10 mL, IV Push, PRN Other, IV Flush, Starting on Samina 02/27/24 at 0956, Until Sat02/28/24 at 0955, For 24 hours, Do not flush if lock, PICC, or central line not in place; IV infusing or unable to flush. Inactive Administered Medications - up to 3 most recent administrations Medication Order MAR Action Action Date Dose Rate Site Acetaminophen (Tylenol) tab 650 mg 650 mg, Oral, ONCE, On Samina 02/27/24 at 1030, For 1 dose, Maximum of 4 grams (4000 mg) per day. Given 02/27/2024 9:55 AM EDT 650 mg Zoledronic Acid (Reclast) 5 mg in 100 mL PREMIX ivpb 5 mg, IV Piggyback, ONCE, 1 dose, On Samina 02/27/24 at 1130, Infuse over 30 min Start Infusion 02/27/2024 10:06 AM EDT 5 mg 400 mL/hr documented in this encounter Advance Directives Latest Code Status on File Code Status Date Activated Date Inactivated Comments Full Code 05/22/2022 9:26 AM 05/23/2022 4:47 PM This order reflects the patients wishes and were consensually agreed upon. Question Answer Comments Discussion of Advance Directives occurred with: Not Discussed Care Teams Identification And Records Commander Relationship Specialty Start Date End Date Vianney Cruz MD [address] [place] [address] PCP - General Internal Medicine 08/23/21 documented as of this encounter
--- OUTSIDE RECORDS SUMMARY | 2024-06-03 14:18 | External Medical Summary | Summary of Care ---
Author Name Unknown Organization [facility] Address [address] [place] [address] Phone [phone] Care Team Providers Care Direct Marketing Intern Name Role Phone Denis Cruz MD Primary Care Provider + Reason for Visit * Reason Comments eRx-Medication Refill Encounter Details Date Type Department Care Team (Late st Contact Info) Description 03/30/2024 Refill General Internal Medicine [facility] [address] [facility] [place] [address] Denis Cruz MD [address] [place] [address] Acute frontal sinusitis, recurrence not specified Allergies Active Allergy Reactions Criticality Noted Date Comments Bee Venom 01/11/2016 Localized swelling Pollen 02/13/2017 Unknown environmental allergy Clonazepam 01/25/2020 Causes increase in agitation/anxiety Tramadol 02/21/2015 Mood swings documented as of this encounter (statuses as of 03/31/2024) Medications Medication Sig Dispensed Refills Start Date [...] before bedtime. 180 Capsule 3 3 Active Ondansetron HCl 4 MG Oral Tablet (Zofran)Indicatio ns:Nausea TAKE 1 TABLET BY MOUTH EVERY 8 HOURS NEEDED FOR NAUSEA 30 Tablet 1 3 Active guaiFENesin-Codei ne 100-10 MG/5ML Oral Syrup (Robitussin AC)Indications:Ac [place] cough Take 10 mL by mouth every [...] FOR ALLERGIES 16 g 4 4 Active Fluticasone Propionate 50 MCG/ACT Nasal Suspension (Flonase)Indicati ons:Acute frontal sinusitis, recurrence not specified INSTILL 2 SPRAYS INTO EACH NOSTRIL ONCE DAILY FOR ALLERGIES 16 g 5 3 03/31/20 24 Discontinued documented as of this encounter (statuses as of 03/31/2024) Active Problems Problem Noted Date Diagnosed Date [...] at 12/8 11/2007 PSG -- AHI 83 [facility] Hypothyroidism 02/12/2007 Irritable bowel syndrome 11/23/2004 Sensorineural hearing loss, unilateral Overview: left documented as of this encounter (statuses as of 03/31/2024) Resolved Problems Problem Noted Date Diagnosed Date [...] as of this encounter (statuses as of 03/31/2024) Immunizations Name Administration Dates Next Due COVID-19 mRNA, LNP-s, No Pre serve, 2-Dose Series ([employer]) 11/30/2021,01/20/2021,12/30/2020 Covid-19, Mrna, Lnp-s, Pf, B ivalent, [...] encounter Miscellaneous Notes * Telephone Encounter - Maribel Cruz RPh - 03/31/2024 12:38 PM EDT Signed Prescriptions: Disp Refills Fluticasone Propionate 50 MCG/ACT Nasal Miguel*16 g 4 Sig: INSTILL 2SPRAYS INTO EACH NOSTRIL ONCE DAILY FOR ALLERGIESAuthorizing Provider: DENIS CRUZ User: MARIBEL CRUZ documented in this encounter Plan of Treatment Upcoming Encounters Date Type Department Care Team (Late st Contact Info) Description 04/03/2024 11:00 AM EDT Office Visit Gynecology/Obstetics [facility] [address] [place] [address] [place] [address] Chery Colon PA-C [address] [place] [address] 04/28/2024 12:00 PM EDT Office Visit Gastroenterology, [facility] [address] [place] [address] Tamanna Thomas CRNP [address] [place] [address] 01/07/2025 2:20 PM EST Office Visit Endocrinology, [place] [address] [place] [address] Drea Cruz MD [address] [place] [address] 01/12/2025 1:00 PM EST Office Visit General Internal Medicine [facility] [address] [facility] [place] [address] Denis Cruz MD [address] [facility] [place] [address] Scheduled Procedures Name Priority Associated Diagnoses Date/Ti [...] D LEVEL ONCE IN A LIFETIME-USE SMARTSET# [id number] Completed 01/29/2024, 06/22/2022, 02/01/2021, Additional history exists [...] as of this encounter Visit Diagnoses Diagnosis Acute frontal sinusitis, recurrence not specified documented in this encounter Advance Directives Latest Code Status on File Code Status Date Activated Date Inactivated Comments Full Code 05/22/2022 9:26 AM 05/23/2022 4:47 PM This order reflects the patients wishes and were consensually agreed upon. Question Answer Comments Discussion of Advance Directives occurred with: Not Discussed Care Teams Direct Marketing Intern Relationship Specialty Start Date End Date Denis Cruz MD [address] [facility] [place] [address] PCP - General Internal Medicine 08/23/21 documented as of this encounter
--- OUTSIDE RECORDS SUMMARY | 2024-06-03 14:18 | External Medical Summary | Summary of Care ---
Author Name Unknown Organization [facility] Address [address] [place] [address] Phone [phone] Care Team Providers Care Chronic Specialist Name Role Phone Vianney Cruz MD Primary Care Provider + Reason for Visit * Reason Onset Date Comments No Show 02/24/2024 Reclast Encounter Details Date Type Department Care Team (Late st Contact Info) Description 02/24/2024 Telephone Endocrinology, [place] [address] [place] [address] Drea Cruz MD [address] [place] [address] No Show (Reclast) Allergies Active Allergy Reactions Criticality Noted Date Comments Bee Venom 01/11/2016 Localized swelling Pollen 02/13/2017 Unknown environmental allergy Clonazepam 01/25/2020 Causes increase in agitation/anxiety Tramadol 02/21/2015 Mood swings documented as of this encounter (statuses as of 02/25/2024) Medications Medication Sig Dispensed Refills Start Date [...] as of this encounter (statuses as of 02/25/2024) Active Problems Problem Noted Date Diagnosed Date [...] 2016 - intolerant to PAP, on O2 [facility] 05/29/13 -- auto BIPAP set at 12/8 11/2007 PSG -- AHI 83 [facility] Hypothyroidism 02/12/2007 Irritable bowel syndrome 11/23/2004 Sensorineural hearing loss, unilateral Overview: left documented as of this encounter (statuses as of 02/25/2024) Resolved Problems Problem Noted Date Diagnosed Date [...] as of this encounter (statuses as of 02/25/2024) Immunizations Name Administration Dates Next Due COVID-19 mRNA, LNP-s, No Pre serve, 2-Dose Series ([employer]) 11/30/2021,01/20/2021,12/30/2020 Covid-19, Mrna, Lnp-s, Pf, B ivalent, 30 Mcg, IM, 12 yrs and above ([employer]) 10/17/2022 Hepatitis B, 20+ yrs 01/14/2024,08/12/2023,07/10 PPD [...] encounter Miscellaneous Notes * Telephone Encounter - Lindsey Lange OSA - 02/25/2024 8:06 AM EDT Pt added to the schedule for and pt is aware of the date and time and so is the intensive care specialist * Telephone Encounter - Evette Clark RN - 02/24/2024 4:00 PM EDT Pt missed her appointment today for Reclast infusion. Please call her to reschedule, will need a 1 hour appointment on the 335 schedule. Thanks documented in this encounter Plan of Treatment Upcoming Encounters Date Type Department Care Team (Late st Contact Info) Description 02/27/2024 1:00 PM EDT Hem/Onc Treatment Hematology/Oncology Treatment, [place] [address] [place] [address] [place], Chair 1 Hem [address]c [address] [address] 04/03/2024 11:00 AM EDT Office Visit Gynecology/Obstetics [address] [place] [address] [facility]C [address] [facility] [place] [address] 04/28/2024 12:00 PM EDT Office Visit Gastroenterology, [facility] [address] [place] [address] Tamanna Thomas CRNP [address] [place] [address] 01/07/2025 2:20 PM EST Office Visit Endocrinology, [place] [address] [place] [address] Drea Cruz MD [address] [place] [address] Scheduled Procedures Name Priority Associated Diagnoses Date/Ti [...] D LEVEL ONCE IN A LIFETIME-USE SMARTSET# [id number] Completed 01/29/2024, 06/22/2022, 02/01/2021, Additional history exists [...] filedocumented as of this encounter Advance Directives Latest Code Status on File Code Status Date Activated Date Inactivated Comments Full Code 05/22/2022 9:26 AM 05/23/2022 4:47 PM This order reflects the patients wishes and were consensually agreed upon. Question Answer Comments Discussion of Advance Directives occurred with: Not Discussed Care Teams Chronic Specialist Relationship Specialty Start Date End Date Vianney Cruz MD [address] [place] [address] PCP - General Internal Medicine 08/23/21 documented as of this encounter
--- OUTSIDE RECORDS SUMMARY | 2024-06-03 14:18 | External Medical Summary | Summary of Care ---
Author Name Unknown Organization [facility] Address [address] [place] [address] Phone [phone] Care Team Providers Care Foxing Closer Name Role Phone Vianney Cruz MD Primary Care Provider + Encounter Details Date Type Department Care Team (Late st Contact Info) Description 01/24/2024 Orders Only Endocrinology, [place] [address] [place] [address] Drea Cruz MD [address] [place] [address] Allergies Active Allergy Reactions Criticality Noted Date Comments Bee Venom 01/11/2016 Localized swelling Pollen 02/13/2017 Unknown environmental allergy Clonazepam 01/25/2020 Causes increase in agitation/anxiety Tramadol 02/21/2015 Mood swings documented as of this encounter (statuses as of 02/24/2024) Medications Medication Sig Dispensed Refills Start Date [...] DAILY FOR ALLERGIES 16 g 5 3 Active MEDICAL INSTRUCTIONS Can put baby oil [...] ne 100-10 MG/5ML Oral Syrup (Robitussin AC)Indications:Ac [place] cough Take 10 mL by mouth every [...] TABLET BY MOUTH ONCE DAILY*HTN* 28 Tablet 11 3 02/21/20 24 Discontinued documented as of this encounter (statuses as of 02/24/2024) Active Problems Problem Noted Date Diagnosed Date [...] at 12/8 11/2007 PSG -- AHI 83 [facility] Hypothyroidism 02/12/2007 Irritable bowel syndrome 11/23/2004 Sensorineural hearing loss, unilateral Overview: left documented as of this encounter (statuses as of 02/24/2024) Resolved Problems Problem Noted Date Diagnosed Date [...] as of this encounter (statuses as of 02/24/2024) Immunizations Name Administration Dates Next Due COVID-19 mRNA, LNP-s, No Pre serve, 2-Dose Series ([employer]) 11/30/2021,01/20/2021,12/30/2020 Covid-19, Mrna, Lnp-s, Pf, B ivalent, 30 Mcg, IM, 12 yrs and above ([employer]) 10/17/2022 Hepatitis B, 20+ yrs 01/14/2024,08/12/2023,07/10 PPD [...] 04/03/2024 11:00 AM EDT Office Visit Gynecology/Obstetics [place] [address] [place] [address] Chery Colon PA-C [address] [place] [address] 04/28/2024 12:00 PM EDT Office Visit Gastroenterology, [facility] [address] [place] [address] Tamanna Thomas CRNP [address] [place] [address] 01/07/2025 2:20 PM EST Office Visit Endocrinology, [place] [address] [place], [place] [phone] Drea Cruz MD [address] [place], [place] [phone] Scheduled Procedures Name Priority Associated Diagnoses Date/Ti [...] D LEVEL ONCE IN A LIFETIME-USE SMARTSET# [id number] Completed 01/29/2024, 06/22/2022, 02/01/2021, Additional history exists [...] Directives occurred with: Not Discussed Care Teams Foxing Closer Relationship Specialty Start Date End Date Vianney Cruz MD [address] [facility] [place] [address] PCP - General Internal Medicine 08/23/21 documented as of this encounter
--- OUTSIDE RECORDS SUMMARY | 2024-06-03 14:18 | External Medical Summary | Summary of Care ---
Author Name Unknown Organization [facility] Address [address] [place] [address] Phone [phone] Care Team Providers Care Manager Of Supply Chain Name Role Phone Vianney Cruz MD Primary Care Provider + Reason for Visit * Reason Onset Date Comments No Show 02/24/2024 Reclast Encounter Details Date Type Department Care Team (Late st Contact Info) Description 02/24/2024 Telephone Endocrinology, [place] [address] [place] [address] Drea Cruz MD [address] [place] [address] No Show (Reclast) Allergies Active [...] 2016 - intolerant to PAP, on O2 [facility] 05/29/13 -- auto BIPAP set at 12/8 11/2007 PSG -- AHI 83 [facility] Hypothyroidism 02/12/2007 Irritable bowel syndrome 11/23/2004 [...] mRNA, LNP-s, No Pre serve, 2-Dose Series ([employer]) 11/30/2021,01/20/2021,12/30/2020 Covid-19, Mrna, Lnp-s, Pf, B ivalent, 30 Mcg, IM, 12 yrs and above ([employer]) 10/17/2022 Hepatitis B, 20+ yrs 01/14/2024,08/12/2023,07/10 PPD [...] encounter Miscellaneous Notes * Telephone Encounter - Evette Clark RN - 02/24/2024 4:00 PM EDT Pt missed her appointment today for Reclast infusion. Please call her to reschedule, will need a 1 hour appointment on the 335 schedule. Thanks documented in this encounter Plan of Treatment Upcoming Encounters Date Type Department Care Team (Late st Contact Info) Description 04/03/2024 11:00 AM EDT Office Visit Gynecology/Obstetics [place] [address] [place] [address] Chery Colon PA-C [address] [place] [address] 04/28/2024 12:00 PM EDT Office Visit Gastroenterology, [facility] [address] [place] [address] Tamanna Thomas CRNP [address] [place] [address] 01/07/2025 2:20 PM EST Office Visit Endocrinology, [address] [address] Drea Cruz MD [address] [place], [place] [address] Scheduled Procedures Name Priority Associated Diagnoses Date/Ti [...] D LEVEL ONCE IN A LIFETIME-USE SMARTSET# [id number] Completed 01/29/2024, 06/22/2022, 02/01/2021, Additional history exists [...] Directives occurred with: Not Discussed Care Teams Manager Of Supply Chain Relationship Specialty Start Date End Date Vianney Cruz MD [address] [place] [address] PCP - General Internal Medicine 08/23/21 documented as of this encounter
--- OUTSIDE RECORDS SUMMARY | 2024-06-03 14:18 | External Medical Summary | Summary of Care ---
Author Name Unknown Organization [facility] Address [address] [place] [address] Phone [phone] Care Team Providers Care Business Team Leader Name Role Phone Denis Cruz MD Primary Care Provider + Reason for Visit * Reason Comments eRx-Medication Refill Encounter Details Date Type Department Care Team (Late st Contact Info) Description 02/20/2024 Refill General Internal Medicine [facility] [address] [facility] [place] [address] Denis Cruz MD [address] [place] [address] HTN, goal below 140/90 Allergies Active Allergy Reactions Criticality Noted Date Comments Bee Venom 01/11/2016 Localized swelling Pollen 02/13/2017 Unknown environmental allergy Clonazepam 01/25/2020 Causes increase in agitation/anxiety Tramadol 02/21/2015 Mood swings documented as of this encounter (statuses as of 02/21/2024) Medications Medication Sig Dispensed Refills Start Date [...] ne 100-10 MG/5ML Oral Syrup (Robitussin AC)Indications:Ac [place] cough Take 10 mL by mouth every [...] ONCE DAILY*HTN* 28 Tablet 5 4 Active amLODIPine Besylate 10 MG Oral Tablet (Norvasc)Indicati ons:HTN, goal below 140/90 TAKE ONE TABLET BY MOUTH ONCE DAILY*HTN* 28 Tablet 11 3 02/21/20 24 Discontinued documented as of this encounter (statuses as of 02/21/2024) Active Problems Problem Noted Date Diagnosed Date [...] set at 12/11/2007 PSG -- AHI 83 [facility] Hypothyroidism 02/12/2007 Irritable bowel syndrome 11/23/2004 Sensorineural hearing loss, unilateral Overview: left documented as of this encounter (statuses as of 02/21/2024) Resolved Problems Problem Noted Date Diagnosed Date [...] as of this encounter (statuses as of 02/21/2024) Immunizations Name Administration Dates Next Due COVID-19 mRNA, LNP-s, No Pre serve, 2-Dose Series ([employer]) 11/30/2021,01/20/2021,12/30/2020 Covid-19, Mrna, Lnp-s, Pf, B ivalent, [...] encounter Miscellaneous Notes * Telephone Encounter - Mayra Fontana RPh - 02/21/2024 11:19 AM EDT Signed Prescriptions: Disp Refills amLODIPine Besylate 10 MG Oral Tablet (Nor*28 Tab*5 Sig: TAKE ONE TABLET BY MOUTH ONCE DAILY*HTN*Authorizing Provider: DENIS CRUZ User: MAYRA FONTANA documented in this encounter Plan of Treatment Upcoming Encounters Date Type Department Care Team (Late st Contact Info) Description 02/24/2024 1:30 PM EDT Hem/Onc Treatment Hematology/Oncology Treatment, [place] [address] [place] [address] Marlin, Chair 6 Hem Onc [place] [facility] [address] 04/03/2024 11:00 AM EDT Office Visit Gynecology/Obstetics [place] [address] [place] [phone] Chery Colon PA-C [address] [place] [address] 04/28/2024 12:00 PM EDT Office Visit Gastroenterology, [facility] [address] [facility] [place] [address] Tamanna Thomas CRNP [address] [place] [address] 01/07/2025 2:20 PM EST Office Visit Endocrinology, [place] [address] [place] [address] Drea Cruz MD [address] [place] [address] Scheduled Procedures Name Priority Associated Diagnoses Date/Ti [...] D LEVEL ONCE IN A LIFETIME-USE SMARTSET# [id number] Completed 01/29/2024, 06/22/2022, 02/01/2021, Additional history exists [...] as of this encounter Visit Diagnoses Diagnosis HTN, goal below 140/90 Unspecified essential hypertension documented in this encounter Advance Directives Latest Code Status on File Code Status Date Activated Date Inactivated Comments Full Code 05/22/2022 9:26 AM 05/23/2022 4:47 PM This order reflects the patients wishes and were consensually agreed upon. Question Answer Comments Discussion of Advance Directives occurred with: Not Discussed Care Teams Business Team Leader Relationship Specialty Start Date End Date Denis Cruz MD 200 [place] [address] PCP - General Internal Medicine 08/23/21 documented as of this encounter
--- OUTSIDE RECORDS SUMMARY | 2024-06-03 14:18 | External Medical Summary | Summary of Care ---
Author Name Unknown Organization [facility] Address [address] [place] [address] Phone [phone] Care Team Providers Care Sergeant Of Officers Name Role Phone Vianney Cruz MD Primary Care Provider + Reason for Visit * Reason Onset Date Comments Health Maintenance 03/11/2024 Encounter Details Date Type Department Care Team (Late st Contact Info) Description 03/11/2024 Telephone General Internal Medicine [facility] [address] [place] [address] Vianney Cruz MD [address] [place] [address] Health Maintenance Allergies Active Allergy Reactions Criticality Noted Date Comments Bee Venom 01/11/2016 Localized swelling Pollen 02/13/2017 Unknown environmental allergy Clonazepam 01/25/2020 Causes increase in agitation/anxiety Tramadol 02/21/2015 Mood swings documented as of this encounter (statuses as of 03/11/2024) Medications Medication Sig Dispensed Refills Start Date [...] as of this encounter (statuses as of 03/11/2024) Active Problems Problem Noted Date Diagnosed Date [...] - intolerant to PAP, on O2 qhs 7/5/13 -- auto BIPAP set at 12/8 11/2007 PSG -- AHI 83 [facility] Hypothyroidism 02/12/2007 Irritable bowel syndrome 11/23/2004 Sensorineural hearing loss, unilateral Overview: left documented as of this encounter (statuses as of 03/11/2024) Resolved Problems Problem Noted Date Diagnosed Date [...] as of this encounter (statuses as of 03/11/2024) Immunizations Name Administration Dates Next Due COVID-19 mRNA, LNP-s, No Pre serve, 2-Dose Series ([employer]) 11/30/2021,01/20/2021,12/30/2020 Covid-19, Mrna, Lnp-s, Pf, B ivalent, 30 Mcg, IM, 12 yrs and above ([employer]) 10/17/2022 Hepatitis B, 20+ yrs 01/14/2024,08/12/2023,07/10 PPD [...] encounter Miscellaneous Notes * Telephone Encounter - Erin Hameed LPN - 03/11/2024 1:16 PM EDT Care Gaps Comprehensive Care Outreach Last Office/Telemedicine Visit: 01/14/2024 (in office), Visit date not found (telemedicine) Next Office Visit: Visit date not found Hemoglobin AIC Results: Lab Results Component Value Date/Time HEMOGLOBIN A1C - [facility] 5.3 05/29/2023 07:08 AM HEMOGLOBIN A1C - [facility] 5.4 12/17/2022 07:20 AM HEMOGLOBIN A1C - [facility] 5.0 02/17/2022 08:04 AM HEMOGLOBIN A1C - [facility] 6.0 04/15/2013 09:07 AM HEMOGLOBIN A1C - [facility] 5.9 12/12/2012 11:19 AM HEMOGLOBIN A1C - [facility] 5.7 07/16/2008 02:28 PM BP Readings from Last 1 Encounters: 02/27/24 139/81 Reviewed Health Maintenance below: Health Maintenance Topic Date Due HIV Screening Never done COVID-19 Vaccine ( season) 2023 TSH 05/29/2024 Mammogram 06/27/2024 GFR 01/28/2025 Ov year dec Lab Mamm aug Called home number and person there said to call her nurse [phone] Care Gap Outreach Action Taken: Spoke to patient spoke to nurse and only scheduled her follow up documented in this encounter Plan of Treatment Upcoming Encounters Date Type Department Care Team (Late st Contact Info) Description 04/03/2024 11:00 AM EDT Office Visit Gynecology/Obstetics [place] [address] [place] [address] Chery Colon PA-C [address] [place] [address] 04/28/2024 12:00 PM EDT Office Visit Gastroenterology, [facility] [address] [place] [address] Tamanna Thomas CRNP [address] [place] [address] 01/07/2025 2:20 PM EST Office Visit Endocrinology, [place] [address] [place] [address] Drea Cruz MD [address] [place] [address] 01/12/2025 1:00 PM EST Office Visit General Internal Medicine [facility] [address] [place] [address] Vianney Cruz MD [address] [place] [address] Scheduled Procedures Name Priority Associated Diagnoses Date/Ti [...] D LEVEL ONCE IN A LIFETIME-USE SMARTSET# [id number] Completed 01/29/2024, 06/22/2022, 02/01/2021, Additional history exists [...] Directives occurred with: Not Discussed Care Teams Sergeant Of Officers Relationship Specialty Start Date End Date Vianney Cruz MD [address] [place] [address] PCP - General Internal Medicine 08/23/21 documented as of this encounter
--- OUTSIDE RECORDS SUMMARY | 2024-06-03 14:19 | External Medical Summary | Summary of Care ---
Author Name Unknown Organization [facility] Address [address] [place] [address] Phone [phone] Care Team Providers Care Food And Drug Inspector Name Role Phone Vianney Cruz MD Primary Care Provider + Encounter Details Date Type Department Care Team ([facility] st Contact Info) Description 01/23/2024 Telephone [facility] [place] [facility] [place] [address] [place] [address] Drea Cruz MD [address] [place] [address] Allergies Active Allergy Reactions Criticality Noted Date Comments Bee Venom 01/11/2016 Localized swelling Pollen 02/13/2017 Unknown environmental allergy Clonazepam 01/25/2020 Causes increase in agitation/anxiety Tramadol 02/21/2015 Mood swings documented as of this encounter (statuses as of 02/19/2024) Medications Medication Sig Dispensed Refills Start Date [...] every night at bedtime . 0 Active amLODIPine Besylate 10 MG Oral Tablet (Norvasc)Indicatio ns:HTN, goal below 140/90 TAKE ONE TABLET BY MOUTH ONCE DAILY*HTN* 28 Tablet 11 02/25/2023 Active Additional Information Patient taking differently: 10 mg Oral Daily(AM), Reported on 10/08/2023 Fluticasone Propionate 50 MCG/ACT Nasal Suspension (Flonase)Indicatio [...] Active Rosuvastatin Calcium 10 MG Oral Tablet (Crestor)Bj ns:Mixed dyslipidemia TAKE 1 TABLET BY MOUTH [...] FOR GERD 28 Capsule 11 01/22/2024 Active documented as of this encounter (statuses as of 02/19/2024) Active Problems Problem Noted Date Diagnosed Date [...] set at 11/01 PSG -- AHI 83 [facility] Hypothyroidism 02/12/2007 Irritable bowel syndrome 11/23/2004 Sensorineural hearing loss, unilateral Overview: left documented as of this encounter (statuses as of 02/19/2024) Resolved Problems Problem Noted Date Diagnosed Date [...] as of this encounter (statuses as of 02/19/2024) Immunizations Name Administration Dates Next Due COVID-19 mRNA, LNP-s, No Pre serve, 2-Dose Series ([employer]) 11/30/2021,01/20/2021,12/30/2020 Covid-19, Mrna, Lnp-s, Pf, B ivalent, 30 Mcg, IM, 12 yrs and above ([employer]) 10/17/2022 Hepatitis B, 20+ yrs 01/14/2024,08/12/2023,07/10 PPD [...] Miscellaneous Notes * Telephone Encounter - Lindsey Biggs OSA - 02/11/2024 9:00 AM EDT Attempted to call [phone] had to leave message for pt * Telephone Encounter - Wendy Cosme MED ASSIST - 02/04/2024 1:22 PM EDT Called [employer]. Had to leave message with business consultant for patients nurse to contact our office. * Telephone Encounter - Wendy Cosme MED ASSIST - 02/03/2024 9:28 AM EDT Called patients home # and spoke with a care hat steamer. She stated that patients nurse will contact office to set up patients infusion. Will wait for call. * Telephone Encounter - Wendy Cosme MED ASSIST - 01/31/2024 8:44 AM EST Attempted to contact patient and both phone #'s in the chart are not in service. Sent patient a MyGmessage. * Telephone Encounter - Supriya Bryant RN - 01/31/2024 7:40 AM EST Labs 01/29/24. Scheduling: please call patient to schedule 1 hour appt "reclast" (Dr Drea Cruz). Thanks! * Telephone Encounter - Supriya Bryant RN - 01/27/2024 8:02 AM EST Referral entered. [place] plan is signed. Patient has not gone for lab work. documented in this encounter Plan of Treatment Upcoming Encounters Date Type Department Care Team (Late st Contact Info) Description 02/24/2024 1:30 PM EDT Hem/Onc Treatment Hematology/Oncology Treatment, [address] [address] Marlin, Chair [address] [address] 04/03/2024 11:00 AM EDT Office Visit Gynecology/Obstetics [place] [address] [place] [address] Chery Colon PA-C [address] [place] [address] 04/28/2024 12:00 PM EDT Office Visit Gastroenterology, [facility] [address] [place] [address] Tamanna Thomas CRNP [address] [place] [address] 01/07/2025 2:20 PM EST Office Visit Endocrinology, [address] [place] [address] Drea Cruz MD [address] [place], [place] [address] Scheduled Procedures Name Priority Associated Diagnoses Date/Ti [...] D LEVEL ONCE IN A LIFETIME-USE SMARTSET# [id number] Completed 01/29/2024, 06/22/2022, 02/01/2021, Additional history exists [...] Not on filedocumented as of this encounter Results * 25-HYDROXY VITAMIN D (01/29/2024 2:27 PM EST) 25-Hydroxy Vitamin D 38 >19 ng/mL 01/30/2024 1:38 PM EST [facility] Blood Venous blood specimen / Unknown Venipuncture / Unknown 01/29/2024 2:27 PM EST 01/29/2024 2:27 PM EST Narrative [facility] - 01/30/2024 1:38 PM EST Deficient: <20 ng/mL Insufficient: 20-29 ng/mL Recommended/Optimum:30-50 ng/mL Vitamin D intoxication is rare. If suspicious of Vitamin D toxicity, evaluation of serum Calcium and PTH is recommended. Drea Cruz MD LAB BLOOD ORDER JOSIE [facility] [address] [place] [address] documented in this encounter Visit Diagnoses Diagnosis Senile osteoporosis- Primary documented in this encounter Advance Directives Latest Code Status on File Code Status Date Activated Date Inactivated Comments Full Code 05/22/2022 9:26 AM 05/23/2022 4:47 PM This order reflects the patients wishes and were consensually agreed upon. Question Answer Comments Discussion of Advance Directives occurred with: Not Discussed Care Teams Food And Drug Inspector Relationship Specialty Start Date End Date Vianney Cruz MD 200 [place] [address] PCP - General Internal Medicine 08/23/21 documented as of this encounter
--- OUTSIDE RECORDS SUMMARY | 2024-06-03 14:19 | External Medical Summary | Summary of Care ---
Author Name Unknown Organization [facility] Address [address] [place] [address] Phone [phone] Care Team Providers Care Light Bulb Assembler Name Role Phone Vianney Cruz MD Primary Care Provider + Encounter Details Date Type Department Care Team ([facility] st Contact Info) Description 01/23/2024 Telephone [facility] [address] [place] [address] Drea rCuz MD [address] [place] [address] Allergies Active Allergy Reactions Criticality Noted Date Comments Bee Venom 01/11/2016 Localized swelling Pollen 02/13/2017 Unknown environmental allergy Clonazepam 01/25/2020 Causes increase in agitation/anxiety Tramadol 02/21/2015 Mood swings documented as of this encounter (statuses as of 02/11/2024) Medications Medication Sig Dispensed Refills Start Date [...] as of this encounter (statuses as of 02/11/2024) Active Problems Problem Noted Date Diagnosed Date [...] set at 11/01 PSG -- AHI 83 [facility] Hypothyroidism 02/12/2007 Irritable bowel syndrome 11/23/2004 Sensorineural hearing loss, unilateral Overview: left documented as of this encounter (statuses as of 02/11/2024) Resolved Problems Problem Noted Date Diagnosed Date [...] as of this encounter (statuses as of 02/11/2024) Immunizations Name Administration Dates Next Due COVID-19 mRNA, LNP-s, No Pre serve, 2-Dose Series ([employer]) 11/30/2021,01/20/2021,12/30/2020 Covid-19, Mrna, Lnp-s, Pf, B ivalent, 30 Mcg, IM, 12 yrs and above ([employer]) 10/17/2022 Hepatitis B, 20+ yrs 01/14/2024,08/12/2023,07/10 PPD [...] encounter Miscellaneous Notes * Telephone Encounter - Wendy Cosme MED ASSIST - 02/04/2024 1:22 PM EDT Called [employer]. Had to leave message with operations business partner for patients nurse to contact our office. * Telephone Encounter - Wendy Cosme MED ASSIST - 02/03/2024 9:28 AM EDT Called patients home # and spoke with a care juice bar team member. She stated that patients nurse will contact [...] call patient to schedule 1 hour appt "smootht" (Dr Drea Cruz). Thanks! * Telephone Encounter - Supriya Bryant RN - 01/27/2024 8:02 AM EST Referral entered. [place] plan is signed. Patient has not gone for lab work. documented in this encounter Plan of Treatment Upcoming Encounters Date Type Department Care Team (Late st Contact Info) Description 04/03/2024 11:00 AM EDT Office Visit Gynecology/Obstetics [place] [address] [place] [phone] Chery Colon PA-C [address] [place] [address] 01/07/2025 2:20 PM EST Office Visit [facility] [place] [address] [place] [address] Drea Cruz MD [address] [place], [place] [phone] Scheduled Procedures Name Priority Associated Diagnoses Date/Ti [...] D LEVEL ONCE IN A LIFETIME-USE SMARTSET# [id number] Completed 01/29/2024, 06/22/2022, 02/01/2021, Additional history exists [...] >19 ng/mL 01/30/2024 1:38 PM EST [facility] Blood Venous blood specimen / Unknown Venipuncture / Unknown 01/29/2024 2:27 PM EST 01/29/2024 2:27 PM EST Narrative [facility] - 01/30/2024 1:38 PM EST Deficient: <20 ng/mL Insufficient: 20-29 ng/mL Recommended/Optimum:30-50 ng/mL Vitamin D intoxication is rare. If suspicious of Vitamin D toxicity, evaluation of serum Calcium and PTH is recommended. Drea Cruz MD LAB BLOOD ORDER JOSIE [facility] [address] [place] [address] documented in this encounter Visit Diagnoses Diagnosis Senile osteoporosis- Primary documented in this encounter Advance Directives Latest Code Status on File Code Status Date Activated Date Inactivated Comments Full Code 05/22/2022 9:26 AM 05/23/2022 4:47 PM This order reflects the patients wishes and were consensually agreed upon. Question Answer Comments Discussion of Advance Directives occurred with: Not Discussed Care Teams Light Bulb Assembler Relationship Specialty Start Date End Date Vianney Cruz MD 200 [place] [address] PCP - General Internal Medicine 08/23/21 documented as of this encounter
--- OUTSIDE RECORDS SUMMARY | 2024-06-03 14:19 | External Medical Summary | Summary of Care ---
Author Name Unknown Organization [facility] Address [address] [place] [address] Phone [phone] Care Team Providers Care Private Investigator Name Role Phone Vianney Cruz MD Primary Care Provider + Reason for Visit * Reason Onset Date Comments Appointment 02/04/2024 Reclast Encounter Details Date Type Department Care Team (Late st Contact Info) Description 02/04/2024 Telephone Hematology Oncology [facility], [place] [address] [place] [address] Dera Cruz MD [address] [place] [address] Appointment (Reclast) Allergies Active Allergy Reactions Criticality Noted Date Comments Bee Venom 01/11/2016 Localized swelling Pollen 02/13/2017 Unknown environmental allergy Clonazepam 01/25/2020 Causes increase in agitation/anxiety Tramadol 02/21/2015 Mood swings documented as of this encounter (statuses as of 02/05/2024) Medications Medication Sig Dispensed Refills Start Date [...] as of this encounter (statuses as of 02/05/2024) Active Problems Problem Noted Date Diagnosed Date [...] set at 1211/2007 PSG -- AHI 83 [facility] Hypothyroidism 02/12/2007 Irritable bowel syndrome 11/23/2004 Sensorineural hearing loss, unilateral Overview: left documented as of this encounter (statuses as of 02/05/2024) Resolved Problems Problem Noted Date Diagnosed Date [...] as of this encounter (statuses as of 02/05/2024) Immunizations Name Administration Dates Next Due COVID-19 mRNA, LNP-s, No Pre serve, 2-Dose Series ([employer]) 11/30/2021,01/20/2021,12/30/2020 Covid-19, Mrna, Lnp-s, Pf, B ivalent, [...] encounter Miscellaneous Notes * Telephone Encounter - Vinita Chaudhry RN - 02/05/2024 12:25 PM EDT Sounded like they were calling the patient not her nurse. That is why I sent the number. Vinita * Telephone Encounter - Supriya Bryant RN - 02/04/2024 2:42 PM EDT There is already a TE regarding this. * Telephone Encounter - Vinita Chaudhry RN - 02/04/2024 2:22 PM EDT Received orders for Rosa Isela for reclast. Auth completed, labs completed, OOP should be minimal. Please reach out to patient's nurse Ita at [phone] to schedule. Thank you for reaching outto schedule. Vinita Chaudhry RN BSN [facility] [phone] documented in this encounter Plan of Treatment Upcoming Encounters Date Type Department Care Team (Late st Contact Info) Description 04/03/2024 11:00 AM EDT Office Visit Gynecology/Obstetics [place] [address] [place] [phone] Chery Colon PA-C [address] [place] [address] 01/07/2025 2:20 PM EST [facility] [address] [place] [address] Drea Cruz MD [address] [place] [address] Scheduled Procedures Name Priority Associated Diagnoses Date/Ti [...] D LEVEL ONCE IN A LIFETIME-USE SMARTSET# [id number] Completed 01/29/2024, 06/22/2022, 02/01/2021, Additional history exists [...] Directives occurred with: Not Discussed Care Teams Private Investigator Relationship Specialty Start Date End Date Vianney Cruz MD [address] [place] [address] PCP - General Internal Medicine 08/23/21 documented as of this encounter
--- OUTSIDE RECORDS SUMMARY | 2024-06-03 14:19 | External Medical Summary | Summary of Care ---
Author Name Unknown Organization [facility] Address [address] [place] [address] Phone [phone] Care Team Providers Care Engineering Team Supervisor Name Role Phone Vianney Cruz MD Primary Care Provider + Reason for Visit * Reason Onset Date Comments Appointment 02/04/2024 Reclast Encounter Details Date Type Department Care Team (Late st Contact Info) Description 02/04/2024 Telephone Hematology Oncology [facility] [place] [address] [place] [address] Drea Cruz MD [address] [place] [address] Appointment (Reclast) Allergies Active Allergy Reactions Criticality Noted Date Comments Bee Venom 01/11/2016 Localized swelling Pollen 02/13/2017 Unknown environmental allergy Clonazepam 01/25/2020 Causes increase in agitation/anxiety Tramadol 02/21/2015 Mood swings documented as of this encounter (statuses as of 02/18/2024) Medications Medication Sig Dispensed Refills Start Date [...] as of this encounter (statuses as of 02/18/2024) Active Problems Problem Noted Date Diagnosed Date [...] set at 1211/2007 PSG -- AHI 83 [facility] Hypothyroidism 02/12/2007 Irritable bowel syndrome 11/23/2004 Sensorineural hearing loss, unilateral Overview: left documented as of this encounter (statuses as of 02/18/2024) Resolved Problems Problem Noted Date Diagnosed Date [...] as of this encounter (statuses as of 02/18/2024) Immunizations Name Administration Dates Next Due COVID-19 mRNA, LNP-s, No Pre serve, 2-Dose Series ([employer]) 11/30/2021,01/20/2021,12/30/2020 Covid-19, Mrna, Lnp-s, Pf, B ivalent, [...] encounter Miscellaneous Notes * Telephone Encounter - Chao Pierce LPN - 02/18/2024 1:00 PM EDT The other encounters lead my to think the calls were to schedule an OV in Endo. Can she be contacted for infusion appt? * Telephone Encounter - Vinita Chaudhry RN [...] reach out to patient's nurse Ita at [phone] to schedule. Thank you for reaching outto schedule. Vinita Chaudhry FOOD SERVICES DIRECTOR [facility] [phone] documented in this encounter Plan of Treatment Upcoming Encounters Date Type Department Care Team (Late st Contact Info) Description 04/03/2024 11:00 AM EDT Office Visit Gynecology/Obstetics [place] [address] [place] [phone] Chery Colon PA-C [address] [place], [place] [phone] 04/28/2024 12:00 PM EDT Office Visit Gastroenterology, [facility] [address] [facility] [address] Tamanna Thomas CRNP [address] [facility] [address] 01/07/2025 2:20 PM EST Office Visit Endocrinology, [place] [address], [place] [phone] Drea Cruz MD [address] [place] [address] Scheduled Procedures Name Priority Associated [...] D LEVEL ONCE IN A LIFETIME-USE SMARTSET# [id number] Completed 01/29/2024, 06/22/2022, 02/01/2021, Additional history exists [...] Directives occurred with: Not Discussed Care Teams Engineering Team Supervisor Relationship Specialty Start Date End Date Vianney Cruz MD 200 [facility] [place] [address] PCP - General Internal Medicine 08/23/21 documented as of this encounter
--- OUTSIDE RECORDS SUMMARY | 2024-06-03 14:19 | External Medical Summary | Summary of Care ---
Author Name Unknown Organization [facility] Address [address] [place] [address] Phone [phone] Care Team Providers Care Tableman Name Role Phone Vianney Cruz MD Primary Care Provider + Encounter Details Date Type Department Care Team ([facility] st Contact Info) Description 01/23/2024 Telephone [facility] [address] [place] [address] Drea Cruz MD [address] [place] [address] Allergies Active Allergy Reactions Criticality [...] set at 11/01 PSG -- AHI 83 [facility] Hypothyroidism 02/12/2007 Irritable bowel syndrome 11/23/2004 [...] mRNA, LNP-s, No Pre serve, 2-Dose Series ([employer]) 11/30/2021,01/20/2021,12/30/2020 Covid-19, Mrna, Lnp-s, Pf, B ivalent, 30 Mcg, IM, 12 yrs and above ([employer]) 10/17/2022 Hepatitis B, 20+ yrs 01/14/2024,08/12/2023,07/10 PPD [...] 02/11/2024 9:00 AM EDT Attempted to call [phone] had to leave message for pt * Telephone Encounter - Wendy Cosme MED ASSIST - 02/04/2024 1:22 PM EDT Called [employer]. Had to leave message with business services coordinator for patients nurse to contact our office. * Telephone Encounter - Wendy Cosme MED ASSIST - 02/03/2024 9:28 AM EDT Called patients home # and spoke with a care warehouse team leader. She stated that patients nurse will contact [...] - 01/27/2024 8:02 AM EST Referral entered. [place] plan is signed. Patient has not gone for lab work. documented in this encounter Plan of Treatment Upcoming Encounters Date Type Department Care Team (Late st Contact Info) Description 04/03/2024 11:00 AM EDT Office Visit Gynecology/Obstetics [place] [address] [place] [address] Chery Colon PA-C [address] [place] [address] 01/07/2025 2:20 PM EST Office Visit [facility] [address] [place] [address] Drea Cruz MD [address] [place] [address] Scheduled Procedures Name Priority Associated Diagnoses Date/Ti [...] D LEVEL ONCE IN A LIFETIME-USE SMARTSET# [id number] Completed 01/29/2024, 06/22/2022, 02/01/2021, Additional history exists [...] >19 ng/mL 01/30/2024 1:[address] [facility] Blood Venous blood specimen / Unknown Venipuncture / Unknown 01/29/2024 2:27 PM EST 01/29/2024 2:27 PM EST Narrative LABORATORY [facility] - 01/30/2024 1:38 PM EST Deficient: <20 ng/mL Insufficient: 20-29 ng/mL Recommended/Optimum:30-50 ng/mL Vitamin D intoxication is rare. If suspicious of Vitamin D toxicity, evaluation of serum Calcium and PTH is recommended. Drea Cruz MD LAB BLOOD ORDER [facility] [address] [place] [address] documented in this encounter Visit Diagnoses Diagnosis Senile osteoporosis- Primary documented in this encounter Advance Directives Latest Code Status on File Code Status Date Activated Date Inactivated Comments Full Code 05/22/2022 9:26 AM 05/23/2022 4:47 PM This order reflects the patients wishes and were consensually agreed upon. Question Answer Comments Discussion of Advance Directives occurred with: Not Discussed Care Teams Tableman Relationship Specialty Start Date End Date Vianney Cruz MD [address] [place] [address] PCP - General Internal Medicine 08/23/21 documented as of this encounter
--- OUTSIDE RECORDS SUMMARY | 2024-06-03 14:20 | External Medical Summary | Summary of Care ---
Author Name Unknown Organization [facility] Address [address] [place] [address] Phone [phone] Care Team Providers Care Auto Parts Professional Name Role Phone Vianney Cruz MD Primary Care Provider + Reason for Visit * Reason Onset Date Comments Appointment 02/04/2024 Returning Call 02/04/2024 Encounter Details Date Type Department Care Team (Late st Contact Info) Description 02/04/2024 Telephone [facility] [address] [place] [address] Drea Cruz MD [address] [place] [address] Appointment; Returning Call Allergies Active Allergy Reactions Criticality Noted Date Comments Bee Venom 01/11/2016 Localized swelling Pollen 02/13/2017 Unknown environmental allergy Clonazepam 01/25/2020 Causes increase in agitation/anxiety Tramadol 02/21/2015 Mood swings documented as of this encounter (statuses as of 02/04/2024) Medications Medication Sig Dispensed Refills Start Date [...] Active Rosuvastatin Calcium 10 MG Oral Tablet (Crestor)Nevilletio ns:Mixed dyslipidemia TAKE 1 TABLET BY MOUTH [...] as of this encounter (statuses as of 02/04/2024) Active Problems Problem Noted Date Diagnosed Date [...] set at 1211/2007 PSG -- AHI 83 [facility] Hypothyroidism 02/12/2007 Irritable bowel syndrome 11/23/2004 Sensorineural hearing loss, unilateral Overview: left documented as of this encounter (statuses as of 02/04/2024) Resolved Problems Problem Noted Date Diagnosed Date [...] as of this encounter (statuses as of 02/04/2024) Immunizations Name Administration Dates Next Due COVID-19 mRNA, LNP-s, No Pre serve, 2-Dose Series ([employer]) 11/30/2021,01/20/2021,12/30/2020 Covid-19, Mrna, Lnp-s, Pf, B ivalent, 30 Mcg, IM, 12 yrs and above ([employer]) 10/17/2022 Hepatitis B, 20+ yrs 01/14/2024,08/12/2023,07/10 PPD [...] encounter Miscellaneous Notes * Telephone Encounter - Marjorie Burt OSA - 02/04/2024 2:25 PM EDT [place] returning call to schedule Rosa Isela for infusion. She will be available to contact until 4 PM today (02/04/24). * Telephone Encounter - Jill Collins OSA - 02/04/2024 11:02 AM EDT Called pt's number and spoke to caregiver. pet caregiver gave phone number for Marge at [facility] office to schedule follow up ([phone]). Called number and left message to schedule follow up appt documented in this encounter Plan of Treatment Upcoming Encounters Date Type Department Care Team (Late st Contact Info) Description 04/03/2024 11:00 AM EDT Office Visit Gynecology/Obstetics [place] [address] [place] [address] Chery Colon PA-C [address] [place] [address] Scheduled Procedures Name Priority Associated Diagnoses Date/Ti [...] D LEVEL ONCE IN A LIFETIME-USE SMARTSET# [id number] Completed 01/29/2024, 06/22/2022, 02/01/2021, Additional history exists [...] Directives occurred with: Not Discussed Care Teams Auto Parts Professional Relationship Specialty Start Date End Date Vianney Cruz MD [address] [place] [address] PCP - General Internal Medicine 08/23/21 documented as of this encounter
--- OUTSIDE RECORDS SUMMARY | 2024-06-03 14:20 | External Medical Summary | Summary of Care ---
Author Name Unknown Organization [facility] Address [address] [place] [address] Phone [phone] Care Team Providers Care Polymerization Supervisor Name Role Phone Vianney Cruz MD Primary Care Provider + Reason for Visit * Reason Comments Outpatient Testing Encounter Details Date Type Department Care Team (Late st Contact Info) Description 01/29/2024 2:30 PM EST Laboratory Laboratory [facility] [address] [place] [address] [facility] [address] [place] [address] Elevated ferritin; HTN, goal below 140/90; Senile osteoporosis Allergies Active Allergy Reactions Criticality Noted Date Comments Bee Venom 01/11/2016 Localized swelling Pollen 02/13/2017 Unknown environmental allergy Clonazepam 01/25/2020 Causes increase in agitation/anxiety Tramadol 02/21/2015 Mood swings documented as of this encounter (statuses as of 01/29/2024) Medications Medication Sig Dispensed Refills Start Date [...] as of this encounter (statuses as of 01/29/2024) Active Problems Problem Noted Date Diagnosed Date [...] set at 1211/2007 PSG -- AHI 83 [facility] Hypothyroidism 02/12/2007 Irritable bowel syndrome 11/23/2004 Sensorineural hearing loss, unilateral Overview: left documented as of this encounter (statuses as of 01/29/2024) Resolved Problems Problem Noted Date Diagnosed Date [...] as of this encounter (statuses as of 01/29/2024) Immunizations Name Administration Dates Next Due COVID-19 mRNA, LNP-s, No Pre serve, 2-Dose Series ([employer]) 11/30/2021,01/20/2021,12/30/2020 Covid-19, Mrna, Lnp-s, Pf, B ivalent, 30 Mcg, IM, 12 yrs and above ([employer]) 10/17/2022 Hepatitis B, 20+ yrs 01/14/2024,08/12/2023,07/10 PPD [...] 04/03/2024 11:00 AM EDT Office Visit Gynecology/Obstetics [place] [address] [place] [address] Chery Colon PA-C [address] [place] [address] Pending Results Name Type Priority Associated Diagnoses Date /Time FERRITIN Lab Routine Elevated ferritin 01/29/2024 2:27 PM EST IRON SCREEN, INCLUDING TIBC Lab Routine Elevated ferritin 01/29/2024 2:27 PM EST COMPREHENSIVE METABOLIC PANEL Lab Routine HTN, goal below 140/90 01/29/2024 2:27 PM EST ERYTHROCYTE SEDIMENTATION RATE (ESR) Lab Routine Elevated ferritin 01/29/2024 2:27 PM EST CRP (INFLAMMATORY MARKER) Lab Routine Elevated ferritin 01/29/2024 2:27 PM EST 25-HYDROXY VITAMIN D Lab Routine Senile osteoporosis 01/29/2024 2:27 PM EST Scheduled Procedures Name Priority Associated Diagnoses Date/Ti [...] 06/27/2023, 05/25, 06/07/2022, Additional history exists GFR 09/12/2024 09/12/2023, 03/2023, 12/17/2022, Additional history exists DXA Scan 05/27/2025 05/27/2023, 07/11/2021 Albumin/Creatinine Ratio 09/20/2025 09/20/2022 Diabetes Screening 09/12/2026 09/12/2023, 0 05/29/2023, 05/29/2023, Additional history exists Hardy's Esophagus Surveilance 10/11/2026 10/11/2023, 10/11/2023, 12/15/2013, Additional history exists Lipid Panel 05/29/2028 05/29/2023, 11/26, 02/17/2022, Additional history exists Colonoscopy 11/03/2028 11/03/2018, 11/16/2013 Colorectal Cancer Screening 11/03/2028 DTaP,Tdap,and Td Vaccines (3 - Td or Tdap) 01/07/2033 01/07/2023, 07/08/2013, 05/31/2006 Zoster Vaccines Completed 08/16/2020, 06/10/2020 VITAMIN D LEVEL ONCE IN A LIFETIME-USE SMARTSET# [id number] Completed 06/22/2022, 02/01/2021, 11/01/2020, Additional history exists Influenza Vaccine (FLU shot) Completed , 09/20/2022, 08/15/2021, Additional history exists Hepatitis B Completed 01/14/2024, 07/26, 07/10/2023 GARDASIL-HPV IMMUNIZATION SERIES Aged Out No longer [...] Procedure Name Priority Date/Time Associated Diagnosis Comments DIFFERENTIAL, AUTOMATED Routine 01/29/2024 2:27 PM EST Elevated ferritin CBC Routine 01/29/2024 2:27 PM EST Elevated ferritin CBC Routine 01/29/2024 2:27 PM EST Elevated ferritin documented in this encounter Results * DIFFERENTIAL, AUTOMATED (01/29/2024 2:27 PM EST) WBC 5.68 4.00 - 10.80 K/uL 01/29/2024 2:43 PM EST [facility] [place]02 Neutrophils % 63.8 40.0 - 75.0 % 01/29/2024 2:43 PM EST [facility]02 Lymphocytes % 27.1 18.0 - 42.0 % 01/29/2024 2:43 PM EST [facility]02 Monocytes % 7.2 1.0 - 11.0 % 01/29/2024 2:43 PM EST [facility] [place]02 Eosinophils % 1.4 0.0 - 6.0 % 01/29/2024 2:43 PM EST [facility] [place]02 Basophils % 0.5 0.0 - 2.0 % 01/29/2024 2:43 PM EST [facility]02 Absolute Neutrophils 3.62 1.80 - 7.70 K/uL 01/29/2024 2:43 PM EST [facility] [place]02 Absolute Lymphocytes 1.54 1.00 - 4.80 K/ul 01/29/2024 2:43 PM EST [facility] [place]02 Absolute Monocytes 0.41 0.00 - 1.10 K/uL 01/29/2024 2:43 PM EST [facility] [place]02 Absolute Eosinophils 0.08 0.00 - 0.70 K/uL 01/29/2024 2:43 PM [facility] 56 Absolute Basophils 0.03 0.00 - 0.20 K/uL 01/29/2024 2:43 PM [facility] 56 Blood Venous blood specimen / Unknown Venipuncture / Unknown 01/29/2024 2:27 PM EST 01/29/2024 2:27 PM EST Vianney Cruz MD LAB BLOOD [place] [address] [place], [place] [id number] * CBC (01/29/2024 2:27 PM EST) WBC 5.68 4.00 - 10.80 K/uL 01/29/2024 2:[address] RBC 5.04 3.85 - 5.15 M/uL 01/29/2024 2:[address] HGB 14.2 12.0 - 15.3 g/dL 01/29/2024 2:[address] HCT 45.2 36.0 - 45.2 % 01/29/2024 2:43 PM [facility] 56 MCV 89.7 81.5 - 97.5 fL 01/29/2024 2:[address] MCH 28.2 27.0 - 34.0 pg 01/29/2024 2:43 PM [facility] 56 MCHC 31.4 32.0 - 36.0 g/dL 01/29/2024 2:43 PM [facility] 56 RDW 12.8 11.5 - 15.5 % 01/29/2024 2:43 PM [facility] 56 PLT 238 140 - 400 K/uL 01/29/2024 2:43 PM [facility] 56 MPV 9.7 6.6 - 11.1 fL 01/29/2024 2:43 PM [facility] 56 Blood Venous blood specimen / Unknown Venipuncture / Unknown 01/29/2024 2:27 PM EST 01/29/2024 2:27 PM EST Vianney Cruz MD LAB BLOOD ORDERA [facility] [place] 56-02 [address] [place] [address] documented in this encounter Visit Diagnoses Diagnosis Elevated ferritin Other abnormal blood chemistry HTN, goal below 140/90 Unspecified essential hypertension Senile osteoporosis documented in this encounter Advance Directives Latest Code Status on File Code Status Date Activated Date Inactivated Comments Full Code 05/22/2022 9:26 AM 05/23/2022 4:47 PM This order reflects the patients wishes and were consensually agreed upon. Question Answer Comments Discussion of Advance Directives occurred with: Not Discussed Care Teams Polymerization Supervisor Relationship Specialty Start Date End Date [facility]y Cruz MD [address] [facility] [address] PCP - General Internal Medicine 08/23/21 documented as of this encounter
--- OUTSIDE RECORDS SUMMARY | 2024-06-03 14:20 | External Medical Summary | Summary of Care ---
Author Name Unknown Organization [facility] Address [address] [place] [address] Phone [phone] Care Team Providers Care Hydrochloric Area Supervisor Name Role Phone Vianney Cruz MD Primary Care Provider + Reason for Visit * Reason Onset Date Comments Appointment 02/04/2024 Encounter Details Date Type Department Care Team (Late st Contact Info) Description 02/04/2024 Telephone [facility] [place] [place] [address] [place] [address] Drea Cruz MD [address] [place] [address] Appointment Allergies Active Allergy Reactions Criticality Noted Date [...] set at 1211/2007 PSG -- AHI 83 [facility] Hypothyroidism 02/12/2007 Irritable bowel syndrome 11/23/2004 Sensorineural [...] mRNA, LNP-s, No Pre serve, 2-Dose Series ([employer]) 11/30/2021,01/20/2021,12/30/2020 Covid-19, Mrna, Lnp-s, Pf, B ivalent, 30 Mcg, IM, 12 yrs and above ([employer]) 10/17/2022 Hepatitis B, 20+ yrs 01/14/2024,08/12/2023,07/10 PPD [...] encounter Miscellaneous Notes * Telephone Encounter - Jill Collins OSA - 02/04/2024 11:02 AM EDT Called pt's number and spoke to caregiver. patient access registrar gave phone number for Marge at [facility] office to schedule follow up ([phone]). Called number and left message to schedule follow up appt documented in this encounter Plan of Treatment Upcoming Encounters Date Type Department Care Team (Late st Contact Info) Description 04/03/2024 11:00 AM EDT Office Visit Gynecology/Obstetics [place] [address] [place] [address] [facility] [address] Scheduled Procedures Name Priority Associated Diagnoses Date/Ti [...] D LEVEL ONCE IN A LIFETIME-USE SMARTSET# [id number] Completed 01/29/2024, 06/22/2022, 02/01/2021, Additional history exists [...] Directives occurred with: Not Discussed Care Teams Hydrochloric Area Supervisor Relationship Specialty Start Date End Date Vianney Cruz MD [address] [facility] [place] [address] PCP - General Internal Medicine 08/23/21 documented as of this encounter
--- OUTSIDE RECORDS SUMMARY | 2024-06-03 14:20 | External Medical Summary | Summary of Care ---
Author Name Unknown Organization [facility] Address [address] [place] [address] Phone [phone] Care Team Providers Care Craft Superintendent Name Role Phone Vianney Cruz MD Primary Care Provider + Reason for Visit * Reason Onset Date Comments Appointment 02/04/2024 Encounter Details Date Type Department Care Team (Late st Contact Info) Description 02/04/2024 Telephone Endocrinology, [place] [address] [place] [address] Drea Cruz MD [address] [place] [address] Appointment Allergies Active Allergy Reactions [...] 12/04/2023 Active D3 Super Strength 50 MCG (1999) [...] set at 1211/2007 PSG -- AHI 83 [facility] Hypothyroidism 02/12/2007 Irritable bowel syndrome 11/23/2004 Sensorineural [...] mRNA, LNP-s, No Pre serve, 2-Dose Series ([employer]) 11/30/2021,01/20/2021,12/30/2020 Covid-19, Mrna, Lnp-s, Pf, B ivalent, 30 Mcg, IM, 12 yrs and above ([employer]) 10/17/2022 Hepatitis B, 20+ yrs 01/14/2024,08/12/2023,07/10 PPD [...] Encounter - Jill Collins OSA - 02/04/2024 3:01 PM EDT Pt caregiver called back and scheduled follow up appt documented in this encounter Plan of Treatment Upcoming Encounters Date Type Department Care Team (Late st Contact Info) Description 04/03/2024 11:00 AM EDT Office Visit Gynecology/Obstetics [place] [address] [place] [address] Chery Colon PA-C [address] [place] [address] 01/07/2025 2:20 PM EST Office Visit Endocrinology, [place] [address] [facility] [phone] Drea Cruz MD [address] [facility] [place] [address] Scheduled Procedures Name Priority Associated Diagnoses Date/Ti [...] D LEVEL ONCE IN A LIFETIME-USE SMARTSET# [id number] Completed 01/29/2024, 06/22/2022, 02/01/2021, Additional history exists [...] Directives occurred with: Not Discussed Care Teams Craft Superintendent Relationship Specialty Start Date End Date Vianney Cruz MD [address] [facility] [place] [address] PCP - General Internal Medicine 08/23/21 documented as of this encounter
--- OUTSIDE RECORDS SUMMARY | 2024-06-03 14:20 | External Medical Summary | Summary of Care ---
Author Name Unknown Organization [facility] Address [address] [place] [address] Phone [phone] Care Team Providers Care Chief Safety Officer Name Role Phone Vianney Cruz MD Primary Care Provider + Encounter Details Date Type Department Care Team (Late st Contact Info) Description 01/23/2024 Telephone [facility] [place] [address] [place] [address] Drea Cruz MD [address] [place] [address] Allergies Active Allergy Reactions Criticality Noted Date Comments Bee Venom 01/11/2016 Localized swelling Pollen 02/13/2017 Unknown environmental allergy Clonazepam 01/25/2020 Causes increase in agitation/anxiety Tramadol 02/21/2015 Mood swings documented as of this encounter (statuses as of 02/03/2024) Medications Medication Sig Dispensed Refills Start Date [...] as of this encounter (statuses as of 02/03/2024) Active Problems Problem Noted Date Diagnosed Date [...] set at 1211/2007 PSG -- AHI 83 [facility] Hypothyroidism 02/12/2007 Irritable bowel syndrome 11/23/2004 Sensorineural hearing loss, unilateral Overview: left documented as of this encounter (statuses as of 02/03/2024) Resolved Problems Problem Noted Date Diagnosed Date [...] as of this encounter (statuses as of 02/03/2024) Immunizations Name Administration Dates Next Due COVID-19 mRNA, LNP-s, No Pre serve, 2-Dose Series ([employer]) 11/30/2021,01/20/2021,12/30/2020 Covid-19, Mrna, Lnp-s, Pf, B ivalent, 30 Mcg, IM, 12 yrs and above ([employer]) 10/17/2022 Hepatitis B, 20+ yrs 01/14/2024,08/12/2023,07/10 PPD [...] home # and spoke with a care project manager/team coach. She stated that patients nurse will contact [...] schedule 1 hour appt "smootht" (Dr Drea Curz). Thanks! * Telephone Encounter - Supriya Bryant RN - 01/27/2024 8:02 AM EST Referral entered. [place] plan is signed. Patient has not gone for lab work. documented in this encounter Plan of Treatment Upcoming Encounters Date Type Department Care Team (Late st Contact Info) Description 04/03/2024 11:00 AM EDT Office Visit Gynecology/Obstetics [place] [address] [place] [phone] Chery Colon PA-C [address] [place] [address] Scheduled Procedures Name Priority Associated Diagnoses Date/Ti [...] D LEVEL ONCE IN A LIFETIME-USE SMARTSET# [id number] Completed 01/29/2024, 06/22/2022, 02/01/2021, Additional history exists [...] >19 ng/mL 01/30/2024 1:38 PM EST [facility]AT[facility] Blood Venous blood specimen / Unknown Venipuncture / Unknown 01/29/2024 2:27 PM EST 01/29/2024 2:27 PM EST Narrative LAB[facility] - 01/30/2024 1:38 PM EST Deficient: <20 ng/mL Insufficient: 20-29 ng/mL Recommended/Optimum:30-50 ng/mL Vitamin D intoxication is rare. If suspicious of Vitamin D toxicity, evaluation of serum Calcium and PTH is recommended. Drea Cruz MD LAB BLOOD ORDER [facility] LAB[facility] [address] [place] [address] documented in this encounter Visit Diagnoses Diagnosis Senile osteoporosis- Primary documented in this encounter Advance Directives Latest Code Status on File Code Status Date Activated Date Inactivated Comments Full Code 05/22/2022 9:26 AM 05/23/2022 4:47 PM This order reflects the patients wishes and were consensually agreed upon. Question Answer Comments Discussion of Advance Directives occurred with: Not Discussed Care Teams Chief Safety Officer Relationship Specialty Start Date End Date Vianney Cruz MD [address] [place] [address] PCP - General Internal Medicine 08/23/21 documented as of this encounter
--- OUTSIDE RECORDS SUMMARY | 2024-06-03 14:20 | External Medical Summary | Summary of Care ---
Author Name Unknown Organization [facility] Address [address] [place] [address] Phone [phone] Care Team Providers Care Handling Tech Name Role Phone Vianney Cruz MD Primary Care Provider + Encounter Details Date Type Department Care Team (Late st Contact Info) Description 01/23/2024 Telephone [facility], [place] [address] [place] [address] Drea Cruz MD [address] [place] [address] Allergies Active Allergy Reactions Criticality Noted Date Comments Bee Venom 01/11/2016 Localized swelling Pollen 02/13/2017 Unknown environmental allergy Clonazepam 01/25/2020 Causes increase in agitation/anxiety Tramadol 02/21/2015 Mood swings documented as of this encounter (statuses as of 01/31/2024) Medications Medication Sig Dispensed Refills Start Date [...] as of this encounter (statuses as of 01/31/2024) Active Problems Problem Noted Date Diagnosed Date [...] -- AHI 83 [facility] Hypothyroidism 02/12/2007 Irritable bowel syndrome 11/23/2004 Sensorineural hearing loss, unilateral Overview: left documented as of this encounter (statuses as of 01/31/2024) Resolved Problems Problem Noted Date Diagnosed Date [...] as of this encounter (statuses as of 01/31/2024) Immunizations Name Administration Dates Next Due COVID-19 mRNA, LNP-s, No Pre serve, 2-Dose Series ([employer]) 11/30/2021,01/20/2021,12/30/2020 Covid-19, Mrna, Lnp-s, Pf, B ivalent, 30 Mcg, IM, 12 yrs and above ([employer]) 10/17/2022 Hepatitis B, 20+ yrs 01/14/2024,08/12/2023,07/10 PPD [...] encounter Miscellaneous Notes * Telephone Encounter - Supriya Bryant RN - 01/31/2024 7:40 AM EST Labs 01/29/24. Scheduling: please call patient to schedule 1 hour appt "reclast" (Dr Drea Cruz). Thanks! * Telephone Encounter - Supriya Bryant RN - 01/27/2024 8:02 AM EST Referral entered. [place] plan is signed. Patient has not gone for lab work. documented in this encounter Plan of Treatment Upcoming Encounters Date Type Department Care Team (Late st Contact Info) Description 04/03/2024 11:00 AM EDT Office Visit Gynecology/Obstetics [place] [address] [place] [phone] Chery Colon PA-C [address] [facility] [place] [address] Scheduled Procedures Name Priority Associated Diagnoses Date/Ti [...] D LEVEL ONCE IN A LIFETIME-USE SMARTSET# 66840 Completed 01/29/2024, 06/22/2022, 02/01/2021, Additional history exists [...] >19 ng/mL 01/30/2024 1:38 PM EST LAB[facility]ATORY [facility] Blood Venous blood specimen / Unknown Venipuncture / Unknown 01/29/2024 2:27 PM EST 01/29/2024 2:27 PM EST Narrative LAB[facility]ATORY [facility] - 01/30/2024 1:38 PM EST Deficient: <20 ng/mL Insufficient: 20-29 ng/mL Recommended/Optimum:30-50 ng/mL Vitamin D intoxication is rare. If suspicious of Vitamin D toxicity, evaluation of serum Calcium and PTH is recommended. Drea Cruz MD LAB BLOOD ORDER JOSIE LAB[facility] [address] [place] [address] documented in this encounter Visit Diagnoses Diagnosis Senile osteoporosis- Primary documented in this encounter Advance Directives Latest Code Status on File Code Status Date Activated Date Inactivated Comments Full Code 05/22/2022 9:26 AM 05/23/2022 4:47 PM This order reflects the patients wishes and were consensually agreed upon. Question Answer Comments Discussion of Advance Directives occurred with: Not Discussed Care Teams Handling Tech Relationship Specialty Start Date End Date Vianney Cruz MD [address] [facility] [place] [address] PCP - General Internal Medicine 08/23/21 documented as of this encounter
--- OUTSIDE RECORDS SUMMARY | 2024-06-03 14:20 | External Medical Summary | Summary of Care ---
Author Name Unknown Organization [facility] Address [address] [place] [address] Phone [phone] Care Team Providers Care Radius Grinder Name Role Phone Vianney Cruz MD Primary Care Provider + Encounter Details Date Type Department Care Team (Late st Contact Info) Description 01/23/2024 Telephone [facility], [place] [address] [place] [address] Drea Cruz MD [address] [place] [address] Allergies Active Allergy Reactions Criticality [...] set at 1211/2007 PSG -- AHI 83 [facility] Hypothyroidism [...] mRNA, LNP-s, No Pre serve, 2-Dose Series ([employer]) 11/30/2021,01/20/2021,12/30/2020 Covid-19, Mrna, Lnp-s, Pf, B ivalent, 30 Mcg, IM, 12 yrs and above ([employer]) 10/17/2022 Hepatitis B, 20+ yrs 01/14/2024,08/12/2023,07/10 PPD [...] X3. Had to leave message with business development executive for patients nurse to contact our office. * Telephone Encounter - Wendy Cosme MED ASSIST - 02/03/2024 9:28 AM EDT Called patients home # and spoke with a care boilermaker central steam plant. She stated that patients nurse will contact [...] - 01/27/2024 8:02 AM EST Referral entered. [place] plan is signed. Patient has not gone for lab work. documented in this encounter Plan of Treatment Upcoming Encounters Date Type Department Care Team (Late st Contact Info) Description 04/03/2024 11:00 AM EDT Office Visit Gynecology/Obstetics [place] [address] [place] [phone] Chery Colon PA-C [address] [place] [address] Scheduled Procedures Name Priority Associated Diagnoses Date/Ti [...] D LEVEL ONCE IN A LIFETIME-USE SMARTSET# [id number] Completed 01/29/2024, 06/22/2022, 02/01/2021, Additional history exists [...] >19 ng/mL 01/30/2024 1:38 PM EST LABORATORY [facility] Blood Venous blood specimen / Unknown Venipuncture / Unknown 01/29/2024 2:27 PM EST 01/29/2024 2:27 PM EST Narrative LAB[facility]ORY [facility] - 01/30/2024 1:38 PM EST Deficient: <20 ng/mL Insufficient: 20-29 ng/mL Recommended/Optimum:30-50 ng/mL Vitamin D intoxication is rare. If suspicious of Vitamin D toxicity, evaluation of serum Calcium and PTH is recommended. Drea Cruz MD LAB BLOOD ORDER JOSIE [facility] [address] [place] [address] documented in this encounter Visit Diagnoses Diagnosis Senile osteoporosis- Primary documented in this encounter Advance Directives Latest Code Status on File Code Status Date Activated Date Inactivated Comments Full Code 05/22/2022 9:26 AM 05/23/2022 4:47 PM This order reflects the patients wishes and were consensually agreed upon. Question Answer Comments Discussion of Advance Directives occurred with: Not Discussed Care Teams Radius Grinder Relationship Specialty Start Date End Date Vianney Cruz MD [address] [place] [address] [place] [address] PCP - General Internal Medicine 08/23/21 documented as of this encounter
--- OUTSIDE RECORDS SUMMARY | 2024-06-03 14:20 | External Medical Summary | Summary of Care ---
Author Name Unknown Organization [facility] Address [address] [place] [address] Phone [phone] Care Team Providers Care Television News Reporter Name Role Phone Vianney Cruz MD Primary Care Provider + Reason for Visit * Reason Onset Date Comments Appointment 02/04/2024 Encounter Details Date Type Department Care Team (Late st Contact Info) Description 02/04/2024 Telephone Endocrinology, [place] [address] [place] [address] Drea Cruz MD [address] [place] [address] Appointment Allergies Active Allergy Reactions [...] mRNA, LNP-s, No Pre serve, 2-Dose Series ([employer]) 11/30/2021,01/20/2021,12/30/2020 Covid-19, Mrna, Lnp-s, Pf, B ivalent, 30 Mcg, IM, 12 yrs and above ([employer]) 10/17/2022 Hepatitis B, 20+ yrs 01/14/2024,08/12/2023,07/10 [...] Encounter - Jill Collins OSA - 02/04/2024 2:57 PM EDT Called pt career law clerk back to schedule follow up appt. Left message to call back documented in this encounter Plan of Treatment Upcoming Encounters Date Type Department Care Team (Late st Contact Info) Description 04/03/2024 11:00 AM EDT Office Visit Gynecology/Obstetics [place] [address] [place] [address] Chery Colon PA-C [address] [place] [address] 01/07/2025 2:20 PM EST Office Visit Endocrinology, [place] [address] [place], [place] [phone] Drea Cruz MD [address] [place], [place] [phone] Scheduled Procedures Name Priority Associated Diagnoses Date/Ti [...] D LEVEL ONCE IN A LIFETIME-USE SMARTSET# [id number] Completed 01/29/2024, 06/22/2022, 02/01/2021, Additional history exists [...] Directives occurred with: Not Discussed Care Teams Television News Reporter Relationship Specialty Start Date End Date Vianney Cruz MD [address] [place] [address] PCP - General Internal Medicine 08/23/21 documented as of this encounter
--- OUTSIDE RECORDS SUMMARY | 2024-06-03 14:20 | External Medical Summary | Summary of Care ---
Author Name Unknown Organization [facility] Address [address] [place] [address] Phone [phone] Care Team Providers Care Precinct Commanding Officer Name Role Phone Vianney Cruz MD Primary Care Provider + Encounter Details Date Type Department Care Team (Late st Contact Info) Description 01/23/2024 Telephone [facility], [place] [address] [place] [address] Drea Cruz MD [address] [place] [address] Allergies Active Allergy Reactions Criticality [...] at 1211/2007 PSG -- AHI 83 [facility] Hypothyroidism 02/12/2007 Irritable bowel syndrome 11/23/2004 [...] mRNA, LNP-s, No Pre serve, 2-Dose Series ([employer]) 11/30/2021,01/20/2021,12/30/2020 Covid-19, Mrna, Lnp-s, Pf, B ivalent, 30 Mcg, IM, 12 yrs and above ([employer]) 10/17/2022 Hepatitis B, 20+ yrs 01/14/2024,08/12/2023,07/10 PPD [...] - 01/27/2024 8:02 AM EST Referral entered. [place] plan is signed. Patient has not gone for lab work. documented in this encounter Plan of Treatment Upcoming Encounters Date Type Department Care Team (Late st Contact Info) Description 04/03/2024 11:00 AM EDT Office Visit Gynecology/Obstetics [address] [phone] Chery Colon PA-C [address] [place], [place] [address] [address] Scheduled Procedures Name Priority Associated Diagnoses Date/Ti [...] D LEVEL ONCE IN A LIFETIME-USE SMARTSET# [id number] Completed 01/29/2024, 06/22/2022, 02/01/2021, Additional history exists [...] >19 ng/mL 01/30/2024 1:38 PM EST [facility] [place] Venous blood specimen / Unknown Venipuncture / Unknown 01/29/2024 2:27 PM EST 01/29/2024 2:27 PM EST Narrative [facility] - 01/30/2024 1:38 PM EST Deficient: <20 ng/mL Insufficient: 20-29 ng/mL Recommended/Optimum:30-50 ng/mL Vitamin D intoxication is rare. If suspicious of Vitamin D toxicity, evaluation of serum Calcium and PTH is recommended. Drea Cruz MD LAB BLOOD ORDER JOSIE [facility] [address] [place] [address] documented in this encounter Visit Diagnoses Diagnosis Senile osteoporosis- Primary documented in this encounter Advance Directives Latest Code Status on File Code Status Date Activated Date Inactivated Comments Full Code 05/22/2022 9:26 AM 05/23/2022 4:47 PM This order reflects the patients wishes and were consensually agreed upon. Question Answer Comments Discussion of Advance Directives occurred with: Not Discussed Care Teams Precinct Commanding Officer Relationship Specialty Start Date End Date Vianney Cruz MD 200 [facility] [place] [address] PCP - General Internal Medicine 08/23/21 documented as of this encounter
--- OUTSIDE RECORDS SUMMARY | 2024-06-03 14:20 | External Medical Summary | Summary of Care ---
Author Name Unknown Organization [facility] Address [address] [place] [address] Phone [phone] Care Team Providers Care Msw Name Role Phone Vianney Cruz MD Primary Care Provider + Encounter Details Date Type Department Care Team (Late st Contact Info) Description 01/23/[address] [facility], [place] [address] [place] [address] Drea Curz MD [address] [place] [address] Allergies Active Allergy Reactions Criticality Noted Date Comments Bee Venom 01/11/2016 Localized swelling Pollen 02/13/2017 Unknown environmental allergy Clonazepam 01/25/2020 Causes increase in agitation/anxiety Tramadol 02/21/2015 Mood swings documented as of this encounter (statuses as of 01/30/2024) Medications Medication Sig Dispensed Refills Start Date [...] as of this encounter (statuses as of 01/30/2024) Active Problems Problem Noted Date Diagnosed Date [...] set at 1211/2007 PSG -- AHI 83 [facility] Hypothyroidism 02/12/2007 Irritable bowel syndrome 11/23/2004 Sensorineural hearing loss, unilateral Overview: left documented as of this encounter (statuses as of 01/30/2024) Resolved Problems Problem Noted Date Diagnosed Date [...] as of this encounter (statuses as of 01/30/2024) Immunizations Name Administration Dates Next Due COVID-19 mRNA, LNP-s, No Pre serve, 2-Dose Series ([employer]) 11/30/2021,01/20/2021,12/30/2020 Covid-19, Mrna, Lnp-s, Pf, B ivalent, 30 Mcg, IM, 12 yrs and above ([employer]) 10/17/2022 Hepatitis B, 20+ yrs 01/14/2024,08/12/2023,07/10 PPD [...] - 01/27/2024 8:02 AM EST Referral entered. [place] plan is signed. Patient has not gone for lab work. documented in this encounter Plan of Treatment Upcoming Encounters Date Type Department Care Team (Late st Contact Info) Description 04/03/2024 11:00 AM EDT Office Visit Gynecology/Obstetics [address] [phone] Chery Colon PA-C [address] [place] [address] Pending Results Name Type Priority Associated Diagnoses Date /Time 25-HYDROXY VITAMIN D Lab Routine Senile osteoporosis 01/29/2024 2:27 PM EST Scheduled Orders Name Type Priority Associated Diagnoses Orde r Schedule 25-HYDROXY VITAMIN D Lab Routine Senile osteoporosis Expected: 01/23/2024 (Approximate), Expires: 01/22/2025 Scheduled Procedures Name Priority Associated Diagnoses Date/Ti [...] D LEVEL ONCE IN A LIFETIME-USE SMARTSET# [id number] Completed 06/22/2022, 02/01/2021, 11/01/2020, Additional history exists [...] as of this encounter Visit Diagnoses Diagnosis Senile osteoporosis- Primary documented in this encounter Advance Directives Latest Code Status on File Code Status Date Activated Date Inactivated Comments Full Code 05/22/2022 9:26 AM 05/23/2022 4:47 PM This order reflects the patients wishes and were consensually agreed upon. Question Answer Comments Discussion of Advance Directives occurred with: Not Discussed Care Teams Msw Relationship Specialty Start Date End Date Vianney Cruz MD [address] [facility] [place] [address] PCP - General Internal Medicine 08/23/21 documented as of this encounter
--- OUTSIDE RECORDS SUMMARY | 2024-06-03 14:21 | External Medical Summary ---
Author Name Unknown Address Unknown Organization [id number]:[facility] [place] [address] Laboratory Report Ordering Provider Test Date Status KENIA BARRIOS 01/29/2024 14:27:19 Final Observation Date Value Abnormality Reference (Units ) Status BUN 01/29/2024 14:27:19 11 6-20 (mg/dL) Final Creatinine 01/29/2024 14:27:19 0.9 0.5-1.0 (mg/dL) Final Glomerular filtration rate/1.73 sq M.predicted [Volume Rate/Area] in Serum, Plasma or Blood by Creatinine-based formula (CKD-EPI) 01/29/2024 14:27:19 76 >=60 (mL/min) Final eGFR is calculated based on the CKD-EPI 2020 equation SODIUM 01/29/2024 14:27:19 143 135-146 (m mol/L) Final Potassium 01/29/2024 14:27:19 4.0 3.5-5.1 (m mol/L) Final Cl 01/29/2024 14:27:19 106 98-107 (mm ol/L) Final CO2 01/29/2024 14:27:19 25 22-32 (mmo l/L) Final Anion gap 01/29/2024 14:27:19 12 7-15 (mmol /L) Final Glucose 01/29/2024 14:27:19 101 70-120 (mg /dL) Final Albumin 01/29/2024 14:27:19 4.4 3.8-5.0 (g /dL) Final AST (Aspartate aminotransferase) 01/29/2024 14:27:19 17 10-35 (U/L) Fin al Alk Phos 01/29/2024 14:27:19 109 35-130 (U/ L) Final Bilirubin, Total 01/29/2024 14:27:19 0.4 <=1 .2 (mg/dL) Final Calcium 01/29/2024 14:27:19 9.6 8.4-10.2 ( mg/dL) Final Protein 01/29/2024 14:27:19 6.8 6.0-8.3 (g /dL) Final ALT (Alanine aminotransferase) 01/29/2024 14:27:19 9 Below low normal 10-35 (U/L) Final Performing Location [facility] [address] [place] [address]
--- OUTSIDE RECORDS SUMMARY | 2024-06-03 14:21 | External Medical Summary | Summary of Care ---
Author Name Unknown Organization [facility] Address [address] [place] [address] Phone [phone] Care Team Providers Care Manager Strategic Name Role Phone Vianney Cruz MD Primary Care Provider + Encounter Details Date Type Department Care Team (Late st Contact Info) Description 01/23/2024 Telephone [facility], [place] [address] [place] [address] Drea Cruz MD [address] [place] [address] Allergies Active Allergy Reactions Criticality Noted Date Comments Bee Venom 01/11/2016 Localized swelling Pollen 02/13/2017 Unknown environmental allergy Clonazepam 01/25/2020 Causes increase in agitation/anxiety Tramadol 02/21/2015 Mood swings documented as of this encounter (statuses as of 01/27/2024) Medications Medication Sig Dispensed Refills Start Date [...] as of this encounter (statuses as of 01/27/2024) Active Problems Problem Noted Date Diagnosed Date [...] at 1211/2007 PSG -- AHI 83 [facility] Hypothyroidism 02/12/2007 Irritable bowel syndrome 11/23/2004 Sensorineural hearing loss, unilateral Overview: left documented as of this encounter (statuses as of 01/27/2024) Resolved Problems Problem Noted Date Diagnosed Date [...] as of this encounter (statuses as of 01/27/2024) Immunizations Name Administration Dates Next Due COVID-19 mRNA, LNP-s, No Pre serve, 2-Dose Series ([employer]) 11/30/2021,01/20/2021,12/30/2020 Covid-19, Mrna, Lnp-s, Pf, B ivalent, 30 Mcg, IM, 12 yrs and above ([employer]) 10/17/2022 Hepatitis B, 20+ yrs 01/14/2024,08/12/2023,07/10 PPD [...] - 01/27/2024 8:02 AM EST Referral entered. [place] plan is signed. Patient has not gone for lab work. documented in this encounter Plan of Treatment Upcoming Encounters Date Type Department Care Team (Late st Contact Info) Description 04/03/2024 11:00 AM EDT Office Visit Gynecology/Obstetics [address] [address] Chery Colon PA-C [address] [place] [address] Scheduled Orders Name Type Priority Associated Diagnoses Orde r Schedule BASIC METABOLIC PANEL Lab Routine Senile osteoporosis Expected: 01/23/2024 (Approximate), Expires: 01/22/2025 25-HYDROXY VITAMIN D Lab Routine Senile osteoporosis [...] Additional history exists Depression Screening 01/07/2024 01/07/2023 TSH 05/29/2024 05/29/2023, 11/26, 02/17/2022, Additional history exists Mammogram 06/27/2024 06/27/2023, 05/25, 06/07/2022, Additional history exists GFR 09/12/2024 09/12/2023, 07/0 03/2023, 12/17/2022, Additional history exists DXA Scan [...] D LEVEL ONCE IN A LIFETIME-USE SMARTSET# [id number] Completed 06/22/2022, 02/01/2021, 11/01/2020, Additional history exists [...] occurred with: Not Discussed Care Teams Manager Strategic Relationship Specialty Start Date End Date Vianney Cruz MD [address] [place] [address] PCP - General Internal Medicine 08/23/21 documented as of this encounter
--- OUTSIDE RECORDS SUMMARY | 2024-06-03 14:21 | External Medical Summary ---
Author Name Unknown Address Unknown Organization K01:[facility] [place] - [address] [place] [address] Laboratory Report Ordering Provider Test Date Status KENIA BARRIOS 01/29/2024 14:27:19 Final Observation Date Value Abnormality Reference (Units ) Status Erythrocyte sedimentation rate by Photometric method 01/29/2024 14:27:19 36 Above high normal <30 (mm/hour) Final Performing Location [facility] [place] - [address] [place] [address]
--- OUTSIDE RECORDS SUMMARY | 2024-06-03 14:21 | External Medical Summary ---
Author Name Unknown Address Unknown Organization K09:[facility] [place] [address] Laboratory Report Ordering Provider Test Date Status KENIA BARRIOS 01/29/2024 14:27:19 Final Observation Date Value Abnormality Reference (Units ) Status SYNC LEUKOCYTES IN BLOOD BY AUTOMATED COUNT 01/29/2024 14:27:19 5.68 4.00-10.80 (K/uL) Final Segs 01/29/2024 14:27:19 63.8 40.0-75.0 (%) Final Lymphs % 01/29/2024 14:27:19 27.1 18.0-42.0 (%) Final Monos 01/29/2024 14:27:19 7.2 1.0-11.0 (%) Final Eosinophils 01/29/2024 14:27:19 1.4 0.0-6.0 (%) Final Basos 01/29/2024 14:27:19 0.5 0.0-2.0 (%) Final Absolute Segs 01/29/2024 14:27:19 3.62 1.80-7.70 (K/uL) Final Lymphs, absolute 01/29/2024 14:27:19 1.54 1.00-4.80 (K/ul) Final Monos, Abs 01/29/2024 14:27:19 0.41 0.00-1.10 (K/uL) Final Eos, Abs 01/29/2024 14:27:19 0.08 0.00-0.70 (K/uL) Final Basos, Abs 01/29/2024 14:27:19 0.03 0.00-0.20 (K/uL) Final Performing Location [facility] [place] [address]
--- OUTSIDE RECORDS SUMMARY | 2024-06-03 14:21 | External Medical Summary | Summary of Care ---
Author Name Unknown Organization [facility] Address [address] [place] [address] Phone [phone] Care Team Providers Care Wellness Assistant Name Role Phone Vianney Cruz MD Primary Care Provider + Encounter Details Date Type Department Care Team (Late st Contact Info) Description 01/24/2024 Orders Only Endocrinology, [place] [address] [place], [place] [phone] Drea Cruz MD [address] [place] [address] Allergies Active Allergy Reactions Criticality Noted Date Comments Bee Venom 01/11/2016 Localized swelling Pollen 02/13/2017 Unknown environmental allergy Clonazepam 01/25/2020 Causes increase in agitation/anxiety Tramadol 02/21/2015 Mood swings documented as of this encounter (statuses as of 01/24/2024) Medications Medication Sig Dispensed Refills Start Date [...] as of this encounter (statuses as of 01/24/2024) Active Problems Problem Noted Date Diagnosed Date [...] at 12/8 11/2007 PSG -- AHI 83 [facility] Hypothyroidism 02/12/2007 Irritable bowel syndrome 11/23/2004 Sensorineural hearing loss, unilateral Overview: left documented as of this encounter (statuses as of 01/24/2024) Resolved Problems Problem Noted Date Diagnosed Date [...] as of this encounter (statuses as of 01/24/2024) Immunizations Name Administration Dates Next Due COVID-19 mRNA, LNP-s, No Pre serve, 2-Dose Series ([employer]) 11/30/2021,01/20/2021,12/30/2020 Covid-19, Mrna, Lnp-s, Pf, B ivalent, 30 Mcg, IM, 12 yrs and above ([employer]) 10/17/2022 Hepatitis B, 20+ yrs 01/14/2024,08/12/2023,07/10 PPD [...] 04/03/2024 11:00 AM EDT Office Visit Gynecology/Obstetics [place] [address] [place] [phone] Chery Colon PA-C [address] [place] [address] Scheduled Procedures Name Priority Associated Diagnoses Date/Ti [...] 09/12/2024 09/12/2023, 03/2023, 12/17/2022, Additional history exists Albumin/Creatinine Ratio 09/20/2025 09/20/2022 Diabetes Screening 09/12/2026 [...] Directives occurred with: Not Discussed Care Teams Wellness Assistant Relationship Specialty Start Date End Date Vianney Cruz MD [address] [place] [address] PCP - General Internal Medicine 08/23/21 documented as of this encounter
--- OUTSIDE RECORDS SUMMARY | 2024-06-03 14:21 | External Medical Summary ---
Author Name Unknown Address Unknown Organization K01:[facility] [place] [address] [place] [address] Laboratory Report Ordering Provider Test Date Status KENIA TENORIO 01/29/2024 14:27:19 Final Deficient: <20 ng/mL
Ins ufficient: 20-29 ng/mL
Recommended/Optimum:30-50 ng/mL

Vitamin D intoxication is rare. If suspicious of Vitamin D toxicity, evaluation of serum Calcium and PTH is recommended. Observation Date Value Abnormality Reference (Units ) Status 25-OH Vitamin D total 01/29/2024 14:27:19 38 >19 (ng/mL) Final Performing Location [facility] - [address] [place] [address]
--- OUTSIDE RECORDS SUMMARY | 2024-06-03 14:21 | External Medical Summary ---
Author Name Unknown Address Unknown Organization K01:[facility] [address] [place] [address] Laboratory Report Ordering Provider Test Date Status KENIA BARRIOS 01/29/2024 14:27:19 Final Observation Date Value Abnormality Reference (Units ) Status Iron 01/29/2024 14:27:19 57 33-151 (ug/dL) Final Iron-binding capacity 01/29/2024 14:27:19 233 Below low normal 250-425 (ug/dL) Final Transferrin Sat % 01/29/2024 14:27:19 24 15-55 (%) Final Performing Location [facility] [place] [address] [place] [address]
--- OUTSIDE RECORDS SUMMARY | 2024-06-03 14:21 | External Medical Summary ---
Author Name Unknown Address Unknown Organization [id number]:[facility] [place] [address] [address] Laboratory Report Ordering Provider Test Date Status KENIA BARRIOS 01/29/2024 14:27:19 Final Observation Date Value Abnormality Reference (Units ) Status CRP, low-sensitivity 01/29/2024 14:27:19 5 <=5 (mg/L) Final Performing Location [facility]ORY [facility] - [address] [place] [address]
--- OUTSIDE RECORDS SUMMARY | 2024-06-03 14:21 | External Medical Summary | Summary of Care ---
Author Name Unknown Organization [facility] Address [address] [place] [address] Phone [phone] Care Team Providers Care Pet Counselor Name Role Phone Vianney Cruz MD Primary Care Provider + Reason for Visit * Reason Onset Date Comments Encounter Created in Error 01/24/2024 Encounter Details Date Type Department Care Team (Late st Contact Info) Description 01/24/2024 Telephone Hematology Oncology [facility] [address] [place] [address] Drea Cruz MD [address] [place] [address] Encounter Created in Error Allergies Active Allergy Reactions Criticality Noted Date [...] set at 1211/2007 PSG -- AHI 83 [facility] Hypothyroidism 02/12/2007 Irritable bowel syndrome [...] mRNA, LNP-s, No Pre serve, 2-Dose Series ([email or web address]) 11/30/2021,01/20/2021,12/30/2020 Covid-19, Mrna, Lnp-s, Pf, B ivalent, [...] 04/03/2024 11:00 AM EDT Office Visit Gynecology/Obstetics [place] [address] [place] [address] Chery Colon PA-C [address] [place], [place] [phone] Scheduled Procedures Name Priority Associated Diagnoses Date/Ti [...] 09/12/2023, 07/0 03/2023, 12/17/2022, Additional history exists Albumin/Creatinine Ratio [...] Directives occurred with: Not Discussed Care Teams Pet Counselor Relationship Specialty Start Date End Date Vianney Cruz MD [address] [place] [address] PCP - General Internal Medicine 08/23/21 documented as of this encounter
--- OUTSIDE RECORDS SUMMARY | 2024-06-03 14:21 | External Medical Summary | Summary of Care ---
Author Name Unknown Organization [facility] Address [address] [place] [address] Phone [phone] Care Team Providers Care Weekday Babysitter Name Role Phone Vianney Cruz MD Primary Care Provider + Encounter Details Date Type Department Care Team (Late st Contact Info) Description 10/24/2023 Telephone General Internal Medicine [facility] [place] [address] [facility] [place] [phone] Vianney Cruz MD [address] [facility] [place] [phone] Allergies Active Allergy Reactions Criticality Noted Date Comments Bee Venom 01/11/2016 Localized swelling Pollen 02/13/2017 Unknown environmental allergy Clonazepam 01/25/2020 Causes increase in agitation/anxiety Tramadol 02/21/2015 Mood swings documented as of this encounter (statuses as of 01/23/2024) Medications Medication Sig Dispensed Refills Start Date [...] if asleep 120 mL 0 09/27/2023 Active documented as of this encounter (statuses as of 01/23/2024) Active Problems Problem Noted Date Diagnosed Date Hyperparathyroidism, primary 04/29/2020 Bipolar 1 disorder 01/25/2020 [...] at 12/8 11/2007 PSG -- AHI 83 [facility] Hypothyroidism 02/12/2007 Irritable bowel syndrome 11/23/2004 Sensorineural hearing loss, unilateral Overview: left documented as of this encounter (statuses as of 01/23/2024) Resolved Problems Problem Noted Date Diagnosed Date [...] as of this encounter (statuses as of 01/23/2024) Immunizations Name Administration Dates Next Due COVID-19 mRNA, LNP-s, No Pre serve, 2-Dose Series ([employer]) 11/30/2021,01/20/2021,12/30/2020 Covid-19, Mrna, Lnp-s, Pf, B ivalent, 30 Mcg, IM, 12 yrs and above (Pfizer) 10/17/2022 Hepatitis B, 20+ yrs 08/12/2023,07/10/2023 PPD 12/28/2021, 0,01/30/2018,2015,02/25/2014,05/24/2012,05/12/2008 Seasonal Influenza, PF, 6 M & above, [...] 04/03/2024 11:00 AM EDT Office Visit Gynecology/Obstetics [place] [address] [place] [phone] Chery Colon PA-C [address] [place] [address] Scheduled Procedures Name Priority Associated Diagnoses Date/Ti [...] 06/07/2022, Additional history exists GFR 09/12/2024 09/12/2023, 070 03/2023, 12/17/2022, Additional history exists Albumin/Creatinine Ratio [...] Directives occurred with: Not Discussed Care Teams Weekday Babysitter Relationship Specialty Start Date End Date Vianney Cruz MD [address] [place] [address] PCP - General Internal Medicine 08/23/21 documented as of this encounter
--- OUTSIDE RECORDS SUMMARY | 2024-06-03 14:21 | External Medical Summary ---
Author Name Unknown Address Unknown Organization [id number]:[facility] [place] [address] [place] [address] Laboratory Report Ordering Provider Test Date Status KENIA BARRIOS 01/29/2024 14:27:19 Final Observation Date Value Abnormality Reference (Units ) Status WBC, Total 01/29/2024 14:27:19 5.68 4.00-10.8 0 (K/uL) Final RBC 01/29/2024 14:27:19 5.04 3.85-5.15 (M/uL) Final Hemoglobin 01/29/2024 14:27:19 14.2 12.0-15.3 (g/dL) Final HCT 01/29/2024 14:27:19 45.2 36.0-45.2 (%) Final MCV 01/29/2024 14:27:19 89.7 81.5-97.5 (fL) Final MCH 01/29/2024 14:27:19 28.2 27.0-34.0 (pg) Final MCHC 01/29/2024 14:27:19 31.4 32.0-36.0 (g/dL) Final RDW 01/29/2024 14:27:19 12.8 11.5-15.5 (%) Final Platelets 01/29/2024 14:27:19 238 140-400 (K /uL) Final MPV 01/29/2024 14:27:19 9.7 6.6-11.1 ( fL) Final Performing Location [facility] [place] [address] [place] [address]
--- OUTSIDE RECORDS SUMMARY | 2024-06-03 14:21 | External Medical Summary ---
Author Name Unknown Address Unknown Organization [id number]:[facility] [place] [address] [place] [address] [place] [address] Laboratory Report Ordering Provider Test Date Status KENIA BARRIOS 01/29/2024 14:27:19 Final Observation Date Value Abnormality Reference (Units ) Status Ferritin 01/29/2024 14:27:19 1045 Above high normal 13 -150 (ng/mL) Final Postmenopausal women have hi gher ferritin levels than pre-menopausal women. The above reference interval is based on pre-menopausal women. Performing Location [facility] [place] - [address] [place] [address]
--- OUTSIDE RECORDS SUMMARY | 2024-06-03 14:22 | External Medical Summary | Summary of Care ---
Author Name Unknown Organization [facility] Address [address] [place] [address] Phone [phone] Care Team Providers Care Chemistry Technologist Name Role Phone Vianney Cruz MD Primary Care Provider + Encounter Details Date Type Department Care Team ([facility] st Contact Info) Description 01/23/2024 Telephone [facility] [place] [address] [place] [address] Drea Cruz MD [address] [place] [address] Allergies Active Allergy Reactions Criticality [...] set at 11/01 PSG -- AHI 83 [facility] Hypothyroidism 02/12/2007 Irritable bowel syndrome 11/23/2004 [...] mRNA, LNP-s, No Pre serve, 2-Dose Series ([employer]) 11/30/2021,01/20/2021,12/30/2020 Covid-19, Mrna, Lnp-s, Pf, B ivalent, 30 Mcg, IM, 12 yrs and above ([employer]) 10/17/2022 Hepatitis B, 20+ yrs 01/14/2024,08/12/2023,07/10 PPD [...] 04/03/2024 11:00 AM EDT Office Visit Gynecology/Obstetics [place] [address] [place] [phone] Chery Colon PA-C [address] [place] [address] Scheduled Orders Name Type Priority Associated Diagnoses [...] 06/07/2022, Additional history exists GFR 09/12/2024 09/12/2023, 0703/2023, 12/17/2022, Additional history exists Albumin/Creatinine Ratio 09/20/2025 [...] Directives occurred with: Not Discussed Care Teams Chemistry Technologist Relationship Specialty Start Date End Date Vianney Cruz MD [address] [place] [address] PCP - General Internal Medicine 08/23/21 documented as of this encounter
--- OUTSIDE RECORDS SUMMARY | 2024-06-03 14:22 | External Medical Summary | Summary of Care ---
Author Name Unknown Organization [facility] Address [address] [place] [address] Phone [phone] Care Team Providers Care Machine Coremaker Name Role Phone Vianney Cruz MD Primary Care Provider + Reason for Visit * Reason Onset Date Comments Re-Check PPD Skin Test 01/14/2024 Physical-Exam Encounter Details Date Type Department Care Team (Late st Contact Info) Description 01/14/2024 10:40 AM EST Office Visit General Internal Medicine [facility] [address] [place] [address] Vianney Cruz MD [address] [place] [address] Routine medical exam*; Screening-pulmonary TB; Vaccine for viral hepatitis; Bipolar 1 disorder (HCC); Cerebral palsy, unspecified type (HCC); HTN, goal below 140/90; Severe obstructive sleep apnea; Acquired hypothyroidism; Hyperparathyroidism, primary (HCC); Dyslipidemia; Elevated ferritin Allergies Active Allergy Reactions Criticality Noted Date Comments Bee Venom 01/11/2016 Localized swelling Pollen 02/13/2017 Unknown environmental allergy Clonazepam 01/25/2020 Causes increase in agitation/anxiety Tramadol 02/21/2015 Mood swings documented as of this encounter (statuses as of 01/14/2024) Medications Medication Sig Dispensed Refills Start Date End Date Status MULTIPLE VITAMIN PO CAPSIndications:Cristal pleitezIrritable bowel syndrome once daily 30 5 05/31/2006 [...] 0 08/20/2017 Active escitalopram (LEXAPRO) 20 MG TabletIndications [...] 10 mg Oral Daily(AM), Reported on 10/08/2023 D3 Super Strength 50 MCG (1999) Oral Capsule (Cholecalciferol) TAKE ONE CAPSULE BY MOUTH DAILY. *SUPPLEMENT* 28 Capsule 5 02/25/2023 Active Fluticasone Propionate 50 MCG/ACT Nasal Suspension [...] FOR NAUSEA 30 Tablet 1 09/12/2023 Active Omeprazole 40 MG Oral Capsule Delayed Release (PriLOSEC)Indicat ions:Hardy's esophagus without dysplasia,Epigast lillie pain Take 1 Capsule by mouth in the morning. 1 hour before the first meal of the day. 30 Capsule 5 09/12/2023 Active guaiFENesin-Codei ne 100-10 MG/5ML Oral Syrup (Robitussin AC)Indications:Ac ute mountain cough Take 10 mL by mouth every [...] Oral Tablet Delayed Release 0 09/25/2023 Active methylPREDNISolon e 4 MG Oral Tablet Therapy Pack (Medrol Dosepack) follow package directions 21 Tablet 0 11/08/2023 Active Additional Information Patient not taking.Reported on 01/14/2024 Metoprolol Succinate ER 50 MG Oral Tablet Extended Release 24 Hour (toPROL XL) TAKE ONE TABLET BY MOUTH ONCE DAILY IN THE AM *BLOOD PRESSURE* 28 Tablet 3 12/02/2023 Active Furosemide 20 MG Oral Tablet (Lasix)Indication s:Edema, unspecified type TAKE ONE TABLET BY MOUTH ONCE DAILY FOR FLUID ACCUMULATION OR WEIGHT GAIN 28 Tablet 3 12/03/2023 Active Lisinopril 40 MG Oral TabletIndications :HTN, goal below 140/90 TAKE ONE TABLET BY MOUTH DAILY *HTN* 28 Tablet 3 12/02/2023 Active Sucralfate 1 GM Oral Tablet (Carafate) TAKE BY MOUTH THREE TIMES DAILY BEFORE BREAKFAST,BEFORE DINNER AND AT BEDTIME FOR GERD 84 Tablet 4 12/04/2023 Active Ferrous Sulfate 325 (65 Fe) MG Oral Tablet (Feosol) TAKE 1 TABLET BY MOUTH TWICE DAILY FOR SUPPLEMENT 56 Tablet 5 10/31/2023 4 Discontinu ed(Patient preference /discontin uation) documented as of this encounter (statuses as of 01/14/2024) Active Problems Problem Noted Date Diagnosed Date [...] at 12/8 11/2007 PSG -- AHI 83 [facility] Hypothyroidism 02/12/2007 Irritable bowel syndrome 11/23/2004 Sensorineural hearing loss, unilateral Overview: left documented as of this encounter (statuses as of 01/14/2024) Resolved Problems Problem Noted Date Diagnosed Date [...] as of this encounter (statuses as of 01/14/2024) Immunizations Name Administration Dates Next Due COVID-19 mRNA, LNP-s, No Pre serve, 2-Dose Series (T3 MOTION) 11/30/2021,01/20/2021,12/30/2020 Covid-19, Mrna, Lnp-s, Pf, B ivalent, 30 Mcg, IM, 12 yrs and above (T3 MOTION) 10/17/2022 Hepatitis B, 20+ yrs 01/14/2024,08/12/2023,07/10 PPD [...] Sign Reading Time Taken Comments Blood Pressure 118/72 01/14/2024 10:48 AM EST Pulse 86 01/14/2024 10:48 AM EST Temperature 36.8 C (98.3 F) 01/14/2024 10:[address] Respiratory Rate 18 01/14/2024 10:48 AM EST Oxygen Saturation 94% 01/14/2024 10:48 AM EST Inhaled Oxygen Concentration - - Weight 84.5 kg (186 lb 3.2 oz) 01/14/2024 10:48 AM EST Height 154.9 cm (5' 0.98") 01/14/2024 10:[address] Body Mass Index 35.2 01/14/2024 10:48 AM EST documented in this encounter Functional Status [...] No 05/22/2022 documented as of this encounter Patient Instructions * Patient Instructions* Fabby Urias, KASSIE - 01/14/2024 10:41 AM EST PATIENT INSTRUCTIONS FOR TUBERCULOSIS TESTING Also known as: Purified Protein Derivative (PPD) Whether you have active TB disease or simply test positive for TB infection, you must see a healthcare professional for evaluation and treatment. Tuberculosis (TB) is a disease that spreads through the air. It can cause serious health problems. TB is on the rise. To protect your health, get tested. Who Should Be Tested? Anyone can be exposed to TB. However, certain people are at higher risk for exposure, especially healthcare professionals, the homeless, and people coming from countries with high TB rates. People whose bodies are less able to fight off infections, such as the elderly and people with HIV and AIDS, are also more likely to get TB. If youre at risk for exposure, get tested regularly. The TB Skin Test The TB skin test tells you if the tuberculosis bacteria are in your body. Your healthcare professional places a small amount of solution under the skin with a needle to see if a reaction occurs. Keepin mind that although many people are infected with TB, very few develop TB disease. Getting Your TB Test Results Within 2-3 days after the test, youll be asked to return to your healthcare professional. Be sure to keep this appointment. Your test results will be evaluated during this visit. In some cases, a second test may be done to confirm results. What Do the Test Results Mean? Negative results mean you likely dont have the TB bacteria in your body. Positive results mean that you may have been infected with the TB bacteria. This doesnt necessarily mean you have active TB disease. More tests, such as chest x-rays, are needed to find out if youhave TB disease. [id number] [place] [address]. All rights reserved. This information is not intended as a substitute for professional medical care. Always follow your healthcare professional's instructions. documented in this encounter Progress Notes * Vianney Cruz MD - 01/14/2024 11:05 AM EST HPI: Rosa Isela Cee is a 58 year old female who presents with: Chief Complaint Patient presents with Re-Check PPD Skin Test Physical-Exam Patient is here for the physical. Needs TB test. Chart reviewed with the patient including current meds, last labs and HM. No acute event since we saw patient last time including no recent fall or injuries. Recent labs with high ferritin. Discussed stopping all supplements and iron pills and get repeat labs, drink more water. No fever, jointpains or sign of any infection. Denies any chestpain/sob/palpitation/swealling in the legs. Denies any cough/sob/wheezing/chestpain. Denies nausea,vomiting, diarrhoea, constipation, abdominal pain or blood in stool. Denies heart burn. Has good appetite. No urinary symptoms. Denies any anxiety or depression. Patient Active Problem List Diagnosis Code Irritable bowel syndrome K58.9 Hypothyroidism E03.9 Intellectual disability F79 Severe obstructive sleep apnea G47.33 Sensorineural hearing loss, unilateral H90.5 HTN, goal below 140/90 I10 Hardy's esophagus K22.70 Difficult airway for intubation T88.4XXA Dyslipidemia E78.5 Glaucoma H40.9 Aberrant right subclavian artery Q27.8 Bipolar 1 disorder (HCC) F31.9 Cerebral palsy (HCC) G80.9 Hyperparathyroidism, primary (HCC) E21.0 Current Outpatient Medications Medication Sig Dispense Refill MULTIPLE VITAMIN PO CAPS once daily 30 5 TRAZODONE HCL 50 MG PO TABS TAKE 1 TABLET BY MOUTH AT BEDTIME FOR INSOMNIA 30 Tab 5 Dextromethorphan Polistirex ER (DELSYM) 30 MG/5ML oral suspension extended release Take 10 mL by mouth 2 times a day as needed for Cough. 1 Bottle 0 Bimatoprost 0.01 % Ophthalmic Solution Instill 1 [...] MINOR ACHES AND PAINS 62 Tab 0 amLODIPine Besylate 10 MG Oral Tablet (Norvasc) TAKE ONE TABLET BY MOUTH ONCE DAILY*HTN* (Patient taking differently: Take 1 Tablet by mouth in the morning.) 28 Tablet 11 D3 Super Strength 50 MCG (2000 UT) Oral Capsule (Cholecalciferol) TAKE ONE CAPSULE BY MOUTH DAILY. *SUPPLEMENT* 28 Capsule 5 Fluticasone Propionate 50 MCG/ACT Nasal Suspension (Flonase) INSTILL 2 SPRAYS INTO EACH NOSTRIL ONCE DAILY FOR ALLERGIES 16 g 5 Loperamide HCl 2 MG Oral Tablet (Immodium [...] HOURS ASNEEDED FOR GAS 30 Tablet 4 Vitamin D3 50 MCG (2000 UT) Oral Tablet Chewable Take 1 Tablet by mouth daily. 28 Tablet 5 ARIPiprazole 5 MG Oral Tablet (Abilify) Take 1 Tablet by mouth at bedtime. Polyethylene Glycol 3350 17 GM/SCOOP Oral Powder (MiraLax) Miralax 17g by mouth every other day 255g 3 Docusate Sodium 100 MG Oral Capsule (Colace) Take 1 Capsule by mouth in the morning and 1 Capsule before bedtime. 180 Capsule 3 Ondansetron HCl 4 MG Oral Tablet (Zofran) TAKE 1 TABLET BY MOUTH EVERY 8 HOURS NEEDED FOR EENIBU50 Tablet 1 Omeprazole 40 MG Oral Capsule Delayed Release (PriLOSEC) Take 1 Capsule by mouth in the morning. 1 hour before the first meal of the day. 30 Capsule 5 Potassium Chloride ER 10 MEQ Oral Capsule Extended Release TAKE 1 CAPSULE BY MOUTH DAILY. *POTASSIUM IMBALANCE ---BOTTLE--- 28 Capsule 5 Rosuvastatin Calcium 10 MG Oral Tablet (Crestor) TAKE 1 TABLET BY MOUTH DAILY FOR HIGH CHOLESTEROL 28 Tablet 5 Levothyroxine Sodium 50 MCG Oral Tablet (Levoxyl) TAKE 1 TABLET BY MOUTH ONCE DAILY *THYROID* 28 Tablet 5 Ferrous Sulfate 325 (65 Fe) MG Oral Tablet (Feosol) TAKE 1 TABLET BY MOUTH TWICE DAILY FOR SUPPLEMENT 56 Tablet 5 Metoprolol Succinate ER 50 MG Oral Tablet Extended Release 24 Hour (toPROL XL) TAKE ONE TABLET BY MOUTH ONCE DAILY IN THE AM *BLOOD PRESSURE* 28 Tablet 3 Furosemide 20 MG Oral Tablet (Lasix) TAKE ONE TABLET BY MOUTH ONCE DAILY FOR FLUID ACCUMULATION OR WEIGHT GAIN 28 Tablet 3 Lisinopril 40 MG Oral Tablet TAKE ONE TABLET BY MOUTH DAILY *HTN* 28 Tablet 3 Sucralfate 1 GM Oral Tablet (Carafate) TAKE BY MOUTH THREE TIMES DAILY BEFORE BREAKFAST,BEFORE DINNER AND AT BEDTIME FOR GERD 84 Tablet 4 Brinzolamide-Brimonidine 1-0.2 % Ophthalmic Suspension Instill 1 Drop into both eyes 3 times a day. CPAP every night at bedtime . MEDICAL INSTRUCTIONS Can put baby oil or mineral oil 2-3 drops once daily for 3- 4 days in ears for impacted cerumen 1 Each 1 Metamucil 28.3 % Oral Powder (Psyllium) 2 tsp by mouth daily 283 g 3 guaiFENesin-Codeine 100-10 MG/5ML Oral Syrup (Robitussin AC) Take 10 mL by mouth every 4 hours. HOLD for drowsiness, if asleep 120 mL 0 Aspirin Low Dose 81 MG Oral Tablet Delayed Release methylPREDNISolone 4 MG Oral Tablet Therapy Pack (Medrol Dosepack) follow package directions (Patient not taking: Reported on 01/14/2024) 21 Tablet 0 No current facility-administered medications for this visit. The patient's medication list was reviewed and updated as needed. Review of patient's allergies indicates: Allergen Reactions Bee Venom Localized swelling Environmental [Pollen] Unknown environmental allergy Klonopin [Clonazepam] Causes increase in agitation/anxiety Tramadol Mood swings Past Medical History: Diagnosis Date Aberrant right subclavian artery 10/09/2018 Hardy's esophagus 03/2009 hardy's esophagus,small hiatal hernia, chronic gastritis, recommend f/u in 1 yea Hardy's esophagus 07/24/10 Barretts repeat in 3 yrs Hardy's esophagus 07/26/11 Barrettss esophagus repeat in 3 years Depression with anxiety 04/01/2006 Dr nolan Depressive disorder, not elsewhere classified Edema rt leg swelling GERD (gastroesophageal reflux disease) H/O: hysterectomy 03/2000 Headache(784.0) Hemorrhoids Hypersomnia with sleep apnea Hypothyroidism Irritable bowel syndrome Lacunar infarction (HCC) 09/21/2016 Chronic, left basal ganglia Mixed hearing loss, unilateral 2006 right Other abnormality of urination(788.69) Reflux esophagitis 2006 Sciatic pain down right leg Sensorineural hearing loss, unilateral 2006 left Unspecified intellectual disabilities Social History Socioeconomic History Marital status: Single Tobacco Use Smoking status: Never Smokeless tobacco: Never Vaping Use Vaping Use: Never used Substance and Sexual Activity Alcohol use: No Drug use: No Sexual activity: Never Other Topics Concern Blood Transfusions No Social Determinants of Health Food Insecurity: No Food Insecurity (01/07/2023) Hunger Vital Sign Worried About Running Out of Food in the Last Year: Never true Ran Out of Food in the Last Year: Never true Family History Problem Relation Age of Onset Ovarian cancer Mother stage 4 Diabetes Father Hypertension Father Heart Disorder Father congestive heart failure Heart Disorder Grandmother (Maternal) chf Breast Cancer No significant family history All system negative except as per hpi. OBJECTIVE: BP 118/72 | Pulse 86 | Temp 36.8 C (98.3 F) (Tympanic) | Resp 18 | Ht 1.549 m (5' 0.98") | Wt 84.5 kg (186 lb 3.2 oz) | SpO2 94% | BMI 35.20 kg/m | BSA 1.91 m PHYSICAL EXAM: HEENT: PERRLA, EOMI, anicteric sclera, b/l tympanic membrane is pearly white, no erythema, no pharyngeal erythema, no lymphadenopathy, neck supple CVS: RRR, no murmurs, rubs or gallops, s1 s 2normal. RESP: clear to auscultation, no wheezing or crackles ABD: soft, NT/ND EXT: no edema, cyanosis, peripheral pulses palpable bilaterally No large joint swelling, no redness, range of motion normal. Skin normal. Gait normal. Mood stable No focal weakness ASSESSMENT AND PLAN: Routine medical exam (Primary) Regular diet and exercise discussed with the patient. Importance of doing exercise 3 times a week for 30 minutes discussed. Taking OTC vitamins and Calcium with vitamin D discussed with the patient. Pt does wear a seat belt and sees Garbage Stoker and Dentist every year. Fall precautions advised to the patient. Importance of drinking more water atleast 6-8 glasses per day discussed with the patient. Form filled but once read PPD, will be marked if pt is free of communicable disease. Will be done by the nurse reading it. Conveyed to patient and caregiver. Form given back. Pt will be stopping iron pill and repeat cbcd, ferritin in 2 months to see the trend of ferritin. Currently she takes Iron pill twice daily. Screening-pulmonary TB - PPD Vaccine for viral hepatitis - HEP B VACCINE, 20+ YRS (3-DOSE) Bipolar 1 disorder (HCC) Stable. Cerebral palsy, unspecified type (HCC) HTN, goal below 140/90 Well controlled . Continue current meds. On metoprolol, Amlodipine, lisinopril. Severe obstructive sleep apnea Uses Cpap machine daily. Acquired hypothyroidism On levoxyl. Continue current dose. Hyperparathyroidism, primary (HCC) Dyslipidemia On Crestor. Continue current dose. Follow Up: Return in 2 days (on 01/16/2024) for Return in 2 days for PPD Reading on Nurse Schedule. | For: Return in 2 days for PPD Reading on Nurse Schedule | Check-out note: Return in 2 days for PPDReading on Nurse Schedule Vianney Cruz MD * Fabby Urias LPN - 01/14/2024 10:41 AM EST Pt here for PPD administration. Has patient ever had a positive PPD Screening Test? No Has patient ever had the BCG tuberculosis vaccine? No If the patient responds yes to any of the questions, they are NOT eligible for a PPD. DO NOT administer the PPD Screening Test and Notify the provider. Time Out Procedure Performed: Yes Patient Identified (Ask Name/Date of ): Yes Immunization(s) verified: Yes, Immunization Name: PPD, VIS Sheet(s) given: Yes Verified Side and Site: Yes Verified Shot(s) with Parent(s)/Patient: Yes PPD applied at 10:41 AM and patient tolerated well. Patient to return to clinic in 48 hours for PPD Reading. documented in this encounter Nursing Notes * Fabby Urias LPN - 01/14/2024 10:32 AM EST 6 month return CPE documented in this encounter Plan of Treatment Upcoming Encounters Date Type Department Care Team (Late st Contact Info) Description 01/16/2024 2:20 PM EST Office Visit Endocrinology, [place] [address] [place] [address] Drea Cruz MD [address], [place] [id number] 04/03/2024 11:00 AM EDT Office Visit Gynecology/Obstetics [place] [address] [place] [id number] Chery Colon PA-C [address] [place] [address] Scheduled Orders Name Type Priority Associated Diagnoses Orde r Schedule FERRITIN Lab Routine Elevated ferritin Expected: 01/14/2024 (Approximate), Expires: 01/13/2025 IRON SCREEN, INCLUDING TIBC Lab Routine Elevated ferritin Expected: 01/14/2024 (Approximate), Expires: 01/13/2025 CBC WITH WBC DIFFERENTIAL Lab Routine Elevated ferritin Expected: 01/14/2024 (Approximate), Expires: 01/14/2025 COMPREHENSIVE METABOLIC PANEL Lab Routine HTN, goal below 140/90 Expected: 01/14/2024 (Approximate), Expires: 01/13/2025 ERYTHROCYTE SEDIMENTATION RATE (ESR) Lab Routine Elevated ferritin Expected: 01/14/2024 (Approximate), Expires: 01/13/2025 CRP (INFLAMMATORY MARKER) Lab Routine Elevated ferritin Expected: 01/14/2024 (Approximate), Expires: 01/13/2025 Scheduled Procedures Name Priority Associated Diagnoses Date/Ti [...] 06/07/2022, Additional history exists GFR 09/12/2024 09/12/2023, 07/03/2023, 12/17/2022, Additional history exists Albumin/Creatinine Ratio 09/20/2025 [...] as of this encounter Visit Diagnoses Diagnosis Routine medical exam- Primary Routine general medical examination at a health care facility Screening-pulmonary TB Screening examination for pulmonary tuberculosis Vaccine for viral hepatitis Need for prophylactic vaccination and inoculation against viral hepatitis Bipolar 1 disorder (HCC) Bipolar I disorder, most recent episode (or current) unspecified Cerebral palsy, unspecified type (HCC) HTN, goal below 140/90 Unspecified essential hypertension Severe obstructive sleep apnea Obstructive sleep apnea (adult) (pediatric) Acquired hypothyroidism Unspecified hypothyroidism Hyperparathyroidism, primary (HCC) Primary hyperparathyroidism Dyslipidemia Other and unspecified hyperlipidemia Elevated ferritin Other abnormal blood chemistry documented in this encounter Advance Directives Latest Code Status on File Code Status Date Activated Date Inactivated Comments Full Code 05/22/2022 9:26 AM 05/23/2022 4:47 PM This order reflects the patients wishes and were consensually agreed upon. Question Answer Comments Discussion of Advance Directives occurred with: Not Discussed Care Teams Machine Coremaker Relationship Specialty Start Date End Date Vianney Cruz MD [address] [place] [address] PCP - General Internal Medicine 08/23/21 documented as of this encounter
--- OUTSIDE RECORDS SUMMARY | 2024-06-03 14:22 | External Medical Summary | Summary of Care ---
Author Name Unknown Organization [facility] Address [address] [place] [address] Phone [phone] Care Team Providers Care Sausage Canner Name Role Phone Vianney Cruz MD Primary Care Provider + Encounter Details Date Type Department Care Team (Late st Contact Info) Description 01/15/2024 Orders Only PATIENT PORTAL DO NOT DELETE THIS DEPT USED BY [facility]AH[facility]LS[facility] [id number] Allergies Active Allergy Reactions Criticality Noted Date Comments Bee Venom 01/11/2016 Localized swelling Pollen 02/13/2017 Unknown environmental allergy Clonazepam 01/25/2020 Causes increase in agitation/anxiety Tramadol 02/21/2015 Mood swings documented as of this encounter (statuses as of 01/15/2024) Medications Medication Sig Dispensed Refills Start Date [...] on 10/08/2023 D3 Super Strength 50 MCG (1999 UT) [...] (PriLOSEC)Indicati ons:Hardy's esophagus without dysplasia,Epigastr ic pain Take 1 Capsule by mouth in the morning. 1 hour before the first meal of the day. 30 Capsule 5 09/12/2023 Active guaiFENesin-Codein e 100-10 MG/5ML Oral [...] FOR GERD 84 Tablet 4 12/04/2023 Active documented as of this encounter (statuses as of 01/15/2024) Active Problems Problem Noted Date Diagnosed Date [...] at 12/8 11/2007 PSG -- AHI 83 [facility] Hypothyroidism 02/12/2007 Irritable bowel syndrome 11/23/2004 Sensorineural hearing loss, unilateral Overview: left documented as of this encounter (statuses as of 01/15/2024) Resolved Problems Problem Noted Date Diagnosed Date [...] as of this encounter (statuses as of 01/15/2024) Immunizations Name Administration Dates Next Due COVID-19 mRNA, LNP-s, No Pre serve, 2-Dose Series (TIKI.VN) 11/30/2021,01/20/2021,12/30/2020 Covid-19, Mrna, Lnp-s, Pf, B ivalent, 30 Mcg, IM, 12 yrs and above (TIKI.VN) 10/17/2022 Hepatitis B, 20+ yrs 01/14/2024,08/12/2023,07/10 PPD [...] 01/16/2024 2:20 PM EST Office Visit Endocrinology, [place] [address], [place] [phone] Drea Cruz MD [address] [place] [address] 04/03/2024 11:00 AM EDT Office Visit Gynecology/Obstetics [place] [address] [place] [phone] Chery Colon PA-C [address] [place] [address] Scheduled Procedures Name Priority Associated [...] Directives occurred with: Not Discussed Care Teams Sausage Canner Relationship Specialty Start Date End Date Vianney Cruz MD [address] [place] [address] PCP - General Internal Medicine 08/23/21 documented as of this encounter
--- OUTSIDE RECORDS SUMMARY | 2024-06-03 14:22 | External Medical Summary | Summary of Care ---
Author Name Unknown Organization [facility] Address [address] [place] [address] Phone [phone] Care Team Providers Care User Experience Developer Name Role Phone Denis Cruz MD Primary Care Provider + Reason for Visit * Reason Comments eRx-Medication Refill Encounter Details Date Type Department Care Team (Late st Contact Info) Description 01/22/2024 Refill General Internal Medicine [facility] [address] [place] [address] Marlena López MD [address] [place] [address] Allergies Active Allergy Reactions Criticality Noted Date [...] MOUTH ONCE DAILY*HTN* 28 Tablet 11 3 Active Additional Information Patient taking differently: 10 mg Oral Daily(AM), Reported on 10/08/2023 Fluticasone Propionate 50 MCG/ACT Nasal Suspension (Flonase)Indicati [...] ne 100-10 MG/5ML Oral Syrup (Robitussin AC)Indications:Ac [place] cough Take 10 mL by mouth every [...] FOR GERD 28 Capsule 11 4 Active D3 Super Strength 50 MCG (2000 UT) Oral Capsule (Cholecalciferol) TAKE ONE CAPSULE BY MOUTH DAILY. *SUPPLEMENT* 28 Capsule 5 3 01/23/20 24 Discontinued documented as of this encounter [...] 2016 - intolerant to PAP, on O2 [facility] 05/29/13 -- auto BIPAP set at 12/8 11/2007 PSG -- [facility] Hypothyroidism 02/12/2007 Irritable bowel syndrome [...] mRNA, LNP-s, No Pre serve, 2-Dose Series ([employer]) 11/30/2021,01/20/2021,12/30/2020 Covid-19, Mrna, Lnp-s, Pf, B ivalent, [...] encounter Miscellaneous Notes * Telephone Encounter - Denis Cruz MD - 01/23/2024 1:49 PM ESTSigned Prescriptions: Disp Refills D3 Super Strength 50 MCG (2000 UT) Oral Ca*28 Cap*4 Sig: TAKE ONE CAPSULE BY MOUTH DAILY. *SUPPLEMENT* Authorizing Provider: DENIS CRUZ * Telephone Encounter - Mihaela Orellana [facility] - 01/23/2024 10:01 AM EST Pending Prescriptions: Disp Refills D3 Super Strength 50 MCG (2000 UT) Oral Ca*28 Cap*4 Sig: TAKE ONE CAPSULE BY MOUTH DAILY. *SUPPLEMENT* * Telephone Encounter - Mihaela Orellana RPh - 01/23/2024 10:00 AM EST [facility] is currently not authorized to approve refills for the pended medication(s) per refill protocol. Please approve if appropriate. Thank you, Ashlie SorianoD, CLAIRE Clinical Pharmacist [facility] ([facility]) (formerly Telepharmacy) 01/23/24 10:00 AM [phone] documented in this encounter Plan of Treatment Upcoming Encounters Date Type Department Care Team (Late st Contact Info) Description 04/03/2024 11:00 AM EDT Office Visit Gynecology/Obstetics [facility] [address] [place] [phone] Chery Colon PA-C [address] [place] [address] Scheduled Procedures Name Priority Associated [...] 06/07/2022, Additional history exists GFR 09/12/2024 09/12/2023, 3, 12/17/2022, Additional history exists Albumin/Creatinine Ratio 09/20/2025 [...] Directives occurred with: Not Discussed Care Teams User Experience Developer Relationship Specialty Start Date End Date Denis Cruz MD [address] [facility] [place] [address] PCP - General Internal Medicine 08/23/21 documented as of this encounter
--- OUTSIDE RECORDS SUMMARY | 2024-06-03 14:22 | External Medical Summary | Summary of Care ---
Author Name Unknown Organization [facility] Address [address] [place] [address] Phone [phone] Care Team Providers Care [employer] Name Role Phone Vianney Cruz MD Primary Care Provider + Reason for Visit * Evaluate & Treat - Unlimited Visits (Within 10 days (routine)) - Authorized Specialty Diagnoses / Procedures Referred By Contdaniel t Referred To Contact Endocrinology/Metabolism / Endocrinology Vianney Cruz MD [address] [place] [address] Drea Cruz MD [address] [place] [address] Referral ID Status Reason Start Date Expiration Date Visits Requested Visits Authorized [id number] Authorized Specialty Services Required 01/16/2024 02/15/[phone] Encounter Details Date Type Department Care Team (Latest Contact Info) Description 01/16/2024 2:20 PM EST Office Visit Leida Cedeno [address] [place] [address] Drea Cruz MD [address] [facility] [place] [address] Senile osteoporosis*; Vitamin D deficiency; Thyroid nodule; Primary hyperparathyroidism (HCC); Hx of parathyroidectomy (HCC) Allergies Active Allergy Reactions Criticality Noted Date Comments Bee Venom 01/11/2016 Localized swelling Pollen 02/13/2017 Unknown environmental allergy Clonazepam 01/25/2020 Causes increase in agitation/anxiety Tramadol 02/21/2015 Mood swings documented as of this encounter (statuses as of 01/16/2024) Medications Medication Sig Dispensed Refills Start Date [...] as of this encounter (statuses as of 01/16/2024) Active Problems Problem Noted Date Diagnosed Date [...] at 11/01 PSG -- AHI 83 [facility] Hypothyroidism 02/12/2007 Irritable bowel syndrome 11/23/2004 Sensorineural hearing loss, unilateral Overview: left documented as of this encounter (statuses as of 01/16/2024) Resolved Problems Problem Noted Date Diagnosed Date [...] as of this encounter (statuses as of 01/16/2024) Immunizations Name Administration Dates Next Due COVID-19 mRNA, LNP-s, No Pre serve, 2-Dose Series ([employer]) 11/30/2021,01/20/2021,12/30/2020 Covid-19, Mrna, Lnp-s, Pf, B ivalent, 30 Mcg, IM, 12 yrs and above ([employer]) 10/17/2022 Hepatitis B, 20+ yrs 01/14/2024,08/12/2023,07/10 [...] Date Smoking Tobacco: Never Smokeless Tobacco: Never Tobacco Cessation:Counseling Given: Not Answered Alcohol Use Standard Drinks/Week Comments No 0 [...] Sign Reading Time Taken Comments Blood Pressure 128/78 01/16/2024 2:11 PM EST Pulse 74 01/16/2024 2:11 PM EST Temperature - - Respiratory Rate - - Oxygen Saturation - - Inhaled Oxygen Concentration - - Weight 83.2 kg (183 lb 6.4 oz) 01/16/2024 2:11 P M EST Height 152.4 cm (5') 01/16/2024 2:11 PM EST Body Mass Index 35.82 01/16/2024 2:11 PM EST documented in this [...] this encounter Patient Instructions * Patient Instructions* Drea Cruz MD - 01/16/2024 2:25 PM EST US head and neck to look at thyroid nodule Will arrange Reclast infusion Make sure you do not have any dental procedures - root canal, implant or tooth extraction planned. If any of these procedure is needed then we recommend holding off onto reclast 4-6 weeks after you are done and healed from the procedure. Reclast infusion - once a year for 3 yrs Side effects: Flu like symptoms Rare: Osteonecrosis of Jaw bone - this is non healing/having exposed bone after invasive dental procedure- root canal, implant, tooth extraction. More common in smokers, or patients with poor dental hygiene and in cancer patients (frequent dosing of this medicine, monthly compared to yearly) How to avoid it - getting dental exam done, if you may need dental extraction, root canal or implant, get it done before you are started on this infusion. If you need procedure after you have started the infusion, try to wait until a year after infusion. Atypical femoral fracture - if you are on this medication for longer than 3-5 yrs. Low calcium in patients with renal failure. documented in this encounter Progress Notes * Drea Cruz MD - 01/16/2024 2:16 PM EST Images from the original note were not included. 58-year-old female seen for follow-up of : Primary hyperparathyroidism, symptomatic with osteoporosis Status post parathyroidectomy by Dr. Barlow on May 14, 2022-calcium normalized however PTH remainselevated after surgery. She does not have hypercalciuria after surgery. History of kidney stones per patient Osteoporosis, last DEXA scan in May of 2023. Hypothyroidism Thyroid nodule found incidentally on ultrasound done to look for parathyroid adenoma in October 2021, measuring 1 cm hypoechoic. Lives in residential retirement (? Since 2015) - Mild ID Has help 24 She is accompanied by aid today. Past medical history also includes severe obstructive sleep apnea, history of hypertension, cerebral palsy, intellectual disability. Fractures - No Kidney stones. - YES Hypertension - YES Osteoporosis - YES She underwent parathyroidectomy by Dr. Barlow on May 14, 2022. She has been on omeprazole 20 mg daily and sucralfate. She takes Tums as needed for acid reflux. He is also taking vitamin-D 2000 units daily She has 1 serving of milk 3 times daily She is also taking levothyroxine 50 mcg daily Current Outpatient Medications Medication Sig Dispense Refill [...] 0 CPAP every night at bedtime . amLODIPine Besylate 10 MG Oral Tablet (Norvasc) [...] ONCE DAILY FOR ALLERGIES 16 g 5 MEDICAL INSTRUCTIONS Can put baby oil or [...] by mouth every other day 255g 3 Metamucil 28.3 % Oral Powder (Psyllium) 2 tsp by mouth daily 283 g 3 Docusate Sodium 100 MG Oral Capsule (Colace) Take 1 Capsule by mouth in the morning and 1 Capsule before bedtime. 180 Capsule 3 Ondansetron HCl 4 MG Oral Tablet (Zofran) TAKE 1 TABLET BY MOUTH EVERY 8 HOURS NEEDED FOR [id number] Tablet 1 Omeprazole 40 MG Oral Capsule Delayed Release (PriLOSEC) Take 1 Capsule by mouth in the morning. 1 hour before the first meal of the day. 30 Capsule 5 guaiFENesin-Codeine 100-10 MG/5ML Oral Syrup (Robitussin AC) Take 10 mL by mouth every 4 hours. HOLD for drowsiness, if asleep 120 mL 0 Potassium Chloride ER 10 MEQ Oral Capsule Extended Release TAKE 1 CAPSULE BY MOUTH DAILY. *POTASSIUM IMBALANCE ---BOTTLE--- 28 Capsule 5 Rosuvastatin Calcium 10 MG Oral Tablet (Crestor) TAKE 1 TABLET BY MOUTH DAILY FOR HIGH CHOLESTEROL 28 Tablet 5 Levothyroxine Sodium 50 MCG Oral Tablet (Levoxyl) TAKE 1 TABLET BY MOUTH ONCE DAILY *THYROID* 28 Tablet 5 Aspirin Low Dose 81 MG Oral Tablet Delayed Release methylPREDNISolone 4 MG Oral Tablet Therapy Pack (Medrol Dosepack) follow package directions (Patient not taking: Reported on 01/14/2024) 21 Tablet 0 Metoprolol Succinate ER 50 MG Oral Tablet [...] AT BEDTIME FOR GERD 84 Tablet 4 No current facility-administered medications for this visit. Review of patient's allergies indicates: Allergen Reactions Bee Venom Localized swelling Environmental [Pollen] Unknown environmental allergy Klonopin [Clonazepam] Causes increase in agitation/anxiety Tramadol Mood swings PHYSICAL EXAMINATION: BP 128/78 | Pulse 74 | Ht 1.524 m (5') | Wt 83.2 kg (183 lb 6.4 oz) | BMI 35.82 kg/m | BSA 1.88 m Constitutional: Appearance: well developed well nourished Eyes: Extraocular Movements: Extraocular movements intact. Exophthalmos - no Conjunctiva/sclera: Conjunctivae normal. Cardiovascular: Rate and Rhythm: Normal rate Pulmonary: Effort: Pulmonary effort is normal. Skin: General: Skin is warm and dry. Neurological: Mental Status: alert and oriented to person, place, and time. Psychiatric: Mood and Affect: Mood normal. Behavior: Behavior normal. Lab Data: The most recent, and if available, past bone density study are as follows. Date/ Device Spine L1-L4 BMD Spine L1-L4 T-score Hip Total (Left) BMD Hip Total (Left) T-score Femoral Neck (Left) BMD Femoral Neck (Left) T-score Left Forearm - Distal radius BMD left Forearm - Distal radius T-Score May 27, 2023 [employer] [place] 0.765 -2.6 0.608 -2.2 No comparison, done on different machine 07/11/21 [employer] 0.751 -2.5 0.602 -2.2 No prior CALCIUM - [facility] Date/Time Value Ref Range Status 09/12/2023 12:00 PM 9.8 8.4 - 10.2 mg/dL Final 05/29/2023 07:04 AM 9.8 8.4 - 10.2 mg/dL Final 12/17/2022 07:20 AM 9.9 8.4 - 10.2 mg/dL Final 04/26/2020 10:24 AM 10.4 (H) 8.4 - 10.2 mg/dL Final 12/26/2019 10:42 AM 10.5 (H) 8.4 - 10.2 mg/dL Final 12/23/2019 11:24 AM 10.7 (H) 8.4 - 10.2 mg/dL Final CALCIUM, 24 HOUR URINE - [facility] Date/Time Value Ref Range Status 07/18/2022 08:49 AM 0.17 0.05 - 0.30 g/24 hours Final 05/18/2021 09:47 AM 0.24 0.05 - 0.30 g/24 hours Final CALCIUM, 24 UR - [facility] Date/Time Value Ref Range Status 07/18/2022 08:49 AM 5.3 mg/dL Final 05/18/2021 09:47 AM 9.1 mg/dL Final CALCIUM, IONIZED - [facility] Date/Time Value Ref Range Status 02/01/2021 10:14 AM 1.37 (H) 1.13 - 1.32 mmol/L Final Comment: This test was developed and its performance characteristics dtermined by [employer]. It has not been cleared or approved by the US Food and Drug Administration 11/01/2020 10:36 AM 1.35 (H) 1.13 - 1.32 mmol/L Final Comment: THIS TEST WAS DEVELOPED AND ITS PERFORMANCE CHARACTERISTICS DETERMINED BY [employer]. IT HAS NOT BEEN CLEARED OR APPROVED BY THE US FOOD AND DRUG ADMINISTRATION. 10/29/2016 08:22 AM 1.23 1.13 - 1.32 mmol/L Final PTH - [facility] Date/Time Value Ref Range Status 06/22/2022 03:44 PM 156 (H) 15 - 65 pg/mL Final 05/22/2022 10:17 AM 73 (H) 15 - 65 pg/mL Final 10/18/2021 02:07 PM 131 (H) 15 - 65 pg/mL Final 11/01/2020 10:36 AM 86 (H) 15 - 65 pg/mL Final 04/26/2020 10:24 AM 96 (H) 15 - 65 pg/mL Final 12/26/2019 10:42 AM 118 (H) 15 - 65 pg/mL Final VITAMIN B12 - [facility] Date/Time Value Ref Range Status 06/22/2022 03:44 PM 1,100 232-1,245 pg/mL Final 12/04/2013 01:16 PM 1,312 (H) 211 - 946 pg/mL Final ASSESSMENT: Rosa Isela Cee is a 58 year old female with history of cerebral palsy, intellectual disability seenfor follow-up of: Primary hyperparathyroidism Status post parathyroidectomy May 22, [address] Barlow, PTH remains elevated after surgery, calcium normal 24 hour urine calcium normal after surgery History of kidney stones Osteoporosis Thyroid nodule 1 cm hypoechoic since October 2021 Take 1 serving of milk 3 times daily Continue vit D 2000 units daily [place].S. head and neck Continue current dose of levothyroxine Start process for Reclast infusion once a year for 3 years Return to clinic in 1 year documented in this encounter Plan of Treatment Upcoming Encounters Date Type Department Care Team (Late st Contact Info) Description 04/03/2024 11:00 AM EDT Office Visit Gynecology/Obstetics [facility] [address] [place] [phone] Chery Colon PA-C [address] [place] [address] Scheduled Orders Name Type Priority Associated Diagnoses Orde r Schedule US HEAD AND NECK Medical Imaging Routine Thyroid nodule Expected: 01/16/2024 (Approximate), Expires: 02/13/2025 Scheduled Procedures Name Priority Associated Diagnoses Date/Ti [...] encounter Visit Diagnoses Diagnosis Senile osteoporosis- Primary Vitamin D deficiency Unspecified vitamin D deficiency Thyroid nodule Nontoxic uninodular goiter Primary hyperparathyroidism (HCC) Primary hyperparathyroidism Hx of parathyroidectomy (HCC) Personal history of surgery to other organs documented in this encounter Advance Directives Latest Code Status on File Code Status Date Activated Date Inactivated Comments Full Code 05/22/2022 9:26 AM 05/23/2022 4:47 PM This order reflects the patients wishes and were consensually agreed upon. Question Answer Comments Discussion of Advance Directives occurred with: Not Discussed Care Teams [employer] Relationship Specialty Start Date End Date Vianney Cruz MD [address] [facility] [place] [address] PCP - General Internal Medicine 08/23/21 documented as of this encounter"
[2024-06-03] MEDS: POTASSIUM CHLORIDE CRTAB 20 MEQ TABCR PO STA (14:48)
[2024-06-03] MEDS: traZODone HCL 50 MG TAB PO SCH (20:37)
[2024-06-03] MEDS: ARIPiprazole 5 MG TAB PO SCH (20:38)
[2024-06-03] MEDS: BIMATOPROST 0.01% OP SOLN 2.5 ML BTL OPB SCH (20:40)
[2024-06-03] MEDS: SODIUM CHLORIDE 0.65% NA SOLN 45 ML (OCEAN) SCH (20:44)
[2024-06-03] MEDS: PROMETHAZINE HCL 12.5 MG in SODIUM CHLORIDE 0.9% 50 ML IV PRN (23:41)
[2024-06-04 06:41] LABS: Hematocrit (blood only) 41.7 % (37.0-47.0); Hemoglobin 13.5 g/dl (12.0-16.0); Mean Corpuscular Hemoglobin 28.5 pg (25.0-34.0); Mean Corpuscular Hgb Conc 32.4 g/dL (32.0-36.0); Mean Corpuscular Volume 88.2 fL (80.0-100.0); Mean Platelet Volume 9.2 fL (9.4-12.4); Platelet Count 159 K/uL (130-400); RDW Coefficient of Variation 12.8 % (11.5-14.5); RDW Standard Deviation 41.8 fL (36.4-46.3); Red Blood Count 4.73 M/uL (4.20-5.40); White Blood Count 5.37 K/ul (4.8-10.8)
[2024-06-04 07:08] LABS: BUN Creatinine Ratio 22.5 (10-20); Calcium 8.1 mg/dl (8.6-10.3); Creatinine Clr Calc Pharmacy 87.1 ml/min; Est GFR (African American) 108.1 ml/min; Est GFR (Non-African American) 93.2 ml/min; Potassium 3.9 mmol/L (3.5-5.1)
--- NOTE | 2024-06-04 07:49 | Cardiology Progress Note ---
Date of Service June 04, 2024 Assessment & Plan (1) Chest pain: (2) Shortness of breath: (3) Hypoxia: (4) Chronic diastolic CHF (congestive heart failure): (5) Left bundle branch block: (6) Hypertension: Plan IMPRESSION: 58-year-old female who presented with acute chest pain and shortness of breath. CP symptoms atypical with questionable GERD component. Known chronic left bundle branch block; does not appear that ischemic evaluation has been completed in the past. Cardiac workup unremarkable thus far including EKG without ischemic changes and HS trop negative x2. Echocardiogram without acute changes/stable. PLAN: Chest pain/shortness of breath: Chest pain and SOB resolved. Prior symptoms somewhat atypical however patient certainly has risk factors for CAD. Chronic LBBB. -Continue ASA 81 mg daily -LDL above goal of 70 (87), increase Crestor to 20 mg daily -Consider outpatient nuclear stress. -Patient with known Rollins's esophagus; recommend treatment of underlying GERD-- possibly contributing to chest pain. Continue increase dose of pantoprazole 40 mg BID -Recommend compliance with CPAP, may need settings reassessed. Hypertensive heart disease with chronic diastolic CHF: Blood pressure is controlled. -Currently on lisinopril and amlodipine. Continue reduced dose of Norvasc to 5 mg daily-- may be able to reduce to 2.5 mg daily, will reassess as an outpatient. -Continue Aldactone 12.5 mg daily. Will need BMP 1 week post DC Patient appears euvolemic on exam. -Continue Lasix 20 mg daily (home dose). -Lower extremity edema likely multifactorial given combination use of amlodipine and gabapentin. Agree with continued use of compression socks. Elevate legs at rest. Med changes as above. -2g sodium diet. Daily standing weights. Monitor I/O. Atrial tach noted previously on telemetry, no return on re-evaluation- HR controlled. Continue metoprolol succinate 50 mg daily. Case discussed with Dr. Henry. Carr for discharge from a cardiology standpoint. Recommend follow up in our outpatient clinic in 4-6 weeks. I spent a total of 30 minutes on the date of service in preparation, delivery, and documentation of the care provided to the patient excluding any time spent in the performance of separately billed services. RADHA Murray Department of Cardiology, [facility] This chart was completed in part utilizing Speech Voice Recognition Software. Grammatical errors, random word insertions, pronoun errors, and incomplete sentences are an occasional consequence of this system due to software limitations, ambient noise, and hardware issues. Any formal questions or concerns about the content, text, or information contained within the body of this dictation should be directly addressed to the provider for clarification. Admission and Anticipated Discharge Date Admission Date: June 03, 2024 Supervising Physician Co-Signing Physician Notes Patient was seen and personally examined. Recommendations and plan as outlined above with care and management discussed with advanced provider and personally endorsed No cardiac complaints today. GI pain and discomfort improved with good oral intake last night and this morning No ongoing signs of myocardial injury or ischemia Medication adjustments as noted Stable from cardiac standpoint will sign off I spent a total of 20 minutes on the date of service in preparation, delivery, and documentation of the care provided to the patient excluding any time spent in the performance of separately billed services. Subjective 58-year-old female who initially presented to [facility] emergency department with acute onset of chest pain and shortness of breath. 06/03/2024: Echocardiogram: LVEF 50 to 55%, septal motion consistent with left bundle branch block. No regional wall motion abnormalities. Grade 1 diastolic dysfunction. RV normal in size and function. Mild mitral stenosis. Mild TR. RV systolic pressure elevated with small loculated organized posterior pericardial effusion, unchanged from prior study. High-sensitivity troponins negative x 3. EKG without acute ischemic changes. Aspirin started. Lisinopril reduced to 5 mg daily. Aldactone 12.5 mg daily started. Transient episode of atrial tach on telemetry--patient maintained on metoprolol succinate 50 mg daily Patient noted nausea and worsening chest discomfort with breakfast. Possible GERD component. Pantoprazole increased to 40 mg twice daily 06/04/2024: Upon entrance into the room patient resting in bed. Caregiver at bedside. No acute concerns. Feeling improved. Chest pain resolved. No shortness of breath, palpitations, dizziness, syncope or near syncope. No orthopnea, PND. Lower extremity edema improved. No fever, chills, cough, hematochezia, melena, or hemoptysis. Eager for discharge. Telemetry: SR 50-60s, no further episodes of atrial tach BP: Well controlled. Review of Systems Review of Systems: All systems reviewed & are unremarkable except as noted in HPI & below Physical Exam Constitutional: WD/WN, vitals as above no acute distress Eyes: PERRL, conjunctivae normal, anicteric sclerae ENMT: external ear and nose normal, oropharynx normal Neck: normal visual inspection and trachea midline Respiratory: normal respiratory effort, lungs clear to auscultation Auscultation: + diminished lung sounds Cardiovascular: Rate/Rhythm: regular rate and regular rhythm Heart Sounds: normal S1 and normal S2 Vessels: no JVD Extremities: + edema (BL nonpitting lymphedema) Gastrointestinal (Abdomen): normal bowel sounds, soft, nontender, no hepatosplenomegaly Skin: no rashes, warm and dry Neurologic: PERRL, EOMI, accommodation nl, no face palsy, no dysarthria Psychiatric: A+Ox3, euthymic affect Results & Data Vital Signs (Past 12 Hours) Vital Signs Temp Pulse Pulse Resp BP Pulse Ox O2 Del Method 06/04/24 07:05 36.4 C L 57 L 19 113/75 95 Room Air 06/04/24 03:21 61 20 97 06/04/24 02:41 36.6 C 61 16 115/72 95 Room Air 06/03/24 23:46 36.7 C 55 L 18 101/61 97 CPAP 06/03/24 22:55 60 21 96 06/03/24 22:04 60 O2 Flow Rate 06/04/24 07:05 06/04/24 03:21 1 06/04/24 02:41 06/03/24 23:46 06/03/24 22:55 1 06/03/24 22:04 Laboratory Results Cardiac Enzymes 06/03/24 06/03/24 Range/Units 13:07 19:18 Troponin I High Sens 6.3 6.8 (0-14) pg/ml CBC 06/04/24 Range/Units 06:21 WBC 5.37 (4.8-10.8) K/ul RBC 4.73 (4.20-5.40) M/uL Hgb 13.5 (12.0-16.0) g/dl Hct 41.7 (37.0-47.0) % Plt Count 159 (130-400) K/uL Comprehensive Metabolic Panel 06/04/24 Range/Units 06:21 Sodium 141 (136-145) mmol/L Potassium 3.9 (3.5-5.1) mmol/L Chloride 109 H (98-107) mmol/L Carbon Dioxide 28 (21-32) mmol/L BUN 16 (6-23) mg/dl Creatinine 0.71 (0.6-1.2) mg/dl Glucose 91 (70-99(Fasting)) mg/dl Calcium 8.1 L (8.6-10.3) mg/dl Intake and Output 06/03/24 06/04/24 06/04/24 22:59 06:59 14:59 Intake Total 200 / 525.5 325.5 / 525.5 Balance 200 / 525.5 325.5 / 525.5 Intake: IV 50.5 / 50.5 Promethazine HCl 12.5 mg In 50.5 / 50.5 Sodium Chloride 0.9% 50 ml @ 202 mls/hr IV Q6H PRN Rx#: [id number] Oral 200 / 475 275 / 475 Other: # Unmeasured Voids 1 1 Weight 83 kg Weight Measurement Method Standing Scale (1) Chest pain Chest pain type: unspecified Qualified Code(s): R07.9 - Chest pain, unspecified (6) Hypertension Hypertension type: primary hypertension Qualified Code(s): I10 - Essential (primary) hypertension
[2024-06-04] MEDS: ROSUVASTATIN CALCIUM 20 MG TAB PO SCH (09:33)
[2024-06-04] MEDS: amLODIPine BESYLATE 5 MG TAB PO SCH (09:35)
[2024-06-04] MEDS: PSYLLIUM or GUAR GUM FIBER 4GM PACKET PO SCH (12:06)
--- NOTE | 2024-06-04 12:28 | Discharge Summary ---
Date of Service June 04, 2024 Admission HPI Per Admitting Provider 58-year-old female with past medical history significant for hypothyroidism, hyperlipidemia, primary hyperparathyroidism, severe obstructive sleep apnea on CPAP, difficult airway for intubation, hypertension, aberrant right subclavian artery, irritable bowel syndrome, Rollins's esophagus, osteoporosis, sensorineural hearing loss, glaucoma, cerebral palsy, intellectual disability, bipolar 1 disorder, patient lives in apartments, comes because of chest pain and shortness of breath. Caregiver is in the room. Patient is alert and oriented. Able to give her history. Somewhat hard of hearing. Patient states when she woke up in the morning since then she is having on and off chest pains in the middle of the chest. 7/10 in severity. No radiation. She also feeling short of breath. Currently shortness of breath improved but still has some chest discomfort. Denies any headache. No blurred vision. No runny nose or sore throat. No cough. Appetite is okay. No difficulty swallowing. Was nauseous earlier but okay now. No abdominal pain. Somewhat constipated. Micturating okay. Hemodynamics are okay. In ER she was requiring 2 L oxygen. She was 88% on room air. Past medical history. As mentioned above past surgical history. Right breast biopsy. Colonoscopy. Cystoscopy. EGD. EGD with biopsy. EGD with endoscopic ultrasound. Parathyroidectomy. Hysteroscopy. Laparoscopic cholecystectomy. Sinus surgery. Total abdominal hysterectomy with bilateral salpingo-oophorectomy, omentectomy. Social history. No smoking. Alcohol use . No drug use. Family history. Father had diabetes. Congestive heart failure. Hypertension. Mother had ovarian cancer stage IV. Maternal grandmother had CHF. Admission Exam Per Admitting Provider General- Not in distress. Head- atraumatic Eyes- PERRL. ENT- oropharynx dry Neck- supple, no JVD. Lungs- clear to auscultation b/l mild occasional wheezing, no crackles. Heart- regular rate and rhythm; no murmur, no gallop. Abdomen- normal bowel sounds, soft, nontender, no distension. Extremities- b/l lower extremity edema present, no erythema seen Neuro- alert, oriented ; PERRL, no facial palsy; no dysarthria; moves extremities. Principal Diagnosis Chest pain rule out ACS Likely acid peptic disease Discharge Exam General- Not in distress. Head- atraumatic Eyes- PERRL. ENT- oropharynx moist Neck- supple, no JVD. Lungs- clear to auscultation , no crackles. Heart- regular rate and rhythm; no murmur, no gallop. Abdomen- normal bowel sounds, soft, nontender, no distension. Extremities- b/l lower extremity edema present/trace, no erythema seen Neuro- alert, oriented ; PERRL, no facial palsy; no dysarthria; moves extremities. Discharge Data Allergies Allergy/AdvReac Type Severity Reaction Status Date / Time tramadol Allergy Severe SEVERE Verified 12/18/23 10:45 MOOD FLUCTUATIONS bee venom protein (honey bee) Allergy Intermediate localized Verified 12/18/23 10:45 swelling pollen extracts Allergy Intermediate ITCHY Verified 12/18/23 10:45 EYES, SNEEZING, CONGESTION clonazepam [From Klonopin] Allergy Mild increase Verified 12/18/23 10:45 in anxiety/agitation lactose Allergy Mild Gastrointestinal Verified 12/18/23 10:45 Upset Consultations 06/03/24 01:27 ED Decision to Admit Stat 06/03/24 08:00 Consult Cardiology Routine Ordered Studies 06/02/24 20:34 CT angio chest PE protocol Stat Hospital Course (1) Chest pain: Plan 58-year-old lady with PMH of hypothyroidism, HLD, primary hyperparathyroidism, severe CELESTINA on CPAP, difficult airway for intubation, HTN, aberrant right subclavian artery, irritable bowel syndrome, Rollins's esophagus, osteoporosis, sensorineural hearing loss, glaucoma, cerebral palsy, intellectual disability, bipolar 1 disorder comes to ED 06/02 with complaint of chest pain and shortness of breath. Patient reported she started having chest pain after she woke up since the morning of the arrival day, on and off, in the middle of the chest, associated with some shortness of breath. Denies any radiation of the pain. Patient was also nauseous but no vomiting. Denies pain or burning with passing urine. Uses CPAP machine during sleep, was needing 2 L oxygen at presentation/88% on room air. She was managed for the following: Hypoxia Chest pain rule out ACS Likely acid peptic disease Patient coming in with chest pain and shortness of breath, more of explained it as chest discomfort associated with nausea. Patient noted to be 88% on room air at presentation. Troponin x 3 negative, EKG without acute ST or T changes. Echo with EF of 50 to 55%, grade 1 diastolic dysfunction, moderate concentric LVH, septal motion consistent with conduction abnormality, no regional wall motion abnormalities of LV noted. Admitting CTA chest and CXR with no acute finding. Of note patient has history of Rollins's esophagus. Cardiology evaluated, baby aspirin daily, outpatient nuclear stress test Increase dose of PPI to twice a day and Tums as needed, monitor for clinical response. Advised pt to take kcl supplement w/ adequate water, stay upright for half hr after tablet intake. Pt's caregiver at bedside. Nebs prn. Other chronic medical conditions: Continue with/resume home meds as and when able Hypertension: Continue home metoprolol, lisinopril, Lasix. Amlodipine dose has been reduced, Aldactone has been added. CELESTINA: Continue with CPAP at this Hyperlipidemia: Continue home statin Hypothyroidism: Continue home Synthroid Bipolar 1 disorder/depression: Continue home aripiprazole, Lexapro and trazodone Rollins's esophagus: Continue home sucralfate and omeprazole Cerebral palsy/intellectual disability Glaucoma: Continue home eyedrops DVT prophylaxis: SCDs Med telemetry Full code PT/OT, CM to assist with DC planning Patient is being discharged to long-term skilled nursing with following instruction at the point of discharge: Follow-up with your primary care physician within a week time and likely you will need labs CBC/CMP/magnesium/phosphorus. Your blood pressure medication has been optimized, take medications as prescribed. Follow-up with cardiology in 2 to 4 weeks time upon discharge, you will likely need evaluation for outpatient nuclear stress test. You omeprazole has been increased to twice a day and take Tums as needed for concern of acid peptic disease. As advised at the bedside, stay upright after taking potassium supplement for about half an hour. Take potassium tablet with at least 8 ounces of water. Take your medications as prescribed. Please make sure that you are able to get your medications today by calling your pharmacy before you leave the hospital so that your treatment continuity is not broken. Home Health Attestation I certify that this patient is under my care and that I, or a physicians insurance sales assistant working with me, had a face to-face encounter that meets the home health [id number] encounter requirements with this patient. The encounter with the patient was in whole, or in part, for the following medical condition, which is the primary reason for home health care (list medical condition): I certify that, based on my findings, the following services are medically necessary home health services: My clinical findings support the need for the above services because: Further, I certify that my clinical findings support that this patient is homebound (i.e. absences from home require considerable and taxing effort and are for medical reasons or yazidism services or infrequently or of short duration when for other reasons) because: Certification for Home Health Services: Based on the above findings, I certify that this patient is confined to the home and needs intermittent long-term care, physical therapy and/or speech therapy or continues to need occupational therapy. The patient is under my care, and I have initiated the establishment of the plan of care. This patient will be followed by a physician who will periodically review the plan of care. Total Time Total Time Spent Total Time Spent (In Minutes): 45 Discharge Plan Discharge Items Patient Disposition: Personal Assisted Reason For Visit: CHEST PAIN AND SOB, HYPOXIA Discharge Diagnosis: Chest pain rule out ACS Likely acid peptic disease Activity: Resume your previous activity Non-emergency contact: Primary Care Provider Call non-emergency contact if: you have any medication questions Follow-up/Referrals: Vianney Cruz MD [Primary Care Provider] - (Date & Time 06/09/2024 10:20 AM Provider Lucinda Calhoun MD Department General Internal Medicine [facility] ) Diet: Heart Healthy and Lactose Intolerant Addtl Attending Provider Instructions: Follow-up with your primary care physician within a week time and likely you will need labs CBC/CMP/magnesium/phosphorus. Your blood pressure medication has been optimized, take medications as prescribed. Follow-up with cardiology in 2 to 4 weeks time upon discharge, you will likely need evaluation for outpatient nuclear stress test. You omeprazole has been increased to twice a day and take Tums as needed for concern of acid peptic disease. As advised at the bedside, stay upright after taking potassium supplement for about half an hour. Take potassium tablet with at least 8 ounces of water. Take your medications as prescribed. Please make sure that you are able to get your medications today by calling your pharmacy before you leave the hospital so that your treatment continuity is not broken. Pending Studies at Discharge: Yes Stand-Alone Forms: My [employer], Smoking Cessation Skilled Items Patient informed of condition?: Yes DNR: No Discharge Level of Care: Other Communicable Disease: No Discharge Prognosis: Stable Lines: None Urinary Catheter: No Medications and DC Order Prescriptions: New amlodipine [Norvasc] 5 mg Tablet 5 mg PO DAILY Qty: 30 0RF rosuvastatin 20 mg Tablet 20 mg PO DAILY Qty: 30 0RF nitroglycerin [Nitrostat] 0.4 mg Tablet, Sublingual 0.4 mg sublingual UD PRN (Reason: chest pain) Qty: 20 0RF spironolactone 25 mg Tablet 12.5 mg PO DAILY Qty: 15 0RF aspirin 81 mg Tablet,Delayed Release (Dr/Ec) 81 mg PO QAM Qty: 30 0RF Continued potassium chloride 10 mEq capsule, extended release 10 meq PO DAILY dextromethorphan polistirex [Delsym 12 hour] 30 mg/5 mL Suspension,Extended Rel 12 Hr 10 ml PO Q12H PRN (Reason: Cough) acetaminophen [Tylenol] 325 mg Tablet 650 mg PO Q6H PRN (Reason: FEVER/HEADACHE/MINOR ACHES AND PAINS) trazodone 50 mg tablet 50 mg PO HS metoprolol succinate 50 mg tablet extended release 24 hr 50 mg PO DAILY gabapentin 400 mg capsule 400 mg PO TID levothyroxine 50 mcg tablet 50 mcg PO DAILY fluticasone propionate 50 mcg/actuation spray,suspension 2 spray Intranasal DAILY escitalopram oxalate 20 mg tablet 20 mg PO DAILY vits A and D-white pet-lanolin [A and D (lanolin-petrolatum)] Ointment 1 applic TOPICAL BID PRN (Reason: Unknown) bimatoprost 0.01 % drops 1 drp OPB HS sucralfate [Carafate] 1 gram Tablet 1 g PO TID Rx Instructions: TAKE BEFORE BREAKFAST,DINNER AND BEDTIME magnesium hydroxide [Milk of Magnesia] 400 mg/5 mL Suspension 30 ml PO .EVERY 3RD DAY PRN (Reason: NO BM) lactase [Lactaid] 3,000 unit Tablet 3,000 unit PO UD PRN (Reason: PRIOR TO DAIRY) furosemide [Lasix] 20 mg Tablet 20 mg PO DAILY ondansetron 4 mg Tablet,Disintegrating 4 mg PO Q8 PRN (Reason: Nausea) carboxymethylcellulose sodium [Refresh Liquigel] 1 % Drops, Liquid Gel 1 drp OPHTHALMIC (EYE) TID Turon Saline 0.65 % Aerosol,Cornelius 1 spray INTRANASAL HS Simbrinza 1-0.2 % drops,suspension 1 drp OPB TID aripiprazole 5 mg tablet 5 mg PO QPM lisinopril 40 mg tablet 40 mg PO DAILY multivitamin [Daily-Scott] Tablet 1 tab PO DAILY cholecalciferol (vitamin D3) [Vitamin D3] 50 mcg (2,000 unit) Tablet 50 mcg PO DAILY loperamide 2 mg capsule 2 mg PO QID PRN (Reason: Diarrhea) calcium carbonate [Calcium Antacid] 200 mg calcium (500 mg) Tablet,Chewable 200 mg PO BID PRN (Reason: UPSET STOMACH/INDIGESTION) polyethylene glycol 3350 [Miralax] 17 gram/dose Powder 17 g PO DAILY PRN (Reason: NO BM FOR 2 DAYS) simethicone 80 mg Tablet,Chewable 80 mg PO Q6 PRN (Reason: .GAS) Changed omeprazole 40 mg capsule,delayed release(DR/EC) 40 mg PO BID Qty: 60 0RF Held docusate sodium 100 mg Capsule 100 mg PO AMHS Hold Instructions: Resume on 06/11/24. Hold until further eval by PCP as you have freq loose stools. Discontinued amlodipine 10 mg tablet 10 mg PO DAILY rosuvastatin 10 mg tablet 10 mg PO DAILY Discharge Orders: Discharge Order (Routine); Ordered 06/04/24 Ordered By: Magdi Salazar Admission Data Admit Date/Time: 06/03/24 04:12 Attending Provider: Magdi Salazar Admit Provider: Dennis Villarreal Primary Care Provider: Vianney Cruz Other Providers: Dennis Villarreal; Jerson Sharp
--- NOTE | 2024-06-04 13:35 | Electrocardiogram Report ---
Test Reason : Blood Pressure : / mmHG Vent. Rate : 054 BPM Atrial Rate : 054 BPM P-R Int : 164 ms QRS Dur : 124 ms QT Int : 512 ms P-R-T Axes : 062 092 022 degrees QTc Int : 485 ms Sinus bradycardia Rightward axis Non-specific intra-ventricular conduction delay Abnormal ECG When compared with ECG of 02-JUN-2024 18:17, No significant change was found Confirmed by Yaya House ([id number] on 06/04/2024 1:35:24 PM Referred By: REFERRED SELF Confirmed By:[facility]
== END 2024-06-04 17:08 | disposition home or self-care (01) | DRG 392 ==
LOC: ED 18:10 → EDINP 06-03 04:12 → SUATTDRO 06-03 04:12 → 2E 06-03 06:16